=== PATIENT | male | born 1950 | race Caucasian/White ===

== ENCOUNTER 2021-05-07 12:27 | Inpatient (IN) | payer OTHER ==
[2021-05-07] MEDS ORDERED: NA CHLORIDE 0.9% 1,000 ML ONE (13:39)
[2021-05-07 13:44] LABS: Absolute Lymphocytes (CBC) 1.7 K/uL (0.7-4.9); Basophils % 0.4 % (0-1.3); Hematocrit 25.3 % (39.6-49.0); Lymphocytes % 32.9 % (15.3-44.8); MPV 8.4 fL (7.6-11.3); RBC Red Blood Cell Count 2.71 M/uL (4.33-5.43)
[2021-05-07 14:06] LABS: AST/SGOT 16 U/L (15-37); Albumin 3.6 g/dL (3.4-5.0); Alkaline Phosphatase 94 U/L (45-117); BUN Blood Urea Nitrogen 27 mg/dL (7-18); Bicarbonate 31 mmol/L (21-32); Bilirubin Direct < 0.1 mg/dL (0-0.2); Bilirubin Total 0.2 mg/dL (0.2-1.0); Glucose Level 330 mg/dL (74-106); Potassium 4.3 mmol/L (3.5-5.1); Protein, Total 6.9 g/dL (6.4-8.2); Sodium Level 146 mmol/L (136-145)
[2021-05-07 14:38] LABS: ALT/SGPT 24 U/L (12-78)
--- NOTE | 2021-05-07 15:04 | ER ---
Nurse's Notes [facility] Name: Leonides Bui Age: 71 yrs Sex: Male : 1950 Arrival Date: 05/07/2021 Time: 12:27 Bed 8 Private MD: Diagnosis: Diabetes mellitus due to underlying condition with hyperglycemia-with possible overdose of Medication Presentation: 05/07 12:56 Chief complaint: Parent and/or Guardian states: Patient's mother states, "He got ss confused and took this whole bottle of medication that he picked up yesterday thinking it was his daily medication. Dr. Chaves just prescribed it yesterday." Medication is Memantine 5 mg oral tablets # 30. Pt states he feels okay other than being a little groggy and off balance. Coronavirus screen: Client denies travel out of the [place] in the last 14 days. Ebola Screen: Patient denies exposure to infectious person. Patient denies travel to an Ebola-affected area in the 21 days before illness onset. Initial Sepsis Screen: Does the patient meet any 2 criteria? No. Patient's initial sepsis screen is negative. Does the patient have a suspected source of infection? No. Patient's initial sepsis screen is negative. Risk Assessment: Do you want to hurt yourself or someone else? Patient reports no desire to harm self or others. Onset of symptoms was May 07, 2021. 12:56 Method Of Arrival: Ambulatory ss 12:56 Acuity: ADRIANA 3 ss Historical: - Allergies: 12:54 No Known Allergies; ss - PMHx: 12:54 "Back problems"; Memory problems; Diabetes mellitus; ss - PSHx: 12:54 spinal fusion; ss - Immunization history:: Client reports having NOT received the Covid vaccine. - Social history:: Smoking status: Patient denies any tobacco usage or history of. Patient/guardian denies using alcohol, street drugs, The patient lives with family. - Family history:: not pertinent. Screenin:35 Abuse screen: No signs of abuse. Nutritional screening: No deficits noted. Tuberculosis aa5 screening: No symptoms or risk factors identified. Fall Risk Secondary diagnosis (15 points) dementia, IV access (20 points). Mental Status- Overestimates/Forgets Limitations (15 pts.). Total Delgado Fall Scale indicates High Risk Score (45 or more points). Fall prevention measures have been instituted. Side Rails Up X 2 Placed Close to Nursing Station. Assessment: 13:02 Reassessment: Poison control case # [id number] recommends to obtain basic lab work, EKG ss and to give supportive care. Monitor and observe patient until he is at baseline. Some drowsiness is to be expected. 13:10 General: Appears comfortable, Behavior is calm, cooperative. Pain: Denies pain. 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 Speech is normal, Facial symmetry appears normal, Reports feeling dizzy when getting up from sitting or lying position. . Cardiovascular: Heart tones S1 S2 present Rhythm is sinus rhythm. Respiratory: Airway is patent Respiratory effort is even, unlabored, Respiratory pattern is regular, symmetrical. GI: Abdomen is flat, non-distended, Bowel sounds present X 4 quads. Abd is soft and non tender X 4 quads. Patient currently denies nausea, vomiting. : No signs and/or symptoms were reported regarding the genitourinary system. EENT: No signs and/or symptoms were reported regarding the EENT system. Derm: Skin is pink, warm \\T\\ dry. Musculoskeletal: Range of motion: intact in all extremities. 13:40 Neuro: Level of Consciousness is awake, obeys commands, confused, Oriented to person, aa5 place. Respiratory: Airway is patent Respiratory effort is even, unlabored, Respiratory pattern is regular, symmetrical. Derm: Skin is pink, warm \\T\\ dry. 14:27 Reassessment: Pt resting in bed with eyes closed, respirations even and unlabored, skin aa5 is pink/warm/dry. pt easy to arouse to verbal stimuli. . 16:30 Neuro: Level of Consciousness is awake, obeys commands, confused, Oriented to person, aa5 place. Cardiovascular: Rhythm is sinus rhythm. Respiratory: Airway is patent Respiratory effort is even, unlabored, Respiratory pattern is regular, symmetrical. Derm: Skin is pink, warm \\T\\ dry. 16:30 Reassessment: Dr. Samaniego (hospitalist) at bedside. aa5 17:00 Reassessment: Pt's mother contact is [phone] (Cherry Pyeatt). aa5 17:30 Neuro: Level of Consciousness is awake, obeys commands, confused, Oriented to person, aa5 place. Respiratory: Airway is patent Respiratory effort is even, unlabored, Respiratory pattern is regular, symmetrical. Derm: Skin is pink, warm \\T\\ dry. 17:30 Reassessment: Pt sitting up in bed watching TV.. aa5 18:15 Reassessment: Pt given dinner tray. . aa5 18:50 Neuro: Level of Consciousness is awake, obeys commands, confused, Oriented to person, aa5 place. Respiratory: Airway is patent Respiratory effort is even, unlabored, Respiratory pattern is regular, symmetrical. Derm: Skin is pink, warm \\T\\ dry. Vital Signs: 12:54 BP 166 / 77; Pulse 63; Resp 16; Temp 97.8(TE); Pulse Ox 100% on R/A; Weight 68.04 kg; ss Pain 0/10; 13:35 BP 181 / 97; Pulse 62; Resp 16 S; Pulse Ox 98% on R/A; aa5 14:26 BP 172 / 82; Pulse 66; Resp 16 S; Pulse Ox 97% on R/A; aa5 15:55 BP 178 / 91; Pulse 73; Resp 16 S; Pulse Ox 97% on R/A; aa5 18:00 BP 158 / 64; Pulse 72; Resp 18 S; Temp 98.0(TE); Pulse Ox 99% on R/A; aa5 ED Course: 12:27 Patient arrived in ED. mr 12:54 Arm band placed on left wrist. ss 13:01 Triage completed. ss 13:07 Juliana Nugent MD is Attending Physician. ma2 13:10 Patient has correct armband on for positive identification. Placed in gown. Bed in low aa5 position. Call light in reach. Side rails up X2. 13:13 Naa Greene, ANGEL is Primary Nurse. aa5 13:30 Initial lab(s) drawn, by me, sent to lab. Inserted saline lock: 20 gauge in right upper aa5 arm, using aseptic technique. Blood collected. 15:03 Mike Samaniego MD is Hospitalizing Provider. ma2 15:05 UDS sent to lab. aa5 19:13 Primary Nurse role handed off by Naa Greene, RN aa5 19:14 No provider procedures requiring assistance completed. Patient admitted, IV remains in aa5 place. Administered Medications: 13:40 Drug: NS 0.9% 1000 ml Route: IV; Rate: 1 bolus; Site: right upper arm; aa5 15:00 Follow up: IV Status: Completed infusion; IV Intake: 1000ml aa5 Intake: 15:00 IV: 1000ml; Total: 1000ml. aa5 Output: 15:05 Urine: 400ml (Voided); Total: 400ml. aa5 18:15 Urine: 600ml (Voided); Total: 1000ml. aa5 18:50 Urine: 500ml (Voided); Total: 1500ml. aa5 Outcome: 15:03 Decision to Hospitalize by Provider. ma2 19:13 Admitted to Tele accompanied by tech, via wheelchair, with chart, Report called to dino Mahoney RN 19:13 Condition: stable 19:13 Instructed on the need for admit, Demonstrated understanding of instructions. 19:59 Patient left the ED. tt3 Signatures: Nahomy Llamas Audri RN ANGEL [place] [employer] [facility] Rosalind Hill RN RN ss Alzahri, Mohammad, MD MD ma2 Festus Montanez tt3 Corrections: (The following items were deleted from the chart) 17:02 16:30 Reassessment: Dr. Samaniego at bedside. [place] [employer] [facility] aa5 19:14 19:13 Patient left the ED. aa5 aa5
--- NOTE | 2021-05-07 15:04 | EDPHYS ---
Physician Documentation [facility] Name: Leonides Bui Age: 71 yrs Sex: Male : 1950 Arrival Date: 05/07/2021 Time: 12:27 Bed 8 Private MD: ED Physician Juliana Nugent HPI: 05/07 13:23 This 71 yrs old Male presents to ER via Ambulatory with complaints of ma2 Possible Overdose, Took 30 Memantine hcl 5mg. 13:23 Associated signs and symptoms: Pertinent negatives: apnea, burning of skin, ma2 diaphoresis, dizziness, incontinence, tearfulness, visual hallucinations. Severity of symptoms: At their worst the symptoms were moderate in the emergency department the symptoms are unchanged. The patient has not experienced similar symptoms in the past. Historical: - Allergies: 12:54 No Known Allergies; ss - PMHx: 12:54 "Back problems"; Memory problems; Diabetes mellitus; ss - PSHx: 12:54 spinal fusion; ss - Immunization history:: Client reports having NOT received the Covid vaccine. - Social history:: Smoking status: Patient denies any tobacco usage or history of. Patient/guardian denies using alcohol, street drugs, The patient lives with family. - Family history:: not pertinent. ROS: 13:23 Constitutional: Negative for fever, chills, and weight loss. ma2 13:23 All other systems are negative. Exam: 13:23 Constitutional: This is a well developed, well nourished patient who is awake, alert, ma2 and in no acute distress. Head/Face: Normocephalic, atraumatic. Eyes: Pupils equal round and reactive to light, extra-ocular motions intact. Lids and lashes normal. Conjunctiva and sclera are non-icteric and not injected. Cornea within normal limits. Periorbital areas with no swelling, redness, or edema. ENT: Nares patent. No nasal discharge, no septal abnormalities noted. Tympanic membranes are normal and external auditory canals are clear. Oropharynx with no redness, swelling, or masses, exudates, or evidence of obstruction, uvula midline. Mucous membranes moist. Neck: Trachea midline, no thyromegaly or masses palpated, and no cervical lymphadenopathy. Supple, full range of motion without nuchal rigidity, or vertebral point tenderness. No Meningismus. Chest/axilla: Normal chest wall appearance and motion. Nontender with no deformity. No lesions are appreciated. Cardiovascular: Regular rate and rhythm with a normal S1 and S2. No gallops, murmurs, or rubs. Normal PMI, no JVD. No pulse deficits. Respiratory: Lungs have equal breath sounds bilaterally, clear to auscultation and percussion. No rales, rhonchi or wheezes noted. No increased work of breathing, no retractions or nasal flaring. Abdomen/GI: Soft, non-tender, with normal bowel sounds. No distension or tympany. No guarding or rebound. No evidence of tenderness throughout. Back: No spinal tenderness. No costovertebral tenderness. Full range of motion. Skin: Warm, dry with normal turgor. Normal color with no rashes, no lesions, and no evidence of cellulitis. MS/ Extremity: Pulses equal, no cyanosis. Neurovascular intact. Full, normal range of motion. Neuro: Awake and alert, GCS 15, oriented to person, place, time, and situation. Cranial nerves II-XII grossly intact. Motor strength 5/5 in all extremities. Sensory grossly intact. Cerebellar exam normal. Normal gait. Vital Signs: 12:54 BP 166 / 77; Pulse 63; Resp 16; Temp 97.8(TE); Pulse Ox 100% on R/A; Weight 68.04 kg; ss Pain 0/10; 13:35 BP 181 / 97; Pulse 62; Resp 16 S; Pulse Ox 98% on R/A; aa5 14:26 BP 172 / 82; Pulse 66; Resp 16 S; Pulse Ox 97% on R/A; aa5 15:55 BP 178 / 91; Pulse 73; Resp 16 S; Pulse Ox 97% on R/A; aa5 18:00 BP 158 / 64; Pulse 72; Resp 18 S; Temp 98.0(TE); Pulse Ox 99% on R/A; aa5 MDM: 13:07 Patient medically screened. va2 13:23 Differential diagnosis: polypharmacy, over medication, hypoglycemia. va2 15:00 Data reviewed: vital signs, nurses notes. Counseling: I had a detailed discussion with ma2 the patient and/or guardian regarding: the historical points, exam findings, and any diagnostic results supporting the discharge/admit diagnosis, the presence of at least one elevated blood pressure reading (>120/80) during this emergency department visit, the need for outpatient follow up. Response to treatment: the patient's symptoms have markedly improved after treatment. 05/07 13:07 Order name: Acetaminophen [facility] 05/07 13:07 Order name: Basic Metabolic Panel [facility] 05/07 13:07 Order name: CBC with Diff; Complete Time: 13:49 [facility] 05/07 13:07 Order name: ETOH Level; Complete Time: 14:28 [facility] 05/07 13:07 Order name: Hepatic Function; Complete Time: 14:58 [facility] 05/07 13:07 Order name: PT-INR; Complete Time: 14:00 [facility] 05/07 13:07 Order name: Ptt, Activated; Complete Time: 14:00 [facility] 05/07 13:07 Order name: Salicylate; Complete Time: 14:58 [facility] 05/07 13:07 Order name: Urine Drug Screen; Complete Time: 18:30 [facility] 05/07 13:07 Order name: Acetaminophen Level; Complete Time: 14:58 [facility] 05/07 13:07 Order name: Basic Metabolic Panel; Complete Time: 14:58 [facility] 05/07 15:13 Order name: Urine Dipstick-Ancillary; Complete Time: 18:30 [facility] 05/07 16:40 Order name: Hemoglobin A1c [facility] 05/07 16:40 Order name: Hemoglobin A1c [facility] 05/07 13:07 Order name: EKG; Complete Time: 13:08 [facility] 05/07 13:07 Order name: EKG - Nurse/Tech; Complete Time: 13:31 [facility] 05/07 13:07 Order name: IV Saline Lock; Complete Time: 13:31 [facility] 05/07 13:07 Order name: Labs collected and sent; Complete Time: 13:31 [facility] 05/07 13:07 Order name: Urine Dipstick-Ancillary (obtain specimen); Complete Time: 15:15 [facility] 05/07 16:38 Order name: 60g Consistent Carbohydrate (ADA 1800/2000) [facility] 05/07 17:30 Order name: COVID-19 (Coronavirus) Document "Date of Onset" if Symptomatic ss 05/07 18:09 Order name: CORONAVIRUS [facility] 05/07 18:49 Order name: SARS-COV-2 RT PCR EDMS Administered Medications: 13:40 Drug: NS 0.9% 1000 ml Route: IV; Rate: 1 bolus; Site: right upper arm; aa5 15:00 Follow up: IV Status: Completed infusion; IV Intake: 1000ml aa Disposition Summary: 05/07/21 15:03 Hospitalization Ordered Hospitalization Status: Observation ma2 Provider: Mike Samaniego ma Location: Telemetry/MedSurg (observation) ma2 Condition: Stable ma2 Problem: new ma2 Symptoms: are unchanged ma2 Bed/Room Type: Standard [facility] Room Assignment: 211(05/07/21 18:21) bd Diagnosis - Diabetes mellitus due to underlying condition with hyperglycemia - with possible ma2 overdose of Medication Forms: - Medication Reconciliation Form ma2 - SBAR form va2 Signatures: Dispatcher [employer] EDMS Ellie Li Audri RN RN aa5 Rosalind Hill RN RN ss Wilfrido Haddad, NATANAEL PA cp Juliana Nugent MD MD va2 Corrections: (The following items were deleted from the chart) 13:13 13:07 Suicide Screening ([place]) ordered. [facility] aa5 18:21 15:03 ma2 bd
[2021-05-07 15:13] LABS: Urine Blood Negative (Negative); Urine Glucose 2+ (Negative); Urine Protein Negative (Negative); Urine pH 7.5 (5.0-7.0)
[2021-05-07 15:46] LABS: Barbiturates NEGATIVE (NEGATIVE); Benzodiazepines NEGATIVE (NEGATIVE); Cocaine NEGATIVE (NEGATIVE); METHAMPHETAM NEGATIVE (NEGATIVE); Methadone NEGATIVE (NEGATIVE); Opiates NEGATIVE (NEGATIVE); Phencyclidine NEGATIVE (NEGATIVE); THC Cannibis NEGATIVE (NEGATIVE)
--- NOTE | 2021-05-07 16:40 | P.HP ---
Certification for Inpatient Patient admitted to: Observation With expected LOS: <2 Midnights Practitioner: I am a practitioner with admitting privileges, knowledge of patient current condition, hospital course, and medical plan of care. Services: Services provided to patient in accordance with Admission requirements found in Title 42 Section 412.3 of the Code of Federal Regulations Patient History Date of Service: 05/07/21 Reason for admission: Overdose - memantine History of Present Illness: 71-year-old male, PMH: HTN, NIDDM 2, dementia/memory issues Was brought in to the ER due to concern for overdose. Patient allegedly took 30 pills of 5 mg of memantine at some point in the last 16 hours. Patient was just prescribed this medication yesterday. He lives next door, has parents. His mother states he has some memory issues and gets confused with his medications, so she helps him with this. She is unsure when he took the medication, fell once last night/overnight/early this morning. When she checked on the patient this morning, she noted he was having a very unsteady gait, was having to lean against the wall and almost falling over. In the ED, lab work seems to be in his baseline, EKG without any ischemic changes, no QT prolongation. He was noted to be hypertensive to 180/100 and hyperglycemic to 300s. Patient's mother states he did not take his antihyper tensives are diabetes medications this morning. ED physician would like to bring the patient in for observation overnight. Poison control was contacted, recommended observation until patient returns to his baseline. Home medications list reviewed: No - Past Medical/Surgical History -: Hypertension -: Diabetes mellitus type 2, [id number] -: Dementia/memory issues -: spine fusion - Family History Family History: Reviewed- Non-Contributory - Social History Smoking Status: Former smoker (quite few decades ago) Alcohol use: No CD- Drugs: No Place of Residence: Home Review of Systems 10-point ROS is otherwise unremarkable Physical Examination - Physical Exam General: Alert, In no apparent distress, Oriented x3 HEENT: Mucous membr. moist/pink, Sclerae nonicteric Respiratory: Clear to auscultation bilaterally Cardiovascular: No edema, Regular rate/rhythm Capillary refill: <2 Seconds Gastrointestinal: Soft and benign, Non-distended, No tenderness Musculoskeletal: No erythema, No tenderness Integumentary: No rashes, No significant lesion Neurological: Normal speech, Normal strength at 5/5 x4 extr, Cranial nerves 3-12 intact, Normal affect - Studies Laboratory Data (last 24 hrs) 05/07/21 13:30: PT 11.5, INR 1.00, APTT 32.1 05/07/21 13:30: WBC 5.10, Hgb 8.3 L, Hct 25.3 L, Plt Count 207 05/07/21 13:30: Sodium 146 H, Potassium 4.3, BUN 27 H, Creatinine 1.67 H, Glucose 330 H, Total Bilirubin 0.2, AST 16, ALT 24, Alkaline Phosphatase 94 Assessment and Plan - Advance Directives Does patient have a Living Will: No Does patient have a Durable POA for Healthcare: No Physician Review Additional Text: Problem List overdose - memantine Dementia / memory issues Hypertension DM2, non-insulin dependent -patient was confused, unclear when exactly he took the medication -mom states sometime between yesterday evening and this morning, patient thinks he took last night -noted to be hypertensive in ED, hyperglycemic as well -mom reports patient didn't take medications this morning -We will observe patient overnight on telemetry -Restart patient's antihypertensive medication, nifedipine 60 mg daily -Accu-Cheks, sliding scale insulin, need to confirm home dosing, will reports he takes Metformin and pioglitazone -very unsteady gait reported at home, patient has not gotten out of stretcher yet -consult PT VTE: lovenox Code: full Dispo: Anticipate DC home tomorrow Time Spent Managing Pts Care (In Minutes): 60
[2021-05-07] MEDS: NIFEDIPINE XL 60 MG TABLET PO SCH (17:00)
[2021-05-07] MEDS ORDERED: ONDANSETRON 4 MG/2 ML VIAL IV PRN (20:07)
[2021-05-07] MEDS: INSULIN -REGULAR HUMAN 50 UNIT/0.5 ML ML SQ SCH (21:19)
[2021-05-07] MEDS: NA CHLORIDE 0.9% 1,000 ML IV SCH (21:20)
[2021-05-07 23:33] VITALS: BMI 26.5
[2021-05-08 05:32] LABS: Absolute Lymphocytes (CBC) 1.7 K/uL (0.7-4.9); Basophils % 0.3 % (0-1.3); Hematocrit 25.6 % (39.6-49.0); Lymphocytes % 25.8 % (15.3-44.8); MPV 8.1 fL (7.6-11.3); RBC Red Blood Cell Count 2.76 M/uL (4.33-5.43)
[2021-05-08 05:48] LABS: Albumin 3.3 g/dL (3.4-5.0); Bilirubin Total 0.3 mg/dL (0.2-1.0); Magnesium 2.2 mg/dL (1.8-2.4); Potassium 3.8 mmol/L (3.5-5.1); Protein, Total 6.4 g/dL (6.4-8.2)
[2021-05-08] MEDS: INSULIN -REGULAR HUMAN 50 UNIT/0.5 ML ML SQ SCH ×4 (07:30→21:00)
[2021-05-08] MEDS ORDERED: PNEUMOCOCCAL VACCINE 0.5 ML IMVAC ONE (08:00)
[2021-05-08] MEDS: NIFEDIPINE XL 60 MG TABLET PO SCH (08:21)
[2021-05-08] MEDS: ENOXAPARIN 40 MG/0.4 ML SQ SCH (08:22)
[2021-05-08] MEDS: NA CHLORIDE 0.9% 1,000 ML IV SCH (08:22)
--- NOTE | 2021-05-08 12:13 | P.PN ---
Date of Service: 05/08/21 Subjective: No acute events overnight Patient reports feeling a little bit more dizzy this morning, unsteady on his feet still No new complaints Tolerating diet, no nausea/vomiting, no diarrhea, afebrile No events noted on telemetry ROS: 10 point ROS as noted above, otherwise negative Physical exam GEN: Alert, orientedx3, NAD HEENT: Normal conjunctiva, sclera anicteric CV: Regular rate and rhythm, no edema Pulm: Nonlabored respiration on room air ABD: Soft, nontender, nondistended MSK: No joint tenderness Integumentary: No rashes Neuro: Normal speech, normal affect, slight confusion/memory impairment, unsteady gait Problem List overdose - memantine Dementia / memory issues Hypertension DM2, non-insulin dependent -patient was confused, unclear when exactly he took the medication -noted to be hypertensive in ED, hyperglycemic as well, mom reports patient didn't take medications that morning morning -No acute events on telemetry overnight, continue to monitor -Evaluated by physical therapy, patient remains very unsteady, requiring supervision at this time and a walker at minimum -Discussed with patient and family, patient is too unsteady, high risk for fall at this time, did not have proper support for patient -Continue home nifedipine 60 mg daily -Accu-Cheks, sliding scale insulin, need to confirm home dosing, reports he takes Metformin and pioglitazone -continue PT VTE: lovenox Code: full Dispo: Anticipate DC home tomorrow after improvement of his gait Discussed with family, will have a walker, will look for somebody to help supervise patient tomorrow if he is discharged. Time Spent Managing Pts Care (In Minutes): 35
[2021-05-08 21:18] VITALS: O2SAT 98
[2021-05-08] MEDS ORDERED: HALOPERIDOL LACT 5 MG/ML INJ IV PRN (23:58)
[2021-05-09 05:43] LABS: Hematocrit 24.9 % (39.6-49.0); MPV 8.2 fL (7.6-11.3); RBC Red Blood Cell Count 2.68 M/uL (4.33-5.43)
[2021-05-09 05:54] LABS: Potassium 3.8 mmol/L (3.5-5.1)
[2021-05-09] MEDS: INSULIN -REGULAR HUMAN 50 UNIT/0.5 ML ML SQ SCH ×2 (08:27→11:30)
[2021-05-09] MEDS: NIFEDIPINE XL 60 MG TABLET PO SCH (08:28)
[2021-05-09] MEDS: ENOXAPARIN 40 MG/0.4 ML SQ SCH (08:28)
[2021-05-09 08:29] VITALS: BP 152/72
[2021-05-09 10:03] VITALS: TEMP 97.3
--- NOTE | 2021-05-09 16:12 | P.DS ---
Admission Date: 05/08/21 Discharge Date: 05/09/21 Disposition: ROUTINE DISCHARGE Discharge Condition: GOOD Reason for Admission: Overdose - memantine Procedures: Problem List overdose - memantine with unsteady gait Dementia / memory issues Hypertension DM2, non-insulin dependent Brief History of Present Illness: 71-year-old male, PMH: HTN, NIDDM 2, dementia/memory issues Was brought in to the ER due to concern for overdose. Patient allegedly took 30 pills of 5 mg of memantine at some point in the last 16 hours. Patient was just prescribed this medication yesterday. He lives next door, has parents. His mother states he has some memory issues and gets confused with his medications, so she helps him with this. She is unsure when he took the medication, fell once last night/overnight/early this morning. When she checked on the patient this morning, she noted he was having a very unsteady gait, was having to lean against the wall and almost falling over. In the ED, lab work seems to be in his baseline, EKG without any ischemic changes, no QT prolongation. He was noted to be hypertensive to 180/100 and hyperglycemic to 300s. Patient's mother states he did not take his antihypertensives are diabetes medications this morning. ED physician would like to bring the patient in for observation overnight. Poison control was contacted, recommended observation until patient returns to his baseline. Hospital Course: Patient was monitored on telemetry, he was restarted on his home dose of nifedipine. He had improvement of his hypertension, and his hyperglycemia. He was noted to have some unsteadiness of his gait. He was evaluated by physical therapy and determined to be too unsteady/unsafe to be discharged home. He was monitored an additional day, and had improvement of his gait as the medication wore off. He was deemed stable for discharge home. Discussed with his mother, who will keep a closer eye on patient's medications. They plan on having a family friend stay with the patient for the next 1-2 days. Discussed with his neurologist, patient can restart memantine 5 mg daily in 5 days. Follow-up with neurology as previously scheduled. Vital Signs/Physical Exam: Physical exam GEN: Alert, orientedx3, NAD HEENT: Normal conjunctiva, sclera anicteric CV: Regular rate and rhythm, no edema Pulm: Nonlabored respiration on room air ABD: Soft, nontender, nondistended MSK: No joint tenderness Integumentary: No rashes Neuro: Normal speech, normal affect, str 5/5 bilateral upper/lower extremities Temp Pulse Resp BP Pulse Ox 97.3 F 66 18 152/72 H 0 L 05/09/21 08:00 05/09/21 08:28 05/09/21 08:00 05/09/21 08:28 05/09/21 08:00 Laboratory Data at Discharge: WBC 6.50 K/uL (4.3-10.9) 05/09/21 05:05 Hgb 8.2 g/dL (13.6-17.9) L 05/09/21 05:05 Hct 24.9 % (39.6-49.0) L 05/09/21 05:05 Plt Count 197 K/uL (152-406) 05/09/21 05:05 PT 11.5 SECONDS (9.5-12.5) 05/07/21 13:30 INR 1.00 05/07/21 13:30 APTT 32.1 SECONDS (24.3-36.9) 05/07/21 13:30 Sodium 142 mmol/L (136-145) 05/09/21 05:05 Potassium 3.8 mmol/L (3.5-5.1) 05/09/21 05:05 BUN 29 mg/dL (7-18) H 05/09/21 05:05 Creatinine 1.66 mg/dL (0.55-1.3) H 05/09/21 05:05 Glucose 159 mg/dL (74-106) H 05/09/21 05:05 Magnesium 2.0 mg/dL (1.8-2.4) 05/09/21 05:05 Total Bilirubin 0.3 mg/dL (0.2-1.0) 05/08/21 05:02 AST 19 U/L (15-37) 05/08/21 05:02 ALT 23 U/L (12-78) 05/08/21 05:02 Alkaline Phosphatase 65 U/L (45-117) 05/08/21 05:02 Home Medications: Memantine HCl 5 mg PO DAILY 05/08/21 NIFEdipine [Nifedipine ER] 60 mg PO DAILY 05/08/21 Pioglitazone HCl 15 mg PO DAILY 05/08/21 Memantine HCl 5 mg PO DAILY 30 Days #30 05/09/21 New Medications: Memantine HCl 5 mg PO DAILY 30 Days #30 Physician Discharge Instructions: You were found to be unsteady on your feet and mild confusion due to the amount of medication you took (memantine). This improved with time. You were evaluated by physical therapy and were ambulating much better. You are deemed stable for discharge home. Recommend walking with supervision for the next 24-48hrs. Follow up with Neurology in 2-3 weeks Recommend restarting Memantine on Sunday 05/13, 5mg once a day. prescription has been sent. Diet: ADA Activity: Fall precautions Followup: NONE,NONE [Primary Care Provider] - Time spent managing pt's care (in minutes): 45
--- NOTE | 2021-05-09 20:43 | EKG ---
Test Date: 2021-05-07 Test Time: 13:28:02 Safety And Health Manager: JUAN DAVID MEASUREMENT RESULTS: Intervals: Rate: 63 [place]: 172 QRSD: 108 QT: 422 QTc: 431 [place]: P: 67 [place]: 172 QRS: 68 T: 49 INTERPRETIVE STATEMENTS: Normal sinus rhythm Normal ECG No previous ECG available for comparison Electronically Signed On 05-09-21 20:35:49 EDUCATION RESEARCH ANALYST by Benjie Barrett
--- OUTSIDE RECORDS SUMMARY | 2021-05-10 19:14 | XMS REPORT | Continuity of Care Document ---
:1950 Author Organization Formerly [facility] t Address [address] [place] [address] Care Team Providers Name Role Phone WARE Attending Clinician Unavailable Wayne ORTIZ, A Attending Clinician Unavailable Cynthia BOWERS Attending Clinician Case STOKES, Lacie Attending Clinician [phone] ITZEL Attending Clinician Unavailable Case STOKES, Lacie Admitting Clinician [phone] Payers Payer Name Policy Type Policy Number Effective Date Expiration Date S ource Problems Condition Condition Condition Status Onset Resolution Last Treating Co mments Source Name Details Category Date Date Treatment Clinician Date Hypertensi Hypertensi Disease Active 2020-0 U nivers on, on, 02-15 it[place] 00 [facility] Hyperkalem Hyperkalem Disease Active 2020-0 U nivers ia ia 02-15 ity of 00:00: [place] 00 [facility] Allergies, Adverse Reactions, Alerts Allergy Allergy Status Severity Reaction(s) Onset Inactive Treating Comm ents Source Name Type Date Date Clinician NO KNOWN Drug Active Univers ALLERGIE Class ity of S [facility] [place] [facility] Social History Social Habit Start Date Stop Date Quantity Comments Source Sex Assigned At [facility] Medical Branch Exposure to Not sure [facility] SARS-CoV-2 (event) Medica l Branch Tobacco use and 2020-02-16 2020-02-16 Never used [facility] exposure 00:00:00 00:00:00 Medical [place] Smoking Status Start Date Stop Date Source Former smoker 2020-02-16 00:00:00 2020-02-16 00:00:00 [facility] Medications Ordered Filled Start Stop Current Ordering Indication Dosage Frequency Signature Comments Components Source Medication Medication Date Date Medication? Clinician (SIG) Name Name amLODIPine 2020-0 Yes [id number] 10mg Take 1 U nivers 10 mg 8-23 tablet by ity of tablet 00:00: mouth [place] 00 daily. Medical Branch amLODIPine 2019-0 Yes [id number] 10mg Take 1 U nivers 10 mg 8-23 tablet by ity of tablet 00:00: mouth [place] 00 daily. Medical Branch glyBURIDE 2019- 2020- No 5mg Take 5 mg Un mo (DIABETA) 5 8-16 02-22 by mouth ity of mg tablet 16:25: 00:00 daily with [place] 17 :00 breakfast. Medical Branch multivitami 2019-0 2020- No 1{tbl} Take 1 U nivers n tablet -16 02- tablet by ity o f 16:25: 00:00 mouth [place] 16 :00 daily. Medical Branch glyBURIDE 5 2019-0 Yes [id number] 5mg Take 1 Univers mg tablet 8-22 tablet by ity o f 00:00: mouth 2 00 (two) Medical times Branch daily with meals. metFORMIN 2020-0 Yes [id number] 500mg Take 1 U nivers 500 mg 8-22 tablet by ity of tablet 00:00: mouth [place] 00 daily. Medical Branch glyBURIDE 5 2019-0 Yes [id number] 5mg Take 1 Univers mg tablet 8-22 tablet by ity o f 00:00: mouth 2 00 (two) Medical times Branch daily with meals. metFORMIN 2020-0 Yes [id number] 500mg Take 1 U nivers 500 mg 8-22 tablet by ity of tablet 00:00: mouth [place] 00 daily. Medical Branch heparin 2019-0 Yes 5000U 5,000 Univers (porcine) 8-21 Units, ity of injection 19:00: [place]cut[place]o [place] 5,000 Units 00 us, Q8H, Medi christina First dose Branch on Wed02/16/20 at 1400, Until Discontinu ed, Routine Sliding 2019-0 Yes Subcutaneo Univ ers Scale 8-21 us, AC+HS, ity of Insulin-Reg 16:30: First dose [place] ular + Fsbg 00 on Wed Medica l Testing 02/16/20 at Branch 1130, Until Discontinu ed, Routine NaCl 0.45% 2019-0 Yes 1000mL at 100 Uni vers (1/2NS) IV 8- mL/hr, ity of infusion 14:45: 1,000 mL, [place] 1,000 mL 00 IV Medical Infusion, Branch CONTINUOUS , Starting Wed02/16/20 at 0945, Until Discontinu ed, Routine amLODIPine 2020-0 Yes 10mg 10 mg, Unive rs (NORVASC) 02-15 Oral, ity of tablet 10 14:00: DAILY, [place] mg 00 First dose Medical on Wed Branch 02/16/20 at 0900, Until Discontinu ed, Routine insulin 2020-0 2020- No 10U 10 Units, Univ ers regular 02-15 IV Push, ity of human 14:00: 13:56 ONCE, 1 [place] (HUMULIN R) 00 :00 dose, Wed Med ical injection 02/16/20 at Bran ch 10 Units 0900, Routine dextrose 50 2020-0 2020- No 50mL 50 mL, Uni vers % in water 02-15 Slow IV ity o f (D50W) 14:00: 13:56 Push, [place] injection 00 :00 ONCE, 1 Medical 50 mL dose, Fri Branch 02/16/20 at 0900, Routine glyBURIDE 2020-0 Yes 5mg 5 mg, Univers (DIABETA) 02-15 Oral, QAM ity o f tablet 5 mg 13:00: WITH [place] 00 BREAKFAST, Medical First dose Branch on Wed02/16/20 at 0800, Until Discontinu ed, Routine hydralAZINE 2020-0 Yes 10mg 10 mg, [facility] ers (APRESOLINE 02-15 Intravenou it y of ) injection 12:48: s, Q6HPRN, [place] 10 mg 54 Starting Medical Fri Branch 02/16/20 at 0748, Until Discontinu ed, Routine, Hold for SBP < 110, DBP < 60 acetaminoph 2020-0 Yes 650mg 650 mg, Un mo en 02-15 Oral, ity of (TYLENOL) 12:32: Q6HPRN, [place] tablet 650 07 Starting Medic al mg Fri Branch 02/16/20 at 0732, Until Discontinu ed, Routine, Pain (scale 1-3) glucagon 2020-0 Yes 1mg 1 mg, Univers (GLUCAGEN 02-15 Intramuscu ity of DIAGNOSTIC 12:31: lar, PRN, [place] KIT) 22 Starting Medical injection 1 Fri Branch mg 02/16/20 at 0731, Until Discontinu ed, VALERIA, Blood Glucose < or = 70 mg/dL and patient is unable to swallow or has mental changes. dextrose 50 2020-0 Yes 25mL 25 mL, Univ ers % in water 02-15 Slow IV ity of (D50W) 12:31: Push, PRN, [place] injection 22 Starting Medica l 25 mL Fri Branch 02/16/20 at 0731, Until Discontinu ed, VALERIA, Blood Glucose < or = 70 mg/dL and patient is unable to swallow or has mental status changes. HYDROcodone 2019-0 Yes 1{tbl} 1 tablet, Univers -acetaminop 02-15 Oral, ity of hen (NORCO) 12:31: Q6HPRN, [place] 10-325 mg 11 Starting Medica l tablet 1 Wed Branch tablet 02/16/20 at 0731, Until Discontinu ed, Routine, Pain (scale 7-10) traMADoL 2019- 2020- No 50mg 50 mg, Univer s (ULTRAM) 02-15 Oral, ity of tablet 50 12:31: 12:30 Q8HPRN, [place] mg 09 :09 Starting Medical Fri Branch 02/16/20 at 0731, Until 02/18/20 at 0730, Routine, Pain (scale 4-6) furosemide 2019-0 2020- No 40mg 40 mg, IV U nivers (LASIX) 02-15 Push, ity of injection 10:30: 09:39 ONCE, 1 [place] 40 mg 00 :00 dose, [facility] Medical 02/16/20 at Branch 0530, VALERIA calcium 2019-0 2020- No 1g 1 g, IV Univer s gluconate 1 02-15 Infusion, it y of g in NaCl 10:30: 09:38 ONCE, 1 [place] 50 mL 00 :00 dose, Wed Medical (ISO-OSM) 02/16/20 at [facility] RTU IV 0530, infusion 1 Routine g ketorolac 2020- No 10mg Take 1 Unive rs 10 mg 07-28 tablet by ity of tablet 00:00: 00:00 mouth [place] 00 :00 every 6 Medical (six) Branch hours as needed for Pain (scale 4-6). traMADOL 2016-0 Yes 50mg Take 1 Univers (ULTRAM) 50 6-08 tablet by ity of mg tablet 00:00: mouth [place] 00 every 8 Medical (eight) Branch hours as needed for Pain (scale 4-6). traMADOL 2016-0 Yes 50mg Take 1 Univers (ULTRAM) 50 6-08 tablet by ity of mg tablet 00:00: mouth [place] 00 every 8 Medical (eight) Branch hours as needed for Pain (scale 4-6). Vital Signs Vital Name Observation Time Observation Value Comments Source Systolic blood 2020-02-17 16:40:00 125 mm[Hg[facility]astolic blood 2020-02-17 16:40:00 86 mm[Hg] [facility] Heart rate 2020-02-17 16:40:00 66 /min [facility] Body temperature 2020-02-17 16:40:00 36.44 Trudy [facility] Respiratory rate 2020-02-17 16:40:00 18 /min [facility] Oxygen saturation in 2020-02-17 16:40:00 99 /min [facility] Arterial blood by [facility] Pulse oximetry Branch Body weight 2020-02-17 08:11:00 57.199 kg [facility] BMI 2020-02-17 08:11:00 20.35 kg/m2 [facility] Body height 2020-02-16 11:08:00 167.6 cm [facility] Procedures Procedure Date / Time Performing Clinician Source Performed POCT [facility]AUTOMATED[facility] 16:43:00 [facility] POCT GLUCOSE (AUTOMATED) 2020-02-17 [facility] 12:44:00 [facility] IMMUNOGLOBULIN G A M 2020-02-17 Leland Ortega [facility] PANEL 08:35:00 [facility] BASIC METABOLIC PANEL 2020-02-17 [facility] (NA, K, CL, CO2, 08:35:00 [facility] GLUCOSE, BUN, CREATININE, CA) CBC WITH DIFF 2020-02-17 [facility] [place] 08:35:00 Medical Branch POCT GLUCOSE (AUTOMATED) 2020-02-17 [facility] 00:42:00 [facility] POCT GLUCOSE (AUTOMATED) 2020-02-16 [facility] 21:33:00 [facility] CREATININE, URINE RANDOM 2020-02-16 [facility] 19:32:00 [facility] UREA NITROGEN, URINE 2020-02-16 [facility] RANDOM 19:32:00 [facility] POTASSIUM, URINE RANDOM 2020-02-16 [facility] 19:32:00 [facility] Branch SODIUM, URINE RANDOM 2020-02-16 [facility] 19:32:00 [facility] US RENAL WITH DOPPLER 2020-02-16 [facility] 18:20:37 [facility] Branch POCT GLUCOSE (AUTOMATED) 2020-02-16 [facility] 16:06:00 [facility] BASIC METABOLIC PANEL 2020-02-16 [facility] (NA, K, CL, CO2, 15:25:00 Medical Branch GLUCOSE, BUN, CREATININE, CA) POCT GLUCOSE (AUTOMATED) 2020-02-16 [facility] 13:07:00 [facility] URINALYSIS 2020-02-16 [facility] 09:50:00 Medical Branch ADC / LCC - DRUG SCREEN 2020-02-16 [facility] TRIAGE 09:50:00 [facility] Branch COVID-19 (ID NOW RAPID 2020-02-16 [facility] 09:50:00 Medical Branch POTASSIUM SERUM 2020-02-16 [facility] 08:45:00 Medical Branch BASIC METABOLIC PANEL 2020-02-16 [facility] (NA, K, CL, CO2, 08:45:00 Medical Branch GLUCOSE, BUN, CREATININE, CA) XR CHEST 1 [facility]W [facility]02[facility] 08:[facility] Branch TROPONIN I 2020-02-16 [facility] 08:13:00 Medical Branch COMP. METABOLIC PANEL 2020-02-[id number] 08:13:00 Medical Branch CBC WITH DIFF 2020-02-16 [facility] 08:13:00 Medical Branch GLYCOSYLATED HEMOGLOBIN 2020-02-16 Juan Montes [facility] (A1C) 08:13:00 Medical Branch PROTHROMBIN TIME / INR 2020-02-16 [facility] 08[facility]13:00 [facility] Branch EKG-12 LEAD 2020-02-16 [facility] 08:12:15 [facility] EKG-12 LEAD 2020-02-16 [facility] 08:10:35 [facility] [place] Encounters Start End Encounter Admission Attending Care Care Encounter Source Date/Time Date/Time Type Type Clinicians Facility Department ID 2021-03-20 2021-03-20 Outpatient WARE, [facility] [id number] [place] 00:00:00 00:00:[address] [place] [address] 2020-03-07 2020-03-08 Outpatient [facility] [id number] [address] [place] 00:00:00 00:00:[address] 2020-02-19 2020-02-19 Transition Mike Black [id number] Univers 00:00:00 00:00:00 of Care Brian Mahmood [id number] ity of [place] [id number] [facility] [id number] [facility] 403 Branch 2020-02-16 2020-02-17 [facility] [id number] Univers 03:21:00 13:35:00 Encounter Darling Willoughby on [id number] ity of [place] [id number] [facility] [place] [id number] [facility] 081 Branch 2020-02-16 2020-02-16 Emergency X [facility] ERT [id number] Univers 03:21:00 03:21:00 [facility] 2020-02-08 2020-02-08 Outpatient [facility] [id number] [address] [place] 00:00:00 00:00:[address] 2020-02-02 2020-02-02 Emergency DEMETRIUS ROBBINS [facility] [id number] [place] 00:00:00 00:00:[address] Results Test Description Test Time Test Comments Results Result Comments Source IMMUNOGLOBULIN G A M PANEL 2020-02-17 18:39:00 Test Item Value Reference Range Interpretation Comme nts IgA (test code = 8771450252) 207 mg/dL 70-312 IgG (test code = 5690363458) 758 mg/dL 636-1600 IgM (test code = 1248684375) 22 mg/dL 56-352 L Lab Interpretation (test code = 09641-6) Abnormal [facility] GLUCOSE (AUTOMATED)2020-02-17 17:42:00 Test Item Value Reference Range Interpretation Comments POCT GLU (test code = 7182808397) 89 mg/dL 70-110 Lab Interpretation (test code = Normal 18660-4) [facility] GLUCOSE (AUTOMATED)2020-02-17 13:10:00 Test Item Value Reference Range Interpretation Comments POCT GLU (test code = 7835401981) 202 mg/dL 70-110 H Lab Interpretation (test code = Abnormal 25803-0) [facility] Metabolic Panel (NA, K, CL, CO2, GLUCOSE, BUN, CREATININE, CA)2020-02-17 09:43:00 Test Item Value Reference Range Interpretation Comments NA (test code = 134 mmol/L 135-145 L 8412980210) K (test code = 5.2 mmol/L 3.5-5 H 6753517445) CL (test code = 105 mmol/L 98-108 6497365686) CO2 TOTAL (test code = 25 mmol/L 23-31 1213979176) AGAP (test code = 2-16 7584795428) BUN (test code = 35 mg/dL 7-23 H 7118218240) GLUCOSE (test code = 174 mg/dL 70-110 H 2065737001) CREATININE (test code = 1.10 mg/dL 0.6-1.25 8820921560) CALCIUM (test code = 10.0 mg/dL 8.6-10.6 3771574325) eGFR Calculation mL/min/1.73m2 (Non-) (test code = 5067320529) eGFR Calculation mL/min/1.73m2 () (test code = 1130623978) MATTEO (test code = MATTEO) Association of Glomerular Filtration Rate (GFR) and Staging of Kidney Disease* + --+ --+ ------+| GFR (mL/min/1.73 m2) ?| With Kidney Damage ?| ?Without Kidney Damage+ --------+ --------+ +| ?>90 ?| ?Stage one ?| ? Normal ?+ ---+ ---+ -------+| ?60-89 ?| ?Stage two ?| ? Decreased GFR ? + --+ --+ ------+| ?30-59 ?| ?Stage three ?| ? Stage three ? + --+ --+ ------+| ?15-29 ?| ?Stage four ? | ? Stage four ?+ ---+ ---+ -------+| ?<15 (or dialysis) ? ?| ?Stage five ? | ? Stage five ?+ ---+ ---+ -------+ *Each stage assumes the associated GFR level has been in effect for at least three months. ?Stages 1 to 5, with or without kidney disease, indicate chronic kidney disease. Notes: Determination of stages one and two (with eGFR >59mL/min/1.73 m2) requires estimation of kidney damage for at least three months as defined by structural or functional abnormalities of the kidney, manifested by either:Pathological abnormalities or Markers of kidney damage (including abnormalities in the composition of the blood or urine or abnormalities in imaging tests). Lab Interpretation Abnormal (test code = 73920-3) [facility] with [id number] 09:39:00 Test Item Value Reference Range Interpretation Comments WBC (test code = See_Comment [Automated 5731-2) message] The sy stem which generated this result transmitted reference range : 4.20 - 10.70 10*3/?L. The reference range was not used to interpret this result as normal/abnormal . RBC (test code = See_Comment L [Automated 172-8) message] The sy stem which generated this result transmitted reference range : 4.26 - 5.52 10*6/?L. The reference range was not used to interpret this result as normal/abnormal . HGB (test code = 8.7 g/dL 12.2-16.4 L 718-7) HCT (test code = 26.9 % 38.4-49.3 L 4544-3) MCV (test code = 92.8 fL 81.7-95.6 787-2) MCH (test code = 30.0 pg 26.1-32.7 785-6) MCHC (test code = 32.3 g/dL 31.2-35 786-4) RDW-SD (test code = 45.0 fL 38.5-51.6 72871-9) RDW-CV (test code = 13.2 % 12.1-15.4 788-0) PLT (test code = See_Comment [Automated 777-3) message] The sy stem which generated this result transmitted reference range : 150 - 328 10*3/ ?L. The reference r yoselyn was not used to interpret this result as normal/abnormal . MPV (test code = 11.2 fL 9.8-13 91606-6) NRBC/100 WBC (test See_Comment [Automat ed code = 3387239464) message] The system which generated this result transmitted reference range : 0.0 - 10.0 /100 WBCs. The refer ence range was not u sed to interpret th is result as normal/abnormal . NRBC x10^3 (test code <0.01 See_Comment [Auto mated = 2768519700) message] The s ystem which generated this result transmitted reference range : 10*3/?L. The reference range was not used to interpret this result as normal/abnormal . GRAN MAT (NEUT) % 64.3 % (test code = 770-8) IMM GRAN % (test code 0.40 % = 7059950170) LYMPH % (test code = 29.0 % 736-9) MONO % (test code = 4.7 % 5905-5) EOS % (test code = 1.4 % 713-8) BASO % (test code = 0.2 % 706-2) GRAN MAT x10^3(ANC) 3.29 10*3/uL 1.99-6.95 (test code = 1796720876) IMM GRAN x10^3 (test <0.03 0-0.06 code = 6178879341) LYMPH x10^3 (test code 1.48 10*3/uL 1.09-3.23 = 731-0) MONO x10^3 (test code 0.24 10*3/uL 0.36-1.02 L = 742-7) EOS x10^3 (test code = 0.07 10*3/uL 0.06-0.53 711-2) BASO x10^3 (test code <0.03 0.01-0.09 = 704-7) Lab Interpretation Abnormal (test code = 99824-9) [facility]2020-[facility]17 01:00:00 Test Item Value Reference Range Interpretation Comments POCT GLU (test code = 5256416395) 112 mg/dL 70-110 H Lab Interpretation (test code = Abnormal 56529-3) [facility] RENAL WITH [id number] 22:57:36 Impression: Normal size bilateral kidneys with normal echogenicities. Doppler findings are suggestive of B/L renal artery stenosis ( left moresignificant then right ) An MRI angiogram is recommended. . HISTORY: acute renal failure . RENAL ULTRASOUND TECHNIQUE: Limited abdominal ultrasound examination performed evaluatingthe kidneys using ivan scale and color doppler imaging. COMPARISON: None.FINDINGS: Left Kidney: Normal size, contour, and echotexture. ?The left kidneymeasures 10 cm No hydronephrosis The PSV and RI of abdominal aorta at the level of renal arteries is 68.7cm/s and 0.771 respectively. There is aliasing at the origin of left renal artery with PSV within theproximal part 372cm/s and RI of 0.90 (image 88/7) RAR ratio on left is 5.4 on the left side at the ostium of left renalartery. 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 RIGHT KIDNEY: Normal size, contour, and echotexture. The right kidney measures 10 cm (Nohydronephrosis. The proximal right renal artery could not be seen. The PSV in proximal ,mid , distal right ?renal arteries is 48.3, 47.9, and 50.8 cm/srespectively. There is blunted and delayed systolic peak in all these arteries.Acceleration time and index not available. [facility], Radiant Results Inft User - 02/16/2020 5:58 PM CDTHISTORY: acute renal failure . RENAL ULTRASOUNDTECHNIQUE: Limited abdominal ultrasound examination performed evaluatingthe kidneys using ivan scale and color doppler imaging.COMPARISON: None.FINDINGS: Left Kidney: Normal size, contour, and echotexture. 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 The right kidney measures 10 cm (Nohydronephrosis.The proximal right renal artery could not be seen. The PSV in proximal ,mid , distal right renal arteries is 48.3, 47.9, and 50.8 cm/srespectively. There is blunted and delayed systolic peak in all these arteries.Acceleration time and index not available.IMPRESSIONImpression: Normal size bilateral kidneys with normal echogenicities. Doppler findings are suggestive of B/L renal artery stenosis ( left moresignificant then right ) An MRIangiogram is recommended. .[facility], URINE [id number] 22:25:00 Test Item Value Reference Range Interpretation Comments UREA N UR (test code = 7094133007) 187 mg/dL [facility]2020-02-16 21:42:00 Test Item Value Reference Range Interpretation Comments POCT GLU (test code = 1953025326) 84 mg/dL 70-110 Lab Interpretation (test code = Normal 11883-1) [facility], URINE [id number] 19:57:00 Test Item Value Reference Range Interpretation Comments CREAT U (test code = 0992738703) 23.0 mg/dL [facility], URINE [id number] 19:55:00 Test Item Value Reference Range Interpretation Comments NA URINE (test code = 4286668172) 136 mmol/L [facility] CenterPOT[facility]SIUM, URINE [id number] 19:54:00 Test Item Value Reference Range Interpretation Comments K URINE (test code = 2600363050) 23.2 mmol/L [facility] [place] [facility] METABOLIC PANEL (NA, K, CL, CO2, GLUCOSE, BUN, CREATININE, CA)2020-02-16 17:50:00 Test Item Value Reference Range Interpretation Comments NA (test code = 140 mmol/L 135-145 0536698252) K (test code = 5.3 mmol/L 3.5-5 H 9640882516) CL (test code = 108 mmol/L 98-108 9320110148) CO2 TOTAL (test code = 24 mmol/L 23-31 5581813460) AGAP (test code = 2-16 3094427328) BUN (test code = 40 mg/dL 7-23 H 2734764525) GLUCOSE (test code = 125 mg/dL 70-110 H 4261136714) CREATININE (test code = 1.45 mg/dL 0.6-1.25 H 6236921389) CALCIUM (test code = 10.9 mg/dL 8.6-10.6 H 9700963959) eGFR Calculation mL/min/1.73m2 (Non-) (test code = 0474944740) eGFR Calculation mL/min/1.73m2 () (test code = 2902779329) MATTEO (test code = MATTEO) Association of Glomerular Filtration Rate (GFR) and Staging of Kidney Disease* + --+ --+ ------+| GFR (mL/min/1.73 m2) ?| With Kidney Damage ?| ?Without Kidney Damage+ --------+ --------+ +| ?>90 ?| ?Stage one ?| ? Normal ?+ ---+ ---+ -------+| ?60-89 ?| ?Stage two ?| ? Decreased GFR ? + --+ --+ ------+| ?30-59 ?| ?Stage three ?| ? Stage three ? + --+ --+ ------+| ?15-29 ?| ?Stage four ? | ? Stage four ?+ ---+ ---+ -------+| ?<15 (or dialysis) ? ?| ?Stage five ? | ? Stage five ?+ ---+ ---+ -------+ *Each stage assumes the associated GFR level has been in effect for at least three months. ?Stages 1 to 5, with or without kidney disease, indicate chronic kidney disease. Notes: Determination of stages one and two (with eGFR >59mL/min/1.73 m2) requires estimation of kidney damage for at least three months as defined by structural or functional abnormalities of the kidney, manifested by either:Pathological abnormalities or Markers of kidney damage (including abnormalities in the composition of the blood or urine or abnormalities in imaging tests). Lab Interpretation Abnormal (test code = 12490-7) [facility]2020-02-16 16:21:00 Test Item Value Reference Range Interpretation Comments POCT GLU (test code = 1184024169) 120 mg/dL 70-110 H Lab Interpretation (test code = Abnormal 00099-6) [facility] CenterGLYCOSYLATED HEMOGLOBIN (A1C)2020-02-16 14:34:00 Test Item Value Reference Range Interpretation Comments HGB A1C (test code = 9.3 % 4-6 H 4548-4) MATTEO (test code = MATTEO) %A1C (NGSP) Interpretation (ADA)4.8-5.6 ? ? Normal or (Non-Diabetic Range)5.7-6.4 ? ? Increased Risk (Pre-Diabetic)>6.5 ?Diabetes Indicated Lab Interpretation Abnormal (test code = 79520-2) [facility] Center[facility]OLIC PANEL (NA, K, CL, CO2, GLUCOSE, BUN, CREATININE, CA)2020-02-16 13:35:00 Test Item Value Reference Range Interpretation Comments NA (test code = 140 mmol/L 135-145 5564593135) K (test code = 6.1 mmol/L 3.5-5 HH 0675436413) CL (test code = 111 mmol/L 98-108 H 5913753809) CO2 TOTAL (test code = 22 mmol/L 23-31 L 9658932722) AGAP (test code = 2-16 2805023925) BUN (test code = 42 mg/dL 7-23 H 4391427964) GLUCOSE (test code = 116 mg/dL 70-110 H 2217014445) CREATININE (test code = 1.49 mg/dL 0.6-1.25 H 5529539691) CALCIUM (test code = 10.8 mg/dL 8.6-10.6 H 5379899338) eGFR Calculation mL/min/1.73m2 (Non-) (test code = 0689970318) eGFR Calculation mL/min/1.73m2 () (test code = 7478881657) MATTEO (test code = MATTEO) Association of Glomerular Filtration Rate (GFR) and Staging of Kidney Disease* + --+ --+ ------+| GFR (mL/min/1.73 m2) ?| With Kidney Damage ?| ?Without Kidney Damage+ --------+ --------+ +| ?>90 ?| ?Stage one ?| ? Normal ?+ ---+ ---+ -------+| ?60-89 ?| ?Stage two ?| ? Decreased GFR ? + --+ --+ ------+| ?30-59 ?| ?Stage three ?| ? Stage three ? + --+ --+ ------+| ?15-29 ?| ?Stage four ? | ? Stage four ?+ ---+ ---+ -------+| ?<15 (or dialysis) ? ?| ?Stage five ? | ? Stage five ?+ ---+ ---+ -------+ *Each stage assumes the associated GFR level has been in effect for at least three months. ?Stages 1 to 5, with or without kidney disease, indicate chronic kidney disease. Notes: Determination of stages one and two (with eGFR >59mL/min/1.73 m2) requires estimation of kidney damage for at least three months as defined by structural or functional abnormalities of the kidney, manifested by either:Pathological abnormalities or Markers of kidney damage (including abnormalities in the composition of the blood or urine or abnormalities in imaging tests). Lab Interpretation Abnormal (test code = 75612-3) [facility] GLUCOSE (AUTOMATED)2020-02-16 13:09:00 Test Item Value Reference Range Interpretation Comments POCT GLU (test code = 2035982676) 117 mg/dL 70-110 H Lab Interpretation (test code = Abnormal 43274-9) [facility] [id number] 10:52:00 Test Item Value Reference Range Interpretation Comments BENZO U (test code = Negative Negative 9280855508) SCOT U (test code = Negative Negative 9349481936) AMPHET (test code = Negative Negative 9087224818) THC (test code = Negative Negative 1171581419) METHADONE (test code = Negative Negative 8594068505) Meth U (test code = Negative Negative 2843720763) OPIATES (test code = Negative Negative 8556669153) Cocaine Metabolite (test Negative Negative code = 6656649092) PROPOXY (test code = Negative Negative 6120894086) Tric U (test code = Negative Negative 6724345325) PCP (test code = Negative Negative 7262573315) OXYCOD (test code = Negative Negative 9643085478) MATTEO (test code = MATTEO) Urine Drug Cutoff Ranges Benzodiazepines: ? ? 150 ng/mLBarbiturates: ?200 ng/mLAmphetamine: ? 500 ng/mLCannabinoids: ?50 ?ng/mLMethadone: ? 200 ng/mLMethamphetamine: ? ? 500 ng/mL Opiates: ? 100 ng/mL or 2000 ng/mLCocaine: ? 150 ng/mLPropoxyphene: ?300 ng/mLTricyclics: ?300 ng/mLOxycodone: ? 100 ng/mLPCP: ? 25 ?ng/mL The results are to be used only for medical (i.e., treatment) purposes. Unconfirmed screening results must not be used for non-medical purposes (e.g., employment testing, legal testing). Lab Interpretation (test Normal code = 53137-2) [facility]2020-[facility] 10:50:00 Test Item Value Reference Range Interpretation Comments APPEARANCE (test code = Clear Clear 6857809691) COLOR (test code = Yellow Yellow 2547122590) PH (test code = 4.8-8.0 6433451249) SP GRAVITY (test code = 1.003-1.030 9817608357) GLU U QUAL (test code = Normal Normal 9821579643) BLOOD (test code = Negative Negative 7819510022) KETONES (test code = 5 mg/dL Negative A 2356010843) PROTEIN (test code = Negative Negative 2887-8) UROBILIN (test code = Normal Normal 8630521855) BILIRUBIN (test code = Negative Negative 7367017649) NITRITE (test code = Negative Negative 4886356437) LEUK LUISITO (test code = Negative Negative 0966797816) RBC/HPF (test code = See_Comment [Autom ated message] 7073471593) The system [employer] generated this result transmitted ref erence range: 0 - 3 HP F. The reference range was not used to int erpret this result as normal/abnormal . WBC/HPF (test code = <1 See_Comment [Autom ated message] 5235915311) The system [employer] generated this result transmitted ref erence range: 0 - 5 HP F. The reference range was not used to int erpret this result as normal/abnormal . BACTERIA (test code = Few Negative A 1161882939) HYAL CAST (test code = See_Comment [Aut omated message] 9351105379) The system [employer] generated this result transmitted ref erence range: <=2 LPF. The reference range was not used to int erpret this result as normal/abnormal . Lab Interpretation (test Abnormal code = 34751-5) [facility] CenterCOVID[facility] (ID NOW RAPID TESTING)2020-02-16 10:50:00 Test Item Value Reference Range Interpretation Comments SARS-CoV-2 Rapid ID NOW Not Detected Not Detected (test code = 10055-8) MATTEO (test code = MATTEO) ID NOW COVID-19 Assay is an isothermal nucleic acid amplification test intended for the qualitative detection of nucleic acid from SARS-CoV-2 viral RNA in nasopharyngeal (WOOD TURNER) specimens. It is used under Emergency Use Authorization (EUA) by FDA. The limit of detection (LOD) of the assay is 125 Genome Equivalents/mL. A positive result is indicative of the presence of SARS-CoV-2 RNA. ?Clinical correlation with patient history and other diagnostic information is necessary to determine patient infection status. A negative (Not Detected) result does not preclude SARS-CoV-2 infection. In patients with clinical symptoms and other tests that are consistent with SARS-CoV-2 infection, negative results should be treated as presumptive negative and a new specimen should be tested with alternative PCR molecular test. Invalid: Please collect a new specimen for repeat patient testing if clinically indicated. Lab Interpretation Normal (test code = 86367-9) [facility] CenterXR CHEST 1 [id number] 10:39:25 FINDINGS/IMPRESSION: No focal consolidation, pleural effusion, or pneumothorax. Probablecalcified granuloma in the right lower lung is unchanged. The cardiac silhouette is normal in size. Remote left posterior rib fractures Preliminary Report Dictated by Resident: Cory Berumen MD., have reviewed this study and agree with theabove report.EXAM: XR CHEST 1 VW CLINICAL INDICATION: hypertension COMPARISON: 616 TECHNIQUE: A frontal view of the chest was obtained [facility], Radiant Results Inft User - 02/16/2020 5:40 AM CDTEXAM: XR CHEST 1 VWCLINICAL INDICATION: hypertension COMPARISON: 616TECHNIQUE: A frontal view of the chest was obtainedIMPRESSIONFINDINGS/IMPRESSION:No focal cons olidation, pleural effusion, or pneumothorax. Probablecalcified granuloma in the right lower lung isunchanged.The cardiac silhouette is normal in size. Remote left posterior rib fracturesPreliminary Report Dictated by Resident: Cory Wiseman MD., have reviewed this study and agree with theabove report.[facility] CenterPOTASSIUM [id number] 09:00:00 Test Item Value Reference Range Interpretation Comments K (test code = 2995758429) 6.0 mmol/L 3.5-5 H Lab Interpretation (test code = Abnormal 79371-7) [facility] CenterTROPONIN [id number] 08:47:00 Test Item Value Reference Range Interpretation Comments TROPONIN I (test <0.012 See_Comment [Automated code = 4242124053) message] The system which generated this result transmitted reference range : <=0.034 ng/mL. The reference range was not used to interpr et this result as normal/abnormal . MATTEO (test code = Equal or Less than MATTEO) 0.034 ng/ml---Normal ?Note: Cardiac troponin begins to rise 3-4 hours after the onset of ischemia. Repeat in 4-6 hours if the sample was drawn within 3-4 hours of the onset of the symptom and found normal. Between 0.035 and 0.120 ng/mL--- Borderline. Questionable myocardial injury or necrosis ? ?Note: Serial measurement may be necessary to confirm or exclude the diagnosis of myocardial injury or necrosis; Clinical correlation (symptoms, EKGs, imaging studies, and others) required; Repeat in 4-6 hours if clinically indicated. ? Equal or Higher than 0.121 ng/mL---Abnormal. Myocardial Injury or Necrosis Likely ? Biotin has been reported to cause a negative bias, interpret results relative to patient's use of biotin. ? Lab Interpretation Normal (test code = 12437-6) [facility]. METABOLIC PANEL (32711)2020-02-16 08:42:00 Test Item Value Reference Range Interpretation Comments NA (test code = 140 mmol/L 135-145 0266572128) K (test code = 6.2 mmol/L 3.5-5 HH 4340274714) CL (test code = 110 mmol/L 98-108 H 9138377203) CO2 TOTAL (test code = 24 mmol/L 23-31 5654554543) AGAP (test code = 2-16 7991550268) BUN (test code = 40 mg/dL 7-23 H 6200339975) GLUCOSE (test code = 124 mg/dL 70-110 H 8273664083) CREATININE (test code = 1.60 mg/dL 0.6-1.25 H 7247223759) TOTAL BILI (test code = 0.4 mg/dL 0.1-1.2 8150472135) CALCIUM (test code = 11.0 mg/dL 8.6-10.6 H 7376579872) T PROTEIN (test code = 6.9 g/dL 6.3-8.2 4239603977) ALBUMIN (test code = 4.4 g/dL 3.5-5 1092549489) ALK PHOS (test code = 65 U/L 34-122 8706726798) ALTv (test code = 12 U/L 5-50 1742-6) AST(SGOT) (test code = 23 U/L 13-40 3568132900) eGFR Calculation mL/min/1.73m2 (Non-) (test code = 6126070610) eGFR Calculation mL/min/1.73m2 () (test code = 6386678010) MATTEO (test code = MATTEO) Association of Glomerular Filtration Rate (GFR) and Staging of Kidney Disease* + --+ --+ ------+| GFR (mL/min/1.73 m2) ?| With Kidney Damage ?| ?Without Kidney Damage+ --------+ --------+ +| ?>90 ?| ?Stage one ?| ? Normal ?+ ---+ ---+ -------+| ?60-89 ?| ?Stage two ?| ? Decreased GFR ? + --+ --+ ------+| ?30-59 ?| ?Stage three ?| ? Stage three ? + --+ --+ ------+| ?15-29 ?| ?Stage four ? | ? Stage four ?+ ---+ ---+ -------+| ?<15 (or dialysis) ? ?| ?Stage five ? | ? Stage five ?+ ---+ ---+ -------+ *Each stage assumes the associated GFR level has been in effect for at least three months. ?Stages 1 to 5, with or without kidney disease, indicate chronic kidney disease. Notes: Determination of stages one and two (with eGFR >59mL/min/1.73 m2) requires estimation of kidney damage for at least three months as defined by structural or functional abnormalities of the kidney, manifested by either:Pathological abnormalities or Markers of kidney damage (including abnormalities in the composition of the blood or urine or abnormalities in imaging tests). Lab Interpretation Abnormal (test code = 01418-9) [facility] CenterPROTHROMBIN TIME / [id number] 08:34:00 Test Item Value Reference Range Interpretation Comments PROTIME PATIENT (test See_Comment [Auto mated message] code = 5964-2) The system [employer] generated this result transmitted ref erence range: 12.0 - 1 4.7 Seconds. The re ference range was not u sed to interpret this result as normal/abnor mal. INR (test code = 6301-6) Nor mal INR <1.1; Warfarin Therap eutic range 2.0 to 3. 0 or 2.5 to 3.5, dep ending upon the indica tions. Lab Interpretation (test Normal code = 30180-6) [facility] WITH [id number] 08:23:00 Test Item Value Reference Range Interpretation Comments WBC (test code = See_Comment [Automated 1090-2) message] The sy stem which generated this result transmitted reference range : 4.20 - 10.70 10*3/?L. The reference range was not used to interpret this result as normal/abnormal . RBC (test code = See_Comment L [Automated 789-8) message] The sy stem which generated this result transmitted reference range : 4.26 - 5.52 10*6/?L. The reference range was not used to interpret this result as normal/abnormal . HGB (test code = 9.2 g/dL 12.2-16.4 L 718-7) HCT (test code = 29.3 % 38.4-49.3 L 4544-3) MCV (test code = 95.1 fL 81.7-95.6 787-2) MCH (test code = 29.9 pg 26.1-32.7 785-6) MCHC (test code = 31.4 g/dL 31.2-35 786-4) RDW-SD (test code = 46.5 fL 38.5-51.6 75627-7) RDW-CV (test code = 13.4 % 12.1-15.4 788-0) PLT (test code = See_Comment [Automated 777-3) message] The sy stem which generated this result transmitted reference range : 150 - 328 10*3/ ?L. The reference r yoselyn was not used to interpret this result as normal/abnormal . MPV (test code = 10.6 fL 9.8-13 05103-3) NRBC/100 WBC (test See_Comment [Automat ed code = 2462988527) message] The system which generated this result transmitted reference range : 0.0 - 10.0 /100 WBCs. The refer ence range was not u sed to interpret th is result as normal/abnormal . NRBC x10^3 (test code <0.01 See_Comment [Auto mated = 5001374704) message] The s ystem which generated this result transmitted reference range : 10*3/?L. The reference range was not used to interpret this result as normal/abnormal . GRAN MAT (NEUT) % 52.4 % (test code = 770-8) IMM GRAN % (test code 0.30 % = 5477135068) LYMPH % (test code = 38.4 % 736-9) MONO % (test code = 6.6 % 5905-5) EOS % (test code = 1.8 % 713-8) BASO % (test code = 0.5 % 706-2) GRAN MAT x10^3(ANC) 3.16 10*3/uL 1.99-6.95 (test code = 4765099753) IMM GRAN x10^3 (test <0.03 0-0.06 code = 9254222201) LYMPH x10^3 (test code 2.32 10*3/uL 1.09-3.23 = 731-0) MONO x10^3 (test code 0.40 10*3/uL 0.36-1.02 = 742-7) EOS x10^3 (test code = 0.11 10*3/uL 0.06-0.53 711-2) BASO x10^3 (test code 0.03 10*3/uL 0.01-0.09 = 704-7) Lab Interpretation Abnormal (test code = 38752-8) [facility]"
== END 2021-05-09 12:10 | disposition home or self-care (01) | DRG 918 ==
LOC: ER 12:27 → ERHOLD 17:08 → 2ND 19:19 → OBSVTOIN 05-08 13:07
PROVIDERS: ADMIT Hospitalist; ATTEND Hospitalist
DX: T43.8X1A Poisoning by other psychotropic drugs, accidental (unintentional), initial encounter (principal); E11.65 Type 2 diabetes mellitus with hyperglycemia; I10 Essential (primary) hypertension; F03.90 Unspecified dementia, unspecified severity, without behavioral disturbance, psychotic disturbance, mood disturbance, and anxiety; R26.81 Unsteadiness on feet; Z87.891 Personal history of nicotine dependence; Z79.899 Other long term (current) drug therapy; Z20.822 Contact with and (suspected) exposure to COVID-19
CPT/HCPCS: 36415; 80048; 80053; 80076; 80307; 80320; 80329; 81003; 82947; 83036; 83735; 85025; 85027; 85610; 85730; 93005; 94760; 96360; 97116; 97161; 97530; 99285; G0378; J1630; J1650; J7030; U0003

== ENCOUNTER 2022-12-19 08:39 | Emergency (ER) | payer OTHER ==
--- OUTSIDE RECORDS SUMMARY | 2022-12-19 08:47 | XMS REPORT | Continuity of Care Document ---
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 [facility] Arterial blood by [facility] Pulse oximetry [place] Body temperature 2022-07-20 17:47:00 36.39 Trudy [facility] Body height 2022-07-20 17:47:00 160 cm [facility] Body weight 2022-07-20 17:47:00 49.442 kg [facility] BMI 2022-07-20 17:47:00 19.31 kg/m2 [facility] Systolic blood 2022-03-19 19:00:00 117 mm[Hg] [facility] Diastolic blood 2022-03-19 19:00:00 94 mm[facility]Hg] [facility] 2022-03-19 19:00:00 67 /min [facility] Respiratory rate 2022-03-19 19:00:00 17 /min [facility] Oxygen saturation in 2022-03-19 19:00:00 98 /min [facility] of Arterial blood by [facility] Pulse oximetry Branch Body temperature 2022-03-19 17:36:00 36.89 Trudy [facility] [place] Body height 2022-03-19 17:36:00 160 cm [facility] Body weight 2022-03-19 17:36:00 49.76 kg [facility] BMI 2022-03-19 17:36:00 19.43 kg/m2 [facility] Weight 2022-01-05 09:00:00 54.9 KG Height 2021-12-16 00:10:00 160.02 CM Weight 2021-12-16 00:10:00 54.43 KG Weight 2021-12-15 12:00:00 56.69 KG Height 2021-12-13 22:49:00 160.02 CM Weight 2021-12-13 22:49:00 54.43 KG Systolic blood 2020-02-17 16:40:00 125 mm[Hg] Univer sity of pressure [facility] Diastolic blood 2020-02-17 16:40:00 86 mm[Hg] Unive rsity of pressure [facility] Heart rate 2020-02-17 16:40:00 66 /min [facility] [place] Body temperature 2020-02-17 16:40:00 36.44 Trudy [facility] [place] Respiratory rate 2020-02-17 16:40:00 18 /min [facility] [place] Oxygen saturation in 2020-02-17 16:40:00 99 /min [facility] of Arterial blood by [facility] Pulse oximetry Branch Body weight 2020-02-17 08:11:00 57.199 kg [facility] BMI 2020-02-17 08:11:00 20.35 kg/m2 [facility] Body height 2020-02-16 11:08:00 167.6 cm [facility] Procedures Procedure Date / Time Performing Clinician Source Performed CT HEAD WO CONTRAST 2022-07-20 [facility] [place] 23:41:[address] CERVICAL SPINE WO 2022-07-20 [facility] CONTRAST 19:01:[address] HEAD WO CONTRAST 2022-07-20 [facility] [place] 19:01:47 Medical Branch CONSENT/REFUSAL FOR 2022-07-20 Doctor Unassigned, No [facility] DIAGNOSIS AND TREATMENT 17:40:54 Name Medical Branch POCT GLUCOSE (AUTOMATED) 2022-03-19 [facility] 19:20:00 Medical Branch PHOSPHORUS [facility]03-[facility] MAGNESIUM 2022-03-19 [facility] 18:07:00 [facility] COMP. METABOLIC PANEL 2022-03-19 [facility] [place] [facility] ([id number]) 18:07:00 [facility] LIPID PANEL 2022-03-19 [facility] ([id number])(TOTAL 18:07:00 Medical Branch CHOLESTEROL, TRIGLYCERIDES, HDL) CBC WITH DIFF 2022-03-19 [facility] 18:07:00 Medical Branch GLYCOSYLATED HEMOGLOBIN 2022-03-19 [facility] 18:07:00 [facility] POCT GLUCOSE (AUTOMATED) [facility] 17:[facility] CONSENT/REFUSAL FOR 2022-03-19 Doctor Unassigned, No [facility] DIAGNOSIS AND TREATMENT 17:09:04 Name [facility] ASSIGNMENT OF BENEFITS 2021-12-03 Doctor Unassigned, No [facility] 16:00:04 [facility] POCT GLUCOSE (AUTOMATED) 2020-02-17 [facility] 16:43:00 [facility] POCT GLUCOSE (AUTOMATED) 2020-02-17 [facility] 12:44:00 [facility] IMMUNOGLOBULIN G A M 2020-02-17 Leland Ortega [facility] PANEL 08:35:00 Medical Branch BASIC METABOLIC PANEL 2020-02-17 [facility] (NA, K, CL, CO2, 08:35:00 Medical Branch GLUCOSE, BUN, CREATININE, CA) CBC WITH DIFF 2020-02-17 [facility] 08:35:00 Medical Branch POCT GLUCOSE (AUTOMATED) 2020-02-17 [facility] 00:42:00 [facility] POCT GLUCOSE (AUTOMATED) 2020-02-16 [facility] 21:33:00 [facility] CREATININE, URINE RANDOM 2020-02-16 [facility] 19:32:00 [facility] UREA NITROGEN, URINE 2020-02-16 [facility] RANDOM 19:32:00 [facility] POTASSIUM, URINE RANDOM 2020-02-16 [facility] 19:32:00 Medical Branch SODIUM, URINE RANDOM 2020-02-16 [facility] 19:32:00 Medical Branch US RENAL WITH DOPPLER 2020-02-16 [facility] 18:20:37 [facility] POCT GLUCOSE (AUTOMATED) 2020-02-16 [facility] 16:06:00 [facility] BASIC METABOLIC PANEL 2020-02-16 [facility] (NA, K, CL, CO2, 15:25:00 Medical Branch GLUCOSE, BUN, CREATININE, CA) POCT GLUCOSE (AUTOMATED) 2020-02-16 [facility] 13:07:00 [facility] URINALYSIS 2020-02-16 Cynthia [facility] 09:50:00 [facility] ADC / LCC - DRUG SCREEN 2020-02-16 [facility] TRIAGE 09:50:00 [facility] COVID-19 (ID NOW RAPID 2020-02-16 Cynthia [facility] TESTING) 09:50:00 [facility] POTASSIUM SERUM 2020-02-16 Cynthia [facility] 08:45:00 Medical Branch BASIC METABOLIC PANEL 2020-02-16 [facility] ([facility], K, CL, CO2, 08:45:00 Medical Branch GLUCOSE, BUN, CREATININE, CA) XR CHEST 1 VW 2020[facility]02-[facility] 08:26[facility]08 Medical Branch TROPONIN I 2020-02-16 [facility] 08:13:00 [facility] COMP. METABOLIC PANEL 2020-02-16 [facility] ([id number]) 08:13:00 [facility] CBC WITH DIFF 2020-02-16 [facility] 08:13:00 [facility] GLYCOSYLATED HEMOGLOBIN 2020-02-16 Juan Montes [facility] (A1C) 08:13:00 [facility] PROTHROMBIN TIME / INR 2020-02-16 [facility] 08:13:00 [facility] EKG-12 LEAD 2020-02-16 [facility] 08:12:15 [facility] EKG-12 LEAD 2020-02-16 [facility] 08:10:35 [facility] Plan of Care Planned Activity Planned Date Details Comments Source Future Scheduled 2022-12-10 [facility] Test 19:43:10 malignant neoplasm of colon (procedure) [code = 076425626] Future Scheduled 2022-12-10 [facility] 19:43:10 malignant neoplasm of colon (procedure) [code = 852341272] Future Scheduled 2022-12-10 [facility] Test 19:43:10 malignant neoplasm of colon (procedure) [code = 152365436] Future Scheduled 2022-12-10 COVID-19 VACCINE (#1) [facility] Test 19:43:10 [code = COVID-19 VACCINE (#1)] Future Scheduled 2022-12-10 65+ [facility]CCAL [facility] 19:43:10 VACCINE (1 - PCV) [code = 65+ PNEUMOCOCCAL VACCINE (1 - PCV)] Future Scheduled 2022-12-10 [facility] 19:43:10 (procedure) [code = 341505826] Future Scheduled 2022-12-10 [facility] Test 19:43:10 malignant neoplasm of colon (procedure) [code = 353716285] Future Scheduled 2022-12-10 [facility] Test 19:43:10 malignant neoplasm of colon (procedure) [code = 935745158] Future Scheduled 2022-12-10 SHINGLES VACCINES (1 [facility] 19:43:10 of 2) [code = SHINGLES VACCINES (1 of 2)] Future Scheduled 2022-12-10 DIABETIC FOOT [facility]AM [facility] Test 19:43:10 [code = DIABETIC FOOT EXAM] Future Scheduled 2022-12-10 DIABETES: RETINAL EYE [facility] 19:43:10 EXAM [code = DIABETES: RETINAL EYE EXAM] Future Scheduled 2022-12-10 INFLUENZA VACCINE [facility] Test 19:43:10 [code = INFLUENZA VACCINE] Encounters Start End Encounter Admission Attending Care Care Encounter Source Date/Time Date/Time Type Type Clinicians Facility Department ID 2022-07-20 2022-07-20 Emergency [facility] [id number] Univers 11:53:00 18:46:00 LESLIEVERN andres [facility] 2022-07-20 2022-07-20 Emergency [facility] [id number] Univers 11:53:00 18:46:00 Valdez ALEXIS [id number] i ty of [place] 4.2.7.2.686 [facility] [id number] [address] 2022-03-19 2022-03-19 Emergency X [facility] ERT [id number] Univers 12:38:00 15:44:00 BABAR andres [facility] 2022-03-19 2022-03-19 Emergency [facility] [id number] Univers 12:38:00 15:44:00 Babar ALEXIS 350.1.13.10 i ty [facility] 4.2.7.[address] [place] [id number] 2021-12-15 2022-01-20 Inpatient C JAGDISH [facility] [id number] [facility] 19:08:00 19:38:00 AMITA [facility] 2021-12-13 2021-12-15 Outpatient E MARGE, [facility] [id number] 22:16:00 19:00:00 MOTAZ [facility] 2021-12-03 2021-12-03 Outpatient R JOELLE, [facility] [id number] Univers 11:00:00 11:00:00 DIONY campos of [facility] 2021-12-03 2021-12-03 Orders Doctor ELVIN [id number] Univers 00:00:00 00:00:00 Only Unassigned, TIMBO 350.1.13.10 [facility] 4.2.7.2.686 Jose as [id number] [facility] 009 Branch 2021-04-11 2021-04-11 Outpatient R GAL, [facility] [id number] Univers 13:30:00 13:30:00 LUAN itren [facility] 2021-03-20 2021-03-20 Outpatient WARE, [facility] [id number] [place] 00:00:00 00:00:00 DICKSON 908 [place] [facility] 2020-03-07 2020-03-08 Outpatient [facility] [id number] [place] 00:00:00 00:00:[address] 2020-02-19 2020-02-19 Transition Mike Black [id number] Univers 00:00:00 00:00:00 of Care Brian Elizaldey 350.1.13.10 ity of [place] 4[place]7.2.686 [place] [id number] [facility] 403 Branch 2020-02-16 2020-02-17 [facility] Trinidad Marie [facility] 1.2.84 [id number] [id number] Univers 03:21:00 13:35:00 Encounter Darling Willoughby on 350.1.13.10 ity [place] [id number] [facility] 081 Branch 2020-02-16 2020-02-16 Emergency X [facility] ERT [id number] Univers 03:21:00 03:21:00 ity of [facility] 2020-02-08 2020-02-08 Outpatient [facility] [id number] [place] 00:00:00 00:00:[address] 2020-02-02 2020-02-02 Emergency DEMETRIUS ROBBINS [facility] Chauncey [id number] [place] 00:00:00 00:00:[address] Results Test Description Test Time Test Comments Results Result Comments Source GLYCOSYLATED HEMOGLOBIN (A1C) 2022-03-19 19:27:39 Test Item Value Reference Range Interpretation Comme nts HGB A1C (test code = 4548-4) 11.6 % 4-5.7 H MATTEO (test code = MATTEO) Reference RangesNormal: <5.7%Prediabetes: 5.7 - 6.4%Diabetes: > 6.5% Lab Interpretation (test code = 46052-4) [facility] 19:21:42 Test Item Value Reference Range Interpretation Comments POCT GLU (test code = 1018696774) 325 mg/dL 70-110 H Lab Interpretation (test code = Abnormal 48933-4) [facility] (57284)(TOTAL CHOLESTEROL, TRIGLYCERIDES, HDL)2022-03-19 18:40:28 Test Item Value Reference Range Interpretation Comments CHOL (test code = 147 mg/dL 120-200 1090024053) HDL (test code = 55 mg/dL See_Comment [Automated message] 2605042181) The system [employer] generated this result transmit georges reference range : >=40. The refer ence range was not u sed to interpret th is result as normal/abnormal . HDLC RATIO (test code = See_Comment [Au tomated message] 7765983815) The system [employer] generated this result transmit [place] reference range : <=5.0. The refe rence range was not u sed to interpret th is result as normal/abnormal . TRIG (test code = 222 mg/dL 30-170 H 1732003173) LDL CHOL (test code = 48 mg/dL See_Comment [Auto mated message] 66183-7) The system [employer] generated this result transmit [place] reference range : <=160. The refe rence range was not u sed to interpret th is result as normal/abnormal . VLDL (test code = 44 mg/dL 5-60 1613472274) Lab Interpretation (test Abnormal code = 76166-6) [facility] (87998)2022-03-19 18:40:08 Test Item Value Reference Range Interpretation Comments NA (test code = 139 mmol/L 135-145 1259364040) K (test code = 5.0 mmol/L 3.5-5 5659496778) CL (test code = 101 mmol/L 98-108 9954889111) CO2 TOTAL (test code = 29 mmol/L 23-31 5897465391) AGAP (test code = 2-16 5622255229) BUN (test code = 47 mg/dL 7-23 H 7187947412) GLUCOSE (test code = 324 mg/dL 70-110 H 2722470203) CREATININE (test code = 1.47 mg/dL 0.6-1.25 H 1837372669) TOTAL BILI (test code = 0.5 mg/dL 0.1-1.9 0332229516) CALCIUM (test code = 11.0 mg/dL 8.6-10.6 H 9955061402) T PROTEIN (test code = 6.7 g/dL 6.3-8.2 7236206574) ALBUMIN (test code = 4.2 g/dL 3.5-5 4494340067) ALK PHOS (test code = 144 U/L 34-122 H 8225150474) ALTv (test code = 48 U/L 5-50 1742-6) AST(SGOT) (test code = 31 U/L 13-40 7474824342) eGFR (test code = mL/min/1.73m2 0650239567) MATTEO (test code = MATTEO) Association of [...] tests). Lab Interpretation Abnormal (test code = 99062-6) [facility] 18:40:08 Test Item Value Reference Range Interpretation Comments MAGNESIUM (test code = 4450299738) 2.4 mg/dL 1.7-2.4 Lab Interpretation (test code = Normal 37799-3) [facility]2022-[facility] 18:39:47 Test Item Value Reference Range Interpretation Comments PHOSPHORUS (test code = 7943466526) 3.3 mg/dL 2.5-5 Lab Interpretation (test code = Normal 69446-3) [facility] WITH [id number] 18:24:01 Test Item Value Reference Range Interpretation Comments WBC (test code = See_Comment [Automated 0090-2) message] The sy stem which generated this result transmitted reference range : 4.20 - 10.70 10*3/?L. The reference range was not used to interpret this result as normal/abnormal . RBC (test code = See_Comment L [Automated 269-8) message] The sy stem which generated this result transmitted reference range : 4.26 - 5.52 10*6/?L. The reference range was not used to interpret this result as normal/abnormal . HGB (test code = 9.2 g/dL 12.2-16.4 L 718-7) HCT (test code = 28.1 % 38.4-49.3 L 4544-3) MCV (test code = 90.9 fL 81.7-95.6 787-2) MCH (test code = 29.8 pg 26.1-32.7 785-6) MCHC (test code = 32.7 g/dL 31.2-35 786-4) RDW-SD (test code = 48.3 fL 38.5-51.6 48408-7) RDW-CV (test code = 14.6 % 12.1-15.4 788-0) PLT (test code = See_Comment [Automated 777-3) message] The sy stem which generated this result transmitted reference range : 150 - 328 10*3/ ?L. The reference r yoselyn was not used to interpret this result as normal/abnormal . MPV (test code = 11.8 fL 9.8-13 64477-2) NRBC/100 WBC (test See_Comment [Automat ed code = 0103628149) message] The system which generated this result transmitted reference range : 0.0 - 10.0 /100 WBCs. The refer ence range was not u sed to interpret th is result as normal/abnormal . NRBC x10^3 (test code See_Comment [Auto mated = 6493197196) message] The s ystem which generated this result transmitted reference range : 10*3/?L. The reference range was not used to interpret this result as normal/abnormal . GRAN MAT (NEUT) % 71.7 % (test code = 770-8) IMM GRAN % (test code 0.50 % = 6336851791) LYMPH % (test code = 18.7 % 736-9) MONO % (test code = 8.1 % 5905-5) EOS % (test code = 0.8 % 713-8) BASO % (test code = 0.2 % 706-2) GRAN MAT x10^3(ANC) 6.18 10*3/uL 1.99-6.95 (test code = 3348744362) IMM GRAN x10^3 (test 0.04 10*3/uL 0-0.06 code = 7188749343) LYMPH x10^3 (test code 1.61 10*3/uL 1.09-3.23 = 731-0) MONO x10^3 (test code 0.70 10*3/uL 0.36-1.02 = 742-7) EOS x10^3 (test code = 0.07 10*3/uL 0.06-0.53 711-2) BASO x10^3 (test code 0.01-0.09 = 704-7) Lab Interpretation Abnormal (test code = 22746-6) [facility]2022-03-19 17:44:08 Test Item Value Reference Range Interpretation Comments POCT GLU (test code = 2502999260) 318 mg/dL 70-110 H Lab Interpretation (test code = Abnormal 81548-8) [facility] LAB USE [id number] 16:47:00 Test Item Value Reference Range Interpretation Comments GLUCOMETER (test code 108 mg/dL 70-100 H CLEANE D METERMeter ID: = GMG) [id number] tor: 6193 REFUGIO [employer] ARDSON GLUCOMETER GLUCOSE- LAB USE [id number] 11:40:00 Test Item Value Reference Range Interpretation Comments GLUCOMETER (test code 160 mg/dL 70-100 H Meter ID: = GMG) [id number] tor: 6193 REFUGIO [employer] AR[place]ON GLUCOMETER GLUCOSE- LAB USE [id number] 07:31:00 Test Item Value Reference Range Interpretation Comments GLUCOMETER (test code = 81 mg/dL 70-100 Mete r ID: GMG) [id number] tor: 6193 REFUGIO [employer] AR[place]ON GLUCOMETER GLUCOSE- LAB USE [id number] 21:59:00 Test Item Value Reference Range Interpretation Comments GLUCOMETER (test code 205 mg/dL 70-100 H CLEANE D METERMeter ID: = GMG) [id number] tor: 8249 OLABODE OS UMOSU SARS-CoV (RAPID ANTIGEN)2022-01-19 17:13:00 Test Item Value Reference Range Interpretation Comments SARS-CoV (ANTIGEN) NEGATIVE NEGATIVE (test code = COVAG) COVID AG (test This test has been code = COVAGC) marketed under the FDA Emergency Use Authorization (EUA) to meet challenges of the COVID-19 pandemic. The validation standards normally enforced by the FDA and the [employer] of the [employer] (CAP) are more stringent than those required for this test. Therefore, the result should be interpreted with caution and close attention to other clinical and epidemiological data GLUCOMETER GLUCOSE- LAB USE [id number] 16:13:00 Test Item Value Reference Range Interpretation Comments GLUCOMETER (test code 125 mg/dL 70-100 H CLEANE D METERMeter ID: = GMG) [id number] tor: 9867 WILLIAM G ENTILE GLUCOMETER GLUCOSE- LAB USE [id number] 11:17:00 Test Item Value Reference Range Interpretation Comments GLUCOMETER (test code 231 mg/dL 70-100 H CLEANE D METERMeter ID: = GMG) [id number] tor: 9867 WILLIAM G ENTILE GLUCOMETER GLUCOSE- LAB USE [id number] 06:51:00 Test Item Value Reference Range Interpretation Comments GLUCOMETER (test code 129 mg/dL 70-100 H CLEANE D METERMeter ID: = GMG) [id number] tor: 5538 TARECIA EARL RGROVE GLUCOMETER GLUCOSE- LAB USE [id number] 19:38:00 Test Item Value Reference Range Interpretation Comments GLUCOMETER (test code 204 mg/dL 70-100 H CLEANE D METERMeter ID: = GMG) [id number] tor: 5538 TARECIA EARL RGROVE GLUCOMETER GLUCOSE- LAB USE [id number] 17:25:00 Test Item Value Reference Range Interpretation Comments GLUCOMETER (test code 242 mg/dL 70-100 H CLEANE D METERMeter ID: = GMG) [id number] tor: 5066 KENITA COL PAWAN GLUCOMETER GLUCOSE- LAB USE [id number] 12:24:00 Test Item Value Reference Range Interpretation Comments GLUCOMETER (test code 197 mg/dL 70-100 H CLEANE D METERMeter ID: = GMG) [id number] tor: 5066 KENITA COL PAWAN GLUCOMETER GLUCOSE- LAB USE [id number] 09:51:00 Test Item Value Reference Range Interpretation Comments GLUCOMETER (test code 168 mg/dL 70-100 H CLEANE D METERMeter ID: = GMG) [id number] tor: 5066 KENITA COL PAWAN GLUCOMETER GLUCOSE- LAB USE [id number] 19:26:00 Test Item Value Reference Range Interpretation Comments GLUCOMETER (test code 142 mg/dL 70-100 H CLEANE D METERMeter ID: = GMG) [id number] tor: 3549 VANESSA VALDES GLUCOMETER GLUCOSE- LAB USE [id number] 16:26:00 Test Item Value Reference Range Interpretation Comments GLUCOMETER (test code = 214 mg/dL 70-100 H Mete r ID: GMG) [id number] tor: 6771 EMA CHANTALE H GLUCOMETER GLUCOSE- LAB USE [id number] 11:20:00 Test Item Value Reference Range Interpretation Comments GLUCOMETER (test code = 117 mg/dL 70-100 H Mete r ID: GMG) [id number] tor: 6771 EMA CHANTALE H GLUCOMETER GLUCOSE- LAB USE [id number] 07:15:00 Test Item Value Reference Range Interpretation Comments GLUCOMETER (test code = 90 mg/dL 70-100 Mete r ID: GMG) [id number] tor: 6771 EMA CHANTALE H GLUCOMETER GLUCOSE- LAB USE [id number] 20:18:00 Test Item Value Reference Range Interpretation Comments GLUCOMETER (test code 141 mg/dL 70-100 H CLEANE D METERMeter ID: = GMG) [id number] tor: 3549 VANESSA VALDES SARS-CoV (RAPID ANTIGEN)2022-01-16 16:12:00 Test Item Value Reference Range Interpretation Comments SARS-CoV (ANTIGEN) POSITIVE NEGATIVE AA (test code = COVAG) COVID AG (test This test has been code = COVAGC) marketed under the FDA Emergency Use Authorization (EUA) to meet challenges of the COVID-19 pandemic. The validation standards normally enforced by the FDA and the [employer] the [employer] (CAP) are more stringent than those required for this test. Therefore, the result should be interpreted with caution and close attention to other clinical and epidemiological data GLUCOMETER GLUCOSE- LAB USE [id number] 16:09:00 Test Item Value Reference Range Interpretation Comments GLUCOMETER (test code = 213 mg/dL 70-100 H Mete r ID: GMG) [id number] tor: 6680 [facility] GLUCOMETER GLUCOSE- LAB USE [id number] 11:22:00 Test Item Value Reference Range Interpretation Comments GLUCOMETER (test code = 232 mg/dL 70-100 H Mete r ID: GMG) [id number] tor: 6680 [facility] GLUCOMETER GLUCOSE- LAB USE [id number] 07:42:00 Test Item Value Reference Range Interpretation Comments GLUCOMETER (test code = 95 mg/dL 70-100 Mete r ID: GMG) [id number] tor: 6680 [facility] GLUCOMETER GLUCOSE- LAB USE [id number] 18:54:00 Test Item Value Reference Range Interpretation Comments GLUCOMETER (test code 202 mg/dL 70-100 H CLEANE D METERMeter ID: = GMG) [id number] tor: 3549 VANESSA HOBBS OYO GLUCOMETER GLUCOSE- LAB USE [id number] 16:21:00 Test Item Value Reference Range Interpretation Comments GLUCOMETER (test code 109 mg/dL 70-100 H CLEANE D METERMeter ID: = GMG) [id number] tor: 9867 WILLIAM Veronica ENTILE GLUCOMETER GLUCOSE- LAB USE [id number] 11:14:00 Test Item Value Reference Range Interpretation Comments GLUCOMETER (test code = 211 mg/dL 70-100 H Mete r ID: GMG) [id number] tor: 4461 TOI G IBSON GLUCOMETER GLUCOSE- LAB USE [id number] 07:07:00 Test Item Value Reference Range Interpretation Comments GLUCOMETER (test code = 91 mg/dL 70-100 Mete r ID: GMG) [id number] tor: [address] TO[address] G IBSON GLUCOMETER GLUCOSE- LAB USE [id number] 20:09:00 Test Item Value Reference Range Interpretation Comments GLUCOMETER (test code 184 mg/dL 70-100 H CLEANE D METERMeter ID: = GMG) [id number] tor: 3883 LOIS NORMA GLUCOMETER GLUCOSE- LAB USE [id number] 16:04:00 Test Item Value Reference Range Interpretation Comments GLUCOMETER (test code = 71 mg/dL 70-100 PETTY ROBERT METERMeter ID: GMG) [id number] tor: 1328 REFUGIO BESS HY GLUCOMETER GLUCOSE- LAB USE [id number] 11:06:00 Test Item Value Reference Range Interpretation Comments GLUCOMETER (test code 179 mg/dL 70-100 H CLEANE D METERMeter ID: = GMG) [id number] tor: 9867 WILLIAM Anderson ENTILE GLUCOMETER GLUCOSE- LAB USE [id number] 08:08:00 Test Item Value Reference Range Interpretation Comments GLUCOMETER (test code 144 mg/dL 70-100 H Meter ID: = GMG) [id number] tor: 1232 ANGELITO MA SARS-CoV (RAPID ANTIGEN)2022-01-14 07:07:00 Test Item Value Reference Range Interpretation Comments SARS-CoV (ANTIGEN) POSITIVE NEGATIVE AA (test code = COVAG) COVID AG (test This test has been code = COVAGC) marketed under the FDA Emergency Use Authorization (EUA) to meet challenges of the COVID-19 pandemic. The validation standards normally enforced by the FDA and the [employer] (CAP) are more stringent than those required for this test. Therefore, the result should be interpreted with caution and close attention to other clinical and epidemiological data GLUCOMETER GLUCOSE- LAB USE [id number] 20:57:00 Test Item Value Reference Range Interpretation Comments GLUCOMETER (test code 125 mg/dL 70-100 H Meter ID: = GMG) [id number] tor: 1232 ANGELITO MA GLUCOMETER GLUCOSE- LAB USE [id number] 16:35:00 Test Item Value Reference Range Interpretation Comments GLUCOMETER (test code = 158 mg/dL 70-100 H Mete r ID: GMG) [id number] tor: [address] HEAD W/O [id number] 12:28:32 [facility] : 1950 Sex: MCT HEAD WITHOUT CONTRAST.HISTORY: Unspecified fallCOMPARISON: CT head 12/27/2021TECHNIQUE: Axial CT images of thehead were obtained with coronal and/or sagittal reformatted views. Automated exposure control, iterative reconstruction technique, and/or adjustment of mA and/or kV according to patient's size was utilized for radiation dose reduction. IV CONTRAST: None.FINDINGS:Mild amount of periventricular and deepwhite matter hypodensities are seen, these are most commonly associated with chronic, microvascular ischemic changes. Mild atrophy is noted. Atherosclerotic calcification seen along the carotid siphonsand anterior cerebral arteries.No other intracranial abnormalities such as hemorrhage, mass, mass effect, hydrocephalus, midline shift, extra-axial fluid collection or secondary signs of an acute infarct are noted.The calvarium and skull base are intact. Mild thickening of the bilateral maxillary ethmoid sinuses. The mastoid air cells are clear.IMPRESSION:No evidence of acute intracranial abnormality.Chronic microvascular ischemic changes and atrophy.Electronically signed by: Jackie Guardado MD 01/13/2022 12:28 PM CDT [id number] GLUCOSE- LAB USE [id number] 12:23:00 Test Item Value Reference Range Interpretation Comments GLUCOMETER (test code = 72 mg/dL 70-100 PETTY ROBERT METERMeter ID: GMG) [id number] tor: 8605 OLIVIA BATTLES GLUCOMETER GLUCOSE- LAB USE [id number] 07:37:00 Test Item Value Reference Range Interpretation Comments GLUCOMETER (test code = 164 mg/dL 70-100 H Mete r ID: GMG) [id number] tor: 4461 TOI SHIELDSON GLUCOMETER GLUCOSE- LAB USE [id number] 20:55:00 Test Item Value Reference Range Interpretation Comments GLUCOMETER (test code 147 mg/dL 70-100 H CLEANE D METERMeter ID: = GMG) [id number] tor: 7339 BRAD PAN SARS-CoV (RAPID ANTIGEN)2022-01-12 17:53:00 Test Item Value Reference Range Interpretation Comments SARS-CoV (ANTIGEN) POSITIVE NEGATIVE AA (test code = COVAG) COVID AG (test This test has been code = COVAGC) marketed under the FDA Emergency Use Authorization (EUA) to meet challenges of the COVID-19 pandemic. The validation standards normally enforced by the FDA and the [employer] (CAP) are more stringent than those required for this test. Therefore, the result should be interpreted with caution and close attention to other clinical and epidemiological data GLUCOMETER GLUCOSE- LAB USE [id number] 16:36:00 Test Item Value Reference Range Interpretation Comments GLUCOMETER (test code = 82 mg/dL 70-100 PETTY ROBERT METERMeter ID: GMG) [id number] tor: 3912 [facility] MARTINEZ GLUCOMETER GLUCOSE- LAB USE [id number] 07:27:00 Test Item Value Reference Range Interpretation Comments GLUCOMETER (test code 123 mg/dL 70-100 H CLEANE D METERMeter ID: = GMG) [id number] tor: 3912 [facility] MARTINEZ GLUCOMETER GLUCOSE- LAB USE [id number] 19:37:00 Test Item Value Reference Range Interpretation Comments GLUCOMETER (test code 205 mg/dL 70-100 H CLEANE D METERMeter ID: = GMG) [id number] tor: 8913 EVERETT CHENGZ GLUCOMETER GLUCOSE- LAB USE [id number] 17:07:00 Test Item Value Reference Range Interpretation Comments GLUCOMETER (test code 151 mg/dL 70-100 H CLEANE D METERMeter ID: = GMG) [id number] tor: 3912 [facility] MARTINEZ GLUCOMETER GLUCOSE- LAB USE [id number] 11:43:00 Test Item Value Reference Range Interpretation Comments GLUCOMETER (test code 161 mg/dL 70-100 H CLEANE D METERMeter ID: = GMG) [id number] tor: 8605 SnowshoefoodS GLUCOMETER GLUCOSE- LAB USE [id number] 07:40:00 Test Item Value Reference Range Interpretation Comments GLUCOMETER (test code 120 mg/dL 70-100 H CLEANE D METERMeter ID: = GMG) [id number] tor: 8605 OLIVIA BATTLES GLUCOMETER GLUCOSE- LAB USE [id number] 19:59:00 Test Item Value Reference Range Interpretation Comments GLUCOMETER (test code 163 mg/dL 70-100 H CLEANE D METERMeter ID: = GMG) [id number] tor: 8913 [facility] [employer] GLUCOMETER GLUCOSE- LAB USE [id number] 16:31:00 Test Item Value Reference Range Interpretation Comments GLUCOMETER (test code 123 mg/dL 70-100 H CLEANE D METERMeter ID: = GMG) [id number] tor: 8913 [facility] ARTINEZ GLUCOMETER GLUCOSE- LAB USE [id number] 12:28:00 Test Item Value Reference Range Interpretation Comments GLUCOMETER (test code 173 mg/dL 70-100 H CLEANE D METERMeter ID: = GMG) [id number] tor: 8605 OLIVIA BATTLES GLUCOMETER GLUCOSE- LAB USE [id number] 08:21:00 Test Item Value Reference Range Interpretation Comments GLUCOMETER (test code = 136 mg/dL 70-100 H Mete r ID: GMG) [id number] tor: 9867 WILLIAM G ENTILE GLUCOMETER GLUCOSE- LAB USE [id number] 20:14:00 Test Item Value Reference Range Interpretation Comments GLUCOMETER (test code 133 mg/dL 70-100 H CLEANE D METERMeter ID: = GMG) [id number] tor: 5538 TARECIA EARL RGROVE BASIC METABOLIC [id number] 17:51:00 Test Item Value Reference Range Interpretation Comments GLUCOSE (test code 79 mg/dL 75-100 = 06D) SODIUM (test code 137 mmol/L 136-145 = 01A) POTASSIUM (test 4.7 mmol/L 3.6-5.1 code = 01B) CHLORIDE (test 104 mmol/L 98-107 code = 04A) CO2 (test code = 29 mmol/L 20-31 02A) ANION GAP (test 8.7 mmol/L code = ANG) BUN (test code = 30 mg/dL 9-23 H 05D) CREATININE (test 1.6 mg/dL 0.7-1.3 H code = 03E) GFR (test code = 43 See_Comment L [Automated GFR) mL/min/1.73m\\S\\2 message] Th e system which generated this result transmit georg[place] reference range : >=90. The reference range was not used to interpret this result as normal/abnormal . GFR 50 See_Comment L [Automated SWAZI (test mL/min/1.73m\\S\\2 message] The code = GFRAA) system which generated this result transmit georges reference range : >=90. The reference range was not used to interpret this result as normal/abnormal . EGFR (test code = eGFR BY EGFR) CKD-EPI CALCULATION IS NOT RECOMMENDED FOR PATIENTS UNDER 18 YEARS OF AGE. BUN/CREA (test 06-16 code = BCR) CALCIUM (test code 9.4 mg/dL 8.3-10.6 = 09D) GLUCOMETER GLUCOSE- LAB USE [id number] 16:44:00 Test Item Value Reference Range Interpretation Comments GLUCOMETER (test code = 65 mg/dL 70-100 L Mete r ID: GMG) [id number] tor: 9867 WILLIAM LYNNELE GLUCOMETER GLUCOSE- LAB USE [id number] 12:09:00 Test Item Value Reference Range Interpretation Comments GLUCOMETER (test code 235 mg/dL 70-100 H CLEANE D METERMeter ID: = GMG) [id number] tor: [address] [facility] SARS-CoV (RAPID ANTIGEN)2022-01-09 09:19:00 Test Item Value Reference Range Interpretation Comments SARS-CoV (ANTIGEN) POSITIVE NEGATIVE AA (test code = COVAG) COVID AG (test This test has been code = COVAGC) marketed under the FDA Emergency Use Authorization (EUA) to meet challenges of the COVID-19 pandemic. The validation standards normally enforced by the FDA and the [employer] the [employer] (CAP) are more stringent than those required for this test. Therefore, the result should be interpreted with caution and close attention to other clinical and epidemiological data GLUCOMETER GLUCOSE- LAB USE [id number] 08:22:00 Test Item Value Reference Range Interpretation Comments GLUCOMETER (test code 140 mg/dL 70-100 H CLEANE D METERMeter ID: = GMG) [id number] tor: 4622 MALLORY AZEVEDOON GLUCOMETER GLUCOSE- LAB USE [id number] 20:07:00 Test Item Value Reference Range Interpretation Comments GLUCOMETER (test code 148 mg/dL 70-100 H Meter ID: = GMG) [id number] tor: 1232 ANGELITO MA GLUCOMETER GLUCOSE- LAB USE [id number] 19:41:00 Test Item Value Reference Range Interpretation Comments GLUCOMETER (test code 203 mg/dL 70-100 H CLEANE D METERMeter ID: = GMG) [id number] tor: 7339 BRAD ELBERT SON GLUCOMETER GLUCOSE- LAB USE [id number] 16:59:00 Test Item Value Reference Range Interpretation Comments GLUCOMETER (test code = 97 mg/dL 70-100 Mete r ID: GMG) [id number] tor: 6680 FREDDIE JOSE RAMON GLUCOMETER GLUCOSE- LAB USE [id number] 12:14:00 Test Item Value Reference Range Interpretation Comments GLUCOMETER (test code = 213 mg/dL 70-100 H Mete r ID: GMG) [id number] tor: 6680 GALLO JOSE RAMON GLUCOMETER GLUCOSE- LAB USE [id number] 07:59:00 Test Item Value Reference Range Interpretation Comments GLUCOMETER (test code 124 mg/dL 70-100 H CLEANE D METERMeter ID: = GMG) [id number] tor: 9379 WILBERTO TONY IEWHITE GLUCOMETER GLUCOSE- LAB USE [id number] 19:11:00 Test Item Value Reference Range Interpretation Comments GLUCOMETER (test code 190 mg/dL 70-100 H CLEANE D METERMeter ID: = GMG) [id number] tor: 3831 VAL SINGH SARS-CoV (RAPID ANTIGEN)2022-01-07 18:41:00 Test Item Value Reference Range Interpretation Comments SARS-CoV (ANTIGEN) POSITIVE NEGATIVE AA (test code = COVAG) COVID AG (test This test has been code = COVAGC) marketed under the FDA Emergency Use Authorization (EUA) to meet challenges of the COVID-19 pandemic. The validation standards normally enforced by the FDA and the [employer] (CAP) are more stringent than those required for this test. Therefore, the result should be interpreted with caution and close attention to other clinical and epidemiological data GLUCOMETER GLUCOSE- LAB USE [id number] 17:20:00 Test Item Value Reference Range Interpretation Comments GLUCOMETER (test code 107 mg/dL 70-100 H CLEANE D METERMeter ID: = GMG) [id number] tor: 5066 KENAARON WOODRUFF PAWAN GLUCOMETER GLUCOSE- LAB USE [id number] 16:08:00 Test Item Value Reference Range Interpretation Comments GLUCOMETER (test code = 55 mg/dL 70-100 LL Mete r ID: GMG) [id number] tor: 8413 KIT GONZALEZ LL GLUCOMETER GLUCOSE- LAB USE [id number] 11:25:00 Test Item Value Reference Range Interpretation Comments GLUCOMETER (test code = 205 mg/dL 70-100 H Mete r ID: GMG) [id number] tor: 8413 KIT GONZALEZ LL GLUCOMETER GLUCOSE- LAB USE [id number] 06:59:00 Test Item Value Reference Range Interpretation Comments GLUCOMETER (test code 105 mg/dL 70-100 H CLEANE D METERMeter ID: = GMG) [id number] tor: 8605 OLIVIA CORONADOS GLUCOMETER GLUCOSE- LAB USE [id number] 05:47:00 Test Item Value Reference Range Interpretation Comments GLUCOMETER (test code = 94 mg/dL 70-100 Mete r ID: GMG) [id number] tor: [address] NS GLUCOMETER GLUCOSE- LAB USE [id number] 19:10:00 Test Item Value Reference Range Interpretation Comments GLUCOMETER (test code = 183 mg/dL 70-100 H Mete r ID: GMG) [id number] tor: 3831 VAL SINGH GLUCOMETER GLUCOSE- LAB USE [id number] 16:19:00 Test Item Value Reference Range Interpretation Comments GLUCOMETER (test code = 91 mg/dL 70-100 Mete r ID: GMG) [id number] tor: 6771 EMA KENYON H GLUCOMETER GLUCOSE- LAB USE [id number] 11:12:00 Test Item Value Reference Range Interpretation Comments GLUCOMETER (test code 194 mg/dL 70-100 H CLEANE D METERMeter ID: = GMG) [id number] tor: 6771 EMA KENYON H GLUCOMETER GLUCOSE- LAB USE [id number] 07:21:00 Test Item Value Reference Range Interpretation Comments GLUCOMETER (test code 181 mg/dL 70-100 H Meter ID: = GMG) [id number] tor: 9379 WILBERTO CARRERATory IEWHITE GLUCOMETER GLUCOSE- LAB USE [id number] 19:17:00 Test Item Value Reference Range Interpretation Comments GLUCOMETER (test code 156 mg/dL 70-100 H CLEANE D METERMeter ID: = GMG) [id number] tor: 1235 FREDDY MENDY ES GLUCOMETER GLUCOSE- LAB USE [id number] 16:20:00 Test Item Value Reference Range Interpretation Comments GLUCOMETER (test code 119 mg/dL 70-100 H CLEANE D METERMeter ID: = GMG) [id number] tor: 8413 KIT GONZALEZ BASIC METABOLIC [id number] 13:17:00 Test Item Value Reference Range Interpretation Comments GLUCOSE (test code 282 mg/dL 75-100 H = 06D) SODIUM (test code 139 mmol/L 136-145 = 01A) POTASSIUM (test 4.8 mmol/L 3.6-5.1 code = 01B) CHLORIDE (test 101 mmol/L 98-107 code = 04A) CO2 (test code = 33 mmol/L 20-31 H 02A) ANION GAP (test 9.8 mmol/L code = ANG) BUN (test code = 38 mg/dL 9-23 H 05D) CREATININE (test 1.8 mg/dL 0.7-1.3 H code = 03E) GFR (test code = 37 See_Comment L [Automated GFR) mL/min/1.73m\\S\\2 message] Th e system which generated this result transmit georges reference range : >=90. The reference range was not used to interpret this result as normal/abnormal . GFR 43 See_Comment L [Automated SWAZI (test mL/min/1.73m\\S\\2 message] The code = GFRAA) system which generated this result transmit georges reference range : >=90. The reference range was not used to interpret this result as normal/abnormal . EGFR (test code = eGFR BY EGFR) CKD-EPI CALCULATION IS NOT RECOMMENDED FOR PATIENTS UNDER 18 YEARS OF AGE. BUN/CREA (test 21 12-20 H code = BCR) CALCIUM (test code 10.9 mg/dL 8.3-10.6 H = 09D) CBC (INCLUDES AUTOMATED DIFFERENTIAL)2022-01-05 12:55:00 Test Item Value Reference Range Interpretation Comments WBC (test code = WBC) 7.0 10\\S\\3/uL 4.5-11.0 RBC (test code = RBC) 2.94 10\\S\\6/uL 3.80-5.80 L HGB (test code = HBG) 8.6 g/dL 14.0-18.0 L HCT (test code = HCT) 28.2 % 35.0-46.0 L MCV (test code = MCV) 95.9 fL 80.0-94.0 H MCH (test code = MCH) 29.3 pg 27.0-31.0 MCHC (test code = MCHC) 30.5 g/dL 32.0-36.0 L RDW (test code = RDW) 13.8 % 11.5-14.5 PLT (test code = PLT) 281 10\\S\\3/uL 130-400 MPV (test code = MPV) 10.3 fL 9.4-12.4 NEUTROP # (test code = NE#) 4.8 10\\S\\3/uL 2.0-8.0 LYMPH # (test code = LY#) 1.6 10\\S\\3/uL 1.2-4.0 MONOCYTE # (test code = MO#) 0.4 10\\S\\3/uL 0.0-1.1 EOSINOPH # (test code = EO#) 0.1 10\\S\\3/uL 0.0-0.7 BASOPHIL # (test code = BA#) 0.0 10\\S\\3/uL 0.0-0.3 IG # (test code = IG#) 0.02 10\\S\\3/uL 0.00-0.06 NRBC # (test code = NRBC#) 0.00 10\\S\\3/uL 0.00-0.01 NEUTROPH % (test code = NE%) 68.8 % 35.0-73.0 LYMPH % (test code = LY%) 23.3 % 20.0-55.0 MONO % (test code = MO%) 5.9 % 2.5-10.0 EOSINOPH % (test code = EO%) 1.3 % 0.0-5.0 BASOPHIL % (test code = BA%) 0.4 % 0.0-2.0 IG % (test code = IG%) 0.3 % 0.0-0.8 NRBC% (test code = NRBC%) 0.0 % 0.0-0.2 MANDIFF (test code = MDIFF) NO NO RBC MORPH (test code = RBCMOR) NORMAL GLUCOMETER GLUCOSE- LAB USE [id number] 11:19:00 Test Item Value Reference Range Interpretation Comments GLUCOMETER (test code = 291 mg/dL 70-100 H Mete r ID: GMG) [id number] tor: 8959 JUAN WHITE GLUCOMETER GLUCOSE- LAB USE [id number] 07:37:00 Test Item Value Reference Range Interpretation Comments GLUCOMETER (test code 118 mg/dL 70-100 H CLEANE D METERMeter ID: = GMG) [id number] tor: 8413 KITBullionVaultE LL GLUCOMETER GLUCOSE- LAB USE [id number] 19:00:00 Test Item Value Reference Range Interpretation Comments GLUCOMETER (test code 268 mg/dL 70-100 H CLEANE D METERMeter ID: = GMG) [id number] tor: 5538 TARECIA EARL RGROVE GLUCOMETER GLUCOSE- LAB USE [id number] 18:57:00 Test Item Value Reference Range Interpretation Comments GLUCOMETER (test code 141 mg/dL 70-100 H CLEANE D METERMeter ID: = GMG) [id number] tor: 5538 TARECIA EARL RGROVE GLUCOMETER GLUCOSE- LAB USE [id number] 16:51:00 Test Item Value Reference Range Interpretation Comments GLUCOMETER (test code 190 mg/dL 70-100 H CLEANE D METERMeter ID: = GMG) [id number] tor: 8413 KIT GONZALEZ LL GLUCOMETER GLUCOSE- LAB USE [id number] 11:26:00 Test Item Value Reference Range Interpretation Comments GLUCOMETER (test code 191 mg/dL 70-100 H CLEANE D METERMeter ID: = GMG) [id number] tor: 8605 OLIVIA DUARTE GLUCOMETER GLUCOSE- LAB USE [id number] 07:22:00 Test Item Value Reference Range Interpretation Comments GLUCOMETER (test code = 97 mg/dL 70-100 PETTY ROBERT METERMeter ID: GMG) [id number] tor: 8413 KIT GONZALEZ LL GLUCOMETER GLUCOSE- LAB USE [id number] 19:50:00 Test Item Value Reference Range Interpretation Comments GLUCOMETER (test code 297 mg/dL 70-100 H CLEANE D METERMeter ID: = GMG) [id number] tor: 3549 VANESSA GreenYO GLUCOMETER GLUCOSE- LAB USE [id number] 16:12:00 Test Item Value Reference Range Interpretation Comments GLUCOMETER (test code 141 mg/dL 70-100 H CLEANE D METERMeter ID: = GMG) [id number] tor: 5538 TARECIA EARL RGROVE GLUCOMETER GLUCOSE- LAB USE [id number] 16:08:00 Test Item Value Reference Range Interpretation Comments GLUCOMETER (test code 106 mg/dL 70-100 H CLEANE D METERMeter ID: = GMG) [id number] tor: 5538 TARECIA EARL RGROVE GLUCOMETER GLUCOSE- LAB USE [id number] 11:47:00 Test Item Value Reference Range Interpretation Comments GLUCOMETER (test code 154 mg/dL 70-100 H CLEANE D METERMeter ID: = GMG) [id number] tor: 9397 GENTRY Conklin GLUCOMETER GLUCOSE- LAB USE [id number] 07:20:00 Test Item Value Reference Range Interpretation Comments GLUCOMETER (test code 173 mg/dL 70-100 H CLEANE D METERMeter ID: = GMG) [id number] tor: 3912 [facility] MART[facility] GLUCOMETER GLUCOSE- LAB USE [id number] 19:29:00 Test Item Value Reference Range Interpretation Comments GLUCOMETER (test code 268 mg/dL 70-100 H CLEANE D METERMeter ID: = GMG) [id number] tor: 3549 VANESSA VALDES GLUCOMETER GLUCOSE- LAB USE [id number] 16:38:00 Test Item Value Reference Range Interpretation Comments GLUCOMETER (test code 118 mg/dL 70-100 H CLEANE D METERMeter ID: = GMG) [id number] tor: 9397 GENTRY CISNEROSE Ren GLUCOMETER GLUCOSE- LAB USE [id number] 11:23:00 Test Item Value Reference Range Interpretation Comments GLUCOMETER (test code 164 mg/dL 70-100 H CLEANE D METERMeter ID: = GMG) [id number] tor: 8605 OLIVIA DUARTE GLUCOMETER GLUCOSE- LAB USE [id number] 07:23:00 Test Item Value Reference Range Interpretation Comments GLUCOMETER (test code 123 mg/dL 70-100 H CLEANE D METERMeter ID: = GMG) [id number] tor: 9397 GENTRY BASSChaz Y GLUCOMETER GLUCOSE- LAB USE [id number] 19:10:00 Test Item Value Reference Range Interpretation Comments GLUCOMETER (test code 186 mg/dL 70-100 H CLEANE D METERMeter ID: = GMG) [id number] tor: 8913 EVERETT Juanito IESHA GLUCOMETER GLUCOSE- LAB USE [id number] 16:37:00 Test Item Value Reference Range Interpretation Comments GLUCOMETER (test code 168 mg/dL 70-100 H CLEANE D METERMeter ID: = GMG) [id number] tor: 8413 KIT GONZALEZ LL GLUCOMETER GLUCOSE- LAB USE [id number] 11:41:00 Test Item Value Reference Range Interpretation Comments GLUCOMETER (test code 195 mg/dL 70-100 H CLEANE D METERMeter ID: = GMG) [id number] tor: 8413 KIT GONZALEZ LL GLUCOMETER GLUCOSE- LAB USE [id number] 07:38:00 Test Item Value Reference Range Interpretation Comments GLUCOMETER (test code 135 mg/dL 70-100 H CLEANE D METERMeter ID: = GMG) [id number] tor: 8413 KIT GONZALEZ LL GLUCOMETER GLUCOSE- LAB USE [id number] 19:46:00 Test Item Value Reference Range Interpretation Comments GLUCOMETER (test code 227 mg/dL 70-100 H CLEANE D METERMeter ID: = GMG) [id number] tor: 8913 EVERETT JULIAN GLUCOMETER GLUCOSE- LAB USE [id number] 16:52:00 Test Item Value Reference Range Interpretation Comments GLUCOMETER (test code 109 mg/dL 70-100 H CLEANE D METERMeter ID: = GMG) [id number] tor: 9867 WILLIAM LUCAS GLUCOMETER GLUCOSE- LAB USE [id number] 11:57:00 Test Item Value Reference Range Interpretation Comments GLUCOMETER (test code 152 mg/dL 70-100 H CLEANE D METERMeter ID: = GMG) [id number] tor: 8413 KIT GONZALEZ LL GLUCOMETER GLUCOSE- LAB USE [id number] 07:48:00 Test Item Value Reference Range Interpretation Comments GLUCOMETER (test code 164 mg/dL 70-100 H CLEANE D METERMeter ID: = GMG) [id number] tor: 8413 KIT GONZALEZ LL SARS-CoV (RAPID ANTIGEN)2021-12-31 07:05:00 Test Item Value Reference Range Interpretation Comments SARS-CoV (ANTIGEN) NEGATIVE NEGATIVE (test code = COVAG) COVID AG (test This test has been code = COVAGC) marketed under the FDA Emergency Use Authorization (EUA) to meet challenges of the COVID-19 pandemic. The validation standards normally enforced by the FDA and the [employer] the [employer] [employer] (CAP) are more stringent than those required for this test. Therefore, the result should be interpreted with caution and close attention to other clinical and epidemiological data GLUCOMETER GLUCOSE- LAB USE [id number] 19:41:00 Test Item Value Reference Range Interpretation Comments GLUCOMETER (test code 180 mg/dL 70-100 H CLEANE D METERMeter ID: = GMG) [id number] tor: 8249 OLABODE OS UMOSU GLUCOMETER GLUCOSE- LAB USE [id number] 19:23:00 Test Item Value Reference Range Interpretation Comments GLUCOMETER (test code 179 mg/dL 70-100 H CLEANE D METERMeter ID: = GMG) [id number] tor: 7339 BRAD BOSWELL SON GLUCOMETER GLUCOSE- LAB USE [id number] 16:06:00 Test Item Value Reference Range Interpretation Comments GLUCOMETER (test code = 92 mg/dL 70-100 PETTY ROBERT METERMeter ID: GMG) [id number] tor: 8413 KIT GONZALEZ LL GLUCOMETER GLUCOSE- LAB USE [id number] 11:19:00 Test Item Value Reference Range Interpretation Comments GLUCOMETER (test code 297 mg/dL 70-100 H CLEANE D METERMeter ID: = GMG) [id number] tor: 6771 EMA CHANTALE H GLUCOMETER GLUCOSE- LAB USE [id number] 07:30:00 Test Item Value Reference Range Interpretation Comments GLUCOMETER (test code 189 mg/dL 70-100 H CLEANE D METERMeter ID: = GMG) [id number] tor: 6771 EMA CHANTALE H GLUCOMETER GLUCOSE- LAB USE [id number] 18:54:00 Test Item Value Reference Range Interpretation Comments GLUCOMETER (test code 158 mg/dL 70-100 H Meter ID: = GMG) [id number] tor: 1232 ANGELITO ANIL GLUCOMETER GLUCOSE- LAB USE [id number] 16:03:00 Test Item Value Reference Range Interpretation Comments GLUCOMETER (test code 106 mg/dL 70-100 H CLEANE D METERMeter ID: = GMG) [id number] tor: 6771 EMA [place] H GLUCOMETER GLUCOSE- LAB USE [id number] 11:13:00 Test Item Value Reference Range Interpretation Comments GLUCOMETER (test code 264 mg/dL 70-100 H CLEANE D METERMeter ID: = GMG) [id number] tor: 6771 EMA [place] H GLUCOMETER GLUCOSE- LAB USE [id number] 07:25:00 Test Item Value Reference Range Interpretation Comments GLUCOMETER (test code = 98 mg/dL 70-100 PETTY ROBERT METERMeter ID: GMG) [id number] tor: 6[address] H GLUCOMETER GLUCOSE- LAB USE [id number] 07:25:00 Test Item Value Reference Range Interpretation Comments GLUCOMETER (test code 122 mg/dL 70-100 H CLEANE D METERMeter ID: = GMG) [id number] tor: 6771 EMA KENYON H GLUCOMETER GLUCOSE- LAB USE [id number] 19:26:00 Test Item Value Reference Range Interpretation Comments GLUCOMETER (test code 102 mg/dL 70-100 H CLEANE D METERMeter ID: = GMG) [id number] tor: 8913 EVERETT JULIAN GLUCOMETER GLUCOSE- LAB USE [id number] 16:35:00 Test Item Value Reference Range Interpretation Comments GLUCOMETER (test code 214 mg/dL 70-100 H CLEANE D METERMeter ID: = GMG) [id number] tor: 4622 MALLORY CHARBEL ROSEMARIE GLUCOMETER GLUCOSE- LAB USE [id number] 11:26:00 Test Item Value Reference Range Interpretation Comments GLUCOMETER (test code 247 mg/dL 70-100 H CLEANE D METERMeter ID: = GMG) [id number] tor: 4622 MALLORY BARGER ROSEMARIE GLUCOMETER GLUCOSE- LAB USE [id number] 07:24:00 Test Item Value Reference Range Interpretation Comments GLUCOMETER (test code = 131 mg/dL 70-100 H Mete r ID: GMG) [id number] tor: 4622 MALLORY CHARBEL ROSEMARIE GLUCOMETER GLUCOSE- LAB USE [id number] 18:42:00 Test Item Value Reference Range Interpretation Comments GLUCOMETER (test code 229 mg/dL 70-100 H CLEANE D METERMeter ID: = GMG) [id number] tor: 5538 TARECIA EARL RGROVE GLUCOMETER GLUCOSE- LAB USE [id number] 16:55:00 Test Item Value Reference Range Interpretation Comments GLUCOMETER (test code 194 mg/dL 70-100 H CLEANE D METERMeter ID: = GMG) [id number] tor: [address] HEAD W/O [id number] 12:41:35 [facility] : 1950 Sex: MEXAM: CT BRAIN WITHOUT CONTRASTINDICATION: FallsCOMPARISON: December 13, 2021TECHNIQUE: Routine axial noncontrast CTimages of the brain were obtained.IV contrast: None.DLP: 778 mGy-cmFINDINGS: No intra-axial or extra-axial fluid collections are identified. No acute hemorrhage.There are areas of low attenuation within the supratentorial white matter consistent with chronic microvascular ischemic changes. There is mild prominence of the ventricles and sulci consistent with diffuse cerebral volume loss. No midline shift or mass effect. The basal cisterns are patent. The posterior fossa and fourth ventricle are normal.The paranasal sinuses and mastoid air cells are clear. No calvarial lesions. Skull base is intact. Orbits and globes are unremarkable.IMPRESSION:1. No acute intracranial abnormality. No intracranial hemorrhage.2. Chronic microvascular ischemic changes and diffuse cerebral volume loss.LOCATION: [id number] CT exam was performed according to our departmental dose optimization program, which includes automated exposure control, adjustment of the mA and/or kV according to the patient size and/or use of iterative reconstructive technique.Electronically signed by: Melissa Benton MD 12/27/2021 12:41 PM CDT [id number] GLUCOSE- LAB USE ONLY 2021-12-27 11:30:00 Test Item Value Reference Range Interpretation Comments GLUCOMETER (test code 140 mg/dL 70-100 H CLEANE D METERMeter ID: = GMG) [id number] tor: 9379 WILBERTO TONY IEWHITE GLUCOMETER GLUCOSE- LAB USE [id number] 08:03:00 Test Item Value Reference Range Interpretation Comments GLUCOMETER (test code 173 mg/dL 70-100 H CLEANE D METERMeter ID: = GMG) [id number] tor: 9379 WILBERTO TONY IEWHITE SARS-CoV (RAPID ANTIGEN)2021-12-27 07:05:00 Test Item Value Reference Range Interpretation Comments SARS-CoV (ANTIGEN) NEGATIVE NEGATIVE (test code = COVAG) COVID AG (test This test has been code = COVAGC) marketed under the FDA Emergency Use Authorization (EUA) to meet challenges of the COVID-19 pandemic. The validation standards normally enforced by the FDA and the [employer] of the [employer] (CAP) are more stringent than those required for this test. Therefore, the result should be interpreted with caution and close attention to other clinical and epidemiological data GLUCOMETER GLUCOSE- LAB USE [id number] 18:57:00 Test Item Value Reference Range Interpretation Comments GLUCOMETER (test code = 259 mg/dL 70-100 H Mete r ID: GMG) [id number] tor: 3883 LOIS NORMA GLUCOMETER GLUCOSE- LAB USE [id number] 17:52:00 Test Item Value Reference Range Interpretation Comments GLUCOMETER (test code 250 mg/dL 70-100 H CLEANE D METERMeter ID: = GMG) [id number] tor: 9867 WILLIAM G ENTILE GLUCOMETER GLUCOSE- LAB USE [id number] 16:31:00 Test Item Value Reference Range Interpretation Comments GLUCOMETER (test code 181 mg/dL 70-100 H CLEANE D METERMeter ID: = GMG) [id number] tor: 4622 MALLORY CHARBEL ROSEMARIE GLUCOMETER GLUCOSE- LAB USE [id number] 11:41:00 Test Item Value Reference Range Interpretation Comments GLUCOMETER (test code = 192 mg/dL 70-100 H Mete r ID: GMG) [id number] tor: 4461 TOI G IBSON GLUCOMETER GLUCOSE- LAB USE [id number] 07:26:00 Test Item Value Reference Range Interpretation Comments GLUCOMETER (test code = 200 mg/dL 70-100 H Mete r ID: GMG) [id number] tor: 4461 TOI G IBSON GLUCOMETER GLUCOSE- LAB USE [id number] 19:28:00 Test Item Value Reference Range Interpretation Comments GLUCOMETER (test code 103 mg/dL 70-100 H CLEANE D METERMeter ID: = GMG) [id number] tor: 3831 VAL SINGH GLUCOMETER GLUCOSE- LAB USE [id number] 16:02:00 Test Item Value Reference Range Interpretation Comments GLUCOMETER (test code 219 mg/dL 70-100 H CLEANE D METERMeter ID: = GMG) [id number] tor: 3883 KADIEMICHELINEBLANCA GREEN GLUCOMETER GLUCOSE- LAB USE [id number] 11:16:00 Test Item Value Reference Range Interpretation Comments GLUCOMETER (test code 206 mg/dL 70-100 H CLEANE D METERMeter ID: = GMG) [id number] tor: 8605 OLIVIA CORONADOS GLUCOMETER GLUCOSE- LAB USE [id number] 07:52:00 Test Item Value Reference Range Interpretation Comments GLUCOMETER (test code = 75 mg/dL 70-100 PETTY ROBERT METERMeter ID: GMG) [id number] tor: 9397 GENTRY Conklin GLUCOMETER GLUCOSE- LAB USE [id number] 19:45:00 Test Item Value Reference Range Interpretation Comments GLUCOMETER (test code 284 mg/dL 70-100 H Meter ID: = GMG) [id number] tor: 1232 ANGELITO ANIL GLUCOMETER GLUCOSE- LAB USE [id number] 11:23:00 Test Item Value Reference Range Interpretation Comments GLUCOMETER (test code = 78 mg/dL 70-100 Mete r ID: GMG) [id number] tor: 4461 TOI MARTÍNEZ GLUCOMETER GLUCOSE- LAB USE [id number] 07:32:00 Test Item Value Reference Range Interpretation Comments GLUCOMETER (test code = 69 mg/dL 70-100 L PETTY ROBERT METERMeter ID: GMG) [id number] tor: 3912 RANDY GONZALES GLUCOMETER GLUCOSE- LAB USE [id number] 19:06:00 Test Item Value Reference Range Interpretation Comments GLUCOMETER (test code 220 mg/dL 70-100 H CLEANE D METERMeter ID: = GMG) [id number] tor: 3549 VANESSA VALDES GLUCOMETER GLUCOSE- LAB USE [id number] 16:17:00 Test Item Value Reference Range Interpretation Comments GLUCOMETER (test code = 231 mg/dL 70-100 H Mete r ID: GMG) [id number] tor: 6680 GALLO DUNHAMFIELD GLUCOMETER GLUCOSE- LAB USE [id number] 11:18:00 Test Item Value Reference Range Interpretation Comments GLUCOMETER (test code 171 mg/dL 70-100 H CLEANE D METERMeter ID: = GMG) [id number] tor: 6771 [facility] H GLUCOMETER GLUCOSE- LAB USE [id number] 07:15:00 Test Item Value Reference Range Interpretation Comments GLUCOMETER (test code = 182 mg/dL 70-100 H Mete r ID: GMG) [id number] tor: 6771 [facility] SARS-CoV (RAPID ANTIGEN)2021-12-22 20:12:00 Test Item Value Reference Range Interpretation Comments SARS-CoV (ANTIGEN) NEGATIVE NEGATIVE (test code = COVAG) COVID AG (test This test has been code = COVAGC) marketed under the FDA Emergency Use Authorization (EUA) to meet challenges of the COVID-19 pandemic. The validation standards normally enforced by the FDA and the [employer] the [employer] (CAP) are more stringent than those required for this test. Therefore, the result should be interpreted with caution and close attention to other clinical and epidemiological data GLUCOMETER GLUCOSE- LAB USE [id number] 19:18:00 Test Item Value Reference Range Interpretation Comments GLUCOMETER (test code 249 mg/dL 70-100 H CLEANE D METERMeter ID: = GMG) [id number] tor: 5538 TARECIA EARL RGROVE GLUCOMETER GLUCOSE- LAB USE [id number] 16:50:00 Test Item Value Reference Range Interpretation Comments GLUCOMETER (test code = 237 mg/dL 70-100 H Mete r ID: GMG) [id number] tor: 8413 KIT HINOJOSA GLUCOMETER GLUCOSE- LAB USE [id number] 16:49:00 Test Item Value Reference Range Interpretation Comments GLUCOMETER (test code = 211 mg/dL 70-100 H Mete r ID: GMG) [id number] tor: 8413 KIT GONZALEZ COMPREHENSIVE METABOLIC [id number] 16:04:00 Test Item Value Reference Range Interpretation Comments GLUCOSE (test code 185 mg/dL 75-100 H = 06D) SODIUM (test code 140 mmol/L 136-145 = 01A) POTASSIUM (test 3.7 mmol/L 3.6-5.1 code = 01B) CHLORIDE (test 107 mmol/L 98-107 code = 04A) CO2 (test code = 30 mmol/L 20-31 02A) ANION GAP (test 6.7 mmol/L code = ANG) BUN (test code = 26 mg/dL 9-23 H 05D) CREATININE (test 1.1 mg/dL 0.7-1.3 code = 03E) GFR (test code = 68 See_Comment L [Automated GFR) mL/min/1.73m\\S\\2 message] Th e system which generated this result transmit georges reference range : >=90. The reference range was not used to interpret this result as normal/abnormal . GFR 79 See_Comment L [Automated SWAZI (test mL/min/1.73m\\S\\2 message] The code = GFRAA) system which generated this result transmit georges reference range : >=90. The reference range was not used to interpret this result as normal/abnormal . EGFR (test code = eGFR BY EGFR) CKD-EPI CALCULATION IS NOT RECOMMENDED FOR PATIENTS UNDER 18 YEARS OF AGE. BUN/CREA (test 24 12-20 H code = BCR) CALCIUM (test code 9.8 mg/dL 8.3-10.6 = 09D) BILI TOTAL (test 0.5 mg/dL 0.2-1.0 code = 11A) PROTEIN (test code 5.4 g/dL 5.7-8.2 L = 07D) ALBUMIN (test code 3.7 g/dL 3.2-4.8 = 08D) GLOBULIN (test 1.7 g/dL 1.5-3.8 code = GLB) ALB/GLOB (test 2.2 1.0-2.6 code = AGRR) ALK PHOS (test 60 IU/L 46-116 code = 35A) AST (test code = 30 IU/L See_Comment [Automated 30A) message] The system which generated this result transmit georges reference range : <=33. The reference range was not used to interpret this result as normal/abnormal . ALT (test code = 18 IU/L 10-49 31A) CBC (INCLUDES AUTOMATED DIFFERENTIAL)2021-12-22 14:49:00 Test Item Value Reference Range Interpretation Comments WBC (test code = WBC) 8.3 10\\S\\3/uL 4.5-11.0 RBC (test code = RBC) 2.73 10\\S\\6/uL 3.80-5.80 L HGB (test code = HBG) 8.4 g/dL 14.0-18.0 L HCT (test code = HCT) 25.7 % 35.0-46.0 L MCV (test code = MCV) 94.1 fL 80.0-94.0 H MCH (test code = MCH) 30.8 pg 27.0-31.0 MCHC (test code = MCHC) 32.7 g/dL 32.0-36.0 RDW (test code = RDW) 14.1 % 11.5-14.5 PLT (test code = PLT) 203 10\\S\\3/uL 130-400 MPV (test code = MPV) 10.7 fL 9.4-12.4 NEUTROP # (test code = NE#) 5.9 10\\S\\3/uL 2.0-8.0 LYMPH # (test code = LY#) 1.6 10\\S\\3/uL 1.2-4.0 MONOCYTE # (test code = MO#) 0.6 10\\S\\3/uL 0.0-1.1 EOSINOPH # (test code = EO#) 0.1 10\\S\\3/uL 0.0-0.7 BASOPHIL # (test code = BA#) 0.0 10\\S\\3/uL 0.0-0.3 IG # (test code = IG#) 0.02 10\\S\\3/uL 0.00-0.06 NRBC # (test code = NRBC#) 0.00 10\\S\\3/uL 0.00-0.01 NEUTROPH % (test code = NE%) 71.8 % 35.0-73.0 LYMPH % (test code = LY%) 19.6 % 20.0-55.0 L MONO % (test code = MO%) 7.4 % 2.5-10.0 EOSINOPH % (test code = EO%) 0.8 % 0.0-5.0 BASOPHIL % (test code = BA%) 0.2 % 0.0-2.0 IG % (test code = IG%) 0.2 % 0.0-0.8 NRBC% (test code = NRBC%) 0.0 % 0.0-0.2 MANDIFF (test code = MDIFF) NO NO RBC MORPH (test code = RBCMOR) NORMAL GLUCOMETER GLUCOSE- LAB USE [id number] 11:47:00 Test Item Value Reference Range Interpretation Comments GLUCOMETER (test code = 155 mg/dL 70-100 H Mete r ID: GMG) [id number] tor: 4461 TOI G IBSON GLUCOMETER GLUCOSE- LAB USE [id number] 07:25:00 Test Item Value Reference Range Interpretation Comments GLUCOMETER (test code = 89 mg/dL 70-100 Mete r ID: GMG) [id number] tor: 6771 EMA CHANTALE H GLUCOMETER GLUCOSE- LAB USE [id number] 20:21:00 Test Item Value Reference Range Interpretation Comments GLUCOMETER (test code 280 mg/dL 70-100 H CLEANE D METERMeter ID: = GMG) [id number] tor: 0646 SANJEEV Espino ORD GLUCOMETER GLUCOSE- LAB USE [id number] 16:05:00 Test Item Value Reference Range Interpretation Comments GLUCOMETER (test code = 265 mg/dL 70-100 H Mete r ID: GMG) [id number] tor: 4461 TOI G IBSON GLUCOMETER GLUCOSE- LAB USE [id number] 11:27:00 Test Item Value Reference Range Interpretation Comments GLUCOMETER (test code = 171 mg/dL 70-100 H Mete r ID: GMG) [id number] tor: 4461 TOI G IBSON GLUCOMETER GLUCOSE- LAB USE [id number] 08:09:00 Test Item Value Reference Range Interpretation Comments GLUCOMETER (test code = 95 mg/dL 70-100 PETTY ROBERT METERMeter ID: GMG) [id number] tor: 8413 KIT GONZALEZ LL GLUCOMETER GLUCOSE- LAB USE [id number] 19:29:00 Test Item Value Reference Range Interpretation Comments GLUCOMETER (test code 341 mg/dL 70-100 H CLEANE D METERMeter ID: = GMG) [id number] tor: 3549 VANESSA HOBBS OYO GLUCOMETER GLUCOSE- LAB USE [id number] 19:25:00 Test Item Value Reference Range Interpretation Comments GLUCOMETER (test code 374 mg/dL 70-100 H CLEANE D METERMeter ID: = GMG) [id number] tor: 3549 VANESSA HOBBS OYO GLUCOMETER GLUCOSE- LAB USE [id number] 18:43:00 Test Item Value Reference Range Interpretation Comments GLUCOMETER (test code = 266 mg/dL 70-100 H Mete r ID: GMG) [id number] tor: 8913 EVERETT BARNEY GLUCOMETER GLUCOSE- LAB USE [id number] 11:49:00 Test Item Value Reference Range Interpretation Comments GLUCOMETER (test code 196 mg/dL 70-100 H CLEANE D METERMeter ID: = GMG) [id number] tor: 9379 WILBERTO FLORESWHITE GLUCOMETER GLUCOSE- LAB USE [id number] 07:15:00 Test Item Value Reference Range Interpretation Comments GLUCOMETER (test code 187 mg/dL 70-100 H CLEANE D METERMeter ID: = GMG) [id number] tor: 4622 MALLORY HOUSTON GLUCOMETER GLUCOSE- LAB USE [id number] 19:31:00 Test Item Value Reference Range Interpretation Comments GLUCOMETER (test code 124 mg/dL 70-100 H CLEANE D METERMeter ID: = GMG) [id number] tor: 7339 BRAD BOSWELL SON GLUCOMETER GLUCOSE- LAB USE [id number] 15:56:00 Test Item Value Reference Range Interpretation Comments GLUCOMETER (test code = 187 mg/dL 70-100 H Mete r ID: GMG) [id number] tor: 6680 GALLO ALBRIGHT GLUCOMETER GLUCOSE- LAB USE [id number] 11:55:00 Test Item Value Reference Range Interpretation Comments GLUCOMETER (test code 224 mg/dL 70-100 H CLEANE D METERMeter ID: = GMG) [id number] tor: 9379 WILBERTO SATT IEWHITE GLUCOMETER GLUCOSE- LAB USE [id number] 07:35:00 Test Item Value Reference Range Interpretation Comments GLUCOMETER (test code 185 mg/dL 70-100 H CLEANE D METERMeter ID: = GMG) [id number] tor: 9379 WILBERTO SATT IEWHITE GLUCOMETER GLUCOSE- LAB USE [id number] 19:01:00 Test Item Value Reference Range Interpretation Comments GLUCOMETER (test code = 121 mg/dL 70-100 H Mete r ID: GMG) [id number] tor: 3883 CURTMCKENZIE NORMA GLUCOMETER GLUCOSE- LAB USE [id number] 16:28:00 Test Item Value Reference Range Interpretation Comments GLUCOMETER (test code 186 mg/dL 70-100 H CLEANE D METERMeter ID: = GMG) [id number] tor: 3912 [facility] MARTINEZ GLUCOMETER GLUCOSE- LAB USE [id number] 12:27:00 Test Item Value Reference Range Interpretation Comments GLUCOMETER (test code 278 mg/dL 70-100 H CLEANE D METERMeter ID: = GMG) [id number] tor: 3912 [facility] MARTINEZ SARS-CoV (RAPID ANTIGEN)2021-12-18 11:46:00 Test Item Value Reference Range Interpretation Comments SARS-CoV (ANTIGEN) NEGATIVE NEGATIVE (test code = COVAG) COVID AG (test This test has been code = COVAGC) marketed under the FDA Emergency Use Authorization (EUA) to meet challenges of the COVID-19 pandemic. The validation standards normally enforced by the FDA and the [employer] the [place] [employer] (CAP) are more stringent than those required for this test. Therefore, the result should be interpreted with caution and close attention to other clinical and epidemiological data GLUCOMETER GLUCOSE- LAB USE [id number] 08:01:00 Test Item Value Reference Range Interpretation Comments GLUCOMETER (test code = 224 mg/dL 70-100 H Mete r ID: GMG) [id number] tor: 8413 KIT GONZALEZ LL GLUCOMETER GLUCOSE- LAB USE [id number] 01:31:00 Test Item Value Reference Range Interpretation Comments GLUCOMETER (test code = 346 mg/dL 70-100 H Mete r ID: GMG) [id number] tor: 1235 FREDDY HUANG GLUCOMETER GLUCOSE- LAB USE [id number] 01:26:00 Test Item Value Reference Range Interpretation Comments GLUCOMETER (test code 246 mg/dL 70-100 H CLEANE D METERMeter ID: = GMG) [id number] tor: 4622 MALLORY BR ROSEMARIE OSMOLARITY, [id number] 13:40:00 Test Item Value Reference Range Interpretation Comments OSMOLALITY (U) (test 524 mOsm/kg 50-1200 TEST PE RFORMED code = [id number]) AT:[facility] Shu-RUFINA ING47 70 JOES MOIZ NGUYEN [id number] GALLARDO MD GLUCOMETER GLUCOSE- LAB USE [id number] 12:08:00 Test Item Value Reference Range Interpretation Comments GLUCOMETER (test code 239 mg/dL 70-100 H CLEANE D METERMeter ID: = GMG) [id number] tor: 3912 [facility] MARTINEZ GLUCOMETER GLUCOSE- LAB USE [id number] 07:38:00 Test Item Value Reference Range Interpretation Comments GLUCOMETER (test code 251 mg/dL 70-100 H CLEANE D METERMeter ID: = GMG) [id number] tor: 3912 [facility] METABOLIC [id number] 06:18:00 Test Item Value Reference Range Interpretation Comments GLUCOSE (test code 237 mg/dL 75-100 H = 06D) SODIUM (test code 142 mmol/L 136-145 = 01A) POTASSIUM (test 4.5 mmol/L 3.6-5.1 code = 01B) CHLORIDE (test 110 mmol/L 98-107 H code = 04A) CO2 (test code = 27 mmol/L 20-31 02A) ANION GAP (test 9.5 mmol/L code = ANG) BUN (test code = 41 mg/dL 9-23 H 05D) CREATININE (test 1.4 mg/dL 0.7-1.3 H code = 03E) GFR (test code = 51 See_Comment L [Automated GFR) mL/min/1.73m\\S\\2 message] Th e system which generated this result transmit georges reference range : >=90. The reference range was not used to interpret this result as normal/abnormal . GFR 59 See_Comment L [Automated SWAZI (test mL/min/1.73m\\S\\2 message] The code = GFRAA) system which generated this result transmit georges reference range : >=90. The reference range was not used to interpret this result as normal/abnormal . EGFR (test code = eGFR BY EGFR) CKD-EPI CALCULATION IS NOT RECOMMENDED FOR PATIENTS UNDER 18 YEARS OF AGE. BUN/CREA (test 29 12-20 H code = BCR) CALCIUM (test code 10.2 mg/dL 8.3-10.6 = 09D) GLUCOMETER GLUCOSE- LAB USE [id number] 18:47:00 Test Item Value Reference Range Interpretation Comments GLUCOMETER (test code 216 mg/dL 70-100 H CLEANE D METERMeter ID: = GMG) [id number] tor: 5538 TARECIA EARL RGROVE GLUCOMETER GLUCOSE- LAB USE [id number] 16:40:00 Test Item Value Reference Range Interpretation Comments GLUCOMETER (test code = 378 mg/dL 70-100 H Mete r ID: GMG) [id number] tor: 6680 GALL[place] OSWEGO GLUCOMETER GLUCOSE- LAB USE [id number] 15:22:00 Test Item Value Reference Range Interpretation Comments GLUCOMETER (test code = 420 mg/dL 70-100 H Mete r ID: GMG) [id number] tor: 5635 JAVIER ZANDRA GLUCOMETER GLUCOSE- LAB USE [id number] 11:24:00 Test Item Value Reference Range Interpretation Comments GLUCOMETER (test code = 335 mg/dL 70-100 H Mete r ID: GMG) [id number] tor: 4461 TOI G IBSON URINE [id number] 08:52:00 Test Item Value Reference Range Interpretation Comments Culture Observations THREE OR MORE SPECIES (test code = COB1) OF BACTERIA ISOLATED. PROBABLE CONTAMINATION. Culture Observations IDENTIFICATION AND (test code = COB17) SUSCEPTIBILITY NOT INDICATED. RECOLLECTION RECOMMENDED [id number] 07:14:00 Test Item Value Reference Range Interpretation Comments Hb A1C % (test code 3.8 % 3.8-6.4 = HBA) A1C % (test code = HbA1c (% ) A1C) Reference Range Normal <5.7 Prediabetes 5.7-6.4 Diabetic >=6.5 GLUCOMETER GLUCOSE- LAB USE [id number] 07:01:00 Test Item Value Reference Range Interpretation Comments GLUCOMETER (test code 134 mg/dL 70-100 H CLEANE D METERMeter ID: = [facility]) [id number] tor: 5538 TARECIA EARL RGROVE B12 [id number] 06:38:00 Test Item Value Reference Range Interpretation Comments VIT B12 (test code = A60) 1933.0 pg/mL 211.0-911.0 H LIPID [id number] 06:37:00 Test Item Value Reference Range Interpretation Comments CHOLESTROL (test code 233 mg/dL 140-200 H = 44A) TRIGLYCERI (test code 97 mg/dL See_Comment [Auto mated message] = 42B) The system [employer] generated this result transmitted ref erence range: <=149. T he reference range was not used to int erpret this result as normal/abnormal . HDL (test code = 83D) 65.9 mg/dL 40.0-60.0 H LDL (test code = 34B) 158 mg/dL See_Comment H [Auto mated message] The system [employer] generated this result transmitted ref erence range: <=99. Th e reference range was not used to int erpret this result as normal/abnormal . CHL/HDL (test code = 3.5 0.0-3.4 H CHR) [id number] 06:37:00 Test Item Value Reference Range Interpretation Comments MAGNESIUM (test code = 48A) 1.9 mg/dL 1.6-2.6 [id number] 06:24:00 Test Item Value Reference Range Interpretation Comments FOLATE (test code = 19.2 ng/mL See_Comment [Automa georges message] The A75) system which ge nerated this result tra nsmitted reference range : >=5.5. The reference r yoselyn was not used to int erpret this result as normal/abnormal . [id number] 06:20:00 Test Item Value Reference Range Interpretation Comments PREALBUMIN (test code = 08E) 27 mg/dL 10-40 THYROID PANEL/SCREEN (TSH)2021-12-16 06:11:00 Test Item Value Reference Range Interpretation Comments TSH (test code = A57) 1.787 uIU/mL 0.550-4.780 BASIC METABOLIC [id number] 06:03:00 Test Item Value Reference Range Interpretation Comments GLUCOSE (test code 133 mg/dL 75-100 H = 06D) SODIUM (test code 144 mmol/L 136-145 = 01A) POTASSIUM (test 4.0 mmol/L 3.6-5.1 code = 01B) CHLORIDE (test 109 mmol/L 98-107 H code = 04A) CO2 (test code = 27 mmol/L 20-31 02A) ANION GAP (test 11.8 mmol/L code = ANG) BUN (test code = 45 mg/dL 9-23 H 05D) CREATININE (test 1.6 mg/dL 0.7-1.3 H code = 03E) GFR (test code = 44 See_Comment L [Automated GFR) mL/min/1.73m\\S\\2 message] Th e system which generated this result transmit georges reference range : >=90. The reference range was not used to interpret this result as normal/abnormal . GFR 51 See_Comment L [Automated SWAZI (test mL/min/1.73m\\S\\2 message] The code = GFRAA) system which generated this result transmit georges reference range : >=90. The reference range was not used to interpret this result as normal/abnormal . EGFR (test code = eGFR BY EGFR) CKD-EPI CALCULATION IS NOT RECOMMENDED FOR PATIENTS UNDER 18 YEARS OF AGE. BUN/CREA (test 28 12-20 H code = BCR) CALCIUM (test code 10.1 mg/dL 8.3-10.6 = 09D) CBC (INCLUDES AUTOMATED DIFFERENTIAL)2021-12-16 05:52:00 Test Item Value Reference Range Interpretation Comments WBC (test code = WBC) 7.1 10\\S\\3/uL 4.5-11.0 RBC (test code = RBC) 3.06 10\\S\\6/uL 3.80-5.80 L HGB (test code = HBG) 9.1 g/dL 14.0-18.0 L HCT (test code = HCT) 28.7 % 35.0-46.0 L MCV (test code = MCV) 93.8 fL 80.0-94.0 MCH (test code = MCH) 29.7 pg 27.0-31.0 MCHC (test code = MCHC) 31.7 g/dL 32.0-36.0 L RDW (test code = RDW) 13.7 % 11.5-14.5 PLT (test code = PLT) 206 10\\S\\3/uL 130-400 MPV (test code = MPV) 10.5 fL 9.4-12.4 NEUTROP # (test code = NE#) 3.9 10\\S\\3/uL 2.0-8.0 LYMPH # (test code = LY#) 2.4 10\\S\\3/uL 1.2-4.0 MONOCYTE # (test code = MO#) 0.6 10\\S\\3/uL 0.0-1.1 EOSINOPH # (test code = EO#) 0.2 10\\S\\3/uL 0.0-0.7 BASOPHIL # (test code = BA#) 0.0 10\\S\\3/uL 0.0-0.3 IG # (test code = IG#) 0.03 10\\S\\3/uL 0.00-0.06 NRBC # (test code = NRBC#) 0.00 10\\S\\3/uL 0.00-0.01 NEUTROPH % (test code = NE%) 54.6 % 35.0-73.0 LYMPH % (test code = LY%) 34.2 % 20.0-55.0 MONO % (test code = MO%) 7.8 % 2.5-10.0 EOSINOPH % (test code = EO%) 2.4 % 0.0-5.0 BASOPHIL % (test code = BA%) 0.6 % 0.0-2.0 IG % (test code = IG%) 0.4 % 0.0-0.8 NRBC% (test code = NRBC%) 0.0 % 0.0-0.2 MANDIFF (test code = MDIFF) NO NO GLUCOMETER GLUCOSE- LAB USE [id number] 21:28:00 Test Item Value Reference Range Interpretation Comments GLUCOMETER (test code = 241 mg/dL 70-100 H Mete r ID: GMG) [id number] tor: [id number] [place] GLUCOMETER GLUCOSE- LAB USE [id number] 15:53:00 Test Item Value Reference Range Interpretation Comments GLUCOMETER (test code = 100 mg/dL 70-100 Mete r ID: GMG) [id number] tor: [id number] ZUBAIDAH FAIZ GLUCOMETER GLUCOSE- LAB USE [id number] 11:15:00 Test Item Value Reference Range Interpretation Comments GLUCOMETER (test code = 334 mg/dL 70-100 H Mete r ID: GMG) [id number] tor: [id number] ZUBAIDAH FAIZ U/S KIDNEY (RENAL)2021-12-15 07:28:08 [facility] : 1950 Sex: MRENAL SONOGRAM COMPLETELOCATION CODE: H 31HISTORY: Acute nontraumatic kidney injuryTECHNIQUE: Static sonographicimages are provided for interpretation. Grayscale color Doppler images of the kidneys and bladder.COMPARISON: None availableFINDINGS:The right kidney measures 10.9 x 6.1 x 5.5 cm and the left kidney measures 9 x 6.5 x 5.5 cm. Right renal cortex measures 1.3 cm, left renal cortex measures 1.4 cm. The left kidney is smaller compared to the right. Both kidneys demonstrate slightly increased cortical echogenicity.No hydronephrosis/obstruction bilaterally.Urinary bladder is notably distended with bladdervolume at time of exam 1690ml. Bilateral vesicoureteral jets are seen.IMPRESSION:1. Noticeably distended urinary bladder however no gross hydronephrosis/obstruction.2. Mildly increased renal cortical echogenicity suggest some chronic component to renal disease.Electronically signed by: Lizzy Carrasco MD 12/15/2021 7:28 AM CDT [id number] METABOLIC [id number] 04:28:00 Test Item Value Reference Range Interpretation Comments GLUCOSE (test code 280 mg/dL 75-100 H = 06D) SODIUM (test code 140 mmol/L 136-145 = 01A) POTASSIUM (test 4.3 mmol/L 3.6-5.1 code = 01B) CHLORIDE (test 106 mmol/L 98-107 code = 04A) CO2 (test code = 29 mmol/L 20-31 02A) ANION GAP (test 9.3 mmol/L code = ANG) BUN (test code = 35 mg/dL 9-23 H 05D) CREATININE (test 1.6 mg/dL 0.7-1.3 H code = 03E) GFR (test code = 43 See_Comment L [Automated GFR) mL/min/1.73m\\S\\2 message] Th e system which generated this result transmit georges reference range : >=90. The reference range was not used to interpret this result as normal/abnormal . GFR 50 See_Comment L [Automated SWAZI (test mL/min/1.73m\\S\\2 message] The code = GFRAA) system which generated this result transmit georges reference range : >=90. The reference range was not used to interpret this result as normal/abnormal . EGFR (test code = eGFR BY EGFR) CKD-EPI CALCULATION IS NOT RECOMMENDED FOR PATIENTS UNDER 18 YEARS OF AGE. BUN/CREA (test 22 12-20 H code = BCR) CALCIUM (test code 10.1 mg/dL 8.3-10.6 = 09D) CBC (INCLUDES AUTOMATED DIFFERENTIAL)2021-12-15 04:18:00 Test Item Value Reference Range Interpretation Comments WBC (test code = WBC) 9.4 10\\S\\3/uL 4.5-11.0 RBC (test code = RBC) 3.32 10\\S\\6/uL 3.80-5.80 L HGB (test code = HBG) 9.9 g/dL 14.0-18.0 L HCT (test code = HCT) 31.2 % 35.0-46.0 L MCV (test code = MCV) 94.0 fL 80.0-94.0 MCH (test code = MCH) 29.8 pg 27.0-31.0 MCHC (test code = MCHC) 31.7 g/dL 32.0-36.0 L RDW (test code = RDW) 13.4 % 11.5-14.5 PLT (test code = PLT) 215 10\\S\\3/uL 130-400 MPV (test code = MPV) 10.7 fL 9.4-12.4 NEUTROP # (test code = NE#) 5.9 10\\S\\3/uL 2.0-8.0 LYMPH # (test code = LY#) 2.7 10\\S\\3/uL 1.2-4.0 MONOCYTE # (test code = MO#) 0.6 10\\S\\3/uL 0.0-1.1 EOSINOPH # (test code = EO#) 0.2 10\\S\\3/uL 0.0-0.7 BASOPHIL # (test code = BA#) 0.1 10\\S\\3/uL 0.0-0.3 IG # (test code = IG#) 0.03 10\\S\\3/uL 0.00-0.06 NRBC # (test code = NRBC#) 0.00 10\\S\\3/uL 0.00-0.01 NEUTROPH % (test code = NE%) 62.5 % 35.0-73.0 LYMPH % (test code = LY%) 29.0 % 20.0-55.0 MONO % (test code = MO%) 5.9 % 2.5-10.0 EOSINOPH % (test code = EO%) 1.7 % 0.0-5.0 BASOPHIL % (test code = BA%) 0.6 % 0.0-2.0 IG % (test code = IG%) 0.3 % 0.0-0.8 NRBC% (test code = NRBC%) 0.0 % 0.0-0.2 MANDIFF (test code = MDIFF) NO NO RBC MORPH (test code = RBCMOR) NORMAL GLUCOMETER GLUCOSE- LAB USE [id number] 16:57:00 Test Item Value Reference Range Interpretation Comments GLUCOMETER (test code = 213 mg/dL 70-100 H Mete r ID: GMG) [id number] tor: [id number] ABDIEL LYNN GLUCOMETER GLUCOSE- LAB USE [id number] 11:09:00 Test Item Value Reference Range Interpretation Comments GLUCOMETER (test code = 198 mg/dL 70-100 H Mete r ID: GMG) [id number] tor: [id number] ABDIEL LYNN CREATININE RANDOM [id number] 10:14:00 Test Item Value Reference Range Interpretation Comments CREA RAND (test code 64.7 mg/dL = CREAR) NRR (test code = * NO REFRENCE RANGE NRR) AVAILABLE FOR RANDOM SPECIMEN* POTASSIUM RANDOM [id number] 10:14:00 Test Item Value Reference Range Interpretation Comments K+ UR RAN (test code 32 mmol/L = KUR) NRR (test code = * NO REFRENCE RANGE NRR) AVAILABLE FOR RANDOM SPECIMEN* PROTEIN URINE [id number] 10:09:00 Test Item Value Reference Range Interpretation Comments PROT RAND (test code 22 mg/dL = RI) NRR (test code = * NO REFRENCE RANGE NRR) AVAILABLE FOR RANDOM SPECIMEN* [id number] 09:46:00 Test Item Value Reference Range Interpretation Comments Hb A1C % (test code 3.8 % 3.8-6.4 = HBA) A1C % (test code = HbA1c (% ) A1C) Reference Range Normal <5.7 Prediabetes 5.7-6.4 Diabetic >=6.5 COMPREHENSIVE METABOLIC [id number] 09:45:00 Test Item Value Reference Range Interpretation Comments GLUCOSE (test code 176 mg/dL 75-100 H = 06D) SODIUM (test code 138 mmol/L 136-145 = 01A) POTASSIUM (test 4.4 mmol/L 3.6-5.1 code = 01B) CHLORIDE (test 104 mmol/L 98-107 code = 04A) CO2 (test code = 28 mmol/L 20-31 02A) ANION GAP (test 10.4 mmol/L code = ANG) BUN (test code = 45 mg/dL 9-23 H 05D) CREATININE (test 1.7 mg/dL 0.7-1.3 H code = 03E) GFR (test code = 40 See_Comment L [Automated GFR) mL/min/1.73m\\S\\2 message] Th e system which generated this result transmit georges reference range : >=90. The reference range was not used to interpret this result as normal/abnormal . GFR 46 See_Comment L [Automated SWAZI (test mL/min/1.73m\\S\\2 message] The code = GFRAA) system which generated this result transmit georges reference range : >=90. The reference range was not used to interpret this result as normal/abnormal . EGFR (test code = eGFR BY EGFR) CKD-EPI CALCULATION IS NOT RECOMMENDED FOR PATIENTS UNDER 18 YEARS OF AGE. BUN/CREA (test 26 12-20 H code = BCR) CALCIUM (test code 10.1 mg/dL 8.3-10.6 = 09D) BILI TOTAL (test 0.4 mg/dL 0.2-1.0 code = 11A) PROTEIN (test code 6.3 g/dL 5.7-8.2 = 07D) ALBUMIN (test code 4.1 g/dL 3.2-4.8 = 08D) GLOBULIN (test 2.2 g/dL 1.5-3.8 code = GLB) ALB/GLOB (test 1.9 1.0-2.6 code = AGRR) ALK PHOS (test 77 IU/L 46-116 code = 35A) AST (test code = 28 IU/L See_Comment [Automated 30A) message] The system which generated this result transmit georges reference range : <=33. The reference range was not used to interpret this result as normal/abnormal . ALT (test code = 16 IU/L 10-49 31A) CBC (INCLUDES AUTOMATED DIFFERENTIAL)2021-12-14 08:56:00 Test Item Value Reference Range Interpretation Comments WBC (test code = WBC) 7.1 10\\S\\3/uL 4.5-11.0 RBC (test code = RBC) 3.07 10\\S\\6/uL 3.80-5.80 L HGB (test code = HBG) 9.2 g/dL 14.0-18.0 L HCT (test code = HCT) 29.0 % 35.0-46.0 L MCV (test code = MCV) 94.5 fL 80.0-94.0 H MCH (test code = MCH) 30.0 pg 27.0-31.0 MCHC (test code = MCHC) 31.7 g/dL 32.0-36.0 L RDW (test code = RDW) 13.5 % 11.5-14.5 PLT (test code = PLT) 199 10\\S\\3/uL 130-400 MPV (test code = MPV) 10.4 fL 9.4-12.4 NEUTROP # (test code = NE#) 4.5 10\\S\\3/uL 2.0-8.0 LYMPH # (test code = LY#) 1.9 10\\S\\3/uL 1.2-4.0 MONOCYTE # (test code = MO#) 0.4 10\\S\\3/uL 0.0-1.1 EOSINOPH # (test code = EO#) 0.2 10\\S\\3/uL 0.0-0.7 BASOPHIL # (test code = BA#) 0.0 10\\S\\3/uL 0.0-0.3 IG # (test code = IG#) 0.04 10\\S\\3/uL 0.00-0.06 NRBC # (test code = NRBC#) 0.00 10\\S\\3/uL 0.00-0.01 NEUTROPH % (test code = NE%) 63.3 % 35.0-73.0 LYMPH % (test code = LY%) 26.2 % 20.0-55.0 MONO % (test code = MO%) 6.2 % 2.5-10.0 EOSINOPH % (test code = EO%) 3.1 % 0.0-5.0 BASOPHIL % (test code = BA%) 0.6 % 0.0-2.0 IG % (test code = IG%) 0.6 % 0.0-0.8 NRBC% (test code = NRBC%) 0.0 % 0.0-0.2 MANDIFF (test code = MDIFF) NO NO RBC MORPH (test code = RBCMOR) NORMAL GLUCOMETER GLUCOSE- LAB USE [id number] 08:27:00 Test Item Value Reference Range Interpretation Comments GLUCOMETER (test code = 175 mg/dL 70-100 H Mete r ID: GMG) [id number] tor: 13715 ANA LAURA EASTMAN NG [id number] 07:05:00 Test Item Value Reference Range Interpretation Comments CPK (test code = 32A) 330 IU/L 46-171 H GLUCOMETER GLUCOSE- LAB USE [id number] 06:17:00 Test Item Value Reference Range Interpretation Comments GLUCOMETER (test code 118 mg/dL 70-100 H Meter ID: = GMG) [id number] tor: [id number] GRAHAMBER T BAILEY GLUCOMETER GLUCOSE- LAB USE [id number] 00:03:00 Test Item Value Reference Range Interpretation Comments GLUCOMETER (test code 381 mg/dL 70-100 H Meter ID: = GMG) [id number] tor: [id number] HEAD W/O [id number] 23:49:21 [facility] : 1950 Sex: MEXAMINATION:CT HEAD W/O CONTRASTCLINICAL INDICATION:Male, 71 years old with Psychotic disorderTECHNIQUE: Axial CT images from the skull base to the vertex without intravenous contrast. Coronal and sagittal reformatted images were created from the data set.One or more of the following dose reduction techniques were used: Automated exposure control, adjustment of the mA and/or kV according to patient size, and/or iterative reconstruction. COMPARISON: NoneFINDINGS:Intracranial: No abnormal brain parenchymal density. No evidence of acute infarction, intracranial hemorrhage, mass or mass effect, or abnormal extra-axial fluid collection. The ventricles are normal in size, shape and position. Mild periventricular small vessel ischemic changes are identified.Vascular: The larger dural venous sinuses are grossly normal. No significant atherosclerotic plaque.Sinuses: The visualized paranasal sinuses and mastoid air cells are predominantly clear. Bones: The osseous structures and orbits have no significant abnormalities. Soft tissue: No significant soft tissue abnormalities. IMPRESSION:No acute intracranial abnormality.Electronically signed by: Carlos De La Rosa MD 12/13/2021 11:49 PM CDT -RbG (RAPID ANTIGEN)2021-12-13 23:44:00 Test Item Value Reference Range Interpretation Comments SARS-CoV (ANTIGEN) NEGATIVE NEGATIVE (test code = COVAG) COVID AG (test This test has been code = COVAGC) marketed under the FDA Emergency Use Authorization (EUA) to meet challenges of the COVID-19 pandemic. The validation standards normally enforced by the FDA and the [employer] (CAP) are more stringent than those required for this test. Therefore, the result should be interpreted with caution and close attention to other clinical and epidemiological data [id number] 23:42:00 Test Item Value Reference Range Interpretation Comments SALICYLATE (test code = 94B) <3.0 mg/dL 15.0-30.0 L COMPREHENSIVE METABOLIC [id number] 23:34:00 Test Item Value Reference Range Interpretation Comments GLUCOSE (test code 371 mg/dL 75-100 H = 06D) SODIUM (test code 137 mmol/L 136-145 = 01A) POTASSIUM (test 4.4 mmol/L 3.6-5.1 code = 01B) CHLORIDE (test 100 mmol/L 98-107 code = 04A) CO2 (test code = 31 mmol/L 20-31 02A) ANION GAP (test 10.4 mmol/L code = ANG) BUN (test code = 52 mg/dL 9-23 H 05D) CREATININE (test 2.3 mg/dL 0.7-1.3 H code = 03E) GFR (test code = 28 See_Comment L [Automated GFR) mL/min/1.73m\\S\\2 message] Th e system which generated this result transmit georges reference range : >=90. The reference range was not used to interpret this result as normal/abnormal . GFR 32 See_Comment L [Automated SWAZI (test mL/min/1.73m\\S\\2 message] The code = GFRAA) system which generated this result transmit georges reference range : >=90. The reference range was not used to interpret this result as normal/abnormal . EGFR (test code = eGFR BY EGFR) CKD-EPI CALCULATION IS NOT RECOMMENDED FOR PATIENTS UNDER 18 YEARS OF AGE. BUN/CREA (test 23 12-20 H code = BCR) CALCIUM (test code 10.7 mg/dL 8.3-10.6 H = 09D) BILI TOTAL (test 0.5 mg/dL 0.2-1.0 code = 11A) PROTEIN (test code 6.7 g/dL 5.7-8.2 = 07D) ALBUMIN (test code 4.4 g/dL 3.2-4.8 = 08D) GLOBULIN (test 2.3 g/dL 1.5-3.8 code = GLB) ALB/GLOB (test 1.9 1.0-2.6 code = AGRR) ALK PHOS (test 83 IU/L 46-116 code = 35A) AST (test code = 25 IU/L See_Comment [Automated 30A) message] The system which generated this result transmit georges reference range : <=33. The reference range was not used to interpret this result as normal/abnormal . ALT (test code = 18 IU/L 10-49 31A) [id number] 23:34:00 Test Item Value Reference Range Interpretation Comments ACETAMINPH (test code = 94M) <0.2 mg/dL 1.2-2.5 L ALCOHOL BLOOD (ETOH)2021-12-13 23:34:00 Test Item Value Reference Range Interpretation Comments ETOH (test code = ETHANOL HALC) The result is to be used only for medical purposes ALCOHOL (test <10 mg/dL See_Comment [Automated me ssage] code = 56A) The system whic h generated this result transmit georges reference range : <=10. The refer ence range was not u sed to interpret th is result as normal/abnormal . CARDIAC [id number] 23:33:00 Test Item Value Reference Range Interpretation Comments TROPONIN I (test code = A84) 28.86 pg/mL 0.00-45.20 AMMONIA [id number] 23:33:00 Test Item Value Reference Range Interpretation Comments AMMONIA (test code = 54A) <10 umol/L 11-32 L URINALYSIS WITH [id number] 23:32:00 Test Item Value Reference Range Interpretation Comments COLOR (test code = COLU) DK YELLOW YELLOW A CLARITY (test code = CLA) CLOUDY CLEAR A GLUCOSE UR (test code = UA 2+ NEGATIVE A GLUCOSE) BILI UR (test code = BILE) NEGATIVE NEGATIVE KETONES UR (test code = MATTHEW) TRACE NEGATIVE A SP GRAVITY (test code = SPGR) 1.022 1.005-1.030 PH UR (test code = PH) 6.0 4.5-8.0 PROTEIN UR (test code = PU) TRACE NEGATIVE A UROBIL UR (test code = UROQ) 0.2 EU/dL 0.2-1.0 NITRITE UR (test code = NEGATIVE NEGATIVE NITRITE) BLOOD UR (test code = UA BLOOD) NEGATIVE NEGATIVE LEUK ES UR (test code = LEUK) NEGATIVE NEGATIVE WBC UR (test code = UWBC) 6 /HPF 0-3 H RBC UR (test code = URBC) 2 /HPF 0-2 EPITH UR (test code = UEPC) FEW /LPF NONE A BACTERIA UR (test code = UBACT) MODERATE /HPF NONE A CAST UR (test code = CAST) /LPF NONE CRYSTAL UR (test code = CRYU) / LPF NONE MUCUS UR (test code = MUC) FEW / HPF NONE A AMORPH UR (test code = SUN) / HPF NONE TRICH UR (test code = UTRICH) /HPF NONE YEAST UR (test code = UY) /HPF NONE SPERM UR (test code = USPERM) MODERATE /HPF NONE A PRO TIME AND [id number] 23:29:00 Test Item Value Reference Range Interpretation Comments PT (test code = 11.1 s 9.8-13.6 TT) INR (test code = 1.0 INR) INRH (test code = SUGGESTED THERAPEUTIC INRH) RANGE FOR INR: 2.5 - 3.5 For Patients with Prosthetic Valves or Patients with recurrent Thromboembolic Events 2.0 - 3.0 For Most Other Applications PTT (test code = 34.0 s 20.2-38.0 PTT) PTTH (test code = To monitor the PTTH) effectiveness of heparin, we offer the Anti-Xa (Heparin Assay). It can be used for either unfractionated or LMW Heparin. Order Code is ANTI-XA DRUGS OF [id number] 23:27:00 Test Item Value Reference Range Interpretation Comments DRUG SCRN (test code = URINE DRUG HDOA) SCREEN This is an unconfirmed screening result and should not be used for non-medical purposes CANNABINOD (test code NEGATIVE NEGATIVE = 88C) AMPHETAMINE (test code NEGATIVE NEGATIVE = 84A) BENZODIAZP (test code NEGATIVE NEGATIVE = 86A) BARBITURAT (test code NEGATIVE NEGATIVE = 85A) OPIATES (test code = NEGATIVE NEGATIVE 92B) COCAINE (test code = NEGATIVE NEGATIVE 87A) PHENCYCLID (test code NEGATIVE NEGATIVE = 66A) METHADONE (test code = NEGATIVE NEGATIVE 64A) DOAH (test code = DOAH.) URINE DRUGSCREEN Cut-off values are as follows: Cannabinoids 50 ng/mL Cocaine 300 ng/mL Amphetamines 1000 ng/mL Phencyclidine 25 ng/mL Benzodiazepines 200 ng.mL Methadone 300 ng/mL Barbiturates 200 ng/mL Opiates 300 ng/mL CBC (INCLUDES AUTOMATED DIFFERENTIAL)2021-12-13 23:22:00 Test Item Value Reference Range Interpretation Comments WBC (test code = WBC) 7.2 10\\S\\3/uL 4.5-11.0 RBC (test code = RBC) 3.08 10\\S\\6/uL 3.80-5.80 L HGB (test code = HBG) 9.1 g/dL 14.0-18.0 L HCT (test code = HCT) 29.0 % 35.0-46.0 L MCV (test code = MCV) 94.2 fL 80.0-94.0 H MCH (test code = MCH) 29.5 pg 27.0-31.0 MCHC (test code = MCHC) 31.4 g/dL 32.0-36.0 L RDW (test code = RDW) 13.5 % 11.5-14.5 PLT (test code = PLT) 194 10\\S\\3/uL 130-400 MPV (test code = MPV) 10.6 fL 9.4-12.4 NEUTROP # (test code = NE#) 4.2 10\\S\\3/uL 2.0-8.0 LYMPH # (test code = LY#) 2.2 10\\S\\3/uL 1.2-4.0 MONOCYTE # (test code = MO#) 0.6 10\\S\\3/uL 0.0-1.1 EOSINOPH # (test code = EO#) 0.1 10\\S\\3/uL 0.0-0.7 BASOPHIL # (test code = BA#) 0.0 10\\S\\3/uL 0.0-0.3 IG # (test code = IG#) 0.04 10\\S\\3/uL 0.00-0.06 NRBC # (test code = NRBC#) 0.00 10\\S\\3/uL 0.00-0.01 NEUTROPH % (test code = NE%) 58.0 % 35.0-73.0 LYMPH % (test code = LY%) 31.2 % 20.0-55.0 MONO % (test code = MO%) 7.8 % 2.5-10.0 EOSINOPH % (test code = EO%) 2.0 % 0.0-5.0 BASOPHIL % (test code = BA%) 0.4 % 0.0-2.0 IG % (test code = IG%) 0.6 % 0.0-0.8 NRBC% (test code = NRBC%) 0.0 % 0.0-0.2 MANDIFF (test code = MDIFF) NO NO RBC MORPH (test code = RBCMOR) NORMAL XR CHEST 1 VIEW [id number] 23:18:20 [facility] : 1950 Sex: MEXAM: XR CHEST 1 VIEWCOMPARISON: None available time of interpretation.LOCATION: [id number]: 71 years-year old Male with Psychotic disorderTECHNIQUE: Single AP view of the chest.FINDINGS:The cardiomediastinal silhouette is within normal limits. The lungs are clear. No appreciable pneumothorax or pleural effusion.Osseous structures and soft tissues demonstrate no acute findings. The visualized upper abdomen is unremarkable.IMPRESSION:No acute cardiopulmonary abnormality.Electronically signed by: Sean Gutierrez MD12/13/2021 11:18 PM CDT [id number] G Dusty M [id number] 18:39:00 Test Item Value Reference Range Interpretation Comments IgA (test code = 4461153198) 207 mg/dL 70-312 IgG (test code = 3596765788) 758 mg/dL 636-1600 IgM (test code = 5990607753) 22 mg/dL 56-352 L Lab Interpretation (test code = Abnormal 22628-0) [facility] GLUCOSE (AUTOMATED)2020-02-17 17:42:00 Test Item Value Reference Range Interpretation Comments POCT GLU (test code = 3137260419) 89 mg/dL 70-110 Lab Interpretation (test code = Normal 31384-9) [facility] GLUCOSE (AUTOMATED)2020-02-17 13:10:00 Test Item Value Reference Range Interpretation Comments POCT GLU (test code = 3085156305) 202 mg/dL 70-110 H Lab Interpretation (test code = Abnormal 54820-9) [facility] (NA, K, CL, CO2, GLUCOSE, BUN, CREATININE, CA)2020-02-17 09:43:00 Test Item Value Reference Range Interpretation Comments NA (test code = 134 mmol/L 135-145 L 8215697346) K (test code = 5.2 mmol/L 3.5-5 H 3156553994) CL (test code = 105 mmol/L 98-108 3421389965) CO2 TOTAL (test code = 25 mmol/L 23-31 4306611926) AGAP (test code = 2-16 2725517090) BUN (test code = 35 mg/dL 7-23 H 6352829173) GLUCOSE (test code = 174 mg/dL 70-110 H 3852417163) CREATININE (test code = 1.10 mg/dL 0.6-1.25 3221963891) CALCIUM (test code = 10.0 mg/dL 8.6-10.6 2954124881) eGFR Calculation mL/min/1.73m2 (Non-) (test code = 2753333766) eGFR Calculation mL/min/1.73m2 () (test code = 0555523521) MATTEO (test code = MATTEO) Association of [...] tests). Lab Interpretation Abnormal (test code = 77163-9) [facility] with [id number] 09:39:00 Test Item Value Reference Range Interpretation Comments WBC (test code = See_Comment [Automated 6690-2) message] The sy stem which generated this [...] RDW-SD (test code = 45.0 fL 38.5-51.6 81458-8) RDW-CV (test code = 13.2 % 12.1-15.4 788-0) PLT (test code = See_Comment [Automated 777-3) message] The sy stem which generated this result transmitted reference range : 150 - 328 10*3/ ?L. The reference r yoselyn was not used to interpret this result as normal/abnormal . MPV (test code = 11.2 fL 9.8-13 21080-1) NRBC/100 WBC (test See_Comment [Automat ed code = 2436009350) message] The system which generated this result transmitted reference range : 0.0 - 10.0 /100 WBCs. The refer ence range was not u sed to interpret th is result as normal/abnormal . NRBC x10^3 (test code <0.01 See_Comment [Auto mated = 7229761347) message] The s ystem which generated this result transmitted reference range : 10*3/?L. The reference range was not used to interpret this result as normal/abnormal . GRAN MAT (NEUT) % 64.3 % (test code = 770-8) IMM GRAN % (test code 0.40 % = 1428403031) LYMPH % (test code = 29.0 % 736-9) MONO % (test code = 4.7 % 5905-5) EOS % (test code = 1.4 % 713-8) BASO % (test code = 0.2 % 706-2) GRAN MAT x10^3(ANC) 3.29 10*3/uL 1.99-6.95 (test code = 0549894372) IMM GRAN x10^3 (test <0.03 0-0.06 code = 4069295147) LYMPH x10^3 (test code 1.48 10*3/uL 1.09-3.23 = 731-0) MONO x10^3 (test code 0.24 10*3/uL 0.36-1.02 L = 742-7) EOS x10^3 (test code = 0.07 10*3/uL 0.06-0.53 711-2) BASO x10^3 (test code <0.03 0.01-0.09 = 704-7) Lab Interpretation Abnormal (test code = 88647-5) [facility]-02[facility]17 01:00:00 Test Item Value Reference Range Interpretation Comments POCT GLU (test code = 9537089618) 112 mg/dL 70-110 H Lab Interpretation (test code = Abnormal 22178-1) [facility] [id number] 22:57:36 Impression: Normal size bilateral kidneys with normal echogenicities. Doppler findings are suggestive of B/L renal artery stenosis ( left moresignificant then right ) An MRI angiogram is recommended. .HISTORY: acute renal failure . RENAL ULTRASOUND TECHNIQUE: Limited abdominal ultrasound examination performed evaluatingthe kidneys using ivan scale and color doppler imaging. COMPARISON: None. FINDINGS: Left Kidney: Normal size, contour, and echotexture. ?The left kidneymeasures 10 cm No hydronephrosis The PSV and RI of abdominal aorta at the level of renal arteries is 68.7cm/s and 0.771 respectively. There is aliasing at the origin of left renal artery with PSV within theproximal part 372 cm/s Hawk of 0.90 (image 88/7) RAR ratio on [...] these arteries.Acceleration time and index not available. [facility], Radiant Results Inft User - 02/16/2020 5:58 PM CDTHISTORY: acute renal failure . RENAL ULTRASOUNDTECHNIQUE: Limited abdominal ultrasound examination performed evaluati ngthe kidneys using ivan scale and color doppler imaging.COMPARISON: None.FINDINGS: Left Kidney: Normal size, contour, and echotexture. The left kidneymeasures 10 cm No hydronephrosisThe PSV and RI of abdominal aorta at [...] arcuate arteries.RIGHT KIDNEY: Normal size, contour, and echotexture.The right kidney measures 10 cm (Nohydronephrosis.The proximal right renal artery could not be seen.The PSV in proximal ,mid , distal right renal arteries is 48.3, 47.9, and 50.8 cm/srespectively. There is blunted and delayed systolic peak in all these arteries.Acceleration time and index not available.IMPRESSIONImpression: Normal size bilateral kidneys with normal echogenicities. Doppler findings are suggestive of B/L renal artery stenosis ( left moresignificant then right ) An MRI angiogram is recommended. .[facility] [id number] 22:25:00 Test Item Value Reference Range Interpretation Comments UREA N UR (test code = 9745104782) 187 mg/dL [facility]2020-02-16 21:42:00 Test Item Value Reference Range Interpretation Comments POCT GLU (test code = 9439240595) 84 mg/dL 70-110 Lab Interpretation (test code = Normal 62127-0) [facility]INE [id number] 19:57:00 Test Item Value Reference Range Interpretation Comments CREAT U (test code = [id number]) 23.0 mg/dL [facility] URINE [id number] 19:55:00 Test Item Value Reference Range Interpretation Comments NA URINE (test code = 9760578851) 136 mmol/L [facility] [id number] 19:54:00 Test Item Value Reference Range Interpretation Comments K URINE (test code = 2681109689) 23.2 mmol/L [facility] (NA, K, CL, CO2, GLUCOSE, BUN, CREATININE, CA)2020-02-16 17:50:00 Test Item Value Reference Range Interpretation Comments NA (test code = 140 mmol/L 135-145 3359475944) K (test code = 5.3 mmol/L 3.5-5 H 3880513258) CL (test code = 108 mmol/L 98-108 8779383265) CO2 TOTAL (test code = 24 mmol/L 23-31 7789859139) AGAP (test code = 2-16 6682022901) BUN (test code = 40 mg/dL 7-23 H 3671077121) GLUCOSE (test code = 125 mg/dL 70-110 H 0791904751) CREATININE (test code = 1.45 mg/dL 0.6-1.25 H 5309431598) CALCIUM (test code = 10.9 mg/dL 8.6-10.6 H 9819082406) eGFR Calculation mL/min/1.73m2 (Non-) (test code = 0934403632) eGFR Calculation mL/min/1.73m2 () (test code = 6348260719) MATTEO (test code = MATTEO) Association of [...] tests). Lab Interpretation Abnormal (test code = 45665-5) [facility]2020-02-16 16:21:00 Test Item Value Reference Range Interpretation Comments POCT GLU (test code = 1375558013) 120 mg/dL 70-110 H Lab Interpretation (test code = Abnormal 65001-9) [facility]EMOGLOBIN (A1C)2020-02-16 14:34:00 Test Item Value Reference Range Interpretation Comments HGB A1C (test code = 9.3 % 4-6 H 4548-4) MATTEO (test code = MATTEO) %A1C (NGSP) Interpretation (ADA)4.8-5.6 ? ? Normal or (Non-Diabetic Range)5.7-6.4 ? ? Increased Risk (Pre-Diabetic)>6.5 ?Diabetes Indicated Lab Interpretation Abnormal (test code = 99808-6) [facility] METABOLIC PANEL (NA, K, CL, CO2, GLUCOSE, BUN, CREATININE, CA)2020-02-16 13:35:00 Test Item Value Reference Range Interpretation Comments NA (test code = 140 mmol/L 135-145 8245064765) K (test code = 6.1 mmol/L 3.5-5 HH 2736901450) CL (test code = 111 mmol/L 98-108 H 7174371754) CO2 TOTAL (test code = 22 mmol/L 23-31 L 2553300726) AGAP (test code = 2-16 0815857812) BUN (test code = 42 mg/dL 7-23 H 2262017240) GLUCOSE (test code = 116 mg/dL 70-110 H 3477617991) CREATININE (test code = 1.49 mg/dL 0.6-1.25 H 4743982539) CALCIUM (test code = 10.8 mg/dL 8.6-10.6 H 1811994214) eGFR Calculation mL/min/1.73m2 (Non-) (test code = 6537080097) eGFR Calculation mL/min/1.73m2 () (test code = 8441411205) MATTEO (test code = MATTEO) Association of [...] tests). Lab Interpretation Abnormal (test code = 58308-4) [facility]2020-02-16 13:09:00 Test Item Value Reference Range Interpretation Comments POCT GLU (test code = 5958855230) 117 mg/dL 70-110 H Lab Interpretation (test code = Abnormal 48745-5) [facility] - DRUG SCREEN [id number] 10:52:00 Test Item Value Reference Range Interpretation Comments BENZO U (test code = Negative Negative 8615736453) SCOT U (test code = Negative Negative 6822215975) AMPHET (test code = Negative Negative 1757453923) THC (test code = Negative Negative 4137033074) METHADONE (test code = Negative Negative 6001845340) Meth U (test code = Negative Negative 6165416399) OPIATES (test code = Negative Negative 3524829694) Cocaine Metabolite (test Negative Negative code = 5208469928) PROPOXY (test code = Negative Negative 6695009310) Tric U (test code = Negative Negative 4214236481) PCP (test code = Negative Negative 1562631835) OXYCOD (test code = Negative Negative 0564294747) MATTEO (test code = MATTEO) Urine Drug [...] testing). Lab Interpretation (test Normal code = 99565-7) [facility]2020-08-21 10:50:00 Test Item Value Reference Range Interpretation Comments APPEARANCE (test code = Clear Clear 4552434439) COLOR (test code = Yellow Yellow 7981609972) PH (test code = 4.8-8.0 2633779781) SP GRAVITY (test code = 1.003-1.030 1844162443) GLU U QUAL (test code = Normal Normal 2870273833) BLOOD (test code = Negative Negative 3120364286) KETONES (test code = 5 mg/dL Negative A 4053655438) PROTEIN (test code = Negative Negative 2887-8) UROBILIN (test code = Normal Normal 7842675536) BILIRUBIN (test code = Negative Negative 5822226378) NITRITE (test code = Negative Negative 7094517390) LEUK LUISITO (test code = Negative Negative 3138224971) RBC/HPF (test code = See_Comment [Autom ated message] 8099369603) The system [employer] generated this result transmitted ref erence range: 0 - 3 HP F. The reference range was not used to int erpret this result as normal/abnormal . WBC/HPF (test code = <1 See_Comment [Autom ated message] 0796997180) The system [employer] generated this result transmitted ref erence range: 0 - 5 HP F. The reference range was not used to int erpret this result as normal/abnormal . BACTERIA (test code = Few Negative A 9938902890) HYAL CAST (test code = See_Comment [Aut omated message] 1881156206) The system [employer] generated this result transmitted ref erence range: <=2 LPF. The reference range was not used to int erpret this result as normal/abnormal . Lab Interpretation (test Abnormal code = 81977-6) [facility]COVID[facility] (ID NOW RAPID TESTING)2020-02-16 10:50:00 Test Item Value Reference Range Interpretation Comments SARS-CoV-2 Rapid ID NOW Not Detected Not Detected (test code = 91179-1) MATTEO (test code = MATTEO) ID NOW COVID-19 Assay is an isothermal nucleic acid amplification test intended for the qualitative detection of nucleic acid from SARS-CoV-2 viral RNA in nasopharyngeal (GARMENT SUPERVISOR) specimens. It is used under Emergency Use [...] indicated. Lab Interpretation Normal (test code = 78687-0) [facility] 1 [id number] 10:39:25 FINDINGS/IMPRESSION: No focal consolidation, pleural effusion, [...] frontal view of the chest was obtained [facility], Radiant Results Inft User - 02/16/2020 5:40 AM CDTEXAM: XR CHEST 1 VWCLINICAL INDICATION: hypertension COMPARISON: 616TECHNIQUE: A frontal view of the chest was obtainedIMPRESSIONFINDINGS/IMPRESSION:No focal consoli dation, pleural effusion, or pneumothorax. Probablecalcified granuloma in the right lower lung is unchanged.The cardiac silhouette is normal in size. Remote left posterior rib fracturesPreliminary Report Dictated by Resident: Cory Wiseman MD., have reviewed this study and agreewith theabove report.[facility] [id number] 09:00:00 Test Item Value Reference Range Interpretation Comments K (test code = 9566233629) 6.0 mmol/L 3.5-5 H Lab Interpretation (test code = Abnormal 38696-1) [facility]TROPONIN [id number] 08:47:00 Test Item Value Reference Range Interpretation Comments TROPONIN I (test <0.012 See_Comment [Automated code = 8729118356) message] The system which generated this result [...] ? Lab Interpretation Normal (test code = 55779-2) [facility]COMP. METABOLIC PANEL (68317)2020-02-16 08:42:00 Test Item Value Reference Range Interpretation Comments NA (test code = 140 mmol/L 135-145 1197659030) K (test code = 6.2 mmol/L 3.5-5 HH 1819090196) CL (test code = 110 mmol/L 98-108 H 6316792319) CO2 TOTAL (test code = 24 mmol/L 23-31 1293147672) AGAP (test code = 2-16 4639566025) BUN (test code = 40 mg/dL 7-23 H 9552275876) GLUCOSE (test code = 124 mg/dL 70-110 H 4662945555) CREATININE (test code = 1.60 mg/dL 0.6-1.25 H 6451419630) TOTAL BILI (test code = 0.4 mg/dL 0.1-1.8 8928095173) CALCIUM (test code = 11.0 mg/dL 8.6-10.6 H 3770282505) T PROTEIN (test code = 6.9 g/dL 6.3-8.2 9515192885) ALBUMIN (test code = 4.4 g/dL 3.5-5 6316406761) ALK PHOS (test code = 65 U/L 34-122 5243773087) ALTv (test code = 12 U/L 5-50 1742-6) AST(SGOT) (test code = 23 U/L 13-40 7202504354) eGFR Calculation mL/min/1.73m2 (Non-) (test code = 9059156580) eGFR Calculation mL/min/1.73m2 () (test code = 2412947835) MATTEO (test code = MATTEO) Association of [...] tests). Lab Interpretation Abnormal (test code = 39054-9) [facility] HospitalPROTHROMBIN TIME / [id number] 08:34:00 Test Item Value Reference Range Interpretation Comments PROTIME PATIENT (test See_Comment [Auto mated message] code = 5964-2) The system [employer] generated this result transmitted ref erence range: 12.0 - 1 4.7 Seconds. The re ference range was not u sed to interpret this result as normal/abnor mal. INR (test code = 6301-6) Nor mal INR <1.1; Warfarin Therap eutic range 2.0 to 3. 0 or 2.5 to 3.5, dep ending upon the indica tions. Lab Interpretation (test Normal code = 51252-1) [facility] HospitalCB WITH [id number] 08:23:00 Test Item Value Reference Range Interpretation Comments WBC (test code = See_Comment [Automated 6690-2) message] The sy stem which generated this result transmitted reference range : 4.20 - 10.70 10*3/?L. The reference range was not used to interpret this result as normal/abnormal . RBC (test code = See_Comment L [Automated 119-8) message] The sy stem which generated this [...] RDW-SD (test code = 46.5 fL 38.5-51.6 91768-9) RDW-CV (test code = 13.4 % 12.1-15.4 788-0) PLT (test code = See_Comment [Automated 777-3) message] The sy stem which generated this result transmitted reference range : 150 - 328 10*3/ ?L. The reference r yoselyn was not used to interpret this result as normal/abnormal . MPV (test code = 10.6 fL 9.8-13 19426-3) NRBC/100 WBC (test See_Comment [Automat ed code = 3523787456) message] The system which generated this result transmitted reference range : 0.0 - 10.0 /100 WBCs. The refer ence range was not u sed to interpret th is result as normal/abnormal . NRBC x10^3 (test code <0.01 See_Comment [Auto mated = 8024864819) message] The s ystem which generated this result transmitted reference range : 10*3/?L. The reference range was not used to interpret this result as normal/abnormal . GRAN MAT (NEUT) % 52.4 % (test code = 770-8) IMM GRAN % (test code 0.30 % = 6077271807) LYMPH % (test code = 38.4 % 736-9) MONO % (test code = 6.6 % 5905-5) EOS % (test code = 1.8 % 713-8) BASO % (test code = 0.5 % 706-2) GRAN MAT x10^3(ANC) 3.16 10*3/uL 1.99-6.95 (test code = 1045824698) IMM GRAN x10^3 (test <0.03 0-0.06 code = 1232715656) LYMPH x10^3 (test code 2.32 10*3/uL 1.09-3.23 = 731-0) MONO x10^3 (test code 0.40 10*3/uL 0.36-1.02 = 742-7) EOS x10^3 (test code = 0.11 10*3/uL 0.06-0.53 711-2) BASO x10^3 (test code 0.03 10*3/uL 0.01-0.09 = 704-7) Lab Interpretation Abnormal (test code = 78490-1) [facility]
[2022-12-19] MEDS ORDERED: ALBUTEROL 2.5 MG/3 ML NEB SOL ONE (09:41)
[2022-12-19 10:11] LABS: SARS-CoV-2 Antigen Rapid Res Negative (Negative)
[2022-12-19 10:16] LABS: Absolute Lymphocytes (CBC) 1.8 K/uL (0.7-4.9); Hematocrit 30.6 % (39.6-49.0); Lymphocytes % 29.8 % (15.3-44.8); MCV 91.9 fL (80-100); MPV 9.2 fL (7.6-11.3); RBC Red Blood Cell Count 3.33 M/uL (4.33-5.43)
[2022-12-19 10:22] LABS: Protime INR 1.05
--- NOTE | 2022-12-19 10:33 | RAD REPORT ---
EXAM DESCRIPTION: Anitha Single View12/19/2022 9:53 am CLINICAL HISTORY: Shortness of breath COMPARISON: none FINDINGS: The lungs appear clear of acute infiltrate. The heart is probably borderline enlarged IMPRESSION: No acute abnormalities displayed
[2022-12-19 10:34] LABS: Albumin 3.8 g/dL (3.4-5.0); Bilirubin Total 0.3 mg/dL (0.2-1.0); Potassium 4.7 mEq/L (3.5-5.1); Protein, Total 7.3 g/dL (6.4-8.2)
[2022-12-19] MEDS ORDERED: INSULIN -REGULAR HUMAN 50 UNIT/0.5 ML ML ONE (11:20)
[2022-12-19] MEDS ORDERED: NA CHLORIDE 0.9% 500 ML ONE (12:36)
[2022-12-19 14:57] LABS: Specific Gravity 1.021 (1.005-1.030); Urine Bacteria None Seen /HPF (<20); Urine Bilirubin NEGATIVE (Negative); Urine Blood Negative (Negative); Urine Clarity Clear (Clear); Urine Color Light-Yellow (Yellow); Urine Glucose 4+ (Over) (Negative); Urine Protein TRACE (Negative); Urine RBC <5 /HPF (None Seen); Urine Urobilinogen Normal (Normal)
--- NOTE | 2022-12-19 15:25 | EDPHYS ---
Physician Documentation [facility] Name: Leonides Bui Age: 72 yrs Sex: Male : 1950 Arrival Date: 12/19/2022 Time: 08:39 Bed 13 Private MD: ED Physician Wilfrido Gee HPI: 12/19 08:59 This 72 yrs old Male presents to ER via Unassigned with complaints of hyperglycemia. snw 08:59 Pt noted to have increased blood sugar, states generalized malaise. It is unknown snw whether or not the patient has recently seen a physician. Resident of [facility]. Historical: - PMHx: 14:13 "Back problems"; diabetes mellitus; Memory problems; db - PSHx: 14:13 Spinal Fusion; db - Immunization history:: Adult Immunizations unknown. - Social history:: Smoking status: Patient denies any tobacco usage or history of. ROS: 08:58 Constitutional: Negative for fever, chills, and weight loss, hyperglycemia and general snw malaise Eyes: Negative for injury, pain, redness, and discharge, ENT: Negative for injury, pain, and discharge, Neck: Negative for injury, pain, and swelling, Cardiovascular: Negative for chest pain, palpitations, and edema, Respiratory: Negative for shortness of breath, cough, wheezing, and pleuritic chest pain, Abdomen/GI: Negative for abdominal pain, nausea, vomiting, diarrhea, and constipation, Back: Negative for injury and pain, : Negative for injury, bleeding, discharge, and swelling, MS/Extremity: Negative for injury and deformity, Skin: Negative for injury, rash, and discoloration, Psych: Negative for depression, anxiety, suicide ideation, homicidal ideation, and hallucinations. 08:58 Neuro: Positive for tremor. Exam: 08:57 Head/Face: Normocephalic, atraumatic. Eyes: Pupils equal round and reactive to light, snw extra-ocular motions intact. Lids and lashes normal. Conjunctiva and sclera are non-icteric and not injected. Cornea within normal limits. Periorbital areas with no swelling, redness, or edema. ENT: Nares patent. No nasal discharge, no septal abnormalities noted. Tympanic membranes are normal and external auditory canals are clear. Oropharynx with no redness, swelling, or masses, exudates, or evidence of obstruction, uvula midline. Mucous membranes moist. Neck: Trachea midline, no thyromegaly or masses palpated, and no cervical lymphadenopathy. Supple, full range of motion without nuchal rigidity, or vertebral point tenderness. No Meningismus. Chest/axilla: Normal chest wall appearance and motion. Nontender with no deformity. No lesions are appreciated. Cardiovascular: Regular rate and rhythm with a normal S1 and S2. No gallops, murmurs, or rubs. Normal PMI, no JVD. No pulse deficits. Respiratory: Lungs have equal breath sounds bilaterally, occ wheezes to auscultation. No rales, rhonchi noted. No increased work of breathing, no retractions or nasal flaring. Abdomen/GI: Soft, non-tender, with normal bowel sounds. No distension or tympany. No guarding or rebound. No evidence of tenderness throughout. Back: No spinal tenderness. No costovertebral tenderness. Full range of motion. 08:57 MS/ Extremity: Pulses equal, no cyanosis. Neurovascular intact. Full, normal range of motion. Psych: Awake, alert, with orientation to person, place and time. Behavior, mood, and affect are within normal limits. 08:57 Constitutional: The patient appears awake, frail, listless. 08:57 Skin: Appearance: Color: pale. 08:57 Neuro: Orientation: is normal, Motor: tremulous, Gait: not tested. Vital Signs: 09:15 BP 109 / 79; Pulse 59; Resp 18; Pulse Ox 96% on R/A; db 09:36 BP 160 / 89; Pulse 57; Resp 16; Pulse Ox 98% on R/A; db 10:30 BP 126 / 60; Pulse 67; Resp 16; Pulse Ox 94% on R/A; db 11:00 BP 125 / 61; Pulse 64; Resp 16; Pulse Ox 96% on R/A; db 12:10 BP 93 / 68; Pulse 64; Resp 18; Temp 97.8(O); Pulse Ox 97% ; db 13:00 BP 148 / 88; Pulse 63; Resp 16; Pulse Ox 99% on R/A; db 14:00 BP 130 / 88; Pulse 75; Resp 18; Pulse Ox 96% on R/A; db Prerna Coma Score: 08:57 Eye Response: spontaneous(4). Motor Response: obeys commands(6). Verbal Response: snw oriented(5). Total: 15. MDM: 08:56 Patient medically screened. snw 09:02 Differential Diagnosis sepsis, dehydration. Data reviewed: vital signs, nurses notes. snw Historians other than the Patient: EMS: [employer]. Care significantly affected by the following chronic conditions: Diabetes. Counseling: I had a detailed discussion with the patient and/or guardian regarding: the historical points, exam findings, and any diagnostic results supporting the discharge/admit diagnosis, the need for outpatient follow up, for definitive care, to return to the emergency department if symptoms worsen or persist or if there are any questions or concerns that arise at home. 12/19 08:55 Order name: Blood Culture Adult (2) snw 12/19 08:55 Order name: CBC with Diff; Complete Time: 10:19 snw 12/19 08:55 Order name: CMP; Complete Time: 10:36 snw 12/19 08:55 Order name: Lactate w/ 2H reflex if indic.; Complete Time: 10:35 snw 12/19 08:55 Order name: Protime (+inr); Complete Time: 10:35 snw 12/19 08:55 Order name: Ptt, Activated; Complete Time: 10:35 snw 12/19 08:55 Order name: Urinalysis w/ reflexes; Complete Time: 15:23 snw 12/19 08:56 Order name: SARS RAPID; Complete Time: 10:13 snw 12/19 09:59 Order name: Glucose, Ancillary Testing; Complete Time: 10:00 EDMS 12/19 11:19 Order name: Glucose, Ancillary Testing; Complete Time: 11:26 EDMS 12/19 12:36 Order name: Glucose, Ancillary Testing; Complete Time: 12:36 EDMS 12/19 13:53 Order name: Glucose, Ancillary Testing; Complete Time: 13:53 EDMS 12/19 08:55 Order name: Chest Single View XRAY; Complete Time: 10:35 snw 12/19 08:55 Order name: EKG; Complete Time: 08:56 snw 12/19 13:49 Order name: Diet Soft; Complete Time: 13:49 db 12/19 13:49 Order name: Diet Soft; Complete Time: 13:49 kj1 12/19 08:56 Order name: Accucheck; Complete Time: 10:08 12/19 08:56 Order name: Cardiac monitoring; Complete Time: 10:08 12/19 08:56 Order name: EKG - Nurse/Tech; Complete Time: 10:08 12/19 08:56 Order name: IV Saline Lock - Large Bore; Complete Time: 10:08 12/19 08:56 Order name: Labs collected and sent; Complete Time: 10:08 12/19 08:56 Order name: O2 Per Protocol; Complete Time: 10:12/19 08:56 Order name: O2 Sat Monitoring; Complete Time: 10:12/19 08:56 Order name: Vital Signs; Complete Time: 10:12/19 12:02 Order name: FSBS; Complete Time: 14:12 snw EC:45 Rate is 63 beats/min. Rhythm is irregular. Right axis deviation noted. AK interval is snw normal. QRS interval is normal. Clinical impression: NSR w/ Non-specific ST/T Changes. Administered Medications: 09:55 Drug: Albuterol Inhalation 2.5 mg Route: Inhalation; db 14:12 Follow up: Response: No adverse reaction db 11:14 Drug: Insulin Regular Human IVP 5 units {Co-Signature: Kylah Barrera RN).} {Note: db glucose 356.} Route: IVP; Site: right antecubital; 14:12 Follow up: Response: No adverse reaction db 11:14 Drug: Insulin Regular Human Sub-Q 5 units {Co-Signature: Kylah Barrera RN).} db {Note: glucose 356.} Route: Sub-Q; Site: right upper arm; 14:12 Follow up: Response: No adverse reaction db 12:35 Drug: NS 0.9% IV 500 ml Route: IV; Rate: bolus; Site: right antecubital; db 13:20 Follow up: Response: No adverse reaction; IV Status: Completed infusion; IV Intake: db 500ml 14:05 Drug: NS 0.9% IV 250 ml Route: IV; Rate: bolus; Site: right antecubital; db 15:00 Follow up: Response: No adverse reaction; IV Status: Completed infusion; IV Intake: db 250ml Disposition Summary: 06/24/23 15:24 Discharge Ordered Location: Home snw Condition: Stable snw Diagnosis - Dehydration snw - Diabetes mellitus due to underlying condition with hyperglycemia snw - Anemia, unspecified snw Followup: snw - With: Emergency Department - When: As needed - Reason: Worsening of condition Followup: snw - With: Private Physician - When: 2 - 3 days - Reason: Recheck today's complaints, Continuance of care, Re-evaluation by your physician Discharge Instructions: - Discharge Summary Sheet snw - Anemia snw - Dehydration, Elderly snw - Hyperglycemia snw - Rehydration, Elderly snw Forms: - Medication Reconciliation Form snw - Thank You Letter snw - Antibiotic Education snw - Prescription Opioid Use snw - SBAR form iw Signatures: Dispatcher [employer] Elsie Tobar FNP-C GIS DATABASE ADMINISTRATOR-Csnw Jaclyn Mckee, RN RN Kylah Gruber RN iw
--- NOTE | 2022-12-19 15:25 | ER ---
Nurse's Notes [facility] Name: Leonides Bui Age: 72 yrs Sex: Male : 1950 Arrival Date: 12/19/2022 Time: 08:39 Bed 13 Private MD: Diagnosis: Dehydration;Diabetes mellitus due to underlying condition with hyperglycemia;Anemia, unspecified Presentation: 12/19 09:15 Chief complaint: EMS states: patient from [place] . nursing staff states thought saw db patient have a focal seizure. upon arrival glucose 443. no seizure activity for EMS. EMS gave IV fluid bolus 300 ml LR. Coronavirus screen: Vaccine status: Client denies travel out of the [place] in the last 14 days. At this time, the client does not indicate any symptoms associated with coronavirus-19. Ebola Screen: Patient negative for fever greater than or equal to 101.5 degrees Fahrenheit, and additional compatible Ebola Virus Disease symptoms Patient denies exposure to infectious person. Patient denies travel to an Ebola-affected area in the 21 days before illness onset. No symptoms or risks identified at this time. Initial Sepsis Screen: Does the patient meet any 2 criteria? No. Patient's initial sepsis screen is negative. Does the patient have a suspected source of infection? No. Patient's initial sepsis screen is negative. Risk Assessment: Do you want to hurt yourself or someone else? Patient reports no desire to harm self or others. Onset of symptoms was December 19, 2022. 09:15 Method Of Arrival: EMS: [facility] db 09:15 Acuity: ADRIANA 2 db Triage Assessment: 09:26 General: Appears in no apparent distress. comfortable, Behavior is calm, cooperative. db Pain: Denies pain. Neuro: Level of Consciousness is awake, alert, obeys commands, Oriented to person. Historical: - PMHx: 14:13 "Back problems"; diabetes mellitus; Memory problems; db - PSHx: 14:13 Spinal Fusion; db - Immunization history:: Adult Immunizations unknown. - Social history:: Smoking status: Patient denies any tobacco usage or history of. Screenin:09 [facility] ED Fall Risk Assessment (Adult) History of falling in the last 3 months, db including since admission No falls in past 3 months (0 pts) Confusion or Disorientation Yes (5 pts) Intoxicated or Sedated No (0 pts) Impaired Gait Yes (1 pt) Mobility Assist Device Used Yes (1 pt) Altered Elimination Yes (1 pt) Score/Fall Risk Level 3 or more points = High Risk Oriented to surroundings, Maintained a safe environment. Abuse screen: Denies threats or abuse. Denies injuries from another. Nutritional screening: No deficits noted. Tuberculosis screening: No symptoms or risk factors identified. Assessment: 09:26 Reassessment: Patient appears in no apparent distress at this time. Patient and/or db family updated on plan of care and expected duration. Pain level reassessed. pt has a history of dementia. AOx1 is normal for patient. 10:17 Reassessment: family is at bedside. db 10:18 Reassessment: Glucose 363. db 10:40 Reassessment: lab at bedside for 2nd blood culture. db 11:04 Reassessment: Glucose 356. db 12:14 Reassessment: Patient appears in no apparent distress at this time. Patient and/or db family updated on plan of care and expected duration. Pain level reassessed. glucose 320. 13:49 Reassessment: notified Kitchen of request for late food tray. db 14:13 Reassessment: Patient appears in no apparent distress at this time. Patient and/or db family updated on plan of care and expected duration. Pain level reassessed. 15:05 Reassessment: PATIENT CLEANED OF STOOL. db 15:30 Reassessment: CALLED [facility] TO COME SUBSTATION OPERATOR TRANSFORMING PATIENT. AND REPORT GIVEN. db PATIENT DISCHARGED. 15:32 Reassessment: PATIENT PROVIDED FOOD. db 16:13 Reassessment: CONTACTED [facility] FOR ETA. STATES THEY ARE TRYING TO GET A db HOLD OF [facility]. NO ETA AT THIS TIME. 17:00 Reassessment: Patient appears in no apparent distress at this time. patient eating snacks. sitting in chair. 17:31 Reassessment: Called [facility] for ETA for EMS milk pickup driver. States will call db back. 17:34 Reassessment: EMS ETA less than 30 min. db 17:48 Reassessment: patient provided dinner tray. db 18:28 Reassessment: PATIENT ASSISTED INTO [facility]. IN NAD. db Vital Signs: 09:15 BP 109 / 79; Pulse 59; Resp 18; Pulse Ox 96% on R/A; db 09:36 BP 160 / 89; Pulse 57; Resp 16; Pulse Ox 98% on R/A; db 10:30 BP 126 / 60; Pulse 67; Resp 16; Pulse Ox 94% on R/A; db 11:00 BP 125 / 61; Pulse 64; Resp 16; Pulse Ox 96% on R/A; db 12:10 BP 93 / 68; Pulse 64; Resp 18; Temp 97.8(O); Pulse Ox 97% ; db 13:00 BP 148 / 88; Pulse 63; Resp 16; Pulse Ox 99% on R/A; db 14:00 BP 130 / 88; Pulse 75; Resp 18; Pulse Ox 96% on R/A; db Prerna Coma Score: 08:57 Eye Response: spontaneous(4). Motor Response: obeys commands(6). Verbal Response: snw oriented(5). Total: 15. ED Course: 08:43 Patient arrived in ED. iw 08:56 [facility]sie Stein [facility]C [facility] snw 08:56 Wilfrido Gee MD is Attending Physician. snw 09:15 Jaclyn Mckee, ANGEL is Primary Nurse. db 09:18 Triage completed. db 09:26 Arm band placed on Patient placed in an exam room. db 09:55 Chest Single View XRAY In Process Unspecified. EDMS 09:55 Maintain EMS IV. Dressing intact. Good blood return noted. Site clean \\T\\ dry. Gauge \\T\\ db site: 20G Left AC. 10:00 Inserted saline lock: 20 gauge in right antecubital area, using aseptic technique. db Blood collected. 10:00 First set of blood cultures drawn by me. db 10:09 Patient has correct armband on for positive identification. Call light in reach. Side db rails up X 1. 11:00 Client placed on continuous cardiac and pulse oximetry monitoring. NIBP monitoring db applied. 18:00 No provider procedures requiring assistance completed. IV discontinued, intact, db bleeding controlled, No redness/swelling at site. Administered Medications: 09:55 Drug: Albuterol Inhalation 2.5 mg Route: Inhalation; db 14:12 Follow up: Response: No adverse reaction db 11:14 Drug: Insulin Regular Human IVP 5 units {Co-Signature: iw (Kylah Cameron RN).} {Note: db glucose 356.} Route: IVP; Site: right antecubital; 14:12 Follow up: Response: No adverse reaction db 11:14 Drug: Insulin Regular Human Sub-Q 5 units {Co-Signature: hunter (Kylah Cameron RN).} db {Note: glucose 356.} Route: Sub-Q; Site: right upper arm; 14:12 Follow up: Response: No adverse reaction db 12:35 Drug: NS 0.9% IV 500 ml Route: IV; Rate: bolus; Site: right antecubital; db 13:20 Follow up: Response: No adverse reaction; IV Status: Completed infusion; IV Intake: db 500ml 14:05 Drug: NS 0.9% IV 250 ml Route: IV; Rate: bolus; Site: right antecubital; db 15:00 Follow up: Response: No adverse reaction; IV Status: Completed infusion; IV Intake: db 250ml Medication: 10:17 VIS not applicable for this client. db Intake: 13:20 IV: 500ml; Total: 500ml. db 15:00 IV: 250ml; Total: 750ml. db Outcome: 15:24 Discharge ordered by . tomas 18:00 Discharged to long-term. Report called to long term. see assessment note db 18:00 Condition: improved 18:00 Discharge instructions given to long-term, Instructed on discharge instructions. 18:28 Patient left the ED. db Signatures: Dispatcher [employer] EDMS Elsie Stein, WIRELESS TECHNICIAN-C WIRELESS TECHNICIAN-Csnw Kylah Cameron, Jaclyn Hubbard RN, RN RN db Williams, Irene RN iw Corrections: (The following items were deleted from the chart) 14:14 14:13 Reassessment: Patient appears in no apparent distress at this time. Patient db and/or family updated on plan of care and expected duration. Pain level reassessed. Patient is alert, oriented x 3, equal unlabored respirations, skin warm/dry/pink. db 17:49 15:30 Reassessment: CALLED [facility] TO COME SUBSTATION OPERATOR TRANSFORMING PATIENT. db db 18:01 15:30 Reassessment: CALLED [facility] TO COME SUBSTATION OPERATOR TRANSFORMING PATIENT. AND REPORT db GIVEN db 18:01 10:09 [facility] ED Fall Risk Assessment (Adult) History of falling in the last 3 months, db including since admission No falls in past 3 months (0 pts) Confusion or Disorientation Yes (5 pts) Intoxicated or Sedated No (0 pts) Impaired Gait Yes (1 pt) Mobility Assist Device Used Yes (1 pt) Altered Elimination Yes (1 pt) Score/Fall Risk Level 3 or more points = High Risk Oriented to surroundings, Maintained a safe environment, db
[2022-12-19 18:50] VITALS: TEMP 97.8
[2022-12-19 18:53] VITALS: BP 130/88; O2SAT 96
--- NOTE | 2022-12-20 14:23 | EKG ---
Test Date: 2022-12-19 Test Time: 09:42:51 [place] Presser: NAVID MEASUREMENT RESULTS: Intervals: Rate: 62 NC: 148 QRSD: 102 QT: 434 QTc: 440 [place]: P: 71 NC: 148 QRS: 102 T: 53 INTERPRETIVE STATEMENTS: Sinus rhythm with premature atrial complexes Rightward axis Septal infarct, age undetermined Abnormal ECG Compared to ECG 05/07/2021 13:28:02 Atrial premature complex(es) now present Right-axis deviation now present Myocardial infarct finding now present Electronically Signed On 12-20-22 14:21:29 CDT by Brandyn Blank
== END 2022-12-19 18:28 | disposition home or self-care (01) ==
LOC: ER 08:39
DX: E86.0 Dehydration (principal); E11.65 Type 2 diabetes mellitus with hyperglycemia; D64.9 Anemia, unspecified; Z20.822 Contact with and (suspected) exposure to COVID-19
CPT/HCPCS: 96361; 93005; 87040 ×2; 85025; 81001; 36415; 85610; 82947 ×4; 83605; 85730; 80053; 71045; 96372; 96374; 99285; 87811; J1815; J7613; J7040

== ENCOUNTER 2022-12-21 10:07 | Emergency (ER) | payer OTHER ==
--- OUTSIDE RECORDS SUMMARY | 2022-12-21 10:30 | XMS REPORT | Continuity of Care Document ---
:1950 Author Organization [facility] t Address [address] [place] [address] [address] [place] [address] Care Team Providers Name Role Phone Ernestine STOKES, Shruthi Ireland Primary Care Physician [phone] VALDEZ BENJAMIN Attending Clinician Unavailable Valdez Pineda Attending Clinician BABAR LYMAN Attending Clinician Unavailable Babar Lyman MD Attending Clinician DR AMITA DUBON Attending Clinician Unavailable DR CHRISTIE BIRD Attending Clinician DIONY Bush Attending Clinician Unavailable Doctor Unassigned, [place] Attending Clinician Unavailable LUAN SANTO Attending Clinician Unavailable DICKSON WARE Attending Clinician Unavailable Brian Black RN Attending Clinician Unavailable Trinidad Marie DO Attending Clinician Darling Willoughby MD Attending Clinician [phone] DEMETRIUS ROBBINS Attending Clinician Unavailable VALDEZ BENJAMIN Admitting Clinician Unavailable DR AMITA DUBON Admitting Clinician Unavailable DR CHRISTIE BIRD Admitting Clinician Megan Willoughby MD, Darling Medellin Admitting Clinician Payers Payer Name Policy Type Policy Number Effective Date Expiration Date Azael VIERA PLS [id number] 2020 HMO 00:00:00 0545 [id number] 1957 00:00:00 0543 [id number] 1957 00:00:00 MEDICARE PART A [id number] 2021 \\T\\ B 00:00:00 Problems Condition Condition [...] Patient recently saw Neurology Dr. Kaylie Chaves ([place]), who wants to do an EEG. Last Assessmen t & Plan: Formattin g of this note might be different from the original. DDX: Mild cognitive impairmen t, hypertens damian encephalo mick, chronic stroke, seizure-w ould benefit from cognitive impairmen t screening next visit -Neurolog y referral placed for Dr. Chaves, whom patient has previousl y establish ed with in [place], [place]. Appears patient has been told he needs EEG. -Discusse d home safety, mother also agrees to assist patient with taking medicatio ns and keeping blood pressure and blood sugar logs Paranoid Paranoid Disease Active Overview: Me thodi delusion delusion 9-[address] 00:00: g of this Hospita [...] Ambulator y referral to Psychiatr y; Future [facility] Disease Active Overview: Tx thodi discharge discharge - Deisy s liset follow-up follow-up 00:00: g of this H [...] worsening Saw nephrolog y, Dr. Leland Ortega, in July 2020.---- --------- --------- --------- --------- [...] diabetes mellitus mellitus Hypertensi Hypertensi Disease Active U nivers on, on, 02-15 ity of [...] Future Type 2 Type 2 Disease Active 2020-0 Overview: Method i diabetes diabetes 02-07 Formattin [...] and to facilitat e patient complianc e-Pioglit temi, started by nephrolog y-Reasses s A1c and [...] is supposed to see Ophthalmo logist in [place] soon, but appointme nt not scheduled yet. Left No chest pain, SOB, headaches , numbness/ tingling, weakness. No blood tinge urine, no decreased urine output. States he is rarely adding salt. still eating eggs, staton, BBQ. States he "[place] [facility] Has been eating green beans Walking [...] adds salt. Mixed vegetable cans. Sometimes eats [employer] dinner. Hamburger , steak. No headache, [...] Active Univers ALLERGIE Class ity of [facility] No Known DA Active [facility] s Family History Family Member Diagnosis Comments Start Date Stop Date Source Natural father CABG/Stent [facility] Natural father Hypertension [facility] [place] Natural father Stroke [facility] Natural mother Hypertension [facility] [place] Natural mother Stroke [facility] Paternal uncle Stroke [facility] Social History Social Habit Start Date Stop Date Quantity Comments Source History of tobacco Current smoker Un iversity of use [facility] Gender identity [facility] Exposure to 2022-07-10 2022-07-20 Not sure University of SARS-CoV-2 (event) 00:00:00 11:50:00 [facility] Alcohol intake 2021-03-20 2021-03-20 Current drinker [facility] dist 00:00:00 00:00:00 of alcohol Hospital (finding) History of Social 2021-03-20 2021-03-[address] function 00:00:00 00:00:00 Hospital Tobacco use and 2020-02-16 2020-02-16 Smokeless Universit y of exposure 00:00:00 00:00:00 tobacco non-user [facility] Cigarettes smoked 2020-02-08 2020-02-[address] current (pack per 00:00:00 00:00:00 Hospita l day) - Reported Cigarette 2020-02-08 2020-02-08 [facility] 00:00:00 00:00:00 Hospital Tobacco Comment 2016-07-31 2016-07-31 quit over [address] 00:00:00 00:00:00 years ago Hospital Sex Assigned At [birth year] [facility] 00:00:00 00:[facility]:00 Hospital Smoking Status Start Date Stop Date Source Ex-smoker 2020-02-16 00:00:00 2020-02-16 00:00:00 [facility] Branch Medications Ordered Filled Start Stop Current Ordering Indication Dosage Frequency Signature Comments Components Source Medication Medication Date Date Medication? Clinician (SIG) Name Name insulin 2021- No 4U 4 [facility] Slow IV ity of human 19:15: 19:21 Push, [place] (HUMULIN R) 00 :00 ONCE, 1 Medic [...] Autumn 03/19/22 at 1245, STAT glyBURIDE-m Yes [id number] 1{tbl} Take 1 Univers etformin - tablet by ity of 2.5-500 mg 00:00: mouth in [place] as tablet 00 the Medical morning Branch and 1 tablet in the evening. Take with meals. glyBURIDE-m Yes [id number] 1{tbl} Take 1 Univers etformin - tablet by ity of 2.5-500 mg 00:00: mouth in [place] tablet 00 the Medical morning Branch and 1 tablet in the evening. Take with meals. glyBURIDE-m 2021- No [id number] 1{tbl} Take 1 Univers etformin 03-19 tablet by ity o f 5-500 mg 00:00: 00:00 [place] :00 the Medical morning Branch and 1 tablet in the evening. Take with meals. omega-3/dha Yes Take by Met hodi /epa/fish - mouth. st oil 15:06: Hospita (OMEGA-3 49 l FISH OIL ORAL) coenzyme Yes 200mg QD Take 200 Meth stacey Q10 (Co 9-[address] Q-10) 100 15:06: mouth Hospita mg capsule 49 daily. l melatonin 3 2020-0 Yes Take by Met hodi mg tablet -[address] 15:06: Hospita 49 l omega-3/dha 2020-0 Yes Take by Met hodi /epa/fish 9-[address] oil 15:06: Hospita (OMEGA-3 49 l FISH OIL ORAL) coenzyme 202-0 Yes 200mg QD Take 200 Meth stacey Q10 (Co 9-[address] Q-10) 100 15:06: mouth Hospita mg capsule 49 daily. l melatonin 3 2020-0 Yes Take by Met hodi mg tablet 9-[address] 15:06: Hospita 49 l vitamin B 2020-0 Yes Take by Metho di complex vit 9-[address] C no.4 15:06: Hospita (SUPER B 07 l COMPLEX + C ORAL) thiamine 202-0 Yes 100mg QD Take 100 Meth stacey mononitrate 9-23 mg by , vit B1, 15:06: mouth Hospita (B-1) 100 07 daily. l mg tablet cyanocobala 2020-0 Yes 2500ug Take 2,500 Methodi min, 9-23 mcg by vitamin 15:06: mouth. Hospita B-12, 07 l (VITAMIN B-12 ORAL) ascorbic 2020-0 Yes 1000mg QD Take 1,000 M ethodi acid 9-23 mg by (VITAMIN C 15:06: mouth Hospit a ORAL) 07 daily. l cholecalcif 2020-0 Yes 5000U Q.5D Take 5,000 Methodi ana, 9-23 Units by vitamin D3, 15:06: mouth 2 Hos jorge (VITAMIN D3 07 (two) l ORAL) times a day. vitamin E 2020-0 Yes 400U QD Take 400 Meth stacey 400 UNIT 9-23 Units by capsule 15:06: mouth Hospita 07 daily. l vitamin B 202-0 Yes Take by Metho di complex vit 9-[address] C no.4 15:06: Hospita (SUPER B 07 l COMPLEX + C ORAL) thiamine 202-0 Yes 100mg QD Take 100 Meth stacey mononitrate 9-23 mg by , vit B1, 15:06: mouth Hospita (B-1) [...] Take 5,000 Methodi ana, 9-[address] vitamin D3, 15:06: mouth 2 Hos jorge (VITAMIN D3 07 (two) l ORAL) times a day. vitamin E Yes 400U QD Take 400 Meth stacey 400 UNIT 9-[address] capsule 15:06: mouth Hospita 07 daily. l NIFEdipine 2021- No [id number] 60mg QD Take 1 Methodi ER 03-20-24 tablet (60 st (PROCARDIA- 00:00: 04:59 mg total) Hospita XL) 60 MG 00 :00 by mouth l 24 hr daily. tablet NIFEdipine 2021- No [id number] 60mg QD Take 1 Methodi ER 03-20-24 tablet (60 st (PROCARDIA- 00:00: 04:59 mg total) Hospita XL) 60 MG 00 :00 by mouth l 24 hr daily. tablet metFORMIN 2021- No 500mg QD Take 500 Me thodi XR 8-10 08-[address] (GLUCOPHAGE 00:00: 04:59 mouth Hosp aaron -XR) 500 mg 00 :00 daily. l 24 hr tablet metFORMIN 2021- No 500mg QD Take 500 Me thodi XR 8-10 08-[address] (GLUCOPHAGE 00:00: 04:59 mouth Hosp aaron -XR) 500 mg 00 :00 daily. l 24 hr tablet lancets Yes [id number] Check Meth stacey (Accu-Chek 9-[address] Fastclix 00:00: glucose Hospit a Lancet 00 three l Drum) misc times a day prior to meals lancets Yes [id number] Check Meth stacey (Accu-Chek 9-[address] Fastclix 00:00: glucose Hospit a Lancet 00 three l Drum) misc times a day prior to meals amLODIPine 2020-0 Yes [id number] 10mg Take 1 U nivers 10 mg 8-23 tablet by ity of tablet 00:00: mouth [place] 00 daily. Medical Branch amLODIPine 2020-0 Yes [id number] 10mg Take 1 U nivers 10 mg 8-23 tablet by ity of tablet 00:00: mouth [place] 00 daily. Medical Branch amLODIPine 2020-0 Yes [id number] 10mg Take 1 U nivers 10 mg 8-23 tablet by ity of tablet 00:00: mouth [place] 00 daily. Medical Branch amLODIPine 2020-0 Yes [id number] 10mg Take 1 U nivers 10 mg 8-23 tablet by ity of tablet 00:00: mouth [place] 00 daily. Medical Branch amLODIPine 2020-0 Yes [id number] 10mg Take 1 U nivers 10 mg 8-23 tablet by ity of tablet 00:00: mouth [place] 00 daily. Medical Branch glyBURIDE 2020-0 2020- No 5mg Take 5 mg Un mo (DIABETA) 5 8-22 -22 by mouth ity of mg tablet 16:25: 00:00 daily with [place] 17 :00 breakfast. Medical Branch multivitami 2020-0 2020- No 1{tbl} Take 1 U nivers n tablet 8-22 -22 tablet by ity o f 16:25: 00:00 mouth [place] 16 :00 daily. Medical Branch glyBURIDE 5 2020-0 Yes [id number] 5mg Take 1 Univers mg tablet 8-22 tablet by ity o f 00:00: mouth 2 (two) Medical times Branch daily with meals. metFORMIN 2020-0 Yes [id number] 500mg Take 1 U nivers 500 mg 8-22 tablet by ity of tablet 00:00: mouth [place] 00 daily. Medical Branch glyBURIDE 5 2020-0 Yes [id number] 5mg Take 1 Univers mg tablet 8-22 tablet by ity o f 00:00: mouth 2 [place] 00 (two) Medical times Branch daily with meals. metFORMIN 2020-0 Yes [id number] 500mg Take 1 U nivers 500 mg 8-22 tablet by ity of tablet 00:00: mouth [place] 00 daily. Medical Branch glyBURIDE 5 2020-0 Yes [id number] 5mg Take 1 Univers mg tablet 8-22 tablet by ity o f 00:00: mouth 2 [place] 00 (two) Medical times Branch daily with meals. metFORMIN 2020-0 Yes [id number] 500mg Take 1 U nivers 500 mg 02-16 tablet by ity of tablet 00:00: mouth [place] 00 daily. Medical Branch glyBURIDE 5 2019-2021- No [id number] 5mg Take 1 Univers mg tablet 02-16 tablet by ity of 00:00: 00:00 mouth 2 [place] 00 :00 (two) Medical times [place] daily with meals. metFORMIN 2019-0 2021- No [id number] 500mg Take 1 Univers 500 mg 02-16 tablet by ity of tablet 00:00: 00:00 mouth [place] 00 :00 daily. Medical Branch heparin 2020-0 Yes 5000U 5,000 Univers (porcine) 02-15 Units, ity of injection 19:00: Subcutaneo [place] 5,000 Units 00 us, Q8H, Medi christina First dose Branch on Wed02/16/20 at 1400, Until Discontinu ed, Routine Sliding 2020-0 Yes Subcutaneo Univ ers Scale 02-15 us, AC+HS, ity of Insulin-Reg 16:30: First dose [place] ular + Fsbg 00 on Wed Medica l Testing 02/16/20 at Branch 1130, Until Discontinu ed, Routine NaCl 0.45% 2020-0 Yes 1000mL at 100 Uni vers (1/2NS) IV 8-21 mL/hr, ity of infusion 14:45: 1,000 mL, [...] 10U 10 Units, Univ ers regular 02-15 08- IV [place], ity of human 14:00: 13:56 ONCE, 1 [place] (HUMULIN R) 00 :00 dose, Fri Med ical injection 02/16/20 at Bran ch [...] 02-15 Oral, ity of (TYLENOL) 12:32: Q6HPRN, [place] tablet 650 07 Starting Medic al mg [...] Medical 02/16/20 at Branch 0530, [place] calcium 2020-0 2020- No 1g 1 g, IV Univer s gluconate 1 02-15 Infusion, it y of g in NaCl 10:30: 09:38 ONCE, 1 [place] 50 mL 00 :00 dose, [facility] (ISO-OSM) 02/16/20 at [facility] RTU IV 0530, infusion 1 Routine g blood sugar 2020-0 Yes [id number] Please Methodi diagnostic 8-[address] strips 00:00: blood Hospita (Accu-Chek 00 glucose l Guide test levels strips) three strip test times a strips day prior to meals blood sugar 2020-0 Yes [id number] Please Methodi diagnostic 8-[address] strips 00:00: blood Hospita (Accu-Chek 00 glucose l Guide test levels strips) three strip test times a strips day prior to meals blood-gluco 2020-0 Yes [id number] Please Methodi se meter 8-[address] (Accu-Chek 00:00: blood Hospit a Guide 00 glucose l Glucose levels Meter) misc three times a day prior to meals blood-gluco 2020-0 Yes [id number] Please Methodi se meter 8-[address] (Accu-Chek 00:00: blood Hospit a Guide 00 glucose l Glucose levels Meter) misc three times a day prior to meals blood-gluc, 2020-0 Yes [id number] Please Methodi BP 8-[address] meter,adult 00:00: blood Hospi ta cuff device 00 pressure l once a day and record values in a blood pressure diary. Please also check your blood sugar once a day (before eating meals) and record in a blood sugar diary. blood-gluc, 2019-0 Yes [id number] Please Methodi BP 8-[address] meter,adult 00:00: blood Hospi ta cuff device 00 pressure l once a day and record values in a blood pressure diary. Please also check your blood sugar once a day (before eating meals) and record in a blood sugar diary. ketorolac 2020- No 10mg Take 1 Unive rs 10 mg 07-28 08-22 tablet by ity of tablet 00:00: 00:00 mouth [place] 00 :00 every 6 Medical (six) Branch hours as needed for Pain (scale 4-6). traMADOL Yes 50mg Take 1 Univers (ULTRAM) 50 6-08 tablet by ity of mg tablet 00:00: mouth [place] 00 every 8 Medical (eight) Branch hours as needed for Pain (scale 4-6). traMADOL 0 Yes 50mg Take 1 Univers (ULTRAM) 50 6-08 tablet by ity of mg tablet 00:00: mouth [place] 00 every 8 Medical (eight) Branch hours as needed for Pain (scale 4-6). traMADOL 2015-0 Yes 50mg Take 1 Univers (ULTRAM) 50 6-08 tablet by ity of mg tablet 00:00: mouth [place] 00 every 8 Medical (eight) Branch hours as needed for Pain (scale 4-6). traMADOL 2015-0 Yes 50mg Take 1 Univers (ULTRAM) 50 6-08 tablet by ity of mg tablet 00:00: mouth [place] 00 every 8 Medical (eight) Branch hours as needed for Pain (scale 4-6). traMADOL 2015-0 Yes 50mg Take 1 Univers (ULTRAM) 50 6-08 tablet by ity of mg tablet 00:00: mouth [place] 00 every 8 Medical (eight) Branch hours as needed for Pain (scale 4-6). Vital Signs Vital Name Observation Time Observation Value Comments Source Systolic blood 2022-07-21 00:00:00 177 mm[Hg] [facility] Diastolic blood 2022-07-21 00:00:00 79 mm[Hg] Unive [facility] Heart rate 2022-07-21 00:00:00 61 /min [facility] [place] [facility] Respiratory rate 2022-07-21 00:00:00 18 /min [facility] [place] [facility] Oxygen saturation in 2022-07-21 00:00:00 95 /min University of Arterial blood by [facility] Pulse oximetry Branch Body temperature 2022-07-20 17:47:00 36.39 Trudy Univ [facility] [place] [facility] Body height 2022-07-20 17:47:00 160 cm [facility] [place] [facility] Body weight 2022-07-20 17:47:00 49.442 kg [facility] [place] [facility] BMI 2022-07-20 17:47:00 19.31 kg/m2 [facility] [place] [facility] Systolic blood 2022-03-19 19:00:00 117 mm[Hg] Univer [facility]ity of [facility] [place] Diastolic blood 2022-03-19 19:00:00 94 mm[Hg] Unive [facility] Heart rate 2022-03-19 19:00:00 67 /min [facility] [place] [facility] Respiratory rate 2022-03-19 19:00:00 17 /min Univ [facility] [place] [facility] Oxygen saturation in 2022-03-19 19:00:00 98 /min University of Arterial blood by [facility] Pulse oximetry Branch Body temperature 2022-03-19 17:36:00 36.89 Trudy Univ [facility] [place] [facility] Body height 2022-03-19 17:36:00 160 cm [facility] [place] [facility] Body weight 2022-03-19 17:36:00 49.76 kg [facility] [place] [facility] BMI 2022-03-19 17:36:00 19.43 kg/m2 [facility] [place] [facility] Weight 2022-01-05 09:00:00 54.9 KG Height 2021-12-16 00:10:00 160.02 CM Weight 2021-12-16 00:10:00 54.43 KG Weight 2021-12-15 12:00:00 56.69 KG Height 2021-12-13 22:49:00 160.02 CM Weight 2021-12-13 22:49:00 54.43 KG Systolic blood 2020-02-17 16:40:00 125 mm[Hg] Univer [facility] Diastolic blood 2020-02-17 16:40:00 86 mm[Hg] Unive rsity of pressure [facility] Heart rate 2020-02-17 16:40:00 66 /min [facility] Body temperature 2020-02-17 16:40:00 36.44 Trudy [facility] Res[facility] rate 2020-02-17 16:40:00 18 /min [facility] Oxygen saturation in 2020-02-17 16:40:00 99 /min [facility] Arterial blood by [facility] Pulse oximetry [place] Body weight 2020-02-17 08:11:00 57.199 kg [facility] BMI 2020-02-17 08:11:00 20.35 kg/m2 [facility] Body height 2020-02-16 11:08:00 167.6 cm [facility] Procedures Procedure Date / Time Performing Clinician Source Performed CT HEAD WO CONTRAST 2022-07-20 [facility] o f [place] 23:41:07 [facility] CT CERVICAL SPINE WO 2022-07-20 [facility] CONTRAST 19:01:47 [facility] CT HEAD WO CONTRAST 2022-07-20 [facility] o [place] 19:01:47 [facility] CONSENT/REFUSAL FOR 2022-07-20 Doctor Unassigned, No [facility] DIAGNOSIS AND TREATMENT 17:40:54 Name [facility] POCT GLUCOSE (AUTOMATED) 2022-03-19 Umer Babar [facility] 19:20:00 [facility] MAGNESIUM [facility]22[facility]03-[facility] 18:07[facility]00 [facility] COMP. METABOLIC PANEL 2022-03-19 Umer [facility] ([id number]) 18:07:00 [facility] LIPID PANEL 2022-03-[facility] ([id number]TOTAL 18:07:00 [facility] CHOLESTEROL, TRIGLYCERIDES, HDL) CBC WITH DIFF [facility]03[facility] 18:07[facility] Medical Branch GLYCOSYLATED HEMOGLOBIN 2022-03-19 Babar Lyman [facility] (A1C) 18:07:00 Medical Branch POCT GLUCOSE (AUTOMATED) 2022-03-19 Babar Lyman [facility] 17:33:00 Medical Branch CONSENT/REFUSAL FOR 2022-03-19 Doctor Unassigned, No [facility] DIAGNOSIS AND TREATMENT 17:09:04 Name Medical Branch ASSIGNMENT OF BENEFITS 2021-12-03 Doctor Unassigned, No [facility] 16:00:04 Name [facility] POCT GLUCOSE (AUTOMATED) [facility]02[facility] 16:43:00 [facility] POCT GLUCOSE (AUTOMATED) 2020-02-17 [facility] 12:44:00 [facility] IMMUNOGLOBULIN G A M 2020-02-17 L[facility] Ortega [facility] PANEL 08:35:00 [facility] BASIC METABOLIC PANEL 2020-02-17 [facility] (NA, K, CL, CO2, 08:35:00 [facility] GLUCOSE, BUN, CREATININE, CA) CBC WITH DIFF 2020-02-17 [facility] [place] 08:35:00 [facility] POCT GLUCOSE (AUTOMATED) 2020-02-17 [facility] 00:42:00 [facility] POCT GLUCOSE (AUTOMATED) 2020-02-16 [facility] 21:33:00 [facility] CREATININE, URINE RANDOM 2020-02-16 [facility] 19:32:00 [facility] UREA NITROGEN, URINE 2020-02-16 [facility] RANDOM 19:32:00 [facility] POTASSIUM, URINE RANDOM 2020-02-16 [facility] 19:32:00 Medical Branch SODIUM, URINE RANDOM 2020-02-16 [facility] 19:32:00 Medical Branch US RENAL WITH DOPPLER 2020-02-16 [facility] 18:20:37 Medical Branch POCT GLUCOSE (AUTOMATED) 2020-02-16 [facility] 16:06:00 [facility] BASIC METABOLIC PANEL 2020-02-16 [facility] (NA, K, CL, CO2, 15:25:00 [facility] GLUCOSE, BUN, CREATININE, CA) POCT GLUCOSE (AUTOMATED) 2020-02-16 [facility] 13:07:00 [facility]YSIS 2020[facility]02[facility] 09:50:00 [facility] ADC / LCC - DRUG SCREEN 2020-02-16 [facility] TRIAGE 09:50:00 [facility] COVID-19 (ID NOW RAPID [facility] 09:50:00 [facility] POTASSIUM SERUM 2020-02-16 [facility] 08:45:00 [facility] BASIC METABOLIC PANEL 2020-02-16 [facility] (NA, K, CL, CO2, 08:45:00 Medical Branch GLUCOSE, BUN, CREATININE, CA) XR CHEST 1 VW 2020-02-16 [facility] 08:26:08 [facility] TROPONIN I 2020-02-16 [facility] 08:13:00 [facility] COMP. METABOLIC PANEL 2020[id number] 08:13:00 [facility] CBC WITH DIFF 2020-02-16 [facility] 08:13:00 [facility] GLYCOSYLATED HEMOGLOBIN 2020-02-16 [facility] (A1C) 08:13:00 [facility] PROTHROMBIN TIME / INR 2020-02-16 [facility] 08:13:00 [facility] EKG-12 LEAD 2020-02-16 [facility] 08:12:15 [facility] Branch EKG-12 LEAD 2020-02-16 [facility] 08:10:35 [facility] Plan of Care Planned Activity Planned Date Details Comments Source Future Scheduled 2022-12-21 Screening for [facility] Test 10:24:42 malignant neoplasm of colon (procedure) [code = 540913060] Future Scheduled 2022-12-21 [facility] Test 10:24:42 malignant neoplasm of colon (procedure) [code = 786067651] Future Scheduled 2022-12-21 [facility] for [facility] Test 10:24:42 malignant neoplasm of colon (procedure) [code = 684014586] Future Scheduled 2022-12-21 COVID-19 VACCINE (#1) [facility] Test 10:24:42 [code = COVID-19 VACCINE (#1)] Future Scheduled 2022-12-21 65+ PNEUMOCOCCAL [facility] Test 10:24:42 VACCINE (1 - PCV) [code = 65+ PNEUMOCOCCAL VACCINE (1 - PCV)] Future Scheduled 2022-12-21 Hepatitis C screening [facility] Test 10:24:42 (procedure) [code = 355018542] Future Scheduled 2022-12-21 Screening for [facility] Test 10:24:42 malignant neoplasm of colon (procedure) [code = 808103693] Future Scheduled 2022-12-21 Screening for [facility] Test 10:24:42 malignant neoplasm of colon (procedure) [code = 109540127] Future Scheduled 2022-12-21 SHINGLES VACCINES (1 [facility] Test 10:24:42 of 2) [code = SHINGLES VACCINES (1 of 2)] Future Scheduled 2022-12-21 DIABETIC FOOT EXAM [facility] Test 10:24:42 [code = DIABETIC FOOT EXAM] Future Scheduled 2022-12-21 DIABETES: RETINAL EYE [facility] Test 10:24:42 EXAM [code = DIABETES: RETINAL EYE EXAM] Future Scheduled 2022-12-21 INFLUENZA VACCINE [facility] Test 10:24:42 [code = INFLUENZA VACCINE] Future Scheduled 2022-12-10 [facility] Test 19:43:10 malignant neoplasm of colon (procedure) [code = 613366633] Future Scheduled 2022-12-10 SHINGLES VACCINES (1 [facility] Test 19:43:10 of 2) [code = SHINGLES VACCINES (1 of 2)] Future Scheduled 2022-12-10 DIABETIC FOOT EXAM [facility] Test 19:43:10 [code = DIABETIC FOOT EXAM] Future Scheduled 2022-12-10 DIABETES: RETINAL EYE [facility] Test 19:43:10 EXAM [code = DIABETES: RETINAL EYE EXAM] Future Scheduled 2022-12-10 [facility]UENZA VACCINE [facility] 19:43:10 [code = INFLUENZA VACCINE] Future Scheduled 2022-12-10 [facility] Test 19:43:10 malignant neoplasm of colon (procedure) [code = 497432784] Future Scheduled 2022-12-10 [facility] for [facility] Test 19:43:10 malignant neoplasm of colon (procedure) [code = 131552737] Future Scheduled 2022-12-10 [facility] Test 19:43:10 malignant neoplasm of colon (procedure) [code = 071851320] Future Scheduled 2022-12-10 COVID[facility]19 [facility] 19:43:10 [code = COVID-19 VACCINE (#1)] Future Scheduled 2022-12-10 65+ P[facility]UMOCOCCAL [facility] Test 19:43:10 VACCINE (1 - PCV) [code = 65+ PNEUMOCOCCAL VACCINE (1 - PCV)] Future Scheduled 2022-12-10 Hepatitis C screening [facility] Test 19:43:10 (procedure) [code = 396727398] Future Scheduled 2022-12-10 [facility] for [facility] Test 19:43:10 malignant neoplasm of colon (procedure) [code = 586465259] Encounters Start End Encounter Admission Attending Care Care Encounter Source Date/Time Date/Time Type Type Clinicians Facility Department ID 2022-07-20 2022-07-20 [facility] [id number] [facility] 11:53:00 18:46:[address] [facility] 2022-07-20 2022-07-20 Emergency Cassidy, [facility] [id number] Univers 11:53:00 18:46:00 Valdez ALEXIS 350.1.13.10 [facility] 4.2.7.2.686 [place] [id number] [place] [address] [address] 2022-03-19 2022-03-19 Emergency X UMER, [facility] ERT [id number] Univers 12:38:00 15:44:[address] [facility] 2022-03-19 2022-03-19 [facility] [id number] Univers 12:38:00 15:44:00 Babar ALEXIS 350.1.13.10 i [place] [id number] [facility] [address] 2021-12-15 2022-01-20 Inpatient C JAGDISH, [facility] [id number] [place] 19:08:00 19:38:00 AMITA [facility] 2021-12-13 2021-12-15 Outpatient E MARGE, [facility] [id number] [place] 22:16:00 19:00:00 CHRISTIE [facility] 2021-12-03 2021-12-03 Outpatient R JOELLE, [facility] [id number] [facility] 11:00:00 11:00:[address] [facility] 2021-12-03 2021-12-03 Orders Doctor OCONNOR [id number] [place] [address] 00:00:00 00:00:00 Only Unassigned, TIMBO 350.1.13.10 ity of [place] [facility] 4.2.7.2.686 Jose as [id number] [facility] [address] 2021-04-11 2021-04-11 Outpatient Belkys SANTO, [facility] [id number] [facility] 13:30:00 13:30:[address] [facility] 2021-03-20 2021-03-20 Outpatient WARE, [facility] [id number] [address] [place] 00:00:00 00:00:00 DICKSON 90Franchesca Metho di 2020-03-07 2020-03-08 Outpatient [facility] [id number] [address] [place] 00:00:00 00:00:[address] 2020-02-19 2020-02-19 Transition Mike Black [id number] [facility] 00:00:00 00:00:00 of Care Brian Mahmood 350.1.13.10 ity [place] [id number] [facility] [address] 2020-02-16 2020-02-17 Hospital Trinidad Marie [facility] 1.2.84 0.114 [id number] [facility] 03:21:00 13:35:00 Encounter Darling Willoughby on 350.1.13.10 [facility]banner [place] 4.2.7.2.686 [facility] [id number] [place] [address] [address] 2020-02-16 2020-02-16 Emergency X [facility] ERT [id number] Univers 03:21:00 03:21:00 ity of [facility] 2020-02-08 2020-02-08 Outpatient [facility] [id number] [address] [place] 00:00:00 00:00:[address] 2020-02-02 2020-02-02 Emergency DEMETRIUS ROBBINS [facility] [id number] [place] 00:00:00 00:00:[address] Results Test Description Test Time Test Comments Results Result Comments Source GLYCOSYLATED HEMOGLOBIN (A1C) 2022-03-19 19:27:39 Test Item Value Reference Range Interpretation Comme nts HGB A1C (test code = 4548-4) 11.6 % 4-5.7 H MATTEO (test code = MATTEO) Reference RangesNormal: <5.7%Prediabetes: 5.7 - 6.4%Diabetes: > 6.5% Lab Interpretation (test code = 26381-6) [facility]19 19:21:42 Test Item Value Reference Range Interpretation Comments POCT GLU (test code = 1006041640) 325 mg/dL 70-110 H Lab Interpretation (test code = Abnormal 61108-4) [facility] (78832)(TOTAL CHOLESTEROL, TRIGLYCERIDES, HDL)2022-03-19 18:40:28 Test Item Value Reference Range Interpretation Comments CHOL (test code = 147 mg/dL 120-200 1969078147) HDL (test code = 55 mg/dL See_Comment [Automated message] 5236127167) The system Rolith generated this result transmit georges reference range : >=40. The refer ence range was not u sed to interpret th is result as normal/abnormal . HDLC RATIO (test code = See_Comment [Au tomated message] 0050617698) The system Rolith generated this result transmit georges reference range : <=5.0. The refe rence range was not u sed to interpret th is result as normal/abnormal . TRIG (test code = 222 mg/dL 30-170 H 3269852627) LDL CHOL (test code = 48 mg/dL See_Comment [Auto mated message] 28629-9) The system Rolith generated this result transmit georges reference range : <=160. The refe rence range was not u sed to interpret th is result as normal/abnormal . VLDL (test code = 44 mg/dL 5-60 8782661256) Lab Interpretation (test Abnormal code = 27867-1) [facility]. METABOLIC PANEL (39102)2022-03-19 18:40:08 Test Item Value Reference Range Interpretation Comments NA (test code = 139 mmol/L 135-145 0973810852) K (test code = 5.0 mmol/L 3.5-5 2935030628) CL (test code = 101 mmol/L 98-108 0120993463) CO2 TOTAL (test code = 29 mmol/L 23-31 6788022605) AGAP (test code = 2-16 7533216976) BUN (test code = 47 mg/dL 7-23 H 7585125885) GLUCOSE (test code = 324 mg/dL 70-110 H 2082188370) CREATININE (test code = 1.47 mg/dL 0.6-1.25 H 8691301142) TOTAL BILI (test code = 0.5 mg/dL 0.1-1.6 1695321841) CALCIUM (test code = 11.0 mg/dL 8.6-10.6 H 2482487743) T PROTEIN (test code = 6.7 g/dL 6.3-8.2 7247507230) ALBUMIN (test code = 4.2 g/dL 3.5-5 1435776038) ALK PHOS (test code = 144 U/L 34-122 H 1572309359) ALTv (test code = 48 U/L 5-50 1742-6) AST(SGOT) (test code = 31 U/L 13-40 8385399933) eGFR (test code = mL/min/1.73m2 1503320889) MATTEO (test code = MATTEO) Association of [...] tests). Lab Interpretation Abnormal (test code = 15403-1) [facility] 18:40:08 Test Item Value Reference Range Interpretation Comments MAGNESIUM (test code = 8857914567) 2.4 mg/dL 1.7-2.4 Lab Interpretation (test code = Normal 92494-4) [facility] 18:39:47 Test Item Value Reference Range Interpretation Comments PHOSPHORUS (test code = 5498170187) 3.3 mg/dL 2.5-5 Lab Interpretation (test code = Normal 46114-0) [facility] [id number] 18:24:01 Test Item Value Reference Range Interpretation Comments WBC (test code = See_Comment [Automated 0990-2) message] The sy stem which generated this [...] RDW-SD (test code = 48.3 fL 38.5-51.6 24298-5) RDW-CV (test code = 14.6 % 12.1-15.4 788-0) PLT (test code = See_Comment [Automated 777-3) message] The sy stem which generated this result transmitted reference range : 150 - 328 10*3/ ?L. The reference r yoselyn was not used to interpret this result as normal/abnormal . MPV (test code = 11.8 fL 9.8-13 14235-0) NRBC/100 WBC (test See_Comment [Automat ed code = 5249892370) message] The system which generated this result transmitted reference range : 0.0 - 10.0 /100 WBCs. The refer ence range was not u sed to interpret th is result as normal/abnormal . NRBC x10^3 (test code See_Comment [Auto mated = 3935857082) message] The s ystem which generated this result transmitted reference range : 10*3/?L. The reference range was not used to interpret this result as normal/abnormal . GRAN MAT (NEUT) % 71.7 % (test code = 770-8) IMM GRAN % (test code 0.50 % = 4361982941) LYMPH % (test code = 18.7 % 736-9) MONO % (test code = 8.1 % 5905-5) EOS % (test code = 0.8 % 713-8) BASO % (test code = 0.2 % 706-2) GRAN MAT x10^3(ANC) 6.18 10*3/uL 1.99-6.95 (test code = 8714817384) IMM GRAN x10^3 (test 0.04 10*3/uL 0-0.06 code = 9574446789) LYMPH x10^3 (test code 1.61 10*3/uL 1.09-3.23 = 731-0) MONO x10^3 (test code 0.70 10*3/uL 0.36-1.02 = 742-7) EOS x10^3 (test code = 0.07 10*3/uL 0.06-0.53 711-2) BASO x10^3 (test code 0.01-0.09 = 704-7) Lab Interpretation Abnormal (test code = 35527-8) [facility]-19 17:44:08 Test Item Value Reference Range Interpretation Comments POCT GLU (test code = 3598866071) 318 mg/dL 70-110 H Lab Interpretation (test code = Abnormal 86798-7) [facility] [id number] 16:47:00 Test Item Value Reference Range Interpretation Comments GLUCOMETER (test code 108 mg/dL 70-100 H CLEANE D METERMeter ID: = GMG) [id number] tor: 6193 REFUGIO [employer] ARDSON GLUCOMETER GLUCOSE- LAB USE [id number] 11:40:00 Test Item Value Reference Range Interpretation Comments GLUCOMETER (test code 160 mg/dL 70-100 H Meter ID: = GMG) [id number] tor: 6193 REFUGIO [employer] ARDSON GLUCOMETER GLUCOSE- LAB USE [id number] 07:31:00 Test Item Value Reference Range Interpretation Comments GLUCOMETER (test code = 81 mg/dL 70-100 Mete r ID: GMG) [id number] tor: 6193 REFUGIO RICH ARDSON GLUCOMETER GLUCOSE- LAB USE [id number] 21:59:00 Test Item Value Reference Range Interpretation Comments GLUCOMETER (test code 205 mg/dL 70-100 H CLEANE D METERMeter ID: = GMG) [id number] tor: 8249 OLABODE OS UMOSU SARS-CoV (RAPID ANTIGEN)2022-01-19 17:13:00 Test Item Value Reference Range Interpretation Comments SARS-CoV (ANTIGEN) NEGATIVE NEGATIVE (test code = COVAG) COVID AG (test This test has been code = COVAGC) marketed under the FDA Emergency Use Authorization (EUA) to meet challenges of the COVID-19 pandemic. The validation standards normally enforced by the FDA and the College of the [employer] (CAP) are more stringent than those required for this test. Therefore, the result should be interpreted with caution and close attention to other clinical and epidemiological data GLUCOMETER GLUCOSE- LAB USE [id number] 16:13:00 Test Item Value Reference Range Interpretation Comments GLUCOMETER (test code 125 mg/dL 70-100 H CLEANE D METERMeter ID: = GMG) [id number] tor: 9867 WILLIAM G ENTILE GLUCOMETER GLUCOSE- LAB USE [id number] 11:17:00 Test Item Value Reference Range Interpretation Comments GLUCOMETER (test code 231 mg/dL 70-100 H CLEANE D METERMeter ID: = GMG) [id number] tor: 9867 WILLIAM G ENTILE GLUCOMETER GLUCOSE- LAB USE [id number] 06:51:00 Test Item Value Reference Range Interpretation Comments GLUCOMETER (test code 129 mg/dL 70-100 H CLEANE D METERMeter ID: = GMG) [id number] tor: 5538 TARECIA EARL RGROVE GLUCOMETER GLUCOSE- LAB USE [id number] 19:38:00 Test Item Value Reference Range Interpretation Comments GLUCOMETER (test code 204 mg/dL 70-100 H CLEANE D METERMeter ID: = GMG) [id number] tor: 5538 TARECIA EARL RGROVE GLUCOMETER GLUCOSE- LAB USE [id number] 17:25:00 Test Item Value Reference Range Interpretation Comments GLUCOMETER (test code 242 mg/dL 70-100 H CLEANE D METERMeter ID: = GMG) [id number] tor: 5066 KENITA COL PAWAN GLUCOMETER GLUCOSE- LAB USE [id number] 12:24:00 Test Item Value Reference Range Interpretation Comments GLUCOMETER (test code 197 mg/dL 70-100 H CLEANE D METERMeter ID: = GMG) [id number] tor: 5066 KENITA COL PAWAN GLUCOMETER GLUCOSE- LAB USE [id number] 09:51:00 Test Item Value Reference Range Interpretation Comments GLUCOMETER (test code 168 mg/dL 70-100 H CLEANE D METERMeter ID: = GMG) [id number] tor: 5066 KENITA COL PAWAN GLUCOMETER GLUCOSE- LAB USE [id number] 19:26:00 Test Item Value Reference Range Interpretation Comments GLUCOMETER (test code 142 mg/dL 70-100 H CLEANE D METERMeter ID: = GMG) [id number] tor: 3549 VANESSA HOBBS OYO GLUCOMETER GLUCOSE- LAB USE [id number] 16:26:00 Test Item Value Reference Range Interpretation Comments GLUCOMETER (test code = 214 mg/dL 70-100 H Mete r ID: GMG) [id number] tor: 6771 EMA CHANTALE H GLUCOMETER GLUCOSE- LAB USE [id number] 11:20:00 Test Item Value Reference Range Interpretation Comments GLUCOMETER (test code = 117 mg/dL 70-100 H Mete r ID: GMG) [id number] tor: 6771 EMA CHANTALE H GLUCOMETER GLUCOSE- LAB USE [id number] 07:15:00 Test Item Value Reference Range Interpretation Comments GLUCOMETER (test code = 90 mg/dL 70-100 Mete r ID: GMG) [id number] tor: 6771 EMA CHANTALE H GLUCOMETER GLUCOSE- LAB USE [id number] 20:18:00 Test Item Value Reference Range Interpretation Comments GLUCOMETER (test code 141 mg/dL 70-100 H CLEANE D METERMeter ID: = GMG) [id number] tor: 3549 VANESSA GreenYO SARS-CoV (RAPID ANTIGEN)2022-01-16 16:12:00 Test Item Value Reference Range Interpretation Comments SARS-CoV (ANTIGEN) POSITIVE NEGATIVE AA (test code = COVAG) COVID AG (test This test has been code = COVAGC) marketed under the FDA Emergency Use Authorization (EUA) to meet challenges of the COVID-19 pandemic. The validation standards normally enforced by the FDA and the College of the [employer] (CAP) are more stringent than those required for this test. Therefore, the result should be interpreted with caution and close attention to other clinical and epidemiological data GLUCOMETER GLUCOSE- LAB USE [id number] 16:09:00 Test Item Value Reference Range Interpretation Comments GLUCOMETER (test code = 213 mg/dL 70-100 H Mete r ID: GMG) [id number] tor: 6680 [facility] USE [id number] 11:22:00 Test Item Value Reference Range Interpretation Comments GLUCOMETER (test code = 232 mg/dL 70-100 H Mete r ID: GMG) [id number] tor: 6680 [facility]- LAB USE [id number] 07:42:00 Test Item Value Reference Range Interpretation Comments GLUCOMETER (test code = 95 mg/dL 70-100 Mete r ID: GMG) [id number] tor: 6680 [facility]- LAB USE [id number] 18:54:00 Test Item Value Reference Range Interpretation Comments GLUCOMETER (test code 202 mg/dL 70-100 H CLEANE D METERMeter ID: = GMG) [id number] tor: 3549 VANESSA GreenYO GLUCOMETER GLUCOSE- LAB USE [id number] 16:21:00 Test Item Value Reference Range Interpretation Comments GLUCOMETER (test code 109 mg/dL 70-100 H CLEANE D METERMeter ID: = GMG) [id number] tor: 9867 WILLIAM G ENTILE GLUCOMETER GLUCOSE- LAB USE [id number] 11:14:00 Test Item Value Reference Range Interpretation Comments GLUCOMETER (test code = 211 mg/dL 70-100 H Mete r ID: GMG) [id number] tor: 4461 TOI G IBSON GLUCOMETER GLUCOSE- LAB USE [id number] 07:07:00 Test Item Value Reference Range Interpretation Comments GLUCOMETER (test code = 91 mg/dL 70-100 Mete r ID: GMG) [id number] tor: 4461 TOI Anderson IBSON GLUCOMETER GLUCOSE- LAB USE [id number] 20:09:00 Test Item Value Reference Range Interpretation Comments GLUCOMETER (test code 184 mg/dL 70-100 H CLEANE D METERMeter ID: = GMG) [id number] tor: 3883 LOIS NORMA GLUCOMETER GLUCOSE- LAB USE [id number] 16:04:00 Test Item Value Reference Range Interpretation Comments GLUCOMETER (test code = 71 mg/dL 70-100 PETTY ROBERT METERMeter ID: GMG) [id number] tor: 1328 REFUGIO MURP HY GLUCOMETER GLUCOSE- LAB USE [id number] 11:06:00 Test Item Value Reference Range Interpretation Comments GLUCOMETER (test code 179 mg/dL 70-100 H CLEANE D METERMeter ID: = GMG) [id number] tor: 9867 WILLIAM Veronica ENTILE GLUCOMETER GLUCOSE- LAB USE [id number] 08:08:00 Test Item Value Reference Range Interpretation Comments GLUCOMETER (test code 144 mg/dL 70-100 H Meter ID: = GMG) [id number] tor: 1232 ANGELITO PALACIOSEN SARS-CoV (RAPID ANTIGEN)2022-01-14 07:07:00 Test Item Value Reference Range Interpretation Comments SARS-CoV (ANTIGEN) POSITIVE NEGATIVE AA (test code = COVAG) COVID AG (test This test has been code = COVAGC) marketed under the FDA Emergency Use Authorization (EUA) to meet challenges of the COVID-19 pandemic. The validation standards normally enforced by the FDA and the College of the [employer] (CAP) are more stringent than those required for this test. Therefore, the result should be interpreted with caution and close attention to other clinical and epidemiological data GLUCOMETER GLUCOSE- LAB USE [id number] 20:57:00 Test Item Value Reference Range Interpretation Comments GLUCOMETER (test code 125 mg/dL 70-100 H Meter ID: = GMG) [id number] tor: 1232 KALANDRIAN ANIL GLUCOMETER GLUCOSE- LAB USE [id number] 16:35:00 Test Item Value Reference Range Interpretation Comments GLUCOMETER (test code = 158 mg/dL 70-100 H Mete r ID: GMG) [id number] tor: [address] HEAD W/O [id number] 12:28:32 [facility] REGINA BUI : 1950 Sex: MCT HEAD WITHOUT CONTRAST.HISTORY: Unspecified fallCOMPARISON: CT head 12/27/2021TECHNIQUE: Axial CT images of the head were obtained with coronal and/or sagittal reformatted views. Automated exposure control, iterative reconstruction technique, and/or adjustment of mA and/or kV according to patient's size was utilized for radiation dose reduction. IV CONTRAST: None.FINDINGS:Mild amount of periventricular and deep white matter hypodensities are seen, these are most commonly associated with chronic, microvascular ischemic changes. Mild atrophy is noted. Atherosclerotic calcification seen along the carotid siphons and anterior cerebral arteries.No other intracranial abnormalities such [...] Jackie Guardado MD 01/13/2022 12:28 PM CDT [id number] GLUCOSE- LAB USE [id number] 12:23:00 Test Item Value Reference Range Interpretation Comments GLUCOMETER (test code = 72 mg/dL 70-100 PETTY JONES METERMeter ID: GMG) [id number] tor: 8605 OLIVIA DUARTE GLUCOMETER GLUCOSE- LAB USE [id number] 07:37:00 Test Item Value Reference Range Interpretation Comments GLUCOMETER (test code = 164 mg/dL 70-100 H Mete r ID: GMG) [id number] tor: 4461 TOI MARTÍNEZ GLUCOMETER GLUCOSE- LAB USE [id number] 20:55:00 Test Item Value Reference Range Interpretation Comments GLUCOMETER (test code 147 mg/dL 70-100 H CLEANE D METERMeter ID: = GMG) [id number] tor: 7339 BRAD PAN SARS-CoV (RAPID ANTIGEN)2022-01-12 17:53:00 Test Item Value Reference Range Interpretation Comments SARS-CoV (ANTIGEN) POSITIVE NEGATIVE AA (test code = COVAG) COVID AG (test This test has been code = COVAGC) marketed under the FDA Emergency Use Authorization (EUA) to meet challenges of the COVID-19 pandemic. The validation standards normally enforced by the FDA and the College of the [employer] (CAP) are more stringent than those required for this test. Therefore, the result should be interpreted with caution and close attention to other clinical and epidemiological data GLUCOMETER GLUCOSE- LAB USE [id number] 16:36:00 Test Item Value Reference Range Interpretation Comments GLUCOMETER (test code = 82 mg/dL 70-100 PETTY ROBERT METERMeter ID: GMG) [id number] tor: 3912 [facility] MARTINEZ GLUCOMETER GLUCOSE- LAB USE [id number] 07:27:00 Test Item Value Reference Range Interpretation Comments GLUCOMETER (test code 123 mg/dL 70-100 H CLEANE D METERMeter ID: = GMG) [id number] tor: 3912 [facility] MARTINEZ GLUCOMETER GLUCOSE- LAB USE [id number] 19:37:00 Test Item Value Reference Range Interpretation Comments GLUCOMETER (test code 205 mg/dL 70-100 H CLEANE D METERMeter ID: = GMG) [id number] tor: 8913 EVERETT CHENGZ GLUCOMETER GLUCOSE- LAB USE [id number] 17:07:00 Test Item Value Reference Range Interpretation Comments GLUCOMETER (test code 151 mg/dL 70-100 H CLEANE D METERMeter ID: = GMG) [id number] tor: 3912 [facility] MARTINEZ GLUCOMETER GLUCOSE- LAB USE [id number] 11:43:00 Test Item Value Reference Range Interpretation Comments GLUCOMETER (test code 161 mg/dL 70-100 H CLEANE D METERMeter ID: = GMG) [id number] tor: 8605 OLIVIA BATTLES GLUCOMETER GLUCOSE- LAB USE [id number] 07:40:00 Test Item Value Reference Range Interpretation Comments GLUCOMETER (test code 120 mg/dL 70-100 H CLEANE D METERMeter ID: = GMG) [id number] tor: 8605 OLIVIA BATTLES GLUCOMETER GLUCOSE- LAB USE [id number] 19:59:00 Test Item Value Reference Range Interpretation Comments GLUCOMETER (test code 163 mg/dL 70-100 H CLEANE D METERMeter ID: = GMG) [id number] tor: 8913 [place]T [employer] International[employer] GLUCOMETER GLUCOSE- LAB USE [id number] 16:31:00 Test Item Value Reference Range Interpretation Comments GLUCOMETER (test code 123 mg/dL 70-100 H CLEANE D METERMeter ID: = GMG) [id number] tor: 8913 Mytonomy ARTINEZ GLUCOMETER GLUCOSE- LAB USE [id number] 12:28:00 Test Item Value Reference Range Interpretation Comments GLUCOMETER (test code 173 mg/dL 70-100 H CLEANE D METERMeter ID: = GMG) [id number] tor: 8605 OLIVIA BATTLES GLUCOMETER GLUCOSE- LAB USE [id number] 08:21:00 Test Item Value Reference Range Interpretation Comments GLUCOMETER (test code = 136 mg/dL 70-100 H Mete r ID: GMG) [id number] tor: 9867 WILLIAM G ENTILE GLUCOMETER GLUCOSE- LAB USE [id number] 20:14:00 Test Item Value Reference Range Interpretation Comments GLUCOMETER (test code 133 mg/dL 70-100 H CLEANE D METERMeter ID: = GMG) [id number] tor: 5538 TARECIA EARL RGROVE BASIC METABOLIC [id number] 17:51:00 Test Item Value Reference Range Interpretation [...] normal/abnormal . GFR 50 See_Comment L [Automated CHILEAN (test mL/min/1.73m\\S\\2 message] The code = GFRAA) [...] 8.3-10.6 = 09D) GLUCOMETER GLUCOSE- LAB USE [id number] 16:44:00 Test Item Value Reference Range Interpretation Comments GLUCOMETER (test code = 65 mg/dL 70-100 L Mete r ID: GMG) [id number] tor: 9867 WILLIAM LUCAS GLUCOMETER GLUCOSE- LAB USE [id number] 12:09:00 Test Item Value Reference Range Interpretation Comments GLUCOMETER (test code 235 mg/dL 70-100 H CLEANE D METERMeter ID: = GMG) [id number] tor: 6680 GALLO Mcintyre [facility] SARS-CoV (RAPID ANTIGEN)2022-01-09 09:19:00 Test Item Value Reference Range Interpretation Comments SARS-CoV (ANTIGEN) POSITIVE NEGATIVE AA (test code = COVAG) COVID AG (test This test has been code = COVAGC) marketed under the FDA Emergency Use Authorization (EUA) to meet challenges of the COVID-19 pandemic. The validation standards normally enforced by the FDA and the [employer] of the [employer] (CAP) are more stringent than those required for this test. Therefore, the result should be interpreted with caution and close attention to other clinical and epidemiological data GLUCOMETER GLUCOSE- LAB USE [id number] 08:22:00 Test Item Value Reference Range Interpretation Comments GLUCOMETER (test code 140 mg/dL 70-100 H CLEANE D METERMeter ID: = GMG) [id number] tor: 4622 MALLROYANA AZEVEDOON GLUCOMETER GLUCOSE- LAB USE [id number] 20:07:00 Test Item Value Reference Range Interpretation Comments GLUCOMETER (test code 148 mg/dL 70-100 H Meter ID: = GMG) [id number] tor: 1232 ANGELITO ANIL GLUCOMETER GLUCOSE- LAB USE [id number] 19:41:00 Test Item Value Reference Range Interpretation Comments GLUCOMETER (test code 203 mg/dL 70-100 H CLEANE D METERMeter ID: = GMG) [id number] tor: 7339 BRAD KAISERI SON GLUCOMETER GLUCOSE- LAB USE [id number] 16:59:00 Test Item Value Reference Range Interpretation Comments GLUCOMETER (test code = 97 mg/dL 70-100 Mete r ID: GMG) [id number] tor: 6680 [facility] JOSE RAMON GLUCOMETER GLUCOSE- LAB USE [id number] 12:14:00 Test Item Value Reference Range Interpretation Comments GLUCOMETER (test code = 213 mg/dL 70-100 H Mete r ID: GMG) [id number] tor: 6680 [facility] JOSE RAMON GLUCOMETER GLUCOSE- LAB USE [id number] 07:59:00 Test Item Value Reference Range Interpretation Comments GLUCOMETER (test code 124 mg/dL 70-100 H CLEANE D METERMeter ID: = GMG) [id number] tor: 9379 WILBERTO TONY IEWHITE GLUCOMETER GLUCOSE- LAB USE [id number] 19:11:00 Test Item Value Reference Range Interpretation Comments GLUCOMETER (test code 190 mg/dL 70-100 H CLEANE D METERMeter ID: = GMG) [id number] tor: 3831 VAL SINGH SARS-CoV (RAPID ANTIGEN)2022-01-07 18:41:00 Test Item Value Reference Range Interpretation Comments SARS-CoV (ANTIGEN) POSITIVE NEGATIVE AA (test code = COVAG) COVID AG (test This test has been code = COVAGC) marketed under the FDA Emergency Use Authorization (EUA) to meet challenges of the COVID-19 pandemic. The validation standards normally enforced by the FDA and the [employer] the [employer] (CAP) are more stringent than those required for this test. Therefore, the result should be interpreted with caution and close attention to other clinical and epidemiological data GLUCOMETER GLUCOSE- LAB USE [id number] 17:20:00 Test Item Value Reference Range Interpretation Comments GLUCOMETER (test code 107 mg/dL 70-100 H CLEANE D METERMeter ID: = GMG) [id number] tor: 5066 KENITA COL PAWAN GLUCOMETER GLUCOSE- LAB USE [id number] 16:08:00 Test Item Value Reference Range Interpretation Comments GLUCOMETER (test code = 55 mg/dL 70-100 LL Mete r ID: GMG) [id number] tor: 8413 KIT GONZALEZ LL GLUCOMETER GLUCOSE- LAB USE [id number] 11:25:00 Test Item Value Reference Range Interpretation Comments GLUCOMETER (test code = 205 mg/dL 70-100 H Mete r ID: GMG) [id number] tor: 8413 KIT GONZALEZ LL GLUCOMETER GLUCOSE- LAB USE [id number] 06:59:00 Test Item Value Reference Range Interpretation Comments GLUCOMETER (test code 105 mg/dL 70-100 H CLEANE D METERMeter ID: = GMG) [id number] tor: 8605 OLIVIA BATTLES GLUCOMETER GLUCOSE- LAB USE [id number] 05:47:00 Test Item Value Reference Range Interpretation Comments GLUCOMETER (test code = 94 mg/dL 70-100 Mete r ID: GMG) [id number] tor: 1222 GENTRY AVILA NS GLUCOMETER GLUCOSE- LAB USE [id number] 19:10:00 Test Item Value Reference Range Interpretation Comments GLUCOMETER (test code = 183 mg/dL 70-100 H Mete r ID: GMG) [id number] tor: 3831 VAL SINGH GLUCOMETER GLUCOSE- LAB USE [id number] 16:19:00 Test Item Value Reference Range Interpretation Comments GLUCOMETER (test code = 91 mg/dL 70-100 Mete r ID: GMG) [id number] tor: 6771 EMA CHANTALE H GLUCOMETER GLUCOSE- LAB USE [id number] 11:12:00 Test Item Value Reference Range Interpretation Comments GLUCOMETER (test code 194 mg/dL 70-100 H CLEANE D METERMeter ID: = GMG) [id number] tor: 6771 EMA CHANTALE H GLUCOMETER GLUCOSE- LAB USE [id number] 07:21:00 Test Item Value Reference Range Interpretation Comments GLUCOMETER (test code 181 mg/dL 70-100 H Meter ID: = GMG) [id number] tor: 9379 WILBERTO TONY IEWHITE GLUCOMETER GLUCOSE- LAB USE [id number] 19:17:00 Test Item Value Reference Range Interpretation Comments GLUCOMETER (test code 156 mg/dL 70-100 H CLEANE D METERMeter ID: = GMG) [id number] tor: 1235 FREDDY BROOKE ES GLUCOMETER GLUCOSE- LAB USE [id number] 16:20:00 Test Item Value Reference Range Interpretation Comments GLUCOMETER (test code 119 mg/dL 70-100 H CLEANE D METERMeter ID: = GMG) [id number] tor: 8413 KIT GONZALEZ BASIC METABOLIC [id number] 13:17:00 Test Item Value Reference Range Interpretation [...] normal/abnormal . GFR 43 See_Comment L [Automated CHILEAN (test mL/min/1.73m\\S\\2 message] The code = GFRAA) [...] = RBCMOR) NORMAL GLUCOMETER GLUCOSE- LAB USE [id number] 11:19:00 Test Item Value Reference Range Interpretation Comments GLUCOMETER (test code = 291 mg/dL 70-100 H Mete r ID: GMG) [id number] tor: 8959 JUAN WHITE GLUCOMETER GLUCOSE- LAB USE [id number] 07:37:00 Test Item Value Reference Range Interpretation Comments GLUCOMETER (test code 118 mg/dL 70-100 H CLEANE D METERMeter ID: = GMG) [id number] tor: 8413 KIT GONZALEZ LL GLUCOMETER GLUCOSE- LAB USE [id number] 19:00:00 Test Item Value Reference Range Interpretation Comments GLUCOMETER (test code 268 mg/dL 70-100 H CLEANE D METERMeter ID: = GMG) [id number] tor: 5538 TARECIA EARL RGROVE GLUCOMETER GLUCOSE- LAB USE [id number] 18:57:00 Test Item Value Reference Range Interpretation Comments GLUCOMETER (test code 141 mg/dL 70-100 H CLEANE D METERMeter ID: = GMG) [id number] tor: 5538 TARECIA EARL RGROVE GLUCOMETER GLUCOSE- LAB USE [id number] 16:51:00 Test Item Value Reference Range Interpretation Comments GLUCOMETER (test code 190 mg/dL 70-100 H CLEANE D METERMeter ID: = GMG) [id number] tor: 8413 KIT GONZALEZ LL GLUCOMETER GLUCOSE- LAB USE [id number] 11:26:00 Test Item Value Reference Range Interpretation Comments GLUCOMETER (test code 191 mg/dL 70-100 H CLEANE D METERMeter ID: = GMG) [id number] tor: 8605 OLIVIA BATTLES GLUCOMETER GLUCOSE- LAB USE [id number] 07:22:00 Test Item Value Reference Range Interpretation Comments GLUCOMETER (test code = 97 mg/dL 70-100 PETTY ROBERT METERMeter ID: GMG) [id number] tor: 8413 KIT GONZALEZ LL GLUCOMETER GLUCOSE- LAB USE [id number] 19:50:00 Test Item Value Reference Range Interpretation Comments GLUCOMETER (test code 297 mg/dL 70-100 H CLEANE D METERMeter ID: = GMG) [id number] tor: 3549 VANESSA HOBBS OYO GLUCOMETER GLUCOSE- LAB USE [id number] 16:12:00 Test Item Value Reference Range Interpretation Comments GLUCOMETER (test code 141 mg/dL 70-100 H CLEANE D METERMeter ID: = GMG) [id number] tor: 5538 TARECIA EARL RGROVE GLUCOMETER GLUCOSE- LAB USE [id number] 16:08:00 Test Item Value Reference Range Interpretation Comments GLUCOMETER (test code 106 mg/dL 70-100 H CLEANE D METERMeter ID: = GMG) [id number] tor: 5538 TARECIA EARL RGROVE GLUCOMETER GLUCOSE- LAB USE [id number] 11:47:00 Test Item Value Reference Range Interpretation Comments GLUCOMETER (test code 154 mg/dL 70-100 H CLEANE D METERMeter ID: = GMG) [id number] tor: 9397 GENTRY Conklin GLUCOMETER GLUCOSE- LAB USE [id number] 07:20:00 Test Item Value Reference Range Interpretation Comments GLUCOMETER (test code 173 mg/dL 70-100 H CLEANE D METERMeter ID: = GMG) [id number] tor: 3912 [facility] MARTINEZ GLUCOMETER GLUCOSE- LAB USE [id number] 19:29:00 Test Item Value Reference Range Interpretation Comments GLUCOMETER (test code 268 mg/dL 70-100 H CLEANE D METERMeter ID: = GMG) [id number] tor: 3549 VANESSA VALDES GLUCOMETER GLUCOSE- LAB USE [id number] 16:38:00 Test Item Value Reference Range Interpretation Comments GLUCOMETER (test code 118 mg/dL 70-100 H CLEANE D METERMeter ID: = GMG) [id number] tor: 9397 GENTRY Conklin GLUCOMETER GLUCOSE- LAB USE [id number] 11:23:00 Test Item Value Reference Range Interpretation Comments GLUCOMETER (test code 164 mg/dL 70-100 H CLEANE D METERMeter ID: = GMG) [id number] tor: 8605 OLIVIA DUARTE GLUCOMETER GLUCOSE- LAB USE [id number] 07:23:00 Test Item Value Reference Range Interpretation Comments GLUCOMETER (test code 123 mg/dL 70-100 H CLEANE D METERMeter ID: = GMG) [id number] tor: 9397 GENTRY Conklin GLUCOMETER GLUCOSE- LAB USE [id number] 19:10:00 Test Item Value Reference Range Interpretation Comments GLUCOMETER (test code 186 mg/dL 70-100 H CLEANE D METERMeter ID: = GMG) [id number] tor: 8913 EVERETT JULIAN GLUCOMETER GLUCOSE- LAB USE [id number] 16:37:00 Test Item Value Reference Range Interpretation Comments GLUCOMETER (test code 168 mg/dL 70-100 H CLEANE D METERMeter ID: = GMG) [id number] tor: 8413 KIT HINOJOSA GLUCOMETER GLUCOSE- LAB USE [id number] 11:41:00 Test Item Value Reference Range Interpretation Comments GLUCOMETER (test code 195 mg/dL 70-100 H CLEANE D METERMeter ID: = GMG) [id number] tor: 8413 KIT GONZALEZ LL GLUCOMETER GLUCOSE- LAB USE [id number] 07:38:00 Test Item Value Reference Range Interpretation Comments GLUCOMETER (test code 135 mg/dL 70-100 H CLEANE D METERMeter ID: = GMG) [id number] tor: 8413 KIT GONZALEZ LL GLUCOMETER GLUCOSE- LAB USE [id number] 19:46:00 Test Item Value Reference Range Interpretation Comments GLUCOMETER (test code 227 mg/dL 70-100 H CLEANE D METERMeter ID: = GMG) [id number] tor: 8913 EVERETT CHENGZ GLUCOMETER GLUCOSE- LAB USE [id number] 16:52:00 Test Item Value Reference Range Interpretation Comments GLUCOMETER (test code 109 mg/dL 70-100 H CLEANE D METERMeter ID: = GMG) [id number] tor: 9867 WILLIAM Anderson ENTILE GLUCOMETER GLUCOSE- LAB USE [id number] 11:57:00 Test Item Value Reference Range Interpretation Comments GLUCOMETER (test code 152 mg/dL 70-100 H CLEANE D METERMeter ID: = GMG) [id number] tor: 8413 KIT GONZALEZ LL GLUCOMETER GLUCOSE- LAB USE [id number] 07:48:00 Test Item Value Reference Range Interpretation Comments GLUCOMETER (test code 164 mg/dL 70-100 H CLEANE D METERMeter ID: = GMG) [id number] tor: 8413 KIT GONZALEZ LL SARS-CoV (RAPID ANTIGEN)2021-12-31 07:05:00 Test Item Value Reference Range Interpretation Comments SARS-CoV (ANTIGEN) NEGATIVE NEGATIVE (test code = COVAG) COVID AG (test This test has been code = COVAGC) marketed under the FDA Emergency Use Authorization (EUA) to meet challenges of the COVID-19 pandemic. The validation standards normally enforced by the FDA and the [employer] (CAP) are more stringent than those required for this test. Therefore, the result should be interpreted with caution and close attention to other clinical and epidemiological data GLUCOMETER GLUCOSE- LAB USE [id number] 19:41:00 Test Item Value Reference Range Interpretation Comments GLUCOMETER (test code 180 mg/dL 70-100 H CLEANE D METERMeter ID: = GMG) [id number] tor: 8249 OLABODE OS UMOSU GLUCOMETER GLUCOSE- LAB USE [id number] 19:23:00 Test Item Value Reference Range Interpretation Comments GLUCOMETER (test code 179 mg/dL 70-100 H CLEANE D METERMeter ID: = GMG) [id number] tor: 7339 BRAD KAISERI SON GLUCOMETER GLUCOSE- LAB USE [id number] 16:06:00 Test Item Value Reference Range Interpretation Comments GLUCOMETER (test code = 92 mg/dL 70-100 PETTY ROBERT METERMeter ID: GMG) [id number] tor: 8413 KIT GONZALEZ LL GLUCOMETER GLUCOSE- LAB USE [id number] 11:19:00 Test Item Value Reference Range Interpretation Comments GLUCOMETER (test code 297 mg/dL 70-100 H CLEANE D METERMeter ID: = GMG) [id number] tor: 6771 EMA CHANTALE H GLUCOMETER GLUCOSE- LAB USE [id number] 07:30:00 Test Item Value Reference Range Interpretation Comments GLUCOMETER (test code 189 mg/dL 70-100 H CLEANE D METERMeter ID: = GMG) [id number] tor: 6771 EMA CHANTALE H GLUCOMETER GLUCOSE- LAB USE [id number] 18:54:00 Test Item Value Reference Range Interpretation Comments GLUCOMETER (test code 158 mg/dL 70-100 H Meter ID: = GMG) [id number] tor: 1232 ANGELITO ANIL GLUCOMETER GLUCOSE- LAB USE [id number] 16:03:00 Test Item Value Reference Range Interpretation Comments GLUCOMETER (test code 106 mg/dL 70-100 H CLEANE D METERMeter ID: = GMG) [id number] tor: 6771 EMA CHANTALE H GLUCOMETER GLUCOSE- LAB USE [id number] 11:13:00 Test Item Value Reference Range Interpretation Comments GLUCOMETER (test code 264 mg/dL 70-100 H CLEANE D METERMeter ID: = GMG) [id number] tor: 6771 [facility] USE [id number] 07:25:00 Test Item Value Reference Range Interpretation Comments GLUCOMETER (test code = 98 mg/dL 70-100 PETTY ROBERT METERMeter ID: GMG) [id number] tor: 6771 [facility] GLUCOSE- LAB USE [id number] 07:25:00 Test Item Value Reference Range Interpretation Comments GLUCOMETER (test code 122 mg/dL 70-100 H CLEANE D METERMeter ID: = GMG) [id number] tor: 6771 [facility] GL[facility] GLUCOSE- LAB USE [id number] 19:26:00 Test Item Value Reference Range Interpretation Comments GLUCOMETER (test code 102 mg/dL 70-100 H CLEANE D METERMeter ID: = GMG) [id number] tor: 8913 EVERETT CHENGZ GLUCOMETER GLUCOSE- LAB USE [id number] 16:35:00 Test Item Value Reference Range Interpretation Comments GLUCOMETER (test code 214 mg/dL 70-100 H CLEANE D METERMeter ID: = GMG) [id number] tor: 4622 MALLORY BR ROSEMARIE GLUCOMETER GLUCOSE- LAB USE [id number] 11:26:00 Test Item Value Reference Range Interpretation Comments GLUCOMETER (test code 247 mg/dL 70-100 H CLEANE D METERMeter ID: = GMG) [id number] tor: 4622 MALLORY BR ROSEMARIE GLUCOMETER GLUCOSE- LAB USE [id number] 07:24:00 Test Item Value Reference Range Interpretation Comments GLUCOMETER (test code = 131 mg/dL 70-100 H Mete r ID: GMG) [id number] tor: 4622 MALLORY BR ROSEMARIE GLUCOMETER GLUCOSE- LAB USE [id number] 18:42:00 Test Item Value Reference Range Interpretation Comments GLUCOMETER (test code 229 mg/dL 70-100 H CLEANE D METERMeter ID: = GMG) [id number] tor: 55Tom TARECIA EARL RGROVE GLUCOMETER GLUCOSE- LAB USE [id number] 16:55:00 Test Item Value Reference Range Interpretation Comments GLUCOMETER (test code 194 mg/dL 70-100 H CLEANE D METERMeter ID: = GMG) [id number] tor: [address] HEAD W/O [id number] 12:41:35 [facility] REGINA BUI : 1950 Sex: MEXAM: CT BRAIN WITHOUT [...] ischemic changes and diffuse cerebral volume loss.LOCATION: [id number] CT exam was performed according to our departmental dose optimization program, which includes automated exposure control, adjustment of the mA and/or kV according to the patient size and/or use of iterative reconstructive technique.Electronically signed by: Melissa Benton MD 12/27/2021 12:41 PM CDT [id number] GLUCOSE- LAB USE ONLY 2021-12-27 11:30:00 Test Item Value Reference Range Interpretation Comments GLUCOMETER (test code 140 mg/dL 70-100 H CLEANE D METERMeter ID: = GMG) [id number] tor: 9379 WILBERTO SATT IEWHITE GLUCOMETER GLUCOSE- LAB USE [id number] 08:03:00 Test Item Value Reference Range Interpretation Comments GLUCOMETER (test code 173 mg/dL 70-100 H CLEANE D METERMeter ID: = GMG) [id number] tor: 9379 WILBERTO SATT IEWHITE SARS-CoV (RAPID ANTIGEN)2021-12-27 07:05:00 Test Item Value Reference Range Interpretation Comments SARS-CoV (ANTIGEN) NEGATIVE NEGATIVE (test code = COVAG) COVID AG (test This test has been code = COVAGC) marketed under the FDA Emergency Use Authorization (EUA) to meet challenges of the COVID-19 pandemic. The validation standards normally enforced by the FDA and the [employer] (CAP) are more stringent than those required for this test. Therefore, the result should be interpreted with caution and close attention to other clinical and epidemiological data GLUCOMETER GLUCOSE- LAB USE [id number] 18:57:00 Test Item Value Reference Range Interpretation Comments GLUCOMETER (test code = 259 mg/dL 70-100 H Mete r ID: GMG) [id number] tor: 3883 LOIS NORMA GLUCOMETER GLUCOSE- LAB USE [id number] 17:52:00 Test Item Value Reference Range Interpretation Comments GLUCOMETER (test code 250 mg/dL 70-100 H CLEANE D METERMeter ID: = GMG) [id number] tor: 9867 WILLIAM LUCAS GLUCOMETER GLUCOSE- LAB USE [id number] 16:31:00 Test Item Value Reference Range Interpretation Comments GLUCOMETER (test code 181 mg/dL 70-100 H CLEANE D METERMeter ID: = GMG) [id number] tor: 4622 MALLORY BARGER ROSEMARIE GLUCOMETER GLUCOSE- LAB USE [id number] 11:41:00 Test Item Value Reference Range Interpretation Comments GLUCOMETER (test code = 192 mg/dL 70-100 H Mete r ID: GMG) [id number] tor: 4461 TOI G IBSON GLUCOMETER GLUCOSE- LAB USE [id number] 07:26:00 Test Item Value Reference Range Interpretation Comments GLUCOMETER (test code = 200 mg/dL 70-100 H Mete r ID: GMG) [id number] tor: 4461 TOI G IBSON GLUCOMETER GLUCOSE- LAB USE [id number] 19:28:00 Test Item Value Reference Range Interpretation Comments GLUCOMETER (test code 103 mg/dL 70-100 H CLEANE D METERMeter ID: = GMG) [id number] tor: 3831 VAL TAYLOR SINGH GLUCOMETER GLUCOSE- LAB USE [id number] 16:02:00 Test Item Value Reference Range Interpretation Comments GLUCOMETER (test code 219 mg/dL 70-100 H CLEANE D METERMeter ID: = GMG) [id number] tor: 3883 LOIS GREEN GLUCOMETER GLUCOSE- LAB USE [id number] 11:16:00 Test Item Value Reference Range Interpretation Comments GLUCOMETER (test code 206 mg/dL 70-100 H CLEANE D METERMeter ID: = GMG) [id number] tor: 8605 OLIVIA CORONADOS GLUCOMETER GLUCOSE- LAB USE [id number] 07:52:00 Test Item Value Reference Range Interpretation Comments GLUCOMETER (test code = 75 mg/dL 70-100 PETTY ROBERT METERMeter ID: GMG) [id number] tor: 9397 GENTRY Conklin GLUCOMETER GLUCOSE- LAB USE [id number] 19:45:00 Test Item Value Reference Range Interpretation Comments GLUCOMETER (test code 284 mg/dL 70-100 H Meter ID: = GMG) [id number] tor: 1232 ANGELITO PALACIOSEN GLUCOMETER GLUCOSE- LAB USE [id number] 11:23:00 Test Item Value Reference Range Interpretation Comments GLUCOMETER (test code = 78 mg/dL 70-100 Mete r ID: GMG) [id number] tor: 4461 TOI G IBSON GLUCOMETER GLUCOSE- LAB USE [id number] 07:32:00 Test Item Value Reference Range Interpretation Comments GLUCOMETER (test code = 69 mg/dL 70-100 L PETTY ROBERT METERMeter ID: GMG) [id number] tor: 3912 [facility] MARTINEZ GLUCOMETER GLUCOSE- LAB USE [id number] 19:06:00 Test Item Value Reference Range Interpretation Comments GLUCOMETER (test code 220 mg/dL 70-100 H CLEANE D METERMeter ID: = GMG) [id number] tor: 3549 VANESSA VALDES GLUCOMETER GLUCOSE- LAB USE [id number] 16:17:00 Test Item Value Reference Range Interpretation Comments GLUCOMETER (test code = 231 mg/dL 70-100 H Mete r ID: GMG) [id number] tor: 6680 GALLO [place] GLUCOMETER GLUCOSE- LAB USE [id number] 11:18:00 Test Item Value Reference Range Interpretation Comments GLUCOMETER (test code 171 mg/dL 70-100 H CLEANE D METERMeter ID: = GMG) [id number] tor: 6771 EMA CHANTALE H GLUCOMETER GLUCOSE- LAB USE [id number] 07:15:00 Test Item Value Reference Range Interpretation Comments GLUCOMETER (test code = 182 mg/dL 70-100 H Mete r ID: GMG) [id number] tor: 6771 EMA CHANTALE H SARS-CoV (RAPID ANTIGEN)2021-12-22 20:12:00 Test Item Value Reference Range Interpretation Comments SARS-CoV (ANTIGEN) NEGATIVE NEGATIVE (test code = COVAG) COVID AG (test This test has been code = COVAGC) marketed under the FDA Emergency Use Authorization (EUA) to meet challenges of the COVID-19 pandemic. The validation standards normally enforced by the FDA and the [employer] (CAP) are more stringent than those required for this test. Therefore, the result should be interpreted with caution and close attention to other clinical and epidemiological data GLUCOMETER GLUCOSE- LAB USE [id number] 19:18:00 Test Item Value Reference Range Interpretation Comments GLUCOMETER (test code 249 mg/dL 70-100 H CLEANE D METERMeter ID: = GMG) [id number] tor: 5538 TARECIA EARL RGROVE GLUCOMETER GLUCOSE- LAB USE [id number] 16:50:00 Test Item Value Reference Range Interpretation Comments GLUCOMETER (test code = 237 mg/dL 70-100 H Mete r ID: GMG) [id number] tor: 8413 KIT HINOJOSA GLUCOMETER GLUCOSE- LAB USE [id number] 16:49:00 Test Item Value Reference Range Interpretation Comments GLUCOMETER (test code = 211 mg/dL 70-100 H Mete r ID: GMG) [id number] tor: 8413 KIT GONZALEZ COMPREHENSIVE METABOLIC [id number] 16:04:00 Test Item Value Reference Range Interpretation [...] normal/abnormal . GFR 79 See_Comment L [Automated CHILEAN (test mL/min/1.73m\\S\\2 message] The code = GFRAA) [...] = RBCMOR) NORMAL GLUCOMETER GLUCOSE- LAB USE [id number] 11:47:00 Test Item Value Reference Range Interpretation Comments GLUCOMETER (test code = 155 mg/dL 70-100 H Mete r ID: GMG) [id number] tor: 4461 TOI G IBSON GLUCOMETER GLUCOSE- LAB USE [id number] 07:25:00 Test Item Value Reference Range Interpretation Comments GLUCOMETER (test code = 89 mg/dL 70-100 Mete r ID: GMG) [id number] tor: 6771 EMA CHANTALE H GLUCOMETER GLUCOSE- LAB USE [id number] 20:21:00 Test Item Value Reference Range Interpretation Comments GLUCOMETER (test code 280 mg/dL 70-100 H CLEANE D METERMeter ID: = GMG) [id number] tor: 0646 SANJEEV L ORD GLUCOMETER GLUCOSE- LAB USE [id number] 16:05:00 Test Item Value Reference Range Interpretation Comments GLUCOMETER (test code = 265 mg/dL 70-100 H Mete r ID: GMG) [id number] tor: 4461 TOI G IBSON GLUCOMETER GLUCOSE- LAB USE [id number] 11:27:00 Test Item Value Reference Range Interpretation Comments GLUCOMETER (test code = 171 mg/dL 70-100 H Mete r ID: GMG) [id number] tor: 4461 TOI SHIELDSON GLUCOMETER GLUCOSE- LAB USE [id number] 08:09:00 Test Item Value Reference Range Interpretation Comments GLUCOMETER (test code = 95 mg/dL 70-100 PETTY ROBERT METERMeter ID: GMG) [id number] tor: 8413 KIT GONZALEZ LL GLUCOMETER GLUCOSE- LAB USE [id number] 19:29:00 Test Item Value Reference Range Interpretation Comments GLUCOMETER (test code 341 mg/dL 70-100 H CLEANE D METERMeter ID: = GMG) [id number] tor: 3549 VANESSA HOBBS OYO GLUCOMETER GLUCOSE- LAB USE [id number] 19:25:00 Test Item Value Reference Range Interpretation Comments GLUCOMETER (test code 374 mg/dL 70-100 H CLEANE D METERMeter ID: = GMG) [id number] tor: 3549 VANESSA HOBBS OYO GLUCOMETER GLUCOSE- LAB USE [id number] 18:43:00 Test Item Value Reference Range Interpretation Comments GLUCOMETER (test code = 266 mg/dL 70-100 H Mete r ID: GMG) [id number] tor: 8913 EVERETT BARNEY GLUCOMETER GLUCOSE- LAB USE [id number] 11:49:00 Test Item Value Reference Range Interpretation Comments GLUCOMETER (test code 196 mg/dL 70-100 H CLEANE D METERMeter ID: = GMG) [id number] tor: 9379 WILBERTO TONY IEWHITE GLUCOMETER GLUCOSE- LAB USE [id number] 07:15:00 Test Item Value Reference Range Interpretation Comments GLUCOMETER (test code 187 mg/dL 70-100 H CLEANE D METERMeter ID: = GMG) [id number] tor: 4622 MALLORY BARGER ROSEMARIE GLUCOMETER GLUCOSE- LAB USE [id number] 19:31:00 Test Item Value Reference Range Interpretation Comments GLUCOMETER (test code 124 mg/dL 70-100 H CLEANE D METERMeter ID: = GMG) [id number] tor: [address] BR[address] KAISERI SON GLUCOMETER GLUCOSE- LAB USE [id number] 15:56:00 Test Item Value Reference Range Interpretation Comments GLUCOMETER (test code = 187 mg/dL 70-100 H Mete r ID: GMG) [id number] tor: [address] [place] GLUCOMETER GLUCOSE- LAB USE [id number] 11:55:00 Test Item Value Reference Range Interpretation Comments GLUCOMETER (test code 224 mg/dL 70-100 H CLEANE D METERMeter ID: = GMG) [id number] tor: [address]ILB[address] SATT IE[place] GLUCOMETER GLUCOSE- LAB USE [id number] 07:35:00 Test Item Value Reference Range Interpretation Comments GLUCOMETER (test code 185 mg/dL 70-100 H CLEANE D METERMeter ID: = GMG) [id number] tor: [address]ILB[address] SATT [place] GLUCOMETER GLUCOSE- LAB USE [id number] 19:01:00 Test Item Value Reference Range Interpretation Comments GLUCOMETER (test code = 121 mg/dL 70-100 H Mete r ID: GMG) [id number] tor: [address] CURTMCK[address]IE NORMA GLUCOMETER GLUCOSE- LAB USE [id number] 16:28:00 Test Item Value Reference Range Interpretation Comments GLUCOMETER (test code 186 mg/dL 70-100 H CLEANE D METERMeter ID: = GMG) [id number] tor: 3912 [facility] GLUCOMETER GLUCOSE- LAB USE [id number] 12:27:00 Test Item Value Reference Range Interpretation Comments GLUCOMETER (test code 278 mg/dL 70-100 H CLEANE D METERMeter ID: = GMG) [id number] tor: 3912 [facility] SARS-CoV (RAPID ANTIGEN)2021-12-18 11:46:00 Test Item Value Reference Range Interpretation Comments SARS-CoV (ANTIGEN) NEGATIVE NEGATIVE (test code = COVAG) COVID AG (test This test has been code = COVAGC) marketed under the FDA Emergency Use Authorization (EUA) to meet challenges of the COVID-19 pandemic. The validation standards normally enforced by the FDA and the [employer] of the [employer] (CAP) are more stringent than those required for this test. Therefore, the result should be interpreted with caution and close attention to other clinical and epidemiological data GLUCOMETER GLUCOSE- LAB USE [id number] 08:01:00 Test Item Value Reference Range Interpretation Comments GLUCOMETER (test code = 224 mg/dL 70-100 H Mete r ID: GMG) [id number] tor: 8413 KIT GONZALEZ LL GLUCOMETER GLUCOSE- LAB USE [id number] 01:31:00 Test Item Value Reference Range Interpretation Comments GLUCOMETER (test code = 346 mg/dL 70-100 H Mete r ID: GMG) [id number] tor: 1235 FREDDY MENDY ES GLUCOMETER GLUCOSE- LAB USE [id number] 01:26:00 Test Item Value Reference Range Interpretation Comments GLUCOMETER (test code 246 mg/dL 70-100 H CLEANE D METERMeter ID: = GMG) [id number] tor: 4622 MALLORY BARGER ROSEMARIE OSMOLARITY, [id number] 13:40:00 Test Item Value Reference Range Interpretation Comments OSMOLALITY (U) (test 524 mOsm/kg 50-1200 TEST PE RFORMED code = 60709580) AT:[facility] [address] [place] [address]WEGSWPAM GALLARDO MD GLUCOMETER GLUCOSE- LAB USE [id number] 12:08:00 Test Item Value Reference Range Interpretation Comments GLUCOMETER (test code 239 mg/dL 70-100 H CLEANE D METERMeter ID: = GMG) [id number] tor: 3912 [facility] GLUCOMETER GLUCOSE- LAB USE [id number] 07:38:00 Test Item Value Reference Range Interpretation Comments GLUCOMETER (test code 251 mg/dL 70-100 H CLEANE D METERMeter ID: = GMG) [id number] tor: 3912 [facility] BASIC METABOLIC [id number] 06:18:00 Test Item Value Reference Range Interpretation [...] normal/abnormal . GFR 59 See_Comment L [Automated CHILEAN (test mL/min/1.73m\\S\\2 message] The code = GFRAA) [...] 8.3-10.6 = 09D) GLUCOMETER GLUCOSE- LAB USE [id number] 18:47:00 Test Item Value Reference Range Interpretation Comments GLUCOMETER (test code 216 mg/dL 70-100 H CLEANE D METERMeter ID: = GMG) [id number] tor: 5538 CORDELLRISHABH EARL RGROVE GLUCOMETER GLUCOSE- LAB USE [id number] 16:40:00 Test Item Value Reference Range Interpretation Comments GLUCOMETER (test code = 378 mg/dL 70-100 H Mete r ID: GMG) [id number] tor: 6680 [place] GLUCOMETER GLUCOSE- LAB USE [id number] 15:22:00 Test Item Value Reference Range Interpretation Comments GLUCOMETER (test code = 420 mg/dL 70-100 H Mete r ID: GMG) [id number] tor: 5635 JAVIER ZANDRA GLUCOMETER GLUCOSE- LAB USE [id number] 11:24:00 Test Item Value Reference Range Interpretation Comments GLUCOMETER (test code = 335 mg/dL 70-100 H Mete r ID: GMG) [id number] tor: 4461 TOI MARTÍNEZ URINE [id number] 08:52:00 Test Item Value Reference Range Interpretation Comments Culture Observations THREE OR MORE SPECIES (test code = COB1) OF BACTERIA ISOLATED. PROBABLE CONTAMINATION. Culture Observations IDENTIFICATION AND (test code = COB17) SUSCEPTIBILITY NOT INDICATED. RECOLLECTION RECOMMENDED [id number] 07:14:00 Test Item Value Reference Range Interpretation Comments Hb A1C % (test code 3.8 % 3.8-6.4 = HBA) A1C % (test code = HbA1c (% ) A1C) Reference Range Normal <5.7 Prediabetes 5.7-6.4 Diabetic >=6.5 GLUCOMETER GLUCOSE- LAB USE [id number] 07:01:00 Test Item Value Reference Range Interpretation Comments GLUCOMETER (test code 134 mg/dL 70-100 H CLEANE D METERMeter ID: = GMG) [id number] tor: 5538 TARECIA EARL RGROVE B12 [id number] 06:38:00 Test Item Value Reference Range Interpretation Comments VIT B12 (test code = A60) 1933.0 pg/mL 211.0-911.0 H LIPID [id number] 06:37:00 Test Item Value Reference Range Interpretation Comments CHOLESTROL (test code 233 mg/dL 140-200 H = 44A) TRIGLYCERI (test code 97 mg/dL See_Comment [Auto mated message] = 42B) The system Rolith generated this result transmitted ref erence range: <=149. T he reference range was not used to int erpret this result as normal/abnormal . HDL (test code = 83D) 65.9 mg/dL 40.0-60.0 H LDL (test code = 34B) 158 mg/dL See_Comment H [Auto mated message] The system Rolith generated this result transmitted ref erence range: <=99. Th e reference range was not used to int erpret this result as normal/abnormal . CHL/HDL (test code = 3.5 0.0-3.4 H CHR) [id number] 06:37:00 Test Item Value Reference Range Interpretation Comments MAGNESIUM (test code = 48A) 1.9 mg/dL 1.6-2.6 [id number] 06:24:00 Test Item Value Reference Range Interpretation Comments FOLATE (test code = 19.2 ng/mL See_Comment [Automa georges message] The A75) system which ge nerated this result tra nsmitted reference range : >=5.5. The reference r yoselyn was not used to int erpret this result as normal/abnormal . [id number] 06:20:00 Test Item Value Reference Range Interpretation Comments PREALBUMIN (test code = 08E) 27 mg/dL 10-40 THYROID PANEL/SCREEN (TSH)2021-12-16 06:11:00 Test Item Value Reference Range Interpretation Comments TSH (test code = A57) 1.787 uIU/mL 0.550-4.780 BASIC METABOLIC [id number] 06:03:00 Test Item Value Reference Range Interpretation [...] normal/abnormal . GFR 51 See_Comment L [Automated CHILEAN (test mL/min/1.73m\\S\\2 message] The code = GFRAA) [...] MDIFF) NO NO GLUCOMETER GLUCOSE- LAB USE [id number] 21:28:00 Test Item Value Reference Range Interpretation Comments GLUCOMETER (test code = 241 mg/dL 70-100 H Mete r ID: GMG) [id number] tor: 0220 ANNETTE CARSONGONZALEZ GLUCOMETER GLUCOSE- LAB USE [id number] 15:53:00 Test Item Value Reference Range Interpretation Comments GLUCOMETER (test code = 100 mg/dL 70-100 Mete r ID: GMG) [id number] tor: 38249 RESHMA ESPARZA GLUCOMETER GLUCOSE- LAB USE [id number] 11:15:00 Test Item Value Reference Range Interpretation Comments GLUCOMETER (test code = 334 mg/dL 70-100 H Mete r ID: GMG) [id number] tor: 37055 ZGENEVIEVEIDAH VILMA U/S KIDNEY (RENAL)2021-12-15 07:28:08 [facility] : 1950 Sex: MRENAL SONOGRAM COMPLETELOCATION CODE: [...] Lizzy Carrasco MD 12/15/2021 7:28 AM CDT [id number] METABOLIC [id number] 04:28:00 Test Item Value Reference Range Interpretation [...] normal/abnormal . GFR 50 See_Comment L [Automated CHILEAN (test mL/min/1.73m\\S\\2 message] The code = GFRAA) [...] = RBCMOR) NORMAL GLUCOMETER GLUCOSE- LAB USE [id number] 16:57:00 Test Item Value Reference Range Interpretation Comments GLUCOMETER (test code = 213 mg/dL 70-100 H Mete r ID: GMG) [id number] tor: 54326 ABDIEL ES PINOSA GLUCOMETER GLUCOSE- LAB USE [id number] 11:09:00 Test Item Value Reference Range Interpretation Comments GLUCOMETER (test code = 198 mg/dL 70-100 H Mete r ID: GMG) [id number] tor: 38216 [facility] R[facility]OM [id number] 10:14:00 Test Item Value Reference Range Interpretation Comments CREA RAND (test code 64.7 mg/dL = CREAR) NRR (test code = * NO REFRENCE RANGE NRR) AVAILABLE FOR RANDOM SPECIMEN* POTASSIUM RANDOM [id number] 10:14:00 Test Item Value Reference Range Interpretation Comments K+ UR RAN (test code 32 mmol/L = KUR) NRR (test code = * NO REFRENCE RANGE NRR) AVAILABLE FOR RANDOM SPECIMEN* PROTEIN URINE [id number] 10:09:00 Test Item Value Reference Range Interpretation Comments PROT RAND (test code 22 mg/dL = IN) NRR (test code = * NO REFRENCE RANGE NRR) AVAILABLE FOR RANDOM SPECIMEN* [id number] 09:46:00 Test Item Value Reference Range Interpretation Comments Hb A1C % (test code 3.8 % 3.8-6.4 = HBA) A1C % (test code = HbA1c (% ) A1C) Reference Range Normal <5.7 Prediabetes 5.7-6.4 Diabetic >=6.5 COMPREHENSIVE METABOLIC [id number] 09:45:00 Test Item Value Reference Range Interpretation [...] normal/abnormal . GFR 46 See_Comment L [Automated CHILEAN (test mL/min/1.73m\\S\\2 message] The code = GFRAA) [...] = RBCMOR) NORMAL GLUCOMETER GLUCOSE- LAB USE [id number] 08:27:00 Test Item Value Reference Range Interpretation Comments GLUCOMETER (test code = 175 mg/dL 70-100 H Mete r ID: GMG) [id number] tor: 75892 ANA LAURA YOU NG [id number] 07:05:00 Test Item Value Reference Range Interpretation Comments CPK (test code = 32A) 330 IU/L 46-171 H GLUCOMETER GLUCOSE- LAB USE [id number] 06:17:00 Test Item Value Reference Range Interpretation Comments GLUCOMETER (test code 118 mg/dL 70-100 H Meter ID: = GMG) [id number] tor: [address]112[address] GRAHAMBER T BAILEY GLUCOMETER GLUCOSE- LAB USE [id number] 00:03:00 Test Item Value Reference Range Interpretation Comments GLUCOMETER (test code 381 mg/dL 70-100 H Meter ID: = GMG) [id number] tor: [address] HEAD W/O [id number] 23:49:21 [facility] DAYDAYREGINA HOUSER SERA : 1950 Sex: MEXAMINATION:CT HEAD W/O CONTRASTCLINICAL [...] La Rosa MD 12/13/2021 11:49 PM CDT -XzB (RAPID ANTIGEN)2021-12-13 23:44:00 Test Item Value Reference Range Interpretation Comments SARS-CoV (ANTIGEN) NEGATIVE NEGATIVE (test code = COVAG) COVID AG (test This test has been code = COVAGC) marketed under the FDA Emergency Use Authorization (EUA) to meet challenges of the COVID-19 pandemic. The validation standards normally enforced by the FDA and the [employer] of the [employer] (CAP) are more stringent than those required for this test. Therefore, the result should be interpreted with caution and close attention to other clinical and epidemiological data [id number] 23:42:00 Test Item Value Reference Range Interpretation Comments SALICYLATE (test code = 94B) <3.0 mg/dL 15.0-30.0 L COMPREHENSIVE METABOLIC [id number] 23:34:00 Test Item Value Reference Range Interpretation [...] normal/abnormal . GFR 32 See_Comment L [Automated CHILEAN (test mL/min/1.73m\\S\\2 message] The code = GFRAA) [...] (test code = 18 IU/L 10-49 31A) [id number] 23:34:00 Test Item Value Reference Range Interpretation Comments ACETAMINPH (test code = 94M) <0.2 mg/dL 1.2-2.5 L ALCOHOL BLOOD (ETOH)2021-12-13 23:34:00 Test Item Value Reference Range Interpretation Comments ETOH (test code = ETHANOL HALC) The result is to be used only for medical purposes ALCOHOL (test <10 mg/dL See_Comment [Automated me ssage] code = 56A) The system Rolith generated this result transmit georges reference range : <=10. The refer ence range was not u sed to interpret th is result as normal/abnormal . CARDIAC [id number] 23:33:00 Test Item Value Reference Range Interpretation Comments TROPONIN I (test code = A84) 28.86 pg/mL 0.00-45.20 AMMONIA [id number] 23:33:00 Test Item Value Reference Range Interpretation Comments AMMONIA (test code = 54A) <10 umol/L 11-32 L URINALYSIS WITH [id number] 23:32:00 Test Item Value Reference Range Interpretation [...] MODERATE /HPF NONE A PRO TIME AND [id number] 23:29:00 Test Item Value Reference Range Interpretation [...] Heparin. Order Code is ANTI-XA DRUGS OF [id number] 23:27:00 Test Item Value Reference Range Interpretation [...] = RBCMOR) NORMAL XR CHEST 1 VIEW [id number] 23:18:20 [facility] : 1950 Sex: MEXAM: XR CHEST 1 VIEWCOMPARISON: None available time of interpretation.LOCATION: [id number]: 71 years-year old Male with Psychotic disorderTECHNIQUE: Single AP view of the chest.FINDINGS:The cardiomediastinal silhouette is within normal limits. The lungs are clear. No appreciable pneumothorax or pleural effusion.Osseous structures and soft tissues demonstrate no acute findings. The visualized upper abdomen is unremarkable.IMPRESSION:No acute cardiopulmonary abnormality.Electronically signed by: Sean Gutierrez MD12/13/2021 11:18 PM CDT [id number] Veronica Solomon [id number] 18:39:00 Test Item Value Reference Range Interpretation Comments IgA (test code = 7003827748) 207 mg/dL 70-312 IgG (test code = 6186506448) 758 mg/dL 636-1600 IgM (test code = 1350598557) 22 mg/dL 56-352 L Lab Interpretation (test code = Abnormal 84698-2) [facility] GLUCOSE (AUTOMATED)2020-02-17 17:42:00 Test Item Value Reference Range Interpretation Comments POCT GLU (test code = 8186856001) 89 mg/dL 70-110 Lab Interpretation (test code = Normal 66844-5) [facility] GLUCOSE (AUTOMATED)2020-02-17 13:10:00 Test Item Value Reference Range Interpretation Comments POCT GLU (test code = 5194311707) 202 mg/dL 70-110 H Lab Interpretation (test code = Abnormal 38410-1) [facility] Metabolic Panel (NA, K, CL, CO2, GLUCOSE, BUN, CREATININE, CA)2020-02-17 09:43:00 Test Item Value Reference Range Interpretation Comments NA (test code = 134 mmol/L 135-145 L 8555769406) K (test code = 5.2 mmol/L 3.5-5 H 9276297768) CL (test code = 105 mmol/L 98-108 1483296785) CO2 TOTAL (test code = 25 mmol/L 23-31 5002437386) AGAP (test code = 2-16 9378063533) BUN (test code = 35 mg/dL 7-23 H 0672767589) GLUCOSE (test code = 174 mg/dL 70-110 H 3219267587) CREATININE (test code = 1.10 mg/dL 0.6-1.25 7945034553) CALCIUM (test code = 10.0 mg/dL 8.6-10.6 3174960923) eGFR Calculation mL/min/1.73m2 (Non-) (test code = 2653287425) eGFR Calculation mL/min/1.73m2 () (test code = 6567050125) MATTEO (test code = MATTEO) Association of [...] tests). Lab Interpretation Abnormal (test code = 04007-1) [facility] with [id number] 09:39:00 Test Item Value Reference Range Interpretation Comments WBC (test code = See_Comment [Automated 0490-2) message] The sy stem which generated this result transmitted reference range : 4.20 - 10.70 10*3/?L. The reference range was not used to interpret this result as normal/abnormal . RBC (test code = See_Comment L [Automated 259-8) message] The sy stem which generated this [...] RDW-SD (test code = 45.0 fL 38.5-51.6 44808-3) RDW-CV (test code = 13.2 % 12.1-15.4 788-0) PLT (test code = See_Comment [Automated 777-3) message] The sy stem which generated this result transmitted reference range : 150 - 328 10*3/ ?L. The reference r yoselyn was not used to interpret this result as normal/abnormal . MPV (test code = 11.2 fL 9.8-13 16687-3) NRBC/100 WBC (test See_Comment [Automat ed code = 2495418339) message] The system which generated this result transmitted reference range : 0.0 - 10.0 /100 WBCs. The refer ence range was not u sed to interpret th is result as normal/abnormal . NRBC x10^3 (test code <0.01 See_Comment [Auto mated = 6851417622) message] The s ystem which generated this result transmitted reference range : 10*3/?L. The reference range was not used to interpret this result as normal/abnormal . GRAN MAT (NEUT) % 64.3 % (test code = 770-8) IMM GRAN % (test code 0.40 % = 7113383250) LYMPH % (test code = 29.0 % 736-9) MONO % (test code = 4.7 % 5905-5) EOS % (test code = 1.4 % 713-8) BASO % (test code = 0.2 % 706-2) GRAN MAT x10^3(ANC) 3.29 10*3/uL 1.99-6.95 (test code = 5926341100) IMM GRAN x10^3 (test <0.03 0-0.06 code = 4323946722) LYMPH x10^3 (test code 1.48 10*3/uL 1.09-3.23 = 731-0) MONO x10^3 (test code 0.24 10*3/uL 0.36-1.02 L = 742-7) EOS x10^3 (test code = 0.07 10*3/uL 0.06-0.53 711-2) BASO x10^3 (test code <0.03 0.01-0.09 = 704-7) Lab Interpretation Abnormal (test code = 61588-5) [facility] GLUCOSE (AUTOMATED)2020-02-17 01:00:00 Test Item Value Reference Range Interpretation Comments POCT GLU (test code = 1087128860) 112 mg/dL 70-110 H Lab Interpretation (test code = Abnormal 26046-4) [facility] [id number] 22:57:36 Impression: Normal size bilateral kidneys with [...] right ) An MRI angiogram is recommended. .[facility] URINE [id number] 22:25:00 Test Item Value Reference Range Interpretation Comments UREA N UR (test code = 7580178853) 187 mg/dL [facility]2020-02-16 21:42:00 Test Item Value Reference Range Interpretation Comments POCT GLU (test code = 9481392169) 84 mg/dL 70-110 Lab Interpretation (test code = Normal 11605-7) [facility] URINE [id number] 19:57:00 Test Item Value Reference Range Interpretation Comments CREAT U (test code = 4718243979) 23.0 mg/dL [facility]SOD[facility], URINE [id number] 19:55:00 Test Item Value Reference Range Interpretation Comments NA URINE (test code = 7709571856) 136 mmol/L [facility]OT[facility]UM, URINE [id number] 19:54:00 Test Item Value Reference Range Interpretation Comments K URINE (test code = 5276052002) 23.2 mmol/L [facility]OLIC PANEL (NA, K, CL, CO2, GLUCOSE, BUN, CREATININE, CA)2020-02-16 17:50:00 Test Item Value Reference Range Interpretation Comments NA (test code = 140 mmol/L 135-145 0824671034) K (test code = 5.3 mmol/L 3.5-5 H 9882224586) CL (test code = 108 mmol/L 98-108 1784632731) CO2 TOTAL (test code = 24 mmol/L 23-31 1527053666) AGAP (test code = 2-16 2935851970) BUN (test code = 40 mg/dL 7-23 H 1822789350) GLUCOSE (test code = 125 mg/dL 70-110 H 7427328713) CREATININE (test code = 1.45 mg/dL 0.6-1.25 H 1989969039) CALCIUM (test code = 10.9 mg/dL 8.6-10.6 H 0576376051) eGFR Calculation mL/min/1.73m2 (Non-) (test code = 2692095339) eGFR Calculation mL/min/1.73m2 () (test code = 9699125347) MATTEO (test code = MATTEO) Association of [...] tests). Lab Interpretation Abnormal (test code = 90277-4) [facility]2020-02-16 16:21:00 Test Item Value Reference Range Interpretation Comments POCT GLU (test code = 2040333280) 120 mg/dL 70-110 H Lab Interpretation (test code = Abnormal 71016-0) [facility] HospitalGLYCOSYLATED HEMOGLOBIN (A1C)2020-02-16 14:34:00 Test Item Value Reference Range Interpretation Comments HGB A1C (test code = 9.3 % 4-6 H 4548-4) MATTEO (test code = MATTEO) %A1C (NGSP) Interpretation (ADA)4.8-5.6 ? ? Normal or (Non-Diabetic Range)5.7-6.4 ? ? Increased Risk (Pre-Diabetic)>6.5 ?Diabetes Indicated Lab Interpretation Abnormal (test code = 85226-5) [facility] (NA, K, CL, CO2, GLUCOSE, BUN, CREATININE, CA)2020-02-16 13:35:00 Test Item Value Reference Range Interpretation Comments NA (test code = 140 mmol/L 135-145 0010892980) K (test code = 6.1 mmol/L 3.5-5 HH 5710251284) CL (test code = 111 mmol/L 98-108 H 1553978748) CO2 TOTAL (test code = 22 mmol/L 23-31 L 9934668460) AGAP (test code = 2-16 2582647987) BUN (test code = 42 mg/dL 7-23 H 8672946867) GLUCOSE (test code = 116 mg/dL 70-110 H 1062634235) CREATININE (test code = 1.49 mg/dL 0.6-1.25 H 7724451842) CALCIUM (test code = 10.8 mg/dL 8.6-10.6 H 9359652713) eGFR Calculation mL/min/1.73m2 (Non-) (test code = 5148550530) eGFR Calculation mL/min/1.73m2 () (test code = 9863845891) MATTEO (test code = MATTEO) Association of [...] tests). Lab Interpretation Abnormal (test code = 36622-1) [facility]2020-02-16 13:09:00 Test Item Value Reference Range Interpretation Comments POCT GLU (test code = 7757969718) 117 mg/dL 70-110 H Lab Interpretation (test code = Abnormal 43488-8) [facility] - DRUG SCREEN [id number] 10:52:00 Test Item Value Reference Range Interpretation Comments BENZO U (test code = Negative Negative 0478706404) SCOT U (test code = Negative Negative 0001697760) AMPHET (test code = Negative Negative 3042122562) THC (test code = Negative Negative 5235649012) METHADONE (test code = Negative Negative 9885728365) Meth U (test code = Negative Negative 2120838401) OPIATES (test code = Negative Negative 4631552541) Cocaine Metabolite (test Negative Negative code = 6126149641) PROPOXY (test code = Negative Negative 7596533368) Tric U (test code = Negative Negative 4743137090) PCP (test code = Negative Negative 6801375442) OXYCOD (test code = Negative Negative 4538941967) MATTEO (test code = MATTEO) Urine Drug [...] testing). Lab Interpretation (test Normal code = 26110-4) [facility]2020-[facility]-21 10:50:00 Test Item Value Reference Range Interpretation Comments APPEARANCE (test code = Clear Clear 5249159194) COLOR (test code = Yellow Yellow 2157565524) PH (test code = 4.8-8.0 1531162072) SP GRAVITY (test code = 1.003-1.030 4595250244) GLU U QUAL (test code = Normal Normal 4751821518) BLOOD (test code = Negative Negative 1443769780) KETONES (test code = 5 mg/dL Negative A 2286470145) PROTEIN (test code = Negative Negative 2887-8) UROBILIN (test code = Normal Normal 2179640724) BILIRUBIN (test code = Negative Negative 4075116167) NITRITE (test code = Negative Negative 7933799033) LEUK LUISITO (test code = Negative Negative 5542970658) RBC/HPF (test code = See_Comment [Autom ated message] 5714166663) The system Rolith generated this result transmitted ref erence range: 0 - 3 HP F. The reference range was not used to int erpret this result as normal/abnormal . WBC/HPF (test code = <1 See_Comment [Autom ated message] 3277104676) The system Rolith generated this result transmitted ref erence range: 0 - 5 HP F. The reference range was not used to int erpret this result as normal/abnormal . BACTERIA (test code = Few Negative A 4966247369) HYAL CAST (test code = See_Comment [Aut omated message] 8890218687) The system Rolith generated this result transmitted ref erence range: <=2 LPF. The reference range was not used to int erpret this result as normal/abnormal . Lab Interpretation (test Abnormal code = 87763-0) [facility] HospitalCOVID[facility] (ID NOW RAPID TESTING)2020-02-16 10:50:00 Test Item Value Reference Range Interpretation Comments SARS-CoV-2 Rapid ID NOW Not Detected Not Detected (test code = 21782-8) MATTEO (test code = MATTEO) ID NOW COVID-19 Assay is an isothermal nucleic acid amplification test intended for the qualitative detection of nucleic acid from SARS-CoV-2 viral RNA in nasopharyngeal (SENIOR [employer] TECHNICIAN) specimens. It is used under Emergency Use [...] indicated. Lab Interpretation Normal (test code = 54755-3) [facility] HospitalXR CHEST 1 [id number] 10:39:25 FINDINGS/IMPRESSION: No focal consolidation, pleural effusion, [...] frontal view of the chest was obtained [facility], Radiant Results Inft User - 02/16/2020 [...] have reviewed this study and agreewith theabove report.[facility] HospitalPOTASSIUM [id number] 09:00:00 Test Item Value Reference Range Interpretation Comments K (test code = 0751569839) 6.0 mmol/L 3.5-5 H Lab Interpretation (test code = Abnormal 53047-1) [facility] HospitalTROPONIN [id number] 08:47:00 Test Item Value Reference Range Interpretation Comments TROPONIN I (test <0.012 See_Comment [Automated code = 2714472836) message] The system which generated this result [...] ? Lab Interpretation Normal (test code = 48881-5) [facility] HospitalCOMP. METABOLIC PANEL (74777)2020-02-16 08:42:00 Test Item Value Reference Range Interpretation Comments NA (test code = 140 mmol/L 135-145 6300745733) K (test code = 6.2 mmol/L 3.5-5 HH 4200355519) CL (test code = 110 mmol/L 98-108 H 9356939740) CO2 TOTAL (test code = 24 mmol/L 23-31 5051575066) AGAP (test code = 2-16 6505515520) BUN (test code = 40 mg/dL 7-23 H 4701025943) GLUCOSE (test code = 124 mg/dL 70-110 H 4991161746) CREATININE (test code = 1.60 mg/dL 0.6-1.25 H 4117357318) TOTAL BILI (test code = 0.4 mg/dL 0.1-1.7 3909914332) CALCIUM (test code = 11.0 mg/dL 8.6-10.6 H 7886445031) T PROTEIN (test code = 6.9 g/dL 6.3-8.2 5224264195) ALBUMIN (test code = 4.4 g/dL 3.5-5 4113669941) ALK PHOS (test code = 65 U/L 34-122 6012626224) ALTv (test code = 12 U/L 5-50 1742-6) AST(SGOT) (test code = 23 U/L 13-40 8033238070) eGFR Calculation mL/min/1.73m2 (Non-) (test code = 0378064018) eGFR Calculation mL/min/1.73m2 () (test code = 2617071772) MATTEO (test code = MATTEO) Association of [...] tests). Lab Interpretation Abnormal (test code = 69377-2) [facility] [id number] 08:34:00 Test Item Value Reference Range Interpretation Comments PROTIME PATIENT (test See_Comment [Auto mated message] code = 5964-2) The system [employer] ich generated this result transmitted ref erence range: 12.0 - 1 4.7 Seconds. The re ference range was not u sed to interpret this result as normal/abnor mal. INR (test code = 6301-6) Nor mal INR <1.1; Warfarin Therap eutic range 2.0 to 3. 0 or 2.5 to 3.5, dep ending upon the indica tions. Lab Interpretation (test Normal code = 98078-0) [facility] [id number] 08:23:00 Test Item Value Reference Range Interpretation Comments WBC (test code = See_Comment [Automated 2490-2) message] The sy stem which generated this result transmitted reference range : 4.20 - 10.70 10*3/?L. The reference range was not used to interpret this result as normal/abnormal . RBC (test code = See_Comment L [Automated 739-8) message] The sy stem which generated this [...] RDW-SD (test code = 46.5 fL 38.5-51.6 83663-2) RDW-CV (test code = 13.4 % 12.1-15.4 788-0) PLT (test code = See_Comment [Automated 777-3) message] The sy stem which generated this result transmitted reference range : 150 - 328 10*3/ ?L. The reference r yoselyn was not used to interpret this result as normal/abnormal . MPV (test code = 10.6 fL 9.8-13 07229-4) NRBC/100 WBC (test See_Comment [Automat ed code = 3112689606) message] The system which generated this result transmitted reference range : 0.0 - 10.0 /100 WBCs. The refer ence range was not u sed to interpret th is result as normal/abnormal . NRBC x10^3 (test code <0.01 See_Comment [Auto mated = 1816475256) message] The s ystem which generated this result transmitted reference range : 10*3/?L. The reference range was not used to interpret this result as normal/abnormal . GRAN MAT (NEUT) % 52.4 % (test code = 770-8) IMM GRAN % (test code 0.30 % = 3519202225) LYMPH % (test code = 38.4 % 736-9) MONO % (test code = 6.6 % 5905-5) EOS % (test code = 1.8 % 713-8) BASO % (test code = 0.5 % 706-2) GRAN MAT x10^3(ANC) 3.16 10*3/uL 1.99-6.95 (test code = 2255867571) IMM GRAN x10^3 (test <0.03 0-0.06 code = 9515457692) LYMPH x10^3 (test code 2.32 10*3/uL 1.09-3.23 = 731-0) MONO x10^3 (test code 0.40 10*3/uL 0.36-1.02 = 742-7) EOS x10^3 (test code = 0.11 10*3/uL 0.06-0.53 711-2) BASO x10^3 (test code 0.03 10*3/uL 0.01-0.09 = 704-7) Lab Interpretation Abnormal (test code = 23234-6) [facility]
[2022-12-21 10:47] LABS: Absolute Lymphocytes (CBC) 2.4 K/uL (0.7-4.9); Hematocrit 27.8 % (39.6-49.0); Lymphocytes % 36.4 % (15.3-44.8); MCV 90.9 fL (80-100); MPV 9.3 fL (7.6-11.3); RBC Red Blood Cell Count 3.06 M/uL (4.33-5.43)
[2022-12-21 11:04] LABS: Albumin 3.6 g/dL (3.4-5.0); Bilirubin Direct 0.1 mg/dL (0-0.2); Bilirubin Indirect, Calculated 0.2 mg/dL (0.2-0.8); Bilirubin Total 0.3 mg/dL (0.2-1.0); Protein, Total 6.8 g/dL (6.4-8.2); Troponin High Sensitivity 16.5 pg/mL (<58.9)
--- NOTE | 2022-12-21 11:17 | RAD REPORT ---
EXAM DESCRIPTION: CT - Head Brain Wo Cont - 12/21/2022 10:44 am CLINICAL HISTORY: CONFUSED COMPARISON: No comparisons TECHNIQUE: Noncontrast head CT images were obtained without IV contrast. Multiplanar reformats were generated and reviewed. All CT scans are performed using dose optimization technique as appropriate and may include automated exposure control or mA/KV adjustment according to patient size. FINDINGS: No intracranial hemorrhage, mass, or edema. Midline structures are unremarkable. Regional subcortical and deep white matter volume loss with corresponding ex vacuo dilation of the ri ght lateral ventricle body and trigone involving the right frontal more than right parietal lobes. Ov erall mild diffuse parenchymal volume loss. Lisa-white matter differentiation is preserved, without evidence of acute infarct. No abnormal extra- axial fluid collections. Mastoid air cells and visualized portions of the paranasal sinuses are clear. No acute bony findings. IMPRESSION: Regional subcortical and deep white matter volume loss with corresponding ex vacuo dilat ion of the right lateral ventricle body and trigone involving the right frontal more than right parie christiano lobes. The findings are nonspecific and could relate to regional leukoencephalopathy, either rela georges to chronic ischemic changes, or demyelination, among other considerations. Please correlate clini aleksandr, and consider additional evaluation by MRI. No other evidence of an acute intracranial process.
--- NOTE | 2022-12-21 12:01 | RAD REPORT ---
EXAM DESCRIPTION: RADChest Single View12/21/2022 11:08 am CLINICAL HISTORY: ams, eval pna COMPARISON: Chest Single View dated 12/19/2022 TECHNIQUE: Portable AP view of the chest. FINDINGS: The lungs are clear. No pneumothorax or effusion. The cardiomediastinal contours are unre markable. IMPRESSION: No acute cardiopulmonary process.
[2022-12-21 13:43] LABS: Specific Gravity 1.015 (1.005-1.030); Urine Bacteria None Seen /HPF (<20); Urine Bilirubin NEGATIVE (Negative); Urine Blood Negative (Negative); Urine Clarity Clear (Clear); Urine Color Colorless (Yellow); Urine Glucose NEGATIVE (Negative); Urine Protein NEGATIVE (Negative); Urine RBC <5 /HPF (None Seen); Urine Urobilinogen Normal (Normal)
[2022-12-21] MEDS ORDERED: CEFTRIAXONE 1000 MG/VIAL ONE (14:12)
--- NOTE | 2022-12-21 14:29 | ER ---
Nurse's Notes [facility] Name: Leonides Bui Age: 72 yrs Sex: Male : 1950 Arrival Date: 12/21/2022 Time: 10:07 Bed 14 Private MD: Diagnosis: UTI/ Urinary tract infection, site not specified Presentation: 12/21 10:09 Chief complaint: [facility] staff member states that patient had a witnessed seizure ss this morning. No HX of seizures. HX of dementia. Baseline A\\T\\O to self only per [facility]. Coronavirus screen: Client denies travel out of the [place] in the last 14 days. Ebola Screen: Patient denies exposure to infectious person. Patient denies travel to an Ebola-affected area in the 21 days before illness onset. Initial Sepsis Screen: Does the patient meet any 2 criteria? No. Patient's initial sepsis screen is negative. Does the patient have a suspected source of infection? No. Patient's initial sepsis screen is negative. Risk Assessment: Do you want to hurt yourself or someone else? Patient reports no desire to harm self or others. Onset of symptoms was December 21, 2022. 10:09 Method Of Arrival: EMS: [facility] ss 10:09 Acuity: ADRIANA 3 ss 10:09 Care prior to arrival: Glucose check: 142. ss 10:53 Transition of care: [facility]. ss Historical: - PMHx: 10:53 "Back problems"; diabetes mellitus; Memory problems; ss - PSHx: 10:53 Spinal Fusion; ss - Immunization history:: Adult Immunizations unknown, . - Social history:: Smoking status: Patient denies any tobacco usage or history of. Screenin:15 [facility] ED Fall Risk Assessment (Adult) History of falling in the last 3 months, ko1 including since admission No falls in past 3 months (0 pts) Confusion or Disorientation Yes (5 pts) Intoxicated or Sedated No (0 pts) Impaired Gait No (0 pts) Mobility Assist Device Used No (0 pt) Altered Elimination Yes (1 pt) Score/Fall Risk Level 3 or more points = High Risk Oriented to surroundings, Maintained a safe environment, Educated pt \\T\\ family on fall prevention, incl call for assistance when getting out of bed, Assessed \\T\\ reinforced patient's understanding of fall precautions, Provided non-skid footwear, Hourly rounding (assess needs \\T\\ fall precautionary measures) done, Used ambulatory aids as needed (educated on \\T\\ assisted with), Used gait belt as appropriate Implemented a Fall Risk Plan of Care, Apply high fall risk patient identification: yellow non skid footwear/ fall signage, Remained w/in arm's length of patient and in sight while toileting, Offered frequent toileting (1:1 observation), Remained with patient while ambulating, Utilized family, sitter, or virtual senior environmental technician as indicated. Abuse screen: Denies threats or abuse. Denies injuries from another. Nutritional screening: No deficits noted. Tuberculosis screening: No symptoms or risk factors identified. Assessment: 10:15 General: Appears in no apparent distress. comfortable, Behavior is restless. Pain: ko1 Denies pain. Neuro: Oriented to person, at baseline. Cardiovascular: No deficits noted. Respiratory: No deficits noted. GI: No deficits noted. : No deficits noted. EENT: No deficits noted. Derm: No deficits noted. Musculoskeletal: No deficits noted. 15:25 Reassessment: awaiting transport from [facility] to [facility] patient. ko1 16:44 Reassessment: Called [facility] again and spoke with Kelechi, he stated the commercial truck driver rhina for transport never called him back and he will call them again. Vital Signs: 10:15 BP 143 / 82; Pulse 84; Resp 16; Temp 98.8(T); Pulse Ox 99% on R/A; ko1 14:10 BP 134 / 78; Pulse 78; Resp 18; Pulse Ox 99% ; ko1 15:24 BP 128 / 68; Pulse 72; Resp 16; Pulse Ox 100% ; ko1 ED Course: 10:09 Patient arrived in ED. ss 10:09 Tobias Holly MD is Attending Physician. bs3 10:15 Patient has correct armband on for positive identification. Fall risk band placed. ko1 Placed in gown. Bed in low position. Side rails up X2. Pulse ox on. NIBP on. Door closed. Noise minimized. Lights dimmed. Warm blanket given. 10:15 Arm band placed on right wrist. Patient placed in an exam room, on a stretcher, on ko1 roll up helper, on pulse oximetry. 10:17 Haven Tay, RN is Primary Nurse. ko1 10:46 CT Head Brain wo Cont In Process Unspecified. EDMS 10:50 No provider procedures requiring assistance completed. Inserted saline lock: 20 gauge ko1 in right forearm, using aseptic technique. Blood collected. 10:53 Triage completed. ss 10:56 LFT's Sent. ko1 10:56 Troponin HS Sent. ko1 10:56 Lipase Sent. ko1 11:10 XRAY Chest (1 view) In Process Unspecified. EDMS 13:33 Urinalysis w/ reflexes Sent. ko1 14:28 Ruben Chaves MD is Referral Physician. bs3 14:35 IV discontinued, intact, bleeding controlled, No redness/swelling at site. Pressure ko1 dressing applied. Administered Medications: 14:09 Drug: Rocephin IV 1 grams Route: IV; Rate: 1 bolus; Site: right antecubital; ko1 Medication: 11:28 VIS not applicable for this client. ko1 Outcome: 14:28 Discharge ordered by . bs3 14:35 Discharged to [facility]. Report called to Kelechi. He will have to use a different ko1 transport today since there usual person is not there. He will call back with an ETA on transport. Transfer form completed. 14:35 Condition: improved 14:35 Discharge instructions given to [facility], Instructed on discharge instructions, follow up and referral plans. Demonstrated understanding of instructions, follow-up care. 16:58 Patient left the ED. ko1 Signatures: Dispatcher [employer] EDRosalind Blackwood RN RN ss Tobias Holly MD MD bs3 Haven Tay, RN RN ko1
--- NOTE | 2022-12-21 14:29 | EDPHYS ---
Physician Documentation [facility] Name: Leonides Bui Age: 72 yrs Sex: Male : 1950 Arrival Date: 12/21/2022 Time: 10:07 Bed 14 Private MD: ED Physician Tobias Holly HPI: 12/21 10:26 This 72 yrs old Male presents to ER via EMS with complaints of seizure like bs3 activity. 10:26 72-year-old male history of dementia prior overdose from amantadine and hypoglycemia bs3 presents with report of seizure-like activity from the [place] patient was at his baseline mental status when they arrived without any seizure-like activity alert and oriented times self history is limited secondary to his condition at his baseline dementia of note patient was here 2 days ago and a full work-up was nondiagnostic. Historical: - PMHx: 10:53 "Back problems"; diabetes mellitus; Memory problems; ss - PSHx: 10:53 Spinal Fusion; ss - Immunization history:: Adult Immunizations unknown, . - Social history:: Smoking status: Patient denies any tobacco usage or history of. ROS: 10:29 Unable to obtain ROS due to baseline dementia. bs3 Exam: 10:29 Constitutional: This is a well developed, well nourished patient who is awake, alert, bs3 and in no acute distress. Head/Face: Normocephalic, atraumatic. Eyes: Pupils equal round and reactive to light, extra-ocular motions intact. Lids and lashes normal. Neck: Trachea midline, no thyromegaly, no neck stiffness Chest/axilla: Normal chest wall appearance and motion. Nontender with no deformity. No lesions are appreciated. Cardiovascular: Regular rate and rhythm with a normal S1 and S2. symmetric pulses in upper extremities Respiratory: Lungs have equal breath sounds bilaterally, clear to auscultation, no respiratory distress Abdomen/GI: Soft, non-tender, no rebound or guarding Skin: Warm, dry with normal turgor. Normal color with no rashes, no lesions, and no evidence of cellulitis. MS/ Extremity: Pulses equal, no cyanosis. Neurovascular intact. Full, normal range of motion. Neuro: Alert and oriented x0 no focal deficits patient responds to verbal stimuli and turns his head when his name is called but does not articulating he is moving all his extremities he has good strength in his upper and lower extremities Vital Signs: 10:15 BP 143 / 82; Pulse 84; Resp 16; Temp 98.8(T); Pulse Ox 99% on R/A; ko1 14:10 BP 134 / 78; Pulse 78; Resp 18; Pulse Ox 99% ; ko1 15:24 BP 128 / 68; Pulse 72; Resp 16; Pulse Ox 100% ; ko1 MDM: 10:09 Patient medically screened. bs3 10:29 Data reviewed: vital signs, nurses notes. bs3 14:01 ED course: Work-up nondiagnostic except for 250 leuk esterase possibly metabolic bs3 encephalopathy secondary to UTI we will treat with discharge. 12/21 10:11 Order name: CBC with Diff; Complete Time: 11:55 bs3 12/21 10:11 Order name: LFT's; Complete Time: 11:55 bs3 12/21 10:11 Order name: Troponin HS; Complete Time: 11:55 bs3 12/21 10:11 Order name: Lipase; Complete Time: 11:55 bs3 12/21 10:11 Order name: Urinalysis w/ reflexes; Complete Time: 13:59 bs3 12/21 10:49 Order name: Glucose, Ancillary Testing; Complete Time: 11:55 EDMS 12/21 10:11 Order name: CT Head Brain wo Cont; Complete Time: 11:55 bs3 12/21 10:11 Order name: XRAY Chest (1 view); Complete Time: 12:19 bs3 12/21 10:11 Order name: EKG; Complete Time: 10:12 bs3 12/21 10:11 Order name: EKG - Nurse/Tech; Complete Time: 12:15 bs3 12/21 10:11 Order name: IV Saline Lock; Complete Time: 10:56 bs3 12/21 10:11 Order name: Labs collected and sent; Complete Time: 10:56 bs3 Administered Medications: 14:09 Drug: Rocephin IV 1 grams Route: IV; Rate: 1 bolus; Site: right antecubital; ko1 Disposition: 14:34 Chart complete. bs3 Disposition Summary: 12/21/22 14:28 Discharge Ordered Location: Home bs3 Problem: new bs3 Symptoms: have improved bs3 Condition: Stable bs3 Diagnosis - UTI/ Urinary tract infection, site not specified bs3 Followup: bs3 - With: Private Physician - When: 1 week - Reason: Re-evaluation by your physician Followup: bs3 - With: Ruben Chaves MD - When: 1 week - Reason: Recheck today's complaints Discharge Instructions: - Urinary Tract Infection, Adult, [id number] bs3 - Discharge Summary Sheet ko1 Forms: - Medication Reconciliation Form bs3 - Thank You Letter bs3 - Antibiotic Education bs3 - [email or web address] bs3 Prescriptions: - Cephalexin 500 mg Oral Capsule - take 1 capsule by ORAL route every 12 hours for 7 days; 14 capsule; Refills: 0, bs3 Product Selection Permitted Signatures: Dispatcher [employer] Rosalind Boothe, RN RN Tobias Tiwari MD MD bs3 Haven Tay RN RN ko1
[2022-12-21 17:19] VITALS: TEMP 98.8
[2022-12-21 17:21] VITALS: BP 128/68; O2SAT 100
--- NOTE | 2022-12-22 20:40 | EKG ---
Test Date: 2022-12-21 Test Time: 11:04:50 Party Plan Sales Director: LIZETTE MEASUREMENT RESULTS: Intervals: Rate: 58 VA: 164 QRSD: 108 QT: 456 QTc: 447 [place]: P: 62 VA: 164 QRS: 55 T: 61 INTERPRETIVE STATEMENTS: Sinus bradycardia with premature supraventricular complexes Otherwise normal ECG Compared to ECG 12/19/2022 09:42:51 Sinus rhythm no longer present Right-axis deviation no longer present Myocardial infarct finding no longer present Electronically Signed On 12-22-22 20:33:21 CDT by Benjie Barrett
== END 2022-12-21 16:58 | disposition home or self-care (01) ==
LOC: ER 10:07
DX: N39.0 Urinary tract infection, site not specified (principal); E11.9 Type 2 diabetes mellitus without complications; F03.90 Unspecified dementia, unspecified severity, without behavioral disturbance, psychotic disturbance, mood disturbance, and anxiety
CPT/HCPCS: 85025; 81001; 36415; 82947; 80076; 84484; 83690; 70450; 71045; J0696; 93005

== ENCOUNTER 2022-12-28 10:39 | Emergency (ER) | payer OTHER ==
--- OUTSIDE RECORDS SUMMARY | 2022-12-28 10:47 | XMS REPORT | Continuity of Care Document ---
:1950 Author Organization [facility] t Address [address] [place] [address] [address] [place] [address] Care Team Providers Name Role Phone Ernestine STOKES, Shruthi Ireland Primary Care Physician [phone] VALDEZ BENJAMIN Attending Clinician Unavailable Valdez Pineda Attending Clinician BABAR OWUSU Attending Clinician Unavailable Babar Owusu MD Attending Clinician DR AMITA DUBON Attending Clinician Unavailable DR CHRISTIE BIRD Attending Clinician DIONY Bush Attending Clinician Unavailable Doctor Unassigned, [place] Attending Clinician Unavailable LUAN SANTO Attending Clinician Unavailable DICKSON WARE Attending Clinician Unavailable Brian Black RN Attending Clinician Unavailable Trinidad Marie DO Attending Clinician Darling Willoughby MD Attending Clinician [phone] DEMETRIUS ROBBINS Attending Clinician Unavailable VALDEZ BENJAMIN Admitting Clinician Unavailable DR AMITA DUBON Admitting Clinician Unavailable DR CHRISTIE BIRD Admitting Clinician Megan Willoughby MD, Darling Medellin Admitting Clinician Payers Payer Name Policy Type Policy Number Effective Date Expiration Date Azael VIERA PLS [id number] 2020 HMO 00:00:00 0545 [id number] 1957 00:00:00 [id number] 1957 00:00:00 MEDICARE PART A [id number] 2021 \\T\\ B 00:00:00 Problems Condition Condition [...] Patient recently saw Neurology Dr. Kaylie Chaves ([place]), who wants to do an EEG. Last Assessmen t & Plan: Formattin g of this note might be different from the original. DDX: Mild cognitive impairmen t, hypertens damian encephalo mick, chronic stroke, seizure-w ould benefit from cognitive impairmen t screening next visit -Neurolog y referral placed for Dr. Chaves, whom patient has previousl y establish ed with in [place], [place]. Appears patient has been told he [...] Ambulator y referral to Psychiatr y; Future [facility] Hospital Disease Active Overview: Id thodi discharge discharge - Deisy s liset [...] is supposed to see Ophthalmo logist in [place] soon, but appointme nt not scheduled yet. Left No chest pain, SOB, headaches , numbness/ tingling, weakness. No blood tinge urine, no decreased urine output. States he is rarely adding salt. still eating eggs, staton, BBQ. States he "lives at [facility] Has been eating green beans Walking [...] adds salt. Mixed vegetable cans. Sometimes eats [employer] TV dinner. Hamburger , steak. No headache, [...] Active Univers ALLERGIE Class ity of S [facility] [place] [facility] No Known DA Active [facility] s Family History Family Member Diagnosis Comments Start Date Stop Date Source Natural father CABG/Stent [facility] Natural father Hypertension [facility] Natural father Stroke [facility] Natural mother Hypertension [facility] Natural mother Stroke [facility] Paternal uncle Stroke [facility] Social History Social Habit Start Date Stop Date Quantity Comments Source History of tobacco Current smoker Un iversity of use [facility] [place] [facility] Gender identity [facility] Sexual orientation [facility] Exposure to 2022-07-10 2022-07-20 Not sure University of SARS-CoV-2 (event) 00:00:00 11:50:00 [facility] [place] [facility] Alcohol intake 2021-03-20 2021-03-20 Current drinker [facility] dist 00:00:00 00:00:00 of alcohol Hospital (finding) History of Social 2021-03-20 2021-03-[address] function 00:00:00 00:00:00 Hospital Tobacco use and 2020-02-16 2020-02-16 Smokeless Universit y of exposure 00:00:00 00:00:00 tobacco non-user [facility] Cigarettes smoked 2020-02-08 2020-02-[address] current (pack per 00:00:00 00:00:00 Hospita l day) - Reported Cigarette 2020-02-08 2020-02-08 [facility] pack-years 00:00:00 00:00:00 Hospital Tobacco Comment 2016-07-31 2016-07-31 quit over [address] 00:00:00 00:00:00 years ago Hospital Sex Assigned At [birth year] [facility] 00:00:00 00:00:00 Hospital Smoking Status Start Date Stop Date Source Ex-smoker 2020-02-16 00:00:00 2020-02-16 00:00:00 [facility] Medical Branch Medications Ordered Filled Start Stop Current Ordering Indication Dosage Frequency Signature Comments Components Source Medication Medication Date Date Medication? Clinician (SIG) Name Name insulin 2021- No 4U 4 [facility] 03-19 Slow IV ity of human 19:15: 19:21 Push, [place] (HUMULIN R) 00 :00 ONCE, 1 Medic [...] Autumn 03/19/22 at 1245, STAT glyBURIDE-m Yes [id number] 1{tbl} Take 1 Univers etformin - tablet by ity of 2.5-500 mg 00:00: mouth in [place] as tablet 00 the Medical morning Branch and 1 tablet in the evening. Take with meals. glyBURIDE-m Yes [id number] 1{tbl} Take 1 Univers etformin - tablet by ity of 2.5-500 mg 00:00: mouth in [place] as tablet 00 the Medical morning Branch and 1 tablet in the evening. Take with meals. glyBURIDE-m 2021- No [id number] 1{tbl} Take 1 Univers etformin 03-19 tablet [...] Yes Take by Met hodi mg tablet - mouth. st 15:06: Hospita 49 l omega-3/dha 2020-0 Yes Take by Met hodi /epa/fish - mouth. st oil 15:06: Hospita (OMEGA-3 49 l FISH OIL ORAL) coenzyme 202-0 Yes 200mg QD Take 200 Meth stacey Q10 (Co 9-23 mg by Q-10) 100 15:06: mouth Hospita mg capsule 49 daily. l melatonin 3 2020-0 Yes Take by Met hodi mg tablet - mouth. st 15:06: Hospita 49 l omega-3/dha 2020-0 Yes Take by Met hodi /epa/fish - mouth. st oil 15:06: Hospita (OMEGA-3 49 l FISH OIL ORAL) coenzyme 202-0 Yes 200mg QD Take 200 Meth stacey Q10 (Co 9-23 mg by Q-10) 100 15:06: mouth Hospita mg capsule 49 daily. l melatonin 3 2020-0 Yes Take by Met hodi mg tablet - mouth. st 15:06: Hospita 49 l vitamin B 2020-0 Yes Take by Metho di complex vit - mouth. st C no.4 15:06: Hospita (SUPER B 07 l COMPLEX + C ORAL) thiamine 2020-0 Yes 100mg QD Take 100 Meth stacey mononitrate 9-23 mg by , vit B1, 15:06: mouth Hospita (B-1) 100 07 daily. l mg tablet cyanocobala 0 Yes 2500ug Take 2,500 Methodi min, 9-23 [...] l ORAL) times a day. vitamin E 2021-0 Yes 400U QD Take 400 Meth stacey 400 UNIT 9-[address] capsule 15:06: mouth Hospita 07 daily. l vitamin B 2021-0 Yes Take by Metho di complex vit 9-[address] C no.4 15:06: Hospita (SUPER B 07 l COMPLEX + C ORAL) thiamine 2021-0 Yes 100mg QD Take 100 Meth stacey mononitrate 9-[address] , vit B1, 15:06: mouth Hospita (B-1) 100 07 daily. l mg tablet cyanocobala 2021-0 Yes 2500ug Take 2,500 Methodi min, 9-[address] vitamin 15:06: mouth. Hospita B-12, 07 l (VITAMIN B-12 ORAL) ascorbic 2021-0 Yes 1000mg QD Take 1,000 M ethodi acid 9-[address] (VITAMIN C 15:06: mouth Hospit a ORAL) 07 daily. l cholecalcif 2021-0 Yes 5000U Q.5D Take 5,000 Methodi ana, 9-23 Units by vitamin D3, 15:06: mouth 2 Hos jorge (VITAMIN D3 07 (two) l ORAL) times a day. vitamin E 2021-0 Yes 400U QD Take 400 Meth stacey 400 UNIT 9-[address] capsule 15:06: mouth Hospita 07 daily. l vitamin B 2021-0 Yes Take by Metho di complex vit 9-[address] C no.4 15:06: Hospita (SUPER B 07 l COMPLEX + C ORAL) thiamine 2021-0 Yes 100mg QD Take 100 Meth stacey mononitrate 9-[address] , vit B1, 15:06: mouth Hospita (B-1) 100 07 daily. l mg tablet cyanocobala 2021-0 Yes 2500ug Take 2,500 Methodi min, 9-[address] vitamin 15:06: mouth. Hospita B-12, 07 l (VITAMIN B-12 ORAL) ascorbic 2021-0 Yes 1000mg QD Take 1,000 M ethodi acid 9-[address] (VITAMIN C 15:06: mouth Hospit a ORAL) 07 daily. l cholecalcif 2021-0 Yes 5000U Q.5D Take 5,000 Methodi ana, 9-[address] vitamin D3, 15:06: mouth 2 Hos jorge (VITAMIN D3 07 (two) l ORAL) times a day. vitamin E Yes 400U QD Take 400 Meth stacey 400 UNIT - Units by st capsule 15:06: mouth Hospita 07 daily. l NIFEdipine 2021- No [id number] 60mg QD Take 1 Methodi ER 03-20-24 tablet (60 st (PROCARDIA- 00:00: 04:59 mg total) Hospita XL) 60 MG 00 :00 by mouth l 24 hr daily. tablet NIFEdipine 2021- No [id number] 60mg QD Take 1 Methodi ER 03-20-24 tablet (60 st (PROCARDIA- 00:00: 04:59 mg total) Hospita XL) 60 MG 00 :00 by mouth l 24 hr daily. tablet NIFEdipine 2021- No [id number] 60mg QD Take 1 Methodi ER 03-2024 tablet (60 st (PROCARDIA- 00:00: 04:59 mg [...] daily. l 24 hr tablet lancets Yes [id number] Check Meth stacey (Accu-Chek 9-[address] Fastclix 00:00: glucose Hospit a Lancet 00 three l Drum) misc times a day prior to meals lancets Yes [id number] Check Meth stacey (Accu-Chek 9-[address] Fastclix 00:00: glucose Hospit a Lancet 00 three l Drum) misc times a day prior to meals lancets 2020-0 Yes [id number] Check Meth stacey (Accu-Chek 9-[address] Fastclix 00:00: glucose Hospit a Lancet 00 three l Drum) misc times a day prior to meals amLODIPine 2019-0 Yes [id number] 10mg Take 1 U nivers 10 mg 8-23 tablet by ity of tablet 00:00: mouth [place] 00 daily. Medical Branch amLODIPine 2019-0 Yes [id number] 10mg Take 1 U nivers 10 mg 8-23 tablet by ity of tablet 00:00: mouth [place] 00 daily. Medical Branch amLODIPine 2019-0 Yes [id number] 10mg Take 1 U nivers 10 mg 8-23 tablet by ity of tablet 00:00: mouth [place] 00 daily. Medical Branch amLODIPine 2019-0 Yes [id number] 10mg Take 1 U nivers 10 mg 8-23 tablet by ity of tablet 00:00: mouth [place] 00 daily. Medical Branch amLODIPine 2019-0 Yes [id number] 10mg Take 1 U nivers 10 mg 8-23 tablet by ity of tablet 00:00: mouth [place] 00 daily. Medical Branch glyBURIDE 2019-0 2020- No 5mg Take 5 mg Un mo (DIABETA) 5 8-22 -22 by mouth ity of mg tablet 16:25: 00:00 daily with [place] 17 :00 breakfast. Medical Branch multivitami 2020-0 2020- No 1{tbl} Take 1 U nivers n tablet 8-22 08-22 tablet by ity o f 16:25: 00:00 mouth [place] 16 :00 daily. Medical Branch glyBURIDE 5 2019-0 Yes [id number] 5mg Take 1 Univers mg tablet 8-22 tablet by ity o f 00:00: mouth 2 00 (two) Medical times Branch daily with meals. metFORMIN 2020-0 Yes [id number] 500mg Take 1 U nivers 500 mg 8-22 tablet by ity of tablet 00:00: mouth [place] 00 daily. Medical Branch glyBURIDE 5 2019-0 Yes [id number] 5mg Take 1 Univers mg tablet 8-22 tablet by ity o f 00:00: mouth 2 00 (two) Medical times Branch daily with meals. metFORMIN 2020-0 Yes [id number] 500mg Take 1 U nivers 500 mg 8-22 tablet by ity of tablet 00:00: mouth [place] 00 daily. Medical Branch glyBURIDE 5 2019- Yes [id number] 5mg Take 1 Univers mg tablet 02-16 tablet by ity o f 00:00: mouth 2 [place] 00 (two) Medical times Branch daily with meals. metFORMIN 2019-0 Yes [id number] 500mg Take 1 U nivers 500 mg - tablet by ity of tablet 00:00: mouth [place] 00 daily. Medical Branch glyBURIDE 5 0 2021- No [id number] 5mg Take 1 Univers mg tablet 02-16 tablet by ity of 00:00: 00:00 mouth 2 [place] 00 :00 (two) Medical times Branch daily with meals. metFORMIN 2019-2021- No [id number] 500mg Take 1 Univers 500 mg 02-16 tablet by ity of tablet 00:00: 00:00 mouth [place] 00 :00 daily. Medical Branch heparin 2019-0 Yes 5000U 5,000 Univers (porcine) 8- Units, ity of injection 19:00: Subcutaneo [place] 5,000 Units 00 us, Q8H, Medi christina First dose Branch on Wed02/16/20 at 1400, Until Discontinu ed, Routine Sliding 2019-0 Yes Subcutaneo Univ ers Scale - us, [...] 10U 10 Units, Univ ers regular 02-15 08-21 IV Push, ity of human 14:00: 13:56 [...] at 0800, Until Discontinu ed, Routine hydralAZINE 2019-0 Yes 10mg 10 mg, Univ ers (APRESOLINE 02-15 Intravenou it y of ) injection 12:48: s, Q6HPRN, [place] 10 mg 54 Starting Medical Fri Branch 02/16/20 at 0748, Until Discontinu ed, Routine, Hold for SBP < 110, DBP < 60 acetaminoph 2020-0 Yes 650mg 650 mg, Un mo en 02-15 Oral, ity of (TYLENOL) 12:32: Q6HPRN, [place] tablet 650 07 Starting Medic al mg [...] mg 11 Starting Medica l tablet 1 [facility] tablet 02/16/20 at 0731, Until Discontinu ed, Routine, Pain (scale 7-10) traMADoL 2019-0 2020- No 50mg 50 mg, Univer s (ULTRAM) 02-15 Oral, ity of tablet 50 12:31: 12:30 Q8HPRN, [place] mg 09 :09 Starting Medical Fri Branch 02/16/20 at 0731, Until 02/18/20 at 0730, Routine, Pain (scale 4-6) furosemide 2020-0 2020- No 40mg 40 mg, IV U nivers (LASIX) 02-15 Push, ity of injection 10:30: 09:39 ONCE, 1 [place] 40 mg 00 :00 dose, [facility] Medical 02/16/20 at Branch 0530, VALERIA calcium 2019-0 2020- No 1g 1 g, IV Univer s gluconate 1 02-15 Infusion, it y of g in NaCl 10:30: 09:38 ONCE, 1 [place] 50 mL 00 :00 dose, [facility] (ISO-OSM) 02/16/20 at [facility] RTU IV 0530, infusion 1 Routine g blood sugar 2020-0 Yes [id number] Please Methodi diagnostic 02-[address] strips 00:00: blood Hospita (Accu-Chek 00 glucose l Guide test levels strips) three strip test times a strips day prior to meals blood sugar 2020-0 Yes [id number] Please Methodi diagnostic 02-[address] strips 00:00: blood Hospita (Accu-Chek 00 glucose l Guide test levels strips) three strip test times a strips day prior to meals blood sugar 2020-0 Yes [id number] Please Methodi diagnostic - check st strips 00:00: blood Hospita (Accu-Chek 00 glucose l Guide test levels strips) three strip test times a strips day prior to meals blood-gluco 2020-0 Yes [id number] Please Methodi se meter 02-[address] (Accu-Chek 00:00: blood Hospit a Guide 00 glucose l Glucose levels Meter) misc three times a day prior to meals blood-gluco 2020-0 Yes [id number] Please Methodi se meter 8-[address] (Accu-Chek 00:00: blood Hospit a Guide 00 glucose l Glucose levels Meter) misc three times a day prior to meals blood-gluco 0 Yes [id number] Please Methodi se meter 8-[address] (Accu-Chek 00:00: blood Hospit a Guide 00 glucose l Glucose levels Meter) misc three times a day prior to meals blood-gluc, Yes [id number] Please Methodi BP 8-[address] meter,adult 00:00: blood Hospi ta cuff device 00 pressure l once a day and record values in a blood pressure diary. Please also check your blood sugar once a day (before eating meals) and record in a blood sugar diary. blood-gluc, Yes [id number] Please Methodi BP 8-[address] meter,adult 00:00: blood Hospi ta cuff device 00 pressure l once a day and record values in a blood pressure diary. Please also check your blood sugar once a day (before eating meals) and record in a blood sugar diary. blood-gluc, Yes [id number] Please Methodi BP 8-[address] [...] by ity of mg tablet 00:00: mouth [place] 00 every 8 Medical (eight) Branch hours as needed for Pain (scale 4-6). traMADOL 2016-0 Yes 50mg Take 1 Univers (ULTRAM) 50 6-08 tablet by ity of mg tablet 00:00: mouth [place] 00 every 8 Medical (eight) Branch hours as needed for Pain (scale 4-6). traMADOL 2016-0 Yes 50mg Take 1 Univers (ULTRAM) 50 6-08 tablet by ity of mg tablet 00:00: mouth [place] 00 every 8 Medical (eight) Branch hours as needed for Pain (scale 4-6). Vital Signs Vital Name Observation Time Observation Value Comments Source Systolic blood 2022-07-21 00:00:00 177 mm[Hg] Univer sity of [facility] Diastolic blood 2022-07-21 00:00:00 79 [facility]Hg[facility] 2022-07-21 00:00:00 61 /min [facility] Respiratory rate 2022-07-21 00:00:00 18 /min [facility] Oxygen saturation in 2022-07-21 00:00:00 95 /min [place] [facility] Arterial blood by [facility] christina Pulse oximetry [place] Body temperature 2022-07-20 17:47:00 36.39 Trudy [facility] Body height 2022-07-20 17:47:00 160 cm [facility] Body weight 2022-07-20 17:47:00 49.442 kg [facility] BMI 2022-07-20 17:47:00 19.31 kg/m2 [facility] Systolic blood 2022-03-19 19:00:00 117 mm[facility]Hg[facility] 2022-03-19 19:00:00 94 mm[Hg] [facility] 2022-03-19 19:00:00 67 /min [facility] Respiratory rate 2022-03-19 19:00:00 17 /min [facility] saturation in 2022-03-19 19:00:00 98 /min University of Arterial blood by [facility] Pulse oximetry Branch Body temperature 2022-03-19 17:36:00 36.89 Trudy [facility] ersity of [facility] [place] [facility] Body height 2022-03-19 17:36:00 160 cm Universi ty of [facility] [place] [facility] Body weight 2022-03-19 17:36:00 49.76 kg Universi ty of [facility] [place] [facility] BMI 2022-03-19 17:36:00 19.43 kg/m2 Universi ty of [facility] [place] [facility] Weight 2022-01-05 09:00:00 54.9 KG Height 2021-12-16 00:10:00 160.02 CM Weight 2021-12-16 00:10:00 54.43 KG Weight 2021-12-15 12:00:00 56.69 KG Height 2021-12-13 22:49:00 160.02 CM Weight 2021-12-13 22:49:00 54.43 KG Systolic blood 2020-02-17 16:40:00 125 mm[Hg] Univer sity of pressure [facility] [place] [facility] Diastolic blood 2020-02-17 16:40:00 86 mm[Hg] [facility] Heart rate 2020-02-17 16:40:00 66 /min Universi ty [facility] [place] [facility] Body temperature 2020-02-17 16:40:00 36.44 Trudy [facility] Respiratory rate 2020-02-17 16:40:00 18 /min [facility] Oxygen saturation in 2020-02-17 16:40:00 99 /min University of Arterial blood by [facility] Pulse oximetry Branch Body weight 2020-02-17 08:11:00 57.199 kg Universi ty of [facility] [place] [facility] BMI 2020-02-17 08:11:00 20.35 kg/m2 Universi ty of [facility] [place] [facility] Body height 2020-02-16 11:08:00 167.6 cm Universi [facility] Procedures Procedure Date / Time Performing Clinician Source Performed CT HEAD WO CONTRAST 2022-07-20 Cassidy [facility] o f [place] 23:41:[address] CERVICAL SPINE WO 2022-07-20 Cassidy [facility] CONTRAST 19:01:[address] HEAD WO CONTRAST 2022-07-20 Cassidy [facility] o f [place] 19:01:47 Medical Branch CONSENT/REFUSAL FOR 2022-07-20 Doctor Unassigned, No [facility] DIAGNOSIS AND TREATMENT 17:40:54 Name Medical Branch POCT GLUCOSE (AUTOMATED) 2022-03-19 [place] [facility] 19:20:00 Medical Branch PHOSPHORUS [facility]03[facility] 18[facility] Medical Branch MAGNESIUM 2022-03-19 [facility] 18:07:00 Medical Branch COMP. METABOLIC PANEL 2022-03-19 [facility] ([id number]) 18:07:00 [facility] Branch LIPID PANEL 2022-03-19 [facility] ([id number])(TOTAL 18:07:00 Medical Branch CHOLESTEROL, TRIGLYCERIDES, HDL) CBC WITH DIFF 2022-03-19 [facility] 18:07:00 Medical Branch GLYCOSYLATED HEMOGLOBIN 2022-03-19 [facility] (A1C) 18:07:00 [facility] Branch POCT GLUCOSE (AUTOMATED) 2022-03-19 [place] [facility] 17:33:00 Medical Branch CONSENT/REFUSAL FOR 2022-03-19 Doctor Unassigned, No [facility] DIAGNOSIS AND TREATMENT 17:09:04 Name [facility] ASSIGNMENT OF BENEFITS 2021-12-03 Doctor Unassigned, No [facility] 16:00:04 Name Medical [place] POCT GLUCOSE (AUTOMATED) 2020-02-17 [facility] 16:43:00 [facility] [place] [facility] POCT GLUCOSE (AUTOMATED) 2020-02-17 [facility] 12:44:00 [facility] [place] [facility] IMMUNOGLOBULIN G A M 2020-02-17 [facility] PANEL 08:35:00 Medical Branch BASIC METABOLIC PANEL 2020-02-17 [facility] (NA, K, CL, CO2, 08:35:00 Medical Branch GLUCOSE, BUN, CREATININE, CA) CBC WITH DIFF 2020-02-17 [facility] [place] 08:35:00 Medical Branch POCT GLUCOSE (AUTOMATED) 2020-02-17 [facility] 00:42:00 [facility] [place] [facility] POCT GLUCOSE (AUTOMATED) 2020-02-16 [facility] 21:33:00 [facility] [place] [facility] CREATININE, URINE RANDOM 2020-02-16 [facility] 19:32:00 Medical Branch UREA NITROGEN, URINE 2020-02-16 [facility] 19:32:00 [facility] POTASSIUM, URINE RANDOM 2020-02-16 [facility] 19:32:00 [facility] Branch SODIUM, URINE RANDOM 2020-02-16 [facility] 19:32:00 [facility] Branch US RENAL WITH DOPPLER 2020-02-16 [facility] 18:20:37 [facility] POCT GLUCOSE (AUTOMATED) 2020-02-16 [facility] 16:06:00 [facility] [place] [facility] BASIC METABOLIC PANEL 2020-02-16 [facility] (NA, K, CL, CO2, 15:25:00 Medical Branch GLUCOSE, BUN, CREATININE, CA) POCT GLUCOSE (AUTOMATED) 2020-02-16 [facility] 13:07:00 [facility] [place] [facility] URINALYSIS 2020-02-16 [facility] 09:50:00 [facility] ADC / LCC - DRUG SCREEN 2020-02-16 [facility] TRIAGE 09:50:00 [facility] COVID-19 (ID NOW RAPID [facility]-02[facility] 09:50:00 [facility] POTASSIUM SERUM 2020-02-16 [facility] 08:45:00 [facility] BASIC METABOLIC PANEL 2020-02-16 [facility] (NA, K, CL, CO2, 08:45:00 Medical Branch GLUCOSE, BUN, CREATININE, CA) XR CHEST 1 VW 2020-02-16 [facility] 08:26:08 Medical Branch TROPONIN I 2020-02-16 [facility] 08:13:00 Medical Branch COMP. METABOLIC PANEL 2020-02-16 [facility] ([id number]) 08:13:00 [facility] Branch CBC WITH DIFF 2020-02-16 [facility] 08:13:00 Medical Branch GLYCOSYLATED HEMOGLOBIN 2020-02-16 [facility] (A1C) 08:13:00 [facility] Branch PROTHROMBIN TIME / INR 2020-02-16 [facility] 08:13:00 [facility] EKG-12 LEAD 2020-02-16 [facility] 08:12:15 [facility] EKG-12 LEAD 2020-02-16 [facility] 08:10:35 [facility] Plan of Care Planned Activity Planned Date Details Comments Source Future Scheduled 2022-12-21 [facility] Test 10:24:42 malignant neoplasm of colon (procedure) [code = 251819314] Future Scheduled 2022-12-21 [facility] Test 10:24:42 malignant neoplasm of colon (procedure) [code = 676827120] Future Scheduled 2022-12-21 [facility] Test 10:24:42 malignant neoplasm of colon (procedure) [code = 348277126] Future Scheduled 2022-12-21 COVID-19 VACCINE (#1) [facility] Test 10:24:42 [code = COVID-19 VACCINE (#1)] Future Scheduled 2022-12-21 65+ PNEUMOCOCCAL [facility] Test 10:24:42 VACCINE (1 - PCV) [code = 65+ PNEUMOCOCCAL VACCINE (1 - PCV)] Future Scheduled 2022-12-21 Hepatitis C screening [facility] Test 10:24:42 (procedure) [code = 536129428] Future Scheduled 2022-12-21 [facility] Test 10:24:42 malignant neoplasm of colon (procedure) [code = 370629465] Future Scheduled 2022-12-21 [facility] Test 10:24:42 malignant neoplasm of colon (procedure) [code = 849016070] Future Scheduled 2022-12-21 SHINGLES VACCINES (1 [facility] Test 10:24:42 of 2) [code = SHINGLES VACCINES (1 of 2)] Future Scheduled 2022-12-21 DIABETIC FOOT EXAM [facility] Test 10:24:42 [code = DIABETIC FOOT EXAM] Future Scheduled 2022-12-21 DIABETES: RETINAL EYE [facility] Test 10:24:42 EXAM [code = DIABETES: RETINAL EYE EXAM] Future Scheduled 2022-12-21 INFLUENZA VACCINE [facility] 10:24:42 [code = INFLUENZA VACCINE] Future Scheduled 2022-12-21 [facility] Test 10:24:42 malignant neoplasm of colon (procedure) [code = 900164707] Future Scheduled 2022-12-21 [facility] 10:24:42 malignant neoplasm of colon (procedure) [code = 026690008] Future Scheduled 2022-12-21 [facility] Test 10:24:42 malignant neoplasm of colon (procedure) [code = 789362453] Future Scheduled 2022-12-21 COVID-19 VACCINE (#1) [facility] Test 10:24:42 [code = COVID-19 VACCINE (#1)] Future Scheduled 2022-12-21 65+ [facility]CCAL [facility] 10:24:42 VACCINE (1 - PCV) [code = 65+ PNEUMOCOCCAL VACCINE (1 - PCV)] Future Scheduled 2022-12-21 Hepatitis C screening [facility] Test 10:24:42 (procedure) [code = 588667358] Future Scheduled 2022-12-21 [facility] Test 10:24:42 malignant neoplasm of colon (procedure) [code = 836692614] Future Scheduled 2022-12-21 [facility] Test 10:24:42 malignant neoplasm of colon (procedure) [code = 916446278] Future Scheduled 2022-12-21 SHINGLES VACCINES (1 Met [facility] Test 10:24:42 of 2) [code = SHINGLES VACCINES (1 of 2)] Future Scheduled 2022-12-21 DIABETIC FOOT EXAM [facility] Test 10:24:42 [code = DIABETIC FOOT EXAM] Future Scheduled 2022-12-21 DIABETES: RETINAL EYE Me [facility] Test 10:24:42 EXAM [code = DIABETES: RETINAL EYE EXAM] Future Scheduled 2022-12-21 [facility]FLUENZA VACCINE [facility] 10:24:42 [code = INFLUENZA VACCINE] Future Scheduled 2022-12-10 [facility] Test 19:43:10 malignant neoplasm of colon (procedure) [code = 072136920] Future Scheduled 2022-12-10 [facility] Test 19:43:10 malignant neoplasm of colon (procedure) [code = 360917803] Future Scheduled 2022-12-10 [facility] Test 19:43:10 malignant neoplasm of colon (procedure) [code = 482695762] Future Scheduled 2022-12-10 COVID-19 [facility]ACCINE [facility] Test 19:43:10 [code = COVID-19 VACCINE (#1)] Future Scheduled 2022-12-10 65+ [facility]OCOCCAL [facility] 19:43:10 VACCINE (1 - PCV) [code = 65+ PNEUMOCOCCAL VACCINE (1 - PCV)] Future Scheduled 2022-12-10 Hepatitis C screening [facility] Test 19:43:10 (procedure) [code = 035565514] Future Scheduled 2022-12-10 [facility] Test 19:43:10 malignant neoplasm of colon (procedure) [code = 139022069] Future Scheduled 2022-12-10 [facility] Test 19:43:10 malignant neoplasm of colon (procedure) [code = 710921959] Future Scheduled 2022-12-10 SHINGLES VACCINES ([facility] 19:43:10 of 2) [code = SHINGLES VACCINES (1 of 2)] Future Scheduled 2022-12-10 DIABETIC FOOT EXAM [facility] Test 19:43:10 [code = DIABETIC FOOT EXAM] Future Scheduled 2022-12-10 DIABETES: RETINAL EYE [facility] Test 19:43:10 EXAM [code = DIABETES: RETINAL EYE EXAM] Future Scheduled 2022-12-10 INFLUENZA VACCINE [facility] Test 19:43:10 [code = INFLUENZA VACCINE] Encounters Start End Encounter Admission Attending Care Care Encounter Source Date/Time Date/Time Type Type Clinicians Facility Department ID 2022-07-20 2022-07-20 Emergency X [facility]IDY [facility] [id number] [facility] 11:53:00 18:46:00 VALDEZ campos [facility] 2022-07-20 2022-07-20 Emergency Cassidy, RUST [id number] Univers 11:53:00 18:46:00 Valdez ALEXIS 350.1.13.10 i ty [facility] 4.2.7.2.686 [facility] [id number] [facility] [address] [place] 2022-03-19 2022-03-19 Emergency X UMER, RUST ERT [id number] Univers 12:38:00 15:44:00 [facility]22-03-19 [facility] [id number] Univers 12:38:00 15:44:00 Babar ALEXIS 350.1.13.10 i ty [facility] 4.2.7.2.686 [facility] [id number] [facility] [address] [place] 2021-12-15 2022-01-20 [facility] [id number] [facility] 19:08:00 19:38:00 [facility]ITA [facility] [place] 2021-12-13 2021-12-15 Outpatient E [facility] [id number] [place] 22:16:00 19:00:00 CHRISTIE [facility] [place] 2021-12-03 2021-12-03 Outpatient R [facility] [id number] Univers 11:00:00 11:00:00 DIONY campos [facility] 2021-12-03 2021-12-03 Orders Doctor OCONNOR [id number] Univers 00:00:00 00:00:00 Only Unassigned, TIMBO 350.1.13.10 ity of [place] [facility] 4.2.7.2.686 [facility] [id number] [facility] [address] [place] 2021-04-11 2021-04-11 Outpatient Belkys [facility] [id number] Univers 13:30:00 13:30:00 LUAN campos [facility] 2021-03-20 2021-03-20 Outpatient WARE, [facility] [id number] [place] 00:00:00 00:00:00 DICKSON ragsdale 2020-03-07 2020-03-08 Outpatient [facility] [id number] [place] 00:00:00 00:00:[address] 2020-02-19 2020-02-19 Transition Mike Black 1.2.840.114 [id number] Univers 00:00:00 00:00:00 of Care Brian Elizaldey 350.1.13.10 [place] [id number] [facility] [address] 2020-02-16 2020-02-17 Hospital Trinidad Marie RUST 1.2.84 0.114 [id number] Univers 03:21:00 13:35:00 Encounter Darling Willoughby on 350.1.13.10 [place] [id number] [facility] [address] 2020-02-16 2020-02-16 Emergency X RUST ERT [id number] Univers 03:21:00 03:21:00 ity [facility] 2020-02-08 2020-02-08 Outpatient [facility] [id number] [place] 00:00:00 00:00:[address] 2020-02-02 2020-02-02 Emergency [facility] [id number] [place] 00:00:00 00:00:[address] Results Test Description Test Time Test Comments Results Result Comments Source GLYCOSYLATED HEMOGLOBIN (A1C) 2022-03-19 19:27:39 Test Item Value Reference Range Interpretation Comme nts HGB A1C (test code = 4548-4) 11.6 % 4-5.7 H MATTEO (test code = MATTEO) Reference RangesNormal: <5.7%Prediabetes: 5.7 - 6.4%Diabetes: > 6.5% Lab Interpretation (test code = 63112-0) [facility]normal [facility]2022-03-19 19:21:42 Test Item Value Reference Range Interpretation Comments POCT GLU (test code = 5704799918) 325 mg/dL 70-110 H Lab Interpretation (test code = Abnormal 77593-3) [facility] Texas[facility]IP[facility] PANEL (99028)(TOTAL CHOLESTEROL, TRIGLYCERIDES, HDL)2022-03-19 18:40:28 Test Item Value Reference Range Interpretation Comments CHOL (test code = 147 mg/dL 120-200 6816992246) HDL (test code = 55 mg/dL See_Comment [Automated message] 7543558344) The system [employer] generated this result transmit georges reference range : >=40. The refer ence range was not u sed to interpret th is result as normal/abnormal . HDLC RATIO (test code = See_Comment [Au tomated message] 2608361794) The system [employer] generated this result transmit georges reference range : <=5.0. The refe rence range was not u sed to interpret th is result as normal/abnormal . TRIG (test code = 222 mg/dL 30-170 H 4798097620) LDL CHOL (test code = 48 mg/dL See_Comment [Auto mated message] 09305-1) The system [employer] generated this result transmit georges reference range : <=160. The refe rence range was not u sed to interpret th is result as normal/abnormal . VLDL (test code = 44 mg/dL 5-60 6704321751) Lab Interpretation (test Abnormal code = 24374-2) [facility]. METABOLIC PANEL (51726)2022-03-19 18:40:08 Test Item Value Reference Range Interpretation Comments NA (test code = 139 mmol/L 135-145 0999046991) K (test code = 5.0 mmol/L 3.5-5 2553334875) CL (test code = 101 mmol/L 98-108 5656487587) CO2 TOTAL (test code = 29 mmol/L 23-31 1454033622) AGAP (test code = 2-16 3206365731) BUN (test code = 47 mg/dL 7-23 H 4019470230) GLUCOSE (test code = 324 mg/dL 70-110 H 2035531059) CREATININE (test code = 1.47 mg/dL 0.6-1.25 H 6500100783) TOTAL BILI (test code = 0.5 mg/dL 0.1-1.1 6931316393) CALCIUM (test code = 11.0 mg/dL 8.6-10.6 H 3452367360) T PROTEIN (test code = 6.7 g/dL 6.3-8.2 4282215619) ALBUMIN (test code = 4.2 g/dL 3.5-5 7714428086) ALK PHOS (test code = 144 U/L 34-122 H 5899432752) ALTv (test code = 48 U/L 5-50 1742-6) AST(SGOT) (test code = 31 U/L 13-40 5069233401) eGFR (test code = mL/min/1.73m2 4909260830) MATTEO (test code = MATTEO) Association of [...] tests). Lab Interpretation Abnormal (test code = 24810-6) [facility] Test Item Value Reference Range Interpretation Comments MAGNESIUM (test code = 5825708121) 2.4 mg/dL 1.7-2.4 Lab Interpretation (test code = Normal 93870-7) [facility]2022-[facility]-22 18:39:47 Test Item Value Reference Range Interpretation Comments PHOSPHORUS (test code = 5882591972) 3.3 mg/dL 2.5-5 Lab Interpretation (test code = Normal 68468-2) [facility] WITH [id number] 18:24:01 Test Item Value Reference Range Interpretation [...] RDW-SD (test code = 48.3 fL 38.5-51.6 31100-7) RDW-CV (test code = 14.6 % 12.1-15.4 788-0) PLT (test code = See_Comment [Automated 777-3) message] The sy stem which generated this result transmitted reference range : 150 - 328 10*3/ ?L. The reference r yoselyn was not used to interpret this result as normal/abnormal . MPV (test code = 11.8 fL 9.8-13 56027-4) NRBC/100 WBC (test See_Comment [Automat ed code = 4077668766) message] The system which generated this result transmitted reference range : 0.0 - 10.0 /100 WBCs. The refer ence range was not u sed to interpret th is result as normal/abnormal . NRBC x10^3 (test code See_Comment [Auto mated = 7731696572) message] The s ystem which generated this result transmitted reference range : 10*3/?L. The reference range was not used to interpret this result as normal/abnormal . GRAN MAT (NEUT) % 71.7 % (test code = 770-8) IMM GRAN % (test code 0.50 % = 7632936474) LYMPH % (test code = 18.7 % 736-9) MONO % (test code = 8.1 % 5905-5) EOS % (test code = 0.8 % 713-8) BASO % (test code = 0.2 % 706-2) GRAN MAT x10^3(ANC) 6.18 10*3/uL 1.99-6.95 (test code = 4782411658) IMM GRAN x10^3 (test 0.04 10*3/uL 0-0.06 code = 3556048202) LYMPH x10^3 (test code 1.61 10*3/uL 1.09-3.23 = 731-0) MONO x10^3 (test code 0.70 10*3/uL 0.36-1.02 = 742-7) EOS x10^3 (test code = 0.07 10*3/uL 0.06-0.53 711-2) BASO x10^3 (test code 0.01-0.09 = 704-7) Lab Interpretation Abnormal (test code = 85348-1) [facility]2022-03-19 17:44:08 Test Item Value Reference Range Interpretation Comments POCT GLU (test code = 1206765202) 318 mg/dL 70-110 H Lab Interpretation (test code = Abnormal 45511-8) [facility] GLU[facility]SE- LAB USE [id number] 16:47:00 Test Item Value Reference Range Interpretation Comments GLUCOMETER (test code 108 mg/dL 70-100 H CLEANE D METERMeter ID: = GMG) [id number] tor: 6193 REFUGIO WEEMSON GLUCOMETER GLUCOSE- LAB USE [id number] 11:40:00 Test Item Value Reference Range Interpretation Comments GLUCOMETER (test code 160 mg/dL 70-100 H Meter ID: = GMG) [id number] tor: 6193 REFUGIO DOAN ARDSON GLUCOMETER GLUCOSE- LAB USE [id number] 07:31:00 Test Item Value Reference Range Interpretation Comments GLUCOMETER (test code = 81 mg/dL 70-100 Mete r ID: GMG) [id number] tor: 6193 REFUGIO DOAN ARDSON GLUCOMETER GLUCOSE- LAB USE [id number] 21:59:00 Test Item Value Reference Range Interpretation Comments GLUCOMETER (test code 205 mg/dL 70-100 H CLEANE D METERMeter ID: = GMG) [id number] tor: 8249 OLABODE OS UMOSU SARS-CoV (RAPID ANTIGEN)2022-01-19 17:13:00 Test Item Value Reference Range Interpretation Comments SARS-CoV (ANTIGEN) NEGATIVE NEGATIVE (test code = COVAG) COVID AG (test This test has been code = COVAGC) marketed under the FDA Emergency Use Authorization (EUA) to meet challenges of the COVID-19 pandemic. The validation standards normally enforced by the FDA and the College of the [employer] (CAP) are more stringent than those required for this test. Therefore, the result should be interpreted with caution and close attention to other clinical and epidemiological data GLUCOMETER GLUCOSE- LAB USE [id number] 16:13:00 Test Item Value Reference Range Interpretation Comments GLUCOMETER (test code 125 mg/dL 70-100 H CLEANE D METERMeter ID: = GMG) [id number] tor: 9867 WILLIAM G ENTILE GLUCOMETER GLUCOSE- LAB USE [id number] 11:17:00 Test Item Value Reference Range Interpretation Comments GLUCOMETER (test code 231 mg/dL 70-100 H CLEANE D METERMeter ID: = GMG) [id number] tor: 9867 WILLIAM G ENTILE GLUCOMETER GLUCOSE- LAB USE [id number] 06:51:00 Test Item Value Reference Range Interpretation Comments GLUCOMETER (test code 129 mg/dL 70-100 H CLEANE D METERMeter ID: = GMG) [id number] tor: 5538 TARECIA EARL RGROVE GLUCOMETER GLUCOSE- LAB USE [id number] 19:38:00 Test Item Value Reference Range Interpretation Comments GLUCOMETER (test code 204 mg/dL 70-100 H CLEANE D METERMeter ID: = GMG) [id number] tor: 5538 POLLO EARL RGROVE GLUCOMETER GLUCOSE- LAB USE [id number] 17:25:00 Test Item Value Reference Range Interpretation Comments GLUCOMETER (test code 242 mg/dL 70-100 H CLEANE D METERMeter ID: = GMG) [id number] tor: 5066 KENITA COL PAWAN GLUCOMETER GLUCOSE- LAB USE [id number] 12:24:00 Test Item Value Reference Range Interpretation Comments GLUCOMETER (test code 197 mg/dL 70-100 H CLEANE D METERMeter ID: = GMG) [id number] tor: 5066 KENITA COL PAWAN GLUCOMETER GLUCOSE- LAB USE [id number] 09:51:00 Test Item Value Reference Range Interpretation Comments GLUCOMETER (test code 168 mg/dL 70-100 H CLEANE D METERMeter ID: = GMG) [id number] tor: 5066 KENITA COL PAWAN GLUCOMETER GLUCOSE- LAB USE [id number] 19:26:00 Test Item Value Reference Range Interpretation Comments GLUCOMETER (test code 142 mg/dL 70-100 H CLEANE D METERMeter ID: = GMG) [id number] tor: 3549 VANESSA HOBBS OYO GLUCOMETER GLUCOSE- LAB USE [id number] 16:26:00 Test Item Value Reference Range Interpretation Comments GLUCOMETER (test code = 214 mg/dL 70-100 H Mete r ID: GMG) [id number] tor: 6771 EMA CHANTALE H GLUCOMETER GLUCOSE- LAB USE [id number] 11:20:00 Test Item Value Reference Range Interpretation Comments GLUCOMETER (test code = 117 mg/dL 70-100 H Mete r ID: GMG) [id number] tor: 6771 EMA CHANTALE H GLUCOMETER GLUCOSE- LAB USE [id number] 07:15:00 Test Item Value Reference Range Interpretation Comments GLUCOMETER (test code = 90 mg/dL 70-100 Mete r ID: GMG) [id number] tor: 6771 EMA CHANTALE H GLUCOMETER GLUCOSE- LAB USE [id number] 20:18:00 Test Item Value Reference Range Interpretation Comments GLUCOMETER (test code 141 mg/dL 70-100 H CLEANE D METERMeter ID: = GMG) [id number] tor: 3549 VANESSA VALDES SARS-CoV (RAPID ANTIGEN)2022-01-16 16:12:00 Test Item Value Reference Range Interpretation Comments SARS-CoV (ANTIGEN) POSITIVE NEGATIVE AA (test code = COVAG) COVID AG (test This test has been code = COVAGC) marketed under the FDA Emergency Use Authorization (EUA) to meet challenges of the COVID-19 pandemic. The validation standards normally enforced by the FDA and the [employer] of the [employer] (CAP) are more stringent than those required for this test. Therefore, the result should be interpreted with caution and close attention to other clinical and epidemiological data GLUCOMETER GLUCOSE- LAB USE [id number] 16:09:00 Test Item Value Reference Range Interpretation Comments GLUCOMETER (test code = 213 mg/dL 70-100 H Mete r ID: GMG) [id number] tor: 6680 [facility] JOSE RAMON GLUCOMETER GLUCOSE- LAB USE [id number] 11:22:00 Test Item Value Reference Range Interpretation Comments GLUCOMETER (test code = 232 mg/dL 70-100 H Mete r ID: GMG) [id number] tor: 6680 [facility] JOSE RAMON GLUCOMETER GLUCOSE- LAB USE [id number] 07:42:00 Test Item Value Reference Range Interpretation Comments GLUCOMETER (test code = 95 mg/dL 70-100 Mete r ID: GMG) [id number] tor: 6680 [facility] JOSE RAMON GLUCOMETER GLUCOSE- LAB USE [id number] 18:54:00 Test Item Value Reference Range Interpretation Comments GLUCOMETER (test code 202 mg/dL 70-100 H CLEANE D METERMeter ID: = GMG) [id number] tor: 3549 VANESSA VALDES GLUCOMETER GLUCOSE- LAB USE [id number] 16:21:00 Test Item Value Reference Range Interpretation Comments GLUCOMETER (test code 109 mg/dL 70-100 H CLEANE D METERMeter ID: = GMG) [id number] tor: 9867 WILLIAM G ENTILE GLUCOMETER GLUCOSE- LAB USE [id number] 11:14:00 Test Item Value Reference Range Interpretation Comments GLUCOMETER (test code = 211 mg/dL 70-100 H Mete r ID: GMG) [id number] tor: 4461 TOI G IBSON GLUCOMETER GLUCOSE- LAB USE [id number] 07:07:00 Test Item Value Reference Range Interpretation Comments GLUCOMETER (test code = 91 mg/dL 70-100 Mete r ID: GMG) [id number] tor: 4461 TOI G IBSON GLUCOMETER GLUCOSE- LAB USE [id number] 20:09:00 Test Item Value Reference Range Interpretation Comments GLUCOMETER (test code 184 mg/dL 70-100 H CLEANE D METERMeter ID: = GMG) [id number] tor: 3883 CURTMCKENZIE NORMA GLUCOMETER GLUCOSE- LAB USE [id number] 16:04:00 Test Item Value Reference Range Interpretation Comments GLUCOMETER (test code = 71 mg/dL 70-100 PETTY ROBERT METERMeter ID: GMG) [id number] tor: 1328 REFUGIO MURP HY GLUCOMETER GLUCOSE- LAB USE [id number] 11:06:00 Test Item Value Reference Range Interpretation Comments GLUCOMETER (test code 179 mg/dL 70-100 H CLEANE D METERMeter ID: = GMG) [id number] tor: 9867 WILLIAM G ENTILE GLUCOMETER GLUCOSE- LAB USE [id number] 08:08:00 Test Item Value Reference Range Interpretation Comments GLUCOMETER (test code 144 mg/dL 70-100 H Meter ID: = GMG) [id number] tor: 1232 ANGELITO MA SARS-CoV (RAPID ANTIGEN)2022-01-14 07:07:00 Test Item Value Reference Range Interpretation Comments SARS-CoV (ANTIGEN) POSITIVE NEGATIVE AA (test code = COVAG) COVID AG (test This test has been code = COVAGC) marketed under the FDA Emergency Use Authorization (EUA) to meet challenges of the COVID-19 pandemic. The validation standards normally enforced by the FDA and the College of the [employer] (CAP) are more stringent than those required for this test. Therefore, the result should be interpreted with caution and close attention to other clinical and epidemiological data GLUCOMETER GLUCOSE- LAB USE [id number] 20:57:00 Test Item Value Reference Range Interpretation Comments GLUCOMETER (test code 125 mg/dL 70-100 H Meter ID: = GMG) [id number] tor: 1232 ANGELITO MA GLUCOMETER GLUCOSE- LAB USE [id number] 16:35:00 Test Item Value Reference Range Interpretation Comments GLUCOMETER (test code = 158 mg/dL 70-100 H Mete r ID: GMG) [id number] tor: [address] HEAD W/O [id number] 12:28:32 [facility] : 1950 Sex: MCT HEAD [...] Jackie Guardado MD 01/13/2022 12:28 PM CDT [id number] GLUCOSE- LAB USE [id number] 12:23:00 Test Item Value Reference Range Interpretation Comments GLUCOMETER (test code = 72 mg/dL 70-100 PETTY ROBERT METERMeter ID: GMG) [id number] tor: 8605 OLIVIA [place] [employer] GLUCOMETER GLUCOSE- LAB USE [id number] 07:37:00 Test Item Value Reference Range Interpretation Comments GLUCOMETER (test code = 164 mg/dL 70-100 H Mete r ID: GMG) [id number] tor: 4461 TOI SHIELDSON GLUCOMETER GLUCOSE- LAB USE [id number] 20:55:00 Test Item Value Reference Range Interpretation Comments GLUCOMETER (test code 147 mg/dL 70-100 H CLEANE D METERMeter ID: = GMG) [id number] tor: 7339 BRAD PAN SARS-CoV (RAPID ANTIGEN)2022-01-12 17:53:00 Test Item Value Reference Range Interpretation Comments SARS-CoV (ANTIGEN) POSITIVE NEGATIVE AA (test code = COVAG) COVID AG (test This test has been code = COVAGC) marketed under the FDA Emergency Use Authorization (EUA) to meet challenges of the COVID-19 pandemic. The validation standards normally enforced by the FDA and the College of the [employer] (CAP) are more stringent than those required for this test. Therefore, the result should be interpreted with caution and close attention to other clinical and epidemiological data GLUCOMETER GLUCOSE- LAB USE [id number] 16:36:00 Test Item Value Reference Range Interpretation Comments GLUCOMETER (test code = 82 mg/dL 70-100 PETTY ROBERT METERMeter ID: GMG) [id number] tor: 3912 [facility] GLUCOMETER GLUCOSE- LAB USE [id number] 07:27:00 Test Item Value Reference Range Interpretation Comments GLUCOMETER (test code 123 mg/dL 70-100 H CLEANE D METERMeter ID: = GMG) [id number] tor: 3912 [facility] GLUCOMETER GLUCOSE- LAB USE [id number] 19:37:00 Test Item Value Reference Range Interpretation Comments GLUCOMETER (test code 205 mg/dL 70-100 H CLEANE D METERMeter ID: = GMG) [id number] tor: 8913 [facility] CS-KeysINEZ GLUCOMETER GLUCOSE- LAB USE [id number] 17:07:00 Test Item Value Reference Range Interpretation Comments GLUCOMETER (test code 151 mg/dL 70-100 H CLEANE D METERMeter ID: = GMG) [id number] tor: 3912 [facility] GLUCOMETER GLUCOSE- LAB USE [id number] 11:43:00 Test Item Value Reference Range Interpretation Comments GLUCOMETER (test code 161 mg/dL 70-100 H CLEANE D METERMeter ID: = GMG) [id number] tor: 8605 OLIVIA BATTLES GLUCOMETER GLUCOSE- LAB USE [id number] 07:40:00 Test Item Value Reference Range Interpretation Comments GLUCOMETER (test code 120 mg/dL 70-100 H CLEANE D METERMeter ID: = GMG) [id number] tor: 8605 OLIVIA [employer] GLUCOMETER GLUCOSE- LAB USE [id number] 19:59:00 Test Item Value Reference Range Interpretation Comments GLUCOMETER (test code 163 mg/dL 70-100 H CLEANE D METERMeter ID: = GMG) [id number] tor: 8913 [facility] CS-KeysINEZ GLUCOMETER GLUCOSE- LAB USE [id number] 16:31:00 Test Item Value Reference Range Interpretation Comments GLUCOMETER (test code 123 mg/dL 70-100 H CLEANE D METERMeter ID: = GMG) [id number] tor: 8913 [facility] CS-KeysINEZ GLUCOMETER GLUCOSE- LAB USE [id number] 12:28:00 Test Item Value Reference Range Interpretation Comments GLUCOMETER (test code 173 mg/dL 70-100 H CLEANE D METERMeter ID: = GMG) [id number] tor: 8605 OLIVIA BATTLES GLUCOMETER GLUCOSE- LAB USE [id number] 08:21:00 Test Item Value Reference Range Interpretation Comments GLUCOMETER (test code = 136 mg/dL 70-100 H Mete r ID: GMG) [id number] tor: 9867 WILLIAM LUCAS GLUCOMETER GLUCOSE- LAB USE [id number] 20:14:00 Test Item Value Reference Range Interpretation Comments GLUCOMETER (test code 133 mg/dL 70-100 H CLEANE D METERMeter ID: = GMG) [id number] tor: 5538 TARECIA EARL RGROVE BASIC METABOLIC [id number] 17:51:00 Test Item Value Reference Range Interpretation [...] normal/abnormal . GFR 50 See_Comment L [Automated IVORIAN (test mL/min/1.73m\\S\\2 message] The code = GFRAA) [...] 8.3-10.6 = 09D) GLUCOMETER GLUCOSE- LAB USE [id number] 16:44:00 Test Item Value Reference Range Interpretation Comments GLUCOMETER (test code = 65 mg/dL 70-100 L Mete r ID: GMG) [id number] tor: 9867 WILLIAM LYNNEMIKE GLUCOMETER GLUCOSE- LAB USE [id number] 12:09:00 Test Item Value Reference Range Interpretation Comments GLUCOMETER (test code 235 mg/dL 70-100 H CLEANE D METERMeter ID: = GMG) [id number] tor: 6680 GALLO Mcintyre [facility] SARS-CoV (RAPID ANTIGEN)2022-01-09 09:19:00 Test Item Value Reference Range Interpretation Comments SARS-CoV (ANTIGEN) POSITIVE NEGATIVE AA (test code = COVAG) COVID AG (test This test has been code = COVAGC) marketed under the FDA Emergency Use Authorization (EUA) to meet challenges of the COVID-19 pandemic. The validation standards normally enforced by the FDA and the [employer] (CAP) are more stringent than those required for this test. Therefore, the result should be interpreted with caution and close attention to other clinical and epidemiological data GLUCOMETER GLUCOSE- LAB USE [id number] 08:22:00 Test Item Value Reference Range Interpretation Comments GLUCOMETER (test code 140 mg/dL 70-100 H CLEANE D METERMeter ID: = GMG) [id number] tor: 4622 MALLORY AZEVEDOON GLUCOMETER GLUCOSE- LAB USE [id number] 20:07:00 Test Item Value Reference Range Interpretation Comments GLUCOMETER (test code 148 mg/dL 70-100 H Meter ID: = GMG) [id number] tor: 1232 ANGELITO MA GLUCOMETER GLUCOSE- LAB USE [id number] 19:41:00 Test Item Value Reference Range Interpretation Comments GLUCOMETER (test code 203 mg/dL 70-100 H CLEANE D METERMeter ID: = GMG) [id number] tor: 7339 BRAD BOSWELL SON GLUCOMETER GLUCOSE- LAB USE [id number] 16:59:00 Test Item Value Reference Range Interpretation Comments GLUCOMETER (test code = 97 mg/dL 70-100 Mete r ID: GMG) [id number] tor: 6680 GALLO DUNHAMFIELD GLUCOMETER GLUCOSE- LAB USE [id number] 12:14:00 Test Item Value Reference Range Interpretation Comments GLUCOMETER (test code = 213 mg/dL 70-100 H Mete r ID: GMG) [id number] tor: 6680 GALLO ALBRIGHT GLUCOMETER GLUCOSE- LAB USE [id number] 07:59:00 Test Item Value Reference Range Interpretation Comments GLUCOMETER (test code 124 mg/dL 70-100 H CLEANE D METERMeter ID: = GMG) [id number] tor: 9379 WILBERTO TONY IEWHITE GLUCOMETER GLUCOSE- LAB USE [id number] 19:11:00 Test Item Value Reference Range Interpretation Comments GLUCOMETER (test code 190 mg/dL 70-100 H CLEANE D METERMeter ID: = GMG) [id number] tor: 3831 VAL SINGH SARS-CoV (RAPID ANTIGEN)2022-01-07 18:41:00 Test Item Value Reference Range Interpretation Comments SARS-CoV (ANTIGEN) POSITIVE NEGATIVE AA (test code = COVAG) COVID AG (test This test has been code = COVAGC) marketed under the FDA Emergency Use Authorization (EUA) to meet challenges of the COVID-19 pandemic. The validation standards normally enforced by the FDA and the [employer] (CAP) are more stringent than those required for this test. Therefore, the result should be interpreted with caution and close attention to other clinical and epidemiological data GLUCOMETER GLUCOSE- LAB USE [id number] 17:20:00 Test Item Value Reference Range Interpretation Comments GLUCOMETER (test code 107 mg/dL 70-100 H CLEANE D METERMeter ID: = GMG) [id number] tor: 5066 KENITA COL PAWAN GLUCOMETER GLUCOSE- LAB USE [id number] 16:08:00 Test Item Value Reference Range Interpretation Comments GLUCOMETER (test code = 55 mg/dL 70-100 LL Mete r ID: GMG) [id number] tor: 8413 KIT GONZALEZ LL GLUCOMETER GLUCOSE- LAB USE [id number] 11:25:00 Test Item Value Reference Range Interpretation Comments GLUCOMETER (test code = 205 mg/dL 70-100 H Mete r ID: GMG) [id number] tor: 8413 KIT GONZALEZ LL GLUCOMETER GLUCOSE- LAB USE [id number] 06:59:00 Test Item Value Reference Range Interpretation Comments GLUCOMETER (test code 105 mg/dL 70-100 H CLEANE D METERMeter ID: = GMG) [id number] tor: 8605 OLIVIA DUARTE GLUCOMETER GLUCOSE- LAB USE [id number] 05:47:00 Test Item Value Reference Range Interpretation Comments GLUCOMETER (test code = 94 mg/dL 70-100 Mete r ID: GMG) [id number] tor: 1222 GENTRY [address]ILA NS GLUCOMETER GLUCOSE- LAB USE [id number] 19:10:00 Test Item Value Reference Range Interpretation Comments GLUCOMETER (test code = 183 mg/dL 70-100 H Mete r ID: GMG) [id number] tor: 3831 VAL SINGH GLUCOMETER GLUCOSE- LAB USE [id number] 16:19:00 Test Item Value Reference Range Interpretation Comments GLUCOMETER (test code = 91 mg/dL 70-100 Mete r ID: GMG) [id number] tor: 6771 EMA CHANTALE H GLUCOMETER GLUCOSE- LAB USE [id number] 11:12:00 Test Item Value Reference Range Interpretation Comments GLUCOMETER (test code 194 mg/dL 70-100 H CLEANE D METERMeter ID: = GMG) [id number] tor: 6771 EMA CHANTALE H GLUCOMETER GLUCOSE- LAB USE [id number] 07:21:00 Test Item Value Reference Range Interpretation Comments GLUCOMETER (test code 181 mg/dL 70-100 H Meter ID: = GMG) [id number] tor: 9379 WILBERTO TONY IEWHITE GLUCOMETER GLUCOSE- LAB USE [id number] 19:17:00 Test Item Value Reference Range Interpretation Comments GLUCOMETER (test code 156 mg/dL 70-100 H CLEANE D METERMeter ID: = GMG) [id number] tor: 1235 FREDDY BROOKE ES GLUCOMETER GLUCOSE- LAB USE [id number] 16:20:00 Test Item Value Reference Range Interpretation Comments GLUCOMETER (test code 119 mg/dL 70-100 H CLEANE D METERMeter ID: = GMG) [id number] tor: 8413 KIT HINOJOSA BASIC METABOLIC [id number] 13:17:00 Test Item Value Reference Range Interpretation [...] normal/abnormal . GFR 43 See_Comment L [Automated IVORIAN (test mL/min/1.73m\\S\\2 message] The code = GFRAA) [...] = RBCMOR) NORMAL GLUCOMETER GLUCOSE- LAB USE [id number] 11:19:00 Test Item Value Reference Range Interpretation Comments GLUCOMETER (test code = 291 mg/dL 70-100 H Mete r ID: GMG) [id number] tor: 8959 JUAN WHITE GLUCOMETER GLUCOSE- LAB USE [id number] 07:37:00 Test Item Value Reference Range Interpretation Comments GLUCOMETER (test code 118 mg/dL 70-100 H CLEANE D METERMeter ID: = GMG) [id number] tor: 8413 KIT GONZALEZ LL GLUCOMETER GLUCOSE- LAB USE [id number] 19:00:00 Test Item Value Reference Range Interpretation Comments GLUCOMETER (test code 268 mg/dL 70-100 H CLEANE D METERMeter ID: = GMG) [id number] tor: 5538 TARECIA EARL RGROVE GLUCOMETER GLUCOSE- LAB USE [id number] 18:57:00 Test Item Value Reference Range Interpretation Comments GLUCOMETER (test code 141 mg/dL 70-100 H CLEANE D METERMeter ID: = GMG) [id number] tor: 5538 TARECIA EARL RGROVE GLUCOMETER GLUCOSE- LAB USE [id number] 16:51:00 Test Item Value Reference Range Interpretation Comments GLUCOMETER (test code 190 mg/dL 70-100 H CLEANE D METERMeter ID: = GMG) [id number] tor: 8413 KIT GONZALEZ LL GLUCOMETER GLUCOSE- LAB USE [id number] 11:26:00 Test Item Value Reference Range Interpretation Comments GLUCOMETER (test code 191 mg/dL 70-100 H CLEANE D METERMeter ID: = GMG) [id number] tor: 8605 OLIVIA BATTLES GLUCOMETER GLUCOSE- LAB USE [id number] 07:22:00 Test Item Value Reference Range Interpretation Comments GLUCOMETER (test code = 97 mg/dL 70-100 PETTY ROBERT METERMeter ID: GMG) [id number] tor: 8413 KIT GONZALEZ LL GLUCOMETER GLUCOSE- LAB USE [id number] 19:50:00 Test Item Value Reference Range Interpretation Comments GLUCOMETER (test code 297 mg/dL 70-100 H CLEANE D METERMeter ID: = GMG) [id number] tor: 3549 VANESSA GreenYO GLUCOMETER GLUCOSE- LAB USE [id number] 16:12:00 Test Item Value Reference Range Interpretation Comments GLUCOMETER (test code 141 mg/dL 70-100 H CLEANE D METERMeter ID: = GMG) [id number] tor: 5538 TARECIA EARL RGROVE GLUCOMETER GLUCOSE- LAB USE [id number] 16:08:00 Test Item Value Reference Range Interpretation Comments GLUCOMETER (test code 106 mg/dL 70-100 H CLEANE D METERMeter ID: = GMG) [id number] tor: 5538 TARECIA EARL RGROVE GLUCOMETER GLUCOSE- LAB USE [id number] 11:47:00 Test Item Value Reference Range Interpretation Comments GLUCOMETER (test code 154 mg/dL 70-100 H CLEANE D METERMeter ID: = GMG) [id number] tor: 9397 GENTRY CISNEROSE Y GLUCOMETER GLUCOSE- LAB USE [id number] 07:20:00 Test Item Value Reference Range Interpretation Comments GLUCOMETER (test code 173 mg/dL 70-100 H CLEANE D METERMeter ID: = GMG) [id number] tor: 3912 RANDY JARVISIGHT GLUCOMETER GLUCOSE- LAB USE [id number] 19:29:00 Test Item Value Reference Range Interpretation Comments GLUCOMETER (test code 268 mg/dL 70-100 H CLEANE D METERMeter ID: = GMG) [id number] tor: 3549 VANESSA VALDES GLUCOMETER GLUCOSE- LAB USE [id number] 16:38:00 Test Item Value Reference Range Interpretation Comments GLUCOMETER (test code 118 mg/dL 70-100 H CLEANE D METERMeter ID: = GMG) [id number] tor: 9397 GENTRY BASSE Y GLUCOMETER GLUCOSE- LAB USE [id number] 11:23:00 Test Item Value Reference Range Interpretation Comments GLUCOMETER (test code 164 mg/dL 70-100 H CLEANE D METERMeter ID: = GMG) [id number] tor: 8605 OLIVIA CORONADOS GLUCOMETER GLUCOSE- LAB USE [id number] 07:23:00 Test Item Value Reference Range Interpretation Comments GLUCOMETER (test code 123 mg/dL 70-100 H CLEANE D METERMeter ID: = GMG) [id number] tor: 9397 GENTRY BASSE Y GLUCOMETER GLUCOSE- LAB USE [id number] 19:10:00 Test Item Value Reference Range Interpretation Comments GLUCOMETER (test code 186 mg/dL 70-100 H CLEANE D METERMeter ID: = GMG) [id number] tor: 8913 [facility] EatZ GLUCOMETER GLUCOSE- LAB USE [id number] 16:37:00 Test Item Value Reference Range Interpretation Comments GLUCOMETER (test code 168 mg/dL 70-100 H CLEANE D METERMeter ID: = GMG) [id number] tor: 8413 KIT GONZALEZ LL GLUCOMETER GLUCOSE- LAB USE [id number] 11:41:00 Test Item Value Reference Range Interpretation Comments GLUCOMETER (test code 195 mg/dL 70-100 H CLEANE D METERMeter ID: = GMG) [id number] tor: 8413 KIT GONZALEZ LL GLUCOMETER GLUCOSE- LAB USE [id number] 07:38:00 Test Item Value Reference Range Interpretation Comments GLUCOMETER (test code 135 mg/dL 70-100 H CLEANE D METERMeter ID: = GMG) [id number] tor: 8413 KIT GONZALEZ LL GLUCOMETER GLUCOSE- LAB USE [id number] 19:46:00 Test Item Value Reference Range Interpretation Comments GLUCOMETER (test code 227 mg/dL 70-100 H CLEANE D METERMeter ID: = GMG) [id number] tor: 8913 [facility] EatZ GLUCOMETER GLUCOSE- LAB USE [id number] 16:52:00 Test Item Value Reference Range Interpretation Comments GLUCOMETER (test code 109 mg/dL 70-100 H CLEANE D METERMeter ID: = GMG) [id number] tor: 9867 WILLIAM LUCAS GLUCOMETER GLUCOSE- LAB USE [id number] 11:57:00 Test Item Value Reference Range Interpretation Comments GLUCOMETER (test code 152 mg/dL 70-100 H CLEANE D METERMeter ID: = GMG) [id number] tor: 8413 KIT GONZALEZ LL GLUCOMETER GLUCOSE- LAB USE [id number] 07:48:00 Test Item Value Reference Range Interpretation Comments GLUCOMETER (test code 164 mg/dL 70-100 H CLEANE D METERMeter ID: = GMG) [id number] tor: 8413 KIT GONZALEZ LL SARS-CoV (RAPID ANTIGEN)2021-12-31 07:05:00 Test Item Value Reference Range Interpretation Comments SARS-CoV (ANTIGEN) NEGATIVE NEGATIVE (test code = COVAG) COVID AG (test This test has been code = COVAGC) marketed under the FDA Emergency Use Authorization (EUA) to meet challenges of the COVID-19 pandemic. The validation standards normally enforced by the FDA and the [employer] (CAP) are more stringent than those required for this test. Therefore, the result should be interpreted with caution and close attention to other clinical and epidemiological data GLUCOMETER GLUCOSE- LAB USE [id number] 19:41:00 Test Item Value Reference Range Interpretation Comments GLUCOMETER (test code 180 mg/dL 70-100 H CLEANE D METERMeter ID: = GMG) [id number] tor: 8249 OLABODE OS UMOSU GLUCOMETER GLUCOSE- LAB USE [id number] 19:23:00 Test Item Value Reference Range Interpretation Comments GLUCOMETER (test code 179 mg/dL 70-100 H CLEANE D METERMeter ID: = GMG) [id number] tor: 7339 BRAD ELBERT SON GLUCOMETER GLUCOSE- LAB USE [id number] 16:06:00 Test Item Value Reference Range Interpretation Comments GLUCOMETER (test code = 92 mg/dL 70-100 PETTY ROBERT METERMeter ID: GMG) [id number] tor: 8413 KIT GONZALEZ LL GLUCOMETER GLUCOSE- LAB USE [id number] 11:19:00 Test Item Value Reference Range Interpretation Comments GLUCOMETER (test code 297 mg/dL 70-100 H CLEANE D METERMeter ID: = GMG) [id number] tor: 6771 EMA CHANTALE H GLUCOMETER GLUCOSE- LAB USE [id number] 07:30:00 Test Item Value Reference Range Interpretation Comments GLUCOMETER (test code 189 mg/dL 70-100 H CLEANE D METERMeter ID: = GMG) [id number] tor: 6771 EMA CHANTALE H GLUCOMETER GLUCOSE- LAB USE [id number] 18:54:00 Test Item Value Reference Range Interpretation Comments GLUCOMETER (test code 158 mg/dL 70-100 H Meter ID: = GMG) [id number] tor: 1232 ANGELITO MA GLUCOMETER GLUCOSE- LAB USE [id number] 16:03:00 Test Item Value Reference Range Interpretation Comments GLUCOMETER (test code 106 mg/dL 70-100 H CLEANE D METERMeter ID: = GMG) [id number] tor: 6771 EMA CHANTALE H GLUCOMETER GLUCOSE- LAB USE [id number] 11:13:00 Test Item Value Reference Range Interpretation Comments GLUCOMETER (test code 264 mg/dL 70-100 H CLEANE D METERMeter ID: = GMG) [id number] tor: 6771 EMA CHANTALE H GLUCOMETER GLUCOSE- LAB USE [id number] 07:25:00 Test Item Value Reference Range Interpretation Comments GLUCOMETER (test code = 98 mg/dL 70-100 PETTY ROBERT METERMeter ID: GMG) [id number] tor: 6771 EMA CHANTALE H GLUCOMETER GLUCOSE- LAB USE [id number] 07:25:00 Test Item Value Reference Range Interpretation Comments GLUCOMETER (test code 122 mg/dL 70-100 H CLEANE D METERMeter ID: = GMG) [id number] tor: 6771 EMA CHANTALE H GLUCOMETER GLUCOSE- LAB USE [id number] 19:26:00 Test Item Value Reference Range Interpretation Comments GLUCOMETER (test code 102 mg/dL 70-100 H CLEANE D METERMeter ID: = GMG) [id number] tor: 8913 EVERETT JULIAN GLUCOMETER GLUCOSE- LAB USE [id number] 16:35:00 Test Item Value Reference Range Interpretation Comments GLUCOMETER (test code 214 mg/dL 70-100 H CLEANE D METERMeter ID: = GMG) [id number] tor: 4622 MALLORY BR ROSEMARIE GLUCOMETER GLUCOSE- LAB USE [id number] 11:26:00 Test Item Value Reference Range Interpretation Comments GLUCOMETER (test code 247 mg/dL 70-100 H CLEANE D METERMeter ID: = GMG) [id number] tor: 4622 MALLORY BR ROSEMARIE GLUCOMETER GLUCOSE- LAB USE [id number] 07:24:00 Test Item Value Reference Range Interpretation Comments GLUCOMETER (test code = 131 mg/dL 70-100 H Mete r ID: GMG) [id number] tor: 4622 MALLORY CHARBEL ROSEMARIE GLUCOMETER GLUCOSE- LAB USE [id number] 18:42:00 Test Item Value Reference Range Interpretation Comments GLUCOMETER (test code 229 mg/dL 70-100 H CLEANE D METERMeter ID: = GMG) [id number] tor: 5538 TARECIA EARL RGROVE GLUCOMETER GLUCOSE- LAB USE [id number] 16:55:00 Test Item Value Reference Range Interpretation Comments GLUCOMETER (test code 194 mg/dL 70-100 H CLEANE D METERMeter ID: = GMG) [id number] tor: [address] HEAD W/O [id number] 12:41:35 [facility] : 1950 Sex: MEXAM: CT [...] ischemic changes and diffuse cerebral volume loss.LOCATION: [id number] CT exam was performed according to our departmental dose optimization program, which includes automated exposure control, adjustment of the mA and/or kV according to the patient size and/or use of iterative reconstructive technique.Electronically signed by: Melissa Benton MD 12/27/2021 12:41 PM CDT [id number] GLUCOSE- LAB USE ONLY 2021-12-27 11:30:00 Test Item Value Reference Range Interpretation Comments GLUCOMETER (test code 140 mg/dL 70-100 H CLEANE D METERMeter ID: = GMG) [id number] tor: 9379 WILBERTO SAT IEWHITE GLUCOMETER GLUCOSE- LAB USE [id number] 08:03:00 Test Item Value Reference Range Interpretation Comments GLUCOMETER (test code 173 mg/dL 70-100 H CLEANE D METERMeter ID: = GMG) [id number] tor: 9379 WILBERTO SAT IEWHITE SARS-CoV (RAPID ANTIGEN)2021-12-27 07:05:00 Test Item Value Reference Range Interpretation Comments SARS-CoV (ANTIGEN) NEGATIVE NEGATIVE (test code = COVAG) COVID AG (test This test has been code = COVAGC) marketed under the FDA Emergency Use Authorization (EUA) to meet challenges of the COVID-19 pandemic. The validation standards normally enforced by the FDA and the [employer] (CAP) are more stringent than those required for this test. Therefore, the result should be interpreted with caution and close attention to other clinical and epidemiological data GLUCOMETER GLUCOSE- LAB USE [id number] 18:57:00 Test Item Value Reference Range Interpretation Comments GLUCOMETER (test code = 259 mg/dL 70-100 H Mete r ID: GMG) [id number] tor: 3883 LOIS GREEN GLUCOMETER GLUCOSE- LAB USE [id number] 17:52:00 Test Item Value Reference Range Interpretation Comments GLUCOMETER (test code 250 mg/dL 70-100 H CLEANE D METERMeter ID: = GMG) [id number] tor: 9867 WILLIAM LUCAS GLUCOMETER GLUCOSE- LAB USE [id number] 16:31:00 Test Item Value Reference Range Interpretation Comments GLUCOMETER (test code 181 mg/dL 70-100 H CLEANE D METERMeter ID: = GMG) [id number] tor: 4622 MALLORY BARGER ROSEMARIE GLUCOMETER GLUCOSE- LAB USE [id number] 11:41:00 Test Item Value Reference Range Interpretation Comments GLUCOMETER (test code = 192 mg/dL 70-100 H Mete r ID: GMG) [id number] tor: 4461 TOI G IBSON GLUCOMETER GLUCOSE- LAB USE [id number] 07:26:00 Test Item Value Reference Range Interpretation Comments GLUCOMETER (test code = 200 mg/dL 70-100 H Mete r ID: GMG) [id number] tor: 4461 TOI G IBSON GLUCOMETER GLUCOSE- LAB USE [id number] 19:28:00 Test Item Value Reference Range Interpretation Comments GLUCOMETER (test code 103 mg/dL 70-100 H CLEANE D METERMeter ID: = GMG) [id number] tor: 3831 VAL SINGH GLUCOMETER GLUCOSE- LAB USE [id number] 16:02:00 Test Item Value Reference Range Interpretation Comments GLUCOMETER (test code 219 mg/dL 70-100 H CLEANE D METERMeter ID: = GMG) [id number] tor: 3883 LOIS GREEN GLUCOMETER GLUCOSE- LAB USE [id number] 11:16:00 Test Item Value Reference Range Interpretation Comments GLUCOMETER (test code 206 mg/dL 70-100 H CLEANE D METERMeter ID: = GMG) [id number] tor: 8605 OLIVIA DUARTE GLUCOMETER GLUCOSE- LAB USE [id number] 07:52:00 Test Item Value Reference Range Interpretation Comments GLUCOMETER (test code = 75 mg/dL 70-100 PETTY ROBERT METERMeter ID: GMG) [id number] tor: 9397 GENTRY Conklin GLUCOMETER GLUCOSE- LAB USE [id number] 19:45:00 Test Item Value Reference Range Interpretation Comments GLUCOMETER (test code 284 mg/dL 70-100 H Meter ID: = GMG) [id number] tor: 1232 ANGELITO MA GLUCOMETER GLUCOSE- LAB USE [id number] 11:23:00 Test Item Value Reference Range Interpretation Comments GLUCOMETER (test code = 78 mg/dL 70-100 Mete r ID: GMG) [id number] tor: 4461 TOI SHIELDSON GLUCOMETER GLUCOSE- LAB USE [id number] 07:32:00 Test Item Value Reference Range Interpretation Comments GLUCOMETER (test code = 69 mg/dL 70-100 L PETTY ROBERT METERMeter ID: GMG) [id number] tor: 3912 [facility] M[facility] GLUCOMETER GLUCOSE- LAB USE [id number] 19:06:00 Test Item Value Reference Range Interpretation Comments GLUCOMETER (test code 220 mg/dL 70-100 H CLEANE D METERMeter ID: = GMG) [id number] tor: 3549 VANESSA VALDES GLUCOMETER GLUCOSE- LAB USE [id number] 16:17:00 Test Item Value Reference Range Interpretation Comments GLUCOMETER (test code = 231 mg/dL 70-100 H Mete r ID: GMG) [id number] tor: 6680 GALLO ALBRIGHT GLUCOMETER GLUCOSE- LAB USE [id number] 11:18:00 Test Item Value Reference Range Interpretation Comments GLUCOMETER (test code 171 mg/dL 70-100 H CLEANE D METERMeter ID: = GMG) [id number] tor: 6771 EMA CHANTALE H GLUCOMETER GLUCOSE- LAB USE [id number] 07:15:00 Test Item Value Reference Range Interpretation Comments GLUCOMETER (test code = 182 mg/dL 70-100 H Mete r ID: GMG) [id number] tor: 6771 EMA CHANTALE H SARS-CoV (RAPID ANTIGEN)2021-12-22 20:12:00 Test Item Value Reference Range Interpretation Comments SARS-CoV (ANTIGEN) NEGATIVE NEGATIVE (test code = COVAG) COVID AG (test This test has been code = COVAGC) marketed under the FDA Emergency Use Authorization (EUA) to meet challenges of the COVID-19 pandemic. The validation standards normally enforced by the FDA and the [employer] (CAP) are more stringent than those required for this test. Therefore, the result should be interpreted with caution and close attention to other clinical and epidemiological data GLUCOMETER GLUCOSE- LAB USE [id number] 19:18:00 Test Item Value Reference Range Interpretation Comments GLUCOMETER (test code 249 mg/dL 70-100 H CLEANE D METERMeter ID: = GMG) [id number] tor: 5538 TARECIA EARL RGROVE GLUCOMETER GLUCOSE- LAB USE [id number] 16:50:00 Test Item Value Reference Range Interpretation Comments GLUCOMETER (test code = 237 mg/dL 70-100 H Mete r ID: GMG) [id number] tor: 8413 KITCURT GONZALEZ GLUCOMETER GLUCOSE- LAB USE [id number] 16:49:00 Test Item Value Reference Range Interpretation Comments GLUCOMETER (test code = 211 mg/dL 70-100 H Mete r ID: GMG) [id number] tor: 8413 KITCURT GONZALEZ COMPREHENSIVE METABOLIC [id number] 16:04:00 Test Item Value Reference Range Interpretation [...] normal/abnormal . GFR 79 See_Comment L [Automated IVORIAN (test mL/min/1.73m\\S\\2 message] The code = GFRAA) [...] . ALT (test code = 18 IU/L 1049 31A) CBC (INCLUDES AUTOMATED DIFFERENTIAL)2021-12-22 14:49:00 Test [...] = RBCMOR) NORMAL GLUCOMETER GLUCOSE- LAB USE [id number] 11:47:00 Test Item Value Reference Range Interpretation Comments GLUCOMETER (test code = 155 mg/dL 70-100 H Mete r ID: GMG) [id number] tor: 4461 TOI Anderson IBSON GLUCOMETER GLUCOSE- LAB USE [id number] 07:25:00 Test Item Value Reference Range Interpretation Comments GLUCOMETER (test code = 89 mg/dL 70-100 Mete r ID: GMG) [id number] tor: 6771 EMA CHANTALE H GLUCOMETER GLUCOSE- LAB USE [id number] 20:21:00 Test Item Value Reference Range Interpretation Comments GLUCOMETER (test code 280 mg/dL 70-100 H CLEANE D METERMeter ID: = GMG) [id number] tor: 0646 SNAJEEV Espino ORD GLUCOMETER GLUCOSE- LAB USE [id number] 16:05:00 Test Item Value Reference Range Interpretation Comments GLUCOMETER (test code = 265 mg/dL 70-100 H Mete r ID: GMG) [id number] tor: 4461 TOI G IBSON GLUCOMETER GLUCOSE- LAB USE [id number] 11:27:00 Test Item Value Reference Range Interpretation Comments GLUCOMETER (test code = 171 mg/dL 70-100 H Mete r ID: GMG) [id number] tor: 4461 TOI G IBSON GLUCOMETER GLUCOSE- LAB USE [id number] 08:09:00 Test Item Value Reference Range Interpretation Comments GLUCOMETER (test code = 95 mg/dL 70-100 PETTY ROBERT METERMeter ID: GMG) [id number] tor: 8413 KIT GONZALEZ LL GLUCOMETER GLUCOSE- LAB USE [id number] 19:29:00 Test Item Value Reference Range Interpretation Comments GLUCOMETER (test code 341 mg/dL 70-100 H CLEANE D METERMeter ID: = GMG) [id number] tor: 3549 HENBRIDGET MAY OYO GLUCOMETER GLUCOSE- LAB USE [id number] 19:25:00 Test Item Value Reference Range Interpretation Comments GLUCOMETER (test code 374 mg/dL 70-100 H CLEANE D METERMeter ID: = GMG) [id number] tor: 3549 HENERY MAY OYO GLUCOMETER GLUCOSE- LAB USE [id number] 18:43:00 Test Item Value Reference Range Interpretation Comments GLUCOMETER (test code = 266 mg/dL 70-100 H Mete r ID: GMG) [id number] tor: 8913 EVERETT BARNEY GLUCOMETER GLUCOSE- LAB USE [id number] 11:49:00 Test Item Value Reference Range Interpretation Comments GLUCOMETER (test code 196 mg/dL 70-100 H CLEANE D METERMeter ID: = GMG) [id number] tor: 9379 WILBERTO SATT IEWHITE GLUCOMETER GLUCOSE- LAB USE [id number] 07:15:00 Test Item Value Reference Range Interpretation Comments GLUCOMETER (test code 187 mg/dL 70-100 H CLEANE D METERMeter ID: = GMG) [id number] tor: 4622 MALLORY AZEVEDOON GLUCOMETER GLUCOSE- LAB USE [id number] 19:31:00 Test Item Value Reference Range Interpretation Comments GLUCOMETER (test code 124 mg/dL 70-100 H CLEANE D METERMeter ID: = GMG) [id number] tor: 7339 BRAD BOSWELL SON GLUCOMETER GLUCOSE- LAB USE [id number] 15:56:00 Test Item Value Reference Range Interpretation Comments GLUCOMETER (test code = 187 mg/dL 70-100 H Mete r ID: GMG) [id number] tor: 6680 GALLO ENCINO GLUCOMETER GLUCOSE- LAB USE [id number] 11:55:00 Test Item Value Reference Range Interpretation Comments GLUCOMETER (test code 224 mg/dL 70-100 H CLEANE D METERMeter ID: = GMG) [id number] tor: 9379 WILBERTO SATT IEWHITE GLUCOMETER GLUCOSE- LAB USE [id number] 07:35:00 Test Item Value Reference Range Interpretation Comments GLUCOMETER (test code 185 mg/dL 70-100 H CLEANE D METERMeter ID: = GMG) [id number] tor: 9379 WILBERTO SATT IEWHITE GLUCOMETER GLUCOSE- LAB USE [id number] 19:01:00 Test Item Value Reference Range Interpretation Comments GLUCOMETER (test code = 121 mg/dL 70-100 H Mete r ID: GMG) [id number] tor: 3883 LOIS GREEN GLUCOMETER GLUCOSE- LAB USE [id number] 16:28:00 Test Item Value Reference Range Interpretation Comments GLUCOMETER (test code 186 mg/dL 70-100 H CLEANE D METERMeter ID: = GMG) [id number] tor: 3912 [facility] MART[facility] GLUCOMETER GLUCOSE- LAB USE [id number] 12:27:00 Test Item Value Reference Range Interpretation Comments GLUCOMETER (test code 278 mg/dL 70-100 H CLEANE D METERMeter ID: = GMG) [id number] tor: 3912 [facility] SARS-CoV (RAPID ANTIGEN)2021-12-18 11:46:00 Test Item Value Reference Range Interpretation Comments SARS-CoV (ANTIGEN) NEGATIVE NEGATIVE (test code = COVAG) COVID AG (test This test has been code = COVAGC) marketed under the FDA Emergency Use Authorization (EUA) to meet challenges of the COVID-19 pandemic. The validation standards normally enforced by the FDA and the [employer] of the [employer] (CAP) are more stringent than those required for this test. Therefore, the result should be interpreted with caution and close attention to other clinical and epidemiological data GLUCOMETER GLUCOSE- LAB USE [id number] 08:01:00 Test Item Value Reference Range Interpretation Comments GLUCOMETER (test code = 224 mg/dL 70-100 H Mete r ID: GMG) [id number] tor: 8413 KIT GONZALEZ GLUCOMETER GLUCOSE- LAB USE [id number] 01:31:00 Test Item Value Reference Range Interpretation Comments GLUCOMETER (test code = 346 mg/dL 70-100 H Mete r ID: GMG) [id number] tor: 1235 FREDDY HUANG GLUCOMETER GLUCOSE- LAB USE [id number] 01:26:00 Test Item Value Reference Range Interpretation Comments GLUCOMETER (test code 246 mg/dL 70-100 H CLEANE D METERMeter ID: = GMG) [id number] tor: 4622 [facility] OSMOLARITY, [id number] 13:40:00 Test Item Value Reference Range Interpretation Comments OSMOLALITY (U) (test 524 mOsm/kg 50-1200 TEST PE RFORMED code = 73521967) AT:[facility] ING47 70 MOIZ COFFMAN [id number] GALLARDO MD GLUCOMETER GLUCOSE- LAB USE [id number] 12:08:00 Test Item Value Reference Range Interpretation Comments GLUCOMETER (test code 239 mg/dL 70-100 H CLEANE D METERMeter ID: = GMG) [id number] tor: 3912 RANDY MC MARTINEZ GLUCOMETER GLUCOSE- LAB USE [id number] 07:38:00 Test Item Value Reference Range Interpretation Comments GLUCOMETER (test code 251 mg/dL 70-100 H CLEANE D METERMeter ID: = GMG) [id number] tor: 3912 [facility] BASIC METABOLIC [id number] 06:18:00 Test Item Value Reference Range Interpretation [...] normal/abnormal . GFR 59 See_Comment L [Automated IVORIAN (test mL/min/1.73m\\S\\2 message] The code = GFRAA) [...] 8.3-10.6 = 09D) GLUCOMETER GLUCOSE- LAB USE [id number] 18:47:00 Test Item Value Reference Range Interpretation Comments GLUCOMETER (test code 216 mg/dL 70-100 H CLEANE D METERMeter ID: = GMG) [id number] tor: [facility] [facility] LAB USE [id number] 16:40:00 Test Item Value Reference Range Interpretation Comments GLUCOMETER (test code = 378 mg/dL 70-100 H Mete r ID: GMG) [id number] tor: 6680 GALLO ALBRIGHT GLUCOMETER GLUCOSE- LAB USE [id number] 15:22:00 Test Item Value Reference Range Interpretation Comments GLUCOMETER (test code = 420 mg/dL 70-100 H Mete r ID: GMG) [id number] tor: 5635 JAVIER DE PAZ GLUCOMETER GLUCOSE- LAB USE [id number] 11:24:00 Test Item Value Reference Range Interpretation Comments GLUCOMETER (test code = 335 mg/dL 70-100 H Mete r ID: GMG) [id number] tor: 4461 TOI MARTÍNEZ URINE [id number] 08:52:00 Test Item Value Reference Range Interpretation Comments Culture Observations THREE OR MORE SPECIES (test code = COB1) OF BACTERIA ISOLATED. PROBABLE CONTAMINATION. Culture Observations IDENTIFICATION AND (test code = COB17) SUSCEPTIBILITY NOT INDICATED. RECOLLECTION RECOMMENDED [id number] 07:14:00 Test Item Value Reference Range Interpretation Comments Hb A1C % (test code 3.8 % 3.8-6.4 = HBA) A1C % (test code = HbA1c (% ) A1C) Reference Range Normal <5.7 Prediabetes 5.7-6.4 Diabetic >=6.5 GLUCOMETER GLUCOSE- LAB USE [id number] 07:01:00 Test Item Value Reference Range Interpretation Comments GLUCOMETER (test code 134 mg/dL 70-100 H CLEANE D METERMeter ID: = GMG) [id number] tor: 5538 TARECIA EARL RGROVE B12 [id number] 06:38:00 Test Item Value Reference Range Interpretation Comments VIT B12 (test code = A60) 1933.0 pg/mL 211.0-911.0 H LIPID [id number] 06:37:00 Test Item Value Reference Range Interpretation Comments CHOLESTROL (test code 233 mg/dL 140-200 H = 44A) TRIGLYCERI (test code 97 mg/dL See_Comment [Auto mated message] = 42B) The system [employer]Tw[employer] generated this result transmitted ref erence range: <=149. T he reference range was not used to int erpret this result as normal/abnormal . HDL (test code = 83D) 65.9 mg/dL 40.0-60.0 H LDL (test code = 34B) 158 mg/dL See_Comment H [Auto mated message] The system [employer] generated this result transmitted ref erence range: <=99. Th e reference range was not used to int erpret this result as normal/abnormal . CHL/HDL (test code = 3.5 0.0-3.4 H CHR) [id number] 06:37:00 Test Item Value Reference Range Interpretation Comments MAGNESIUM (test code = 48A) 1.9 mg/dL 1.6-2.6 [id number] 06:24:00 Test Item Value Reference Range Interpretation Comments FOLATE (test code = 19.2 ng/mL See_Comment [Automa georges message] The A75) system which ge nerated this result tra nsmitted reference range : >=5.5. The reference r yoselyn was not used to int erpret this result as normal/abnormal . [id number] 06:20:00 Test Item Value Reference Range Interpretation Comments PREALBUMIN (test code = 08E) 27 mg/dL 10-40 THYROID PANEL/SCREEN (TSH)2021-12-16 06:11:00 Test Item Value Reference Range Interpretation Comments TSH (test code = A57) 1.787 uIU/mL 0.550-4.780 BASIC METABOLIC [id number] 06:03:00 Test Item Value Reference Range Interpretation [...] normal/abnormal . GFR 51 See_Comment L [Automated IVORIAN (test mL/min/1.73m\\S\\2 message] The code = GFRAA) [...] MDIFF) NO NO GLUCOMETER GLUCOSE- LAB USE [id number] 21:28:00 Test Item Value Reference Range Interpretation Comments GLUCOMETER (test code = 241 mg/dL 70-100 H Mete r ID: GMG) [id number] tor: 0220 ANNETTE MARTINEZ JASWINDER GLUCOMETER GLUCOSE- LAB USE [id number] 15:53:00 Test Item Value Reference Range Interpretation Comments GLUCOMETER (test code = 100 mg/dL 70-100 Mete r ID: GMG) [id number] tor: 96982 RESHMA FASAURABH GLUCOMETER GLUCOSE- LAB USE [id number] 11:15:00 Test Item Value Reference Range Interpretation Comments GLUCOMETER (test code = 334 mg/dL 70-100 H Mete r ID: GMG) [id number] tor: 89893 ZUBAIDAH FAIZ U/S KIDNEY (RENAL)2021-12-15 07:28:08 [facility] : 1950 Sex: MRENAL SONOGRAM [...] Lizzy Carrasco MD 12/15/2021 7:28 AM CDT [id number] METABOLIC [id number] 04:28:00 Test Item Value Reference Range Interpretation Comments GLUCOSE (test code 280 mg/dL 75-100 H = 06D) SODIUM (test code 140 mmol/L 136-145 = 01A) POTASSIUM (test 4.3 mmol/L 3.6-5.1 code = 01B) CHLORIDE (test 106 mmol/L 98-107 code = 04A) CO2 (test code = 29 mmol/L 02A) ANION GAP (test 9.3 mmol/L code [...] normal/abnormal . GFR 50 See_Comment L [Automated IVORIAN (test mL/min/1.73m\\S\\2 message] The code = GFRAA) [...] = RBCMOR) NORMAL GLUCOMETER GLUCOSE- LAB USE [id number] 16:57:00 Test Item Value Reference Range Interpretation Comments GLUCOMETER (test code = 213 mg/dL 70-100 H Mete r ID: GMG) [id number] tor: [address] [facility] GLU[facility] GLUCOSE- LAB USE [id number] 11:09:00 Test Item Value Reference Range Interpretation Comments GLUCOMETER (test code = 198 mg/dL 70-100 H Mete r ID: GMG) [id number] tor: 31277 [facility] CREATININE RANDOM [id number] 10:14:00 Test Item Value Reference Range Interpretation Comments CREA RAND (test code 64.7 mg/dL = CREAR) NRR (test code = * NO REFRENCE RANGE NRR) AVAILABLE FOR RANDOM SPECIMEN* POTASSIUM RANDOM [id number] 10:14:00 Test Item Value Reference Range Interpretation Comments K+ UR RAN (test code 32 mmol/L = KUR) NRR (test code = * NO REFRENCE RANGE NRR) AVAILABLE FOR RANDOM SPECIMEN* PROTEIN URINE [id number] 10:09:00 Test Item Value Reference Range Interpretation Comments PROT RAND (test code 22 mg/dL = CO) NRR (test code = * NO REFRENCE RANGE NRR) AVAILABLE FOR RANDOM SPECIMEN* [id number] 09:46:00 Test Item Value Reference Range Interpretation Comments Hb A1C % (test code 3.8 % 3.8-6.4 = HBA) A1C % (test code = HbA1c (% ) A1C) Reference Range Normal <5.7 Prediabetes 5.7-6.4 Diabetic >=6.5 COMPREHENSIVE METABOLIC [id number] 09:45:00 Test Item Value Reference Range Interpretation [...] normal/abnormal . GFR 46 See_Comment L [Automated IVORIAN (test mL/min/1.73m\\S\\2 message] The code = GFRAA) [...] = RBCMOR) NORMAL GLUCOMETER GLUCOSE- LAB USE [id number] 08:27:00 Test Item Value Reference Range Interpretation Comments GLUCOMETER (test code = 175 mg/dL 70-100 H Mete r ID: GMG) [id number] tor: 85541 ANA LAURA YOU NG [id number] 07:05:00 Test Item Value Reference Range Interpretation Comments CPK (test code = 32A) 330 IU/L 46-171 H GLUCOMETER GLUCOSE- LAB USE [id number] 06:17:00 Test Item Value Reference Range Interpretation Comments GLUCOMETER (test code 118 mg/dL 70-100 H Meter ID: = GMG) [id number] tor: 26303 GRAHAMBER T BAILEY GLUCOMETER GLUCOSE- LAB USE [id number] 00:03:00 Test Item Value Reference Range Interpretation Comments GLUCOMETER (test code 381 mg/dL 70-100 H Meter ID: = GMG) [id number] tor: [address] HEAD W/O [id number] 23:49:21 [facility] : 1950 Sex: MEXAMINATION:CT HEAD W/O CONTRASTCLINICAL [...] La Rosa MD 12/13/2021 11:49 PM CDT -UsU (RAPID ANTIGEN)2021-12-13 23:44:00 Test Item Value Reference Range Interpretation Comments SARS-CoV (ANTIGEN) NEGATIVE NEGATIVE (test code = COVAG) COVID AG (test This test has been code = COVAGC) marketed under the FDA Emergency Use Authorization (EUA) to meet challenges of the COVID-19 pandemic. The validation standards normally enforced by the FDA and the [employer] of the [employer] (CAP) are more stringent than those required for this test. Therefore, the result should be interpreted with caution and close attention to other clinical and epidemiological data [id number] 23:42:00 Test Item Value Reference Range Interpretation Comments SALICYLATE (test code = 94B) <3.0 mg/dL 15.0-30.0 L COMPREHENSIVE METABOLIC [id number] 23:34:00 Test Item Value Reference Range Interpretation [...] normal/abnormal . GFR 32 See_Comment L [Automated IVORIAN (test mL/min/1.73m\\S\\2 message] The code = GFRAA) [...] (test code = 18 IU/L 10-49 31A) [id number] 23:34:00 Test Item Value Reference Range Interpretation [...] th is result as normal/abnormal . CARDIAC [id number] 23:33:00 Test Item Value Reference Range Interpretation Comments TROPONIN I (test code = A84) 28.86 pg/mL 0.00-45.20 AMMONIA [id number] 23:33:00 Test Item Value Reference Range Interpretation Comments AMMONIA (test code = 54A) <10 umol/L 11-32 L URINALYSIS WITH [id number] 23:32:00 Test Item Value Reference Range Interpretation [...] MODERATE /HPF NONE A PRO TIME AND [id number] 23:29:00 Test Item Value Reference Range Interpretation Comments PT (test code = 11.1 s 9.8-13.6 TT) INR (test code = 1.0 INR) INRH (test code = SUGGESTED INRH) THERAPEUTIC RANGE FOR INR: 2.5 - 3.5 For [...] Heparin. Order Code is ANTI-XA DRUGS OF [id number] 23:27:00 Test Item Value Reference Range Interpretation [...] = RBCMOR) NORMAL XR CHEST 1 VIEW [id number] 23:18:20 [facility] : 1950 Sex: MEXAM: XR CHEST 1 VIEWCOMPARISON: None available time of interpretation.LOCATION: [id number]: 71 years-year old Male with Psychotic disorderTECHNIQUE: Single AP view of the chest.FINDINGS:The cardiomediastinal silhouette is within normal limits. The lungs are clear. No appreciable pneumothorax or pleural effusion.Osseous structures and soft tissues demonstrate no acute findings. The visualized upper abdomen is unremarkable.IMPRESSION:No acute cardiopulmonary abnormality.Electronically signed by: Sean Gutierrez MD12/13/2021 11:18 PM CDT [id number] G Dusty Solomon [id number] 18:39:00 Test Item Value Reference Range Interpretation Comments IgA (test code = 1959672567) 207 mg/dL 70-312 IgG (test code = 3722947126) 758 mg/dL 636-1600 IgM (test code = 1613607122) 22 mg/dL 56-352 L Lab Interpretation (test code = Abnormal 17470-8) [facility] GLUCOSE (AUTOMATED)2020-02-17 17:42:00 Test Item Value Reference Range Interpretation Comments POCT GLU (test code = 8248275163) 89 mg/dL 70-110 Lab Interpretation (test code = Normal 24135-4) [facility] GLUCOSE (AUTOMATED)2020-02-17 13:10:00 Test Item Value Reference Range Interpretation Comments POCT GLU (test code = 5877352883) 202 mg/dL 70-110 H Lab Interpretation (test code = Abnormal 46957-9) [facility] Metabolic Panel (NA, K, CL, CO2, GLUCOSE, BUN, CREATININE, CA)2020-02-17 09:43:00 Test Item Value Reference Range Interpretation Comments NA (test code = 134 mmol/L 135-145 L 0874243361) K (test code = 5.2 mmol/L 3.5-5 H 7137275542) CL (test code = 105 mmol/L 98-108 2373825582) CO2 TOTAL (test code = 25 mmol/L 23-31 4443926598) AGAP (test code = 2-16 1965258470) BUN (test code = 35 mg/dL 7-23 H 7205823144) GLUCOSE (test code = 174 mg/dL 70-110 H 3214021995) CREATININE (test code = 1.10 mg/dL 0.6-1.25 4941165698) CALCIUM (test code = 10.0 mg/dL 8.6-10.6 0327445852) eGFR Calculation mL/min/1.73m2 (Non-) (test code = 9218410804) eGFR Calculation mL/min/1.73m2 () (test code = 3685891179) MATTEO (test code = MATTEO) Association of [...] tests). Lab Interpretation Abnormal (test code = 39092-7) [facility] with [id number] 09:39:00 Test Item Value Reference Range Interpretation Comments WBC (test code = See_Comment [Automated 6846-2) message] The sy stem which generated this result transmitted reference range : 4.20 - 10.70 10*3/?L. The reference range was not used to interpret this result as normal/abnormal . RBC (test code = See_Comment L [Automated 525-8) message] The sy stem which generated this [...] RDW-SD (test code = 45.0 fL 38.5-51.6 59014-3) RDW-CV (test code = 13.2 % 12.1-15.4 788-0) PLT (test code = See_Comment [Automated 777-3) message] The sy stem which generated this result transmitted reference range : 150 - 328 10*3/ ?L. The reference r yoselyn was not used to interpret this result as normal/abnormal . MPV (test code = 11.2 fL 9.8-13 95304-5) NRBC/100 WBC (test See_Comment [Automat ed code = 3089596300) message] The system which generated this result transmitted reference range : 0.0 - 10.0 /100 WBCs. The refer ence range was not u sed to interpret th is result as normal/abnormal . NRBC x10^3 (test code <0.01 See_Comment [Auto mated = 3138839330) message] The s ystem which generated this result transmitted reference range : 10*3/?L. The reference range was not used to interpret this result as normal/abnormal . GRAN MAT (NEUT) % 64.3 % (test code = 770-8) IMM GRAN % (test code 0.40 % = 5028211166) LYMPH % (test code = 29.0 % 736-9) MONO % (test code = 4.7 % 5905-5) EOS % (test code = 1.4 % 713-8) BASO % (test code = 0.2 % 706-2) GRAN MAT x10^3(ANC) 3.29 10*3/uL 1.99-6.95 (test code = 6232762044) IMM GRAN x10^3 (test <0.03 0-0.06 code = 7566074869) LYMPH x10^3 (test code 1.48 10*3/uL 1.09-3.23 = 731-0) MONO x10^3 (test code 0.24 10*3/uL 0.36-1.02 L = 742-7) EOS x10^3 (test code = 0.07 10*3/uL 0.06-0.53 711-2) BASO x10^3 (test code <0.03 0.01-0.09 = 704-7) Lab Interpretation Abnormal (test code = 33629-6) [facility]17 01:00:00 Test Item Value Reference Range Interpretation Comments POCT GLU (test code = 9221320188) 112 mg/dL 70-110 H Lab Interpretation (test code = Abnormal 53431-8) [facility] RENAL WITH [id number] 22:57:36 Impression: Normal size bilateral kidneys with [...] right ) An MRI angiogram is recommended. .[facility] NITROGEN, URINE [id number] 22:25:00 Test Item Value Reference Range Interpretation Comments UREA N UR (test code = 0372821030) 187 mg/dL [facility]2020-02-16 21:42:00 Test Item Value Reference Range Interpretation Comments POCT GLU (test code = 5550368270) 84 mg/dL 70-110 Lab Interpretation (test code = Normal 10846-0) [facility]AT[facility], URINE [id number] 19:57:00 Test Item Value Reference Range Interpretation Comments CREAT U (test code = 1898030913) 23.0 mg/dL [facility] TexasSODIUM, URINE [id number] 19:55:00 Test Item Value Reference Range Interpretation Comments NA URINE (test code = 4665737034) 136 mmol/L [facility] TexasPOTASSIUM, URINE [id number] 19:54:00 Test Item Value Reference Range Interpretation Comments K URINE (test code = 2648597577) 23.2 mmol/L [facility] (NA, K, CL, CO2, GLUCOSE, BUN, CREATININE, CA)2020-02-16 17:50:00 Test Item Value Reference Range Interpretation Comments NA (test code = 140 mmol/L 135-145 1773607650) K (test code = 5.3 mmol/L 3.5-5 H 3967193644) CL (test code = 108 mmol/L 98-108 1804100498) CO2 TOTAL (test code = 24 mmol/L 23-31 0493433629) AGAP (test code = 2-16 4903385717) BUN (test code = 40 mg/dL 7-23 H 7591158563) GLUCOSE (test code = 125 mg/dL 70-110 H 7509240801) CREATININE (test code = 1.45 mg/dL 0.6-1.25 H 8751749148) CALCIUM (test code = 10.9 mg/dL 8.6-10.6 H 1899732642) eGFR Calculation mL/min/1.73m2 (Non-) (test code = 8301918723) eGFR Calculation mL/min/1.73m2 () (test code = 0801832115) MATTEO (test code = MATTEO) Association of [...] tests). Lab Interpretation Abnormal (test code = 19744-8) [facility]2020-02-16 16:21:00 Test Item Value Reference Range Interpretation Comments POCT GLU (test code = 5005674763) 120 mg/dL 70-110 H Lab Interpretation (test code = Abnormal 26445-8) [facility] TexasGLYCOSYLATED HEMOGLOBIN (A1C)2020-02-16 14:34:00 Test Item Value Reference Range Interpretation Comments HGB A1C (test code = 9.3 % 4-6 H 4548-4) MATTEO (test code = MATTEO) %A1C (NGSP) Interpretation (ADA)4.8-5.6 ? ? Normal or (Non-Diabetic Range)5.7-6.4 ? ? Increased Risk (Pre-Diabetic)>6.5 ?Diabetes Indicated Lab Interpretation Abnormal (test code = 83422-5) [facility] MET[facility]OL[facility] PANEL (NA, K, CL, CO2, GLUCOSE, BUN, CREATININE, CA)2020-02-16 13:35:00 Test Item Value Reference Range Interpretation Comments NA (test code = 140 mmol/L 135-145 2671350597) K (test code = 6.1 mmol/L 3.5-5 HH 8364170745) CL (test code = 111 mmol/L 98-108 H 0886553695) CO2 TOTAL (test code = 22 mmol/L 23-31 L 9607965617) AGAP (test code = 2-16 7143916870) BUN (test code = 42 mg/dL 7-23 H 9850914619) GLUCOSE (test code = 116 mg/dL 70-110 H 7144896217) CREATININE (test code = 1.49 mg/dL 0.6-1.25 H 2652708898) CALCIUM (test code = 10.8 mg/dL 8.6-10.6 H 7309985817) eGFR Calculation mL/min/1.73m2 (Non-) (test code = 2589368994) eGFR Calculation mL/min/1.73m2 () (test code = 1900842225) MATTEO (test code = MATTEO) Association of [...] tests). Lab Interpretation Abnormal (test code = 10202-0) [facility]2020-02-16 13:09:00 Test Item Value Reference Range Interpretation Comments POCT GLU (test code = 6481436915) 117 mg/dL 70-110 H Lab Interpretation (test code = Abnormal 42082-5) [facility] TexasAD / C - DRUG SCREEN [id number] 10:52:00 Test Item Value Reference Range Interpretation Comments BENZO U (test code = Negative Negative 5882849523) SCOT U (test code = Negative Negative 2618651056) AMPHET (test code = Negative Negative 0053268532) THC (test code = Negative Negative 8457669146) METHADONE (test code = Negative Negative 0579474440) Meth U (test code = Negative Negative 4985075806) OPIATES (test code = Negative Negative 5397557636) Cocaine Metabolite (test Negative Negative code = 2440471393) PROPOXY (test code = Negative Negative 7834313055) Tric U (test code = Negative Negative 8668729006) PCP (test code = Negative Negative 5926158262) OXYCOD (test code = Negative Negative 4009920896) MATTEO (test code = MATTEO) Urine Drug [...] testing). Lab Interpretation (test Normal code = 84793-4) [facility]IN[facility]2020-08-21 10:50:00 Test Item Value Reference Range Interpretation Comments APPEARANCE (test code = Clear Clear 1622691068) COLOR (test code = Yellow Yellow 1414146066) PH (test code = 4.8-8.0 6407250343) SP GRAVITY (test code = 1.003-1.030 2796943841) GLU U QUAL (test code = Normal Normal 0443071826) BLOOD (test code = Negative Negative 0115014359) KETONES (test code = 5 mg/dL Negative A 0069062157) PROTEIN (test code = Negative Negative 2887-8) UROBILIN (test code = Normal Normal 2482220715) BILIRUBIN (test code = Negative Negative 2910687664) NITRITE (test code = Negative Negative 0484177775) LEUK LUISITO (test code = Negative Negative 7070167232) RBC/HPF (test code = See_Comment [Autom ated message] 2419168365) The system [employer] generated this result transmitted ref erence range: 0 - 3 HP F. The reference range was not used to int erpret this result as normal/abnormal . WBC/HPF (test code = <1 See_Comment [Autom ated message] 2512597343) The system [employer] generated this result transmitted ref erence range: 0 - 5 HP F. The reference range was not used to int erpret this result as normal/abnormal . BACTERIA (test code = Few Negative A 0149508933) HYAL CAST (test code = See_Comment [Aut omated message] 2394512148) The system [employer] generated this result transmitted ref erence range: <=2 LPF. The reference range was not used to int erpret this result as normal/abnormal . Lab Interpretation (test Abnormal code = 73353-3) [facility] TexasCOVID-19 (ID NOW RAPID TESTING)2020-02-16 10:50:00 Test Item Value Reference Range Interpretation Comments SARS-CoV-2 Rapid ID NOW Not Detected Not Detected (test code = 93040-5) MATTEO (test code = MATTEO) ID NOW COVID-19 Assay is an isothermal nucleic acid amplification test intended for the qualitative detection of nucleic acid from SARS-CoV-2 viral RNA in nasopharyngeal ([employer]AD [employer]) specimens. It is used under Emergency Use [...] indicated. Lab Interpretation Normal (test code = 29084-2) [facility] TexasXR CHEST 1 [id number] 10:39:25 FINDINGS/IMPRESSION: No focal consolidation, pleural effusion, [...] frontal view of the chest was obtained [facility], Radiant Results Inft User - 02/16/2020 5:40 AM CDTEXAM: XR CHEST 1 VWCLINICAL INDICATION: hypertension COMPARISON: 616TECHNIQUE: A frontal view of the chest was obtainedIMPRESSIONFINDINGS/IMPRESSION:No focal consoli dation, pleural effusion, or pneumothorax. Probablecalcified granuloma in the right lower lung is unchanged.The cardiac silhouette is normal in size. Remote left posterior rib fracturesPreliminary Report Dictated by Resident: Navi Mack, Cory Maria MD., have reviewed this study and agreewith theabove report.[facility] TexasPOTASSIUM [id number] 09:00:00 Test Item Value Reference Range Interpretation Comments K (test code = 5872837510) 6.0 mmol/L 3.5-5 H Lab Interpretation (test code = Abnormal 24716-2) [facility] TexasTROPONIN [id number] 08:47:00 Test Item Value Reference Range Interpretation Comments TROPONIN I (test <0.012 See_Comment [Automated code = 6992875375) message] The system which generated this result [...] ? Lab Interpretation Normal (test code = 82537-1) [facility]. METABOLIC PANEL (01408)2020-02-16 08:42:00 Test Item Value Reference Range Interpretation Comments NA (test code = 140 mmol/L 135-145 5339520963) K (test code = 6.2 mmol/L 3.5-5 HH 5443812757) CL (test code = 110 mmol/L 98-108 H 9688195746) CO2 TOTAL (test code = 24 mmol/L 23-31 4010475321) AGAP (test code = 2-16 2830913506) BUN (test code = 40 mg/dL 7-23 H 1978944432) GLUCOSE (test code = 124 mg/dL 70-110 H 1087011206) CREATININE (test code = 1.60 mg/dL 0.6-1.25 H 3757680954) TOTAL BILI (test code = 0.4 mg/dL 0.1-1.3 9444342567) CALCIUM (test code = 11.0 mg/dL 8.6-10.6 H 8117013485) T PROTEIN (test code = 6.9 g/dL 6.3-8.2 6651349383) ALBUMIN (test code = 4.4 g/dL 3.5-5 7542914062) ALK PHOS (test code = 65 U/L 34-122 1655256393) ALTv (test code = 12 U/L 5-50 1742-6) AST(SGOT) (test code = 23 U/L 13-40 9779790873) eGFR Calculation mL/min/1.73m2 (Non-) (test code = 0927202799) eGFR Calculation mL/min/1.73m2 () (test code = 4792710957) MATTEO (test code = MATTEO) Association of [...] tests). Lab Interpretation Abnormal (test code = 43000-8) [facility] TexasPROTHROMBIN TIME / [id number] 08:34:00 Test Item Value Reference Range Interpretation Comments PROTIME PATIENT (test See_Comment [Auto mated message] code = 5964-2) The system [employer] generated this result transmitted ref erence range: 12.0 - 1 4.7 Seconds. The re ference range was not u sed to interpret this result as normal/abnor mal. INR (test code = 6301-6) Nor mal INR <1.1; Warfarin Therap eutic range 2.0 to 3. 0 or 2.5 to 3.5, dep ending upon the indica tions. Lab Interpretation (test Normal code = 32729-7) [facility] WITH [id number] 08:23:00 Test Item Value Reference Range Interpretation [...] RDW-SD (test code = 46.5 fL 38.5-51.6 84935-3) RDW-CV (test code = 13.4 % 12.1-15.4 788-0) PLT (test code = See_Comment [Automated 777-3) message] The sy stem which generated this result transmitted reference range : 150 - 328 10*3/ ?L. The reference r yoselyn was not used to interpret this result as normal/abnormal . MPV (test code = 10.6 fL 9.8-13 13291-5) NRBC/100 WBC (test See_Comment [Automat ed code = 7131479068) message] The system which generated this result transmitted reference range : 0.0 - 10.0 /100 WBCs. The refer ence range was not u sed to interpret th is result as normal/abnormal . NRBC x10^3 (test code <0.01 See_Comment [Auto mated = 7522566379) message] The s ystem which generated this result transmitted reference range : 10*3/?L. The reference range was not used to interpret this result as normal/abnormal . GRAN MAT (NEUT) % 52.4 % (test code = 770-8) IMM GRAN % (test code 0.30 % = 2353991681) LYMPH % (test code = 38.4 % 736-9) MONO % (test code = 6.6 % 5905-5) EOS % (test code = 1.8 % 713-8) BASO % (test code = 0.5 % 706-2) GRAN MAT x10^3(ANC) 3.16 10*3/uL 1.99-6.95 (test code = 8505448150) IMM GRAN x10^3 (test <0.03 0-0.06 code = 4741484225) LYMPH x10^3 (test code 2.32 10*3/uL 1.09-3.23 = 731-0) MONO x10^3 (test code 0.40 10*3/uL 0.36-1.02 = 742-7) EOS x10^3 (test code = 0.11 10*3/uL 0.06-0.53 711-2) BASO x10^3 (test code 0.03 10*3/uL 0.01-0.09 = 704-7) Lab Interpretation Abnormal (test code = 17034-6) [facility]
--- NOTE | 2022-12-28 11:39 | RAD REPORT ---
EXAM DESCRIPTION: CT - Head Brain Wo Cont - 12/28/2022 11:00 am CLINICAL HISTORY: TRAUMA COMPARISON: Chest Pa And Lat (2 Views) dated 12/14/2022; Chest Pa And Lat (2 Views) dated 11/21/2022; Chest Pa And Lat (2 Views) dated 11/19/2022; Chest Pa And Lat (2 Views) dated 09/22/2022Head Brain Wo C ont dated 12/21/2022 TECHNIQUE: Noncontrast head CT images were obtained without IV contrast. Multiplanar reformats were generated and reviewed. All CT scans are performed using dose optimization technique as appropriate and may include automated exposure control or mA/KV adjustment according to patient size. FINDINGS: No intracranial hemorrhage, mass, or edema. Midline structures are unremarkable. Normal ventricular caliber for age. Stable asymmetric periventricular and deep white matter hypodensity more pronounced in the right fron christiano region, nonspecific, and could relate to chronic small vessel ischemic changes. Lisa-white matter differentiation is preserved, without evidence of acute infarct. No abnormal extra-axial fluid colle ctions. Mastoid air cells and visualized portions of the paranasal sinuses are clear. No acute bony findings. IMPRESSION: No evidence of an acute intracranial process.
--- NOTE | 2022-12-28 11:48 | EDPHYS ---
Physician Documentation [facility] Name: Leonides Bui Age: 72 yrs Sex: Male : 1950 Arrival Date: 12/28/2022 Time: 10:39 Bed 7 Private MD: ED Physician Fish Cantu HPI: 12/28 10:44 This 72 yrs old Male presents to ER via Unassigned with complaints of fall, head injury.kb 10:44 Details of fall: The patient fell from an upright position, while standing. Onset: The kb symptoms/episode began/occurred just prior to arrival. Associated injuries: The patient sustained injury to the head, abrasion. Severity of symptoms: At their worst the symptoms were mild, in the emergency department the symptoms are unchanged. The patient has not experienced similar symptoms in the past. The patient has not recently seen a physician. 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 [facility] group home staff reported that this happens a lot. Pt was sitting in a chair, stood up and fell. States pt has dementia and is of normal mentation for him.. Historical: - Allergies: 10:46 No Known Allergies; jl7 - PMHx: 10:46 "Back problems"; diabetes mellitus; Memory problems; Bipolar disorder; Hypertensive jl7 disorder; - PSHx: 10:46 Spinal Fusion; jl7 - Immunization history:: Adult Immunizations unknown. - Social history:: Smoking status: unknown. ROS: 10:44 Constitutional: Negative for fever, chills, and weight loss. kb 10:44 Skin: Positive for abrasion(s), of the outer aspect of left eyebrow. 10:44 All other systems are negative. Exam: 10:44 Constitutional: This is a well developed, well nourished patient who is awake, alert, kb and in no acute distress. Head/Face: Normocephalic, atraumatic. ENT: Moist Mucous membranes Respiratory: Respirations even and unlabored. No increased work of breathing. Talking in full sentences MS/ Extremity: Pulses equal, no cyanosis. Neurovascular intact. Full, normal range of motion. 10:44 Skin: injury, abrasion(s), very small abrasion noted, of the outer aspect of left eyebrow, old abrasion noted to forehead and left jaramillo. 10:44 Neuro: Exam negative for acute changes. kb Vital Signs: 10:44 BP 152 / 87; Pulse 50; Resp 15; Temp 97.8; Pulse Ox 98% ; jl7 11:30 BP 150 / 68; Pulse 65; Resp 15; Pulse Ox 99% ; jl7 12:15 BP 159 / 87; Pulse 51; Resp 14; Pulse Ox 100% ; jl7 14:00 BP 152 / 72; Pulse 58; Resp 16; Pulse Ox 98% on R/A; mb9 MDM: 10:41 Patient medically screened. kb 10:47 Differential diagnosis: abrasion, closed head injury, contusion. Data reviewed: vital kb signs, nurses notes. Historians other than the Patient: EMS: [facility]. 11:46 Counseling: I had a detailed discussion with the patient and/or guardian regarding: the kb historical points, exam findings, and any diagnostic results supporting the discharge/admit diagnosis, radiology results, the need for outpatient follow up, a family practitioner, to return to the emergency department if symptoms worsen or persist or if there are any questions or concerns that arise at home. ED course: Pt has full ROM of extremities, no tenderness upon palpation of chest, abd or pelvis, no complaints of any pain. . 12/28 10:41 Order name: CT Head Brain wo Cont; Complete Time: 11:41 kb Administered Medications: No medications were administered Disposition: 17:48 Co-signature as Attending Physician, Fish Cantu MD I reviewed the patient's care rt provided by the Advanced Practice Provider and agree with the diagnosis and treatment plan. Disposition Summary: 12/28/22 11:47 Discharge Ordered Location: Home kb Condition: Stable kb Diagnosis - Unspecified injury of head, initial encounter kb - Fall on same level from slipping, tripping and stumbling without subsequent kb striking against object Followup: kb - With: Emergency Department - When: As needed - Reason: Worsening of condition Followup: kb - With: Private Physician - When: 2 - 3 days - Reason: Recheck today's complaints, Continuance of care, Re-evaluation by your physician Discharge Instructions: - Discharge Summary Sheet kb - Head Injury, Adult, [id number]-[id number] kb Forms: - Medication Reconciliation Form kb - Thank You Letter kb - Antibiotic Education kb - Prescription Opioid Use kb - [email or web address].htm kb Signatures: Dispatcher [employer] EDCoby Mendoza, COST CONTROL SPECIALIST-C COST CONTROL SPECIALIST-Ckb Chanel Boyd, RN RN jl7 Fish Cantu MD MD rt
--- NOTE | 2022-12-28 11:48 | ER ---
Nurse's Notes [facility] Name: Leonides Bui Age: 72 yrs Sex: Male : 1950 Arrival Date: 12/28/2022 Time: 10:39 Bed 7 Private MD: Diagnosis: Unspecified injury of head, initial encounter;Fall on same level from slipping, tripping and stumbling without subsequent striking against object Presentation: 12/28 10:44 Chief complaint: EMS states: Pt fell from standing when stood up from wheelchair, jl7 negative LOC. Coronavirus screen: At this time, the client does not indicate any symptoms associated with coronavirus-19. Ebola Screen: No symptoms or risks identified at this time. Initial Sepsis Screen: Does the patient meet any 2 criteria? No. Patient's initial sepsis screen is negative. Does the patient have a suspected source of infection? No. Patient's initial sepsis screen is negative. Risk Assessment: Do you want to hurt yourself or someone else? Patient reports no desire to harm self or others. Onset of symptoms was December 28, 2022. 10:44 Method Of Arrival: Ambulatory jl7 10:44 Acuity: ADRIANA 4 jl7 Triage Assessment: 10:41 General: Appears in no apparent distress. uncomfortable, Behavior is calm, cooperative, jl7 appropriate for age. Pain: Denies pain. Neuro: Level of Consciousness is awake, alert, Oriented to person, baseline. Cardiovascular: Patient's skin is warm and dry. Respiratory: Airway is patent Respiratory effort is even, unlabored, Respiratory pattern is regular, symmetrical. Derm: Skin is pink, warm \\T\\ dry. Injury Description: Abrasion sustained to face and left leg. Historical: - Allergies: 10:46 No Known Allergies; jl7 - PMHx: 10:46 "Back problems"; diabetes mellitus; Memory problems; Bipolar disorder; Hypertensive jl7 disorder; - PSHx: 10:46 Spinal Fusion; jl7 - Immunization history:: Adult Immunizations unknown. - Social history:: Smoking status: unknown. Screenin:52 [facility] ED Fall Risk Assessment (Adult) History of falling in the last 3 months, jl7 including since admission Yes- single mechanical fall (1 pt) Confusion or Disorientation Yes (5 pts) Intoxicated or Sedated No (0 pts) Impaired Gait No (0 pts) Mobility Assist Device Used No (0 pt) Altered Elimination Yes (1 pt) Score/Fall Risk Level 3 or more points = High Risk Oriented to surroundings, Maintained a safe environment. Abuse screen: Denies threats or abuse. Denies injuries from another. Nutritional screening: No deficits noted. Tuberculosis screening: No symptoms or risk factors identified. Assessment: 10:41 General: See triage assessment. jl7 11:30 Reassessment: Patient appears in no apparent distress at this time. No changes from jl7 previously documented assessment. Patient and/or family updated on plan of care and expected duration. Pain level reassessed. 12:29 Reassessment: report given to [facility][1] by CHERELLE Tenorio , facility will arrange iw transport. 12:45 Reassessment: Pt's mother at bedside. jl7 14:10 Reassessment: Wheelchair van employee at bedside to transport pt to facility. jl7 Vital Signs: 10:44 BP 152 / 87; Pulse 50; Resp 15; Temp 97.8; Pulse Ox 98% ; jl7 11:30 BP 150 / 68; Pulse 65; Resp 15; Pulse Ox 99% ; jl7 12:15 BP 159 / 87; Pulse 51; Resp 14; Pulse Ox 100% ; jl7 14:00 BP 152 / 72; Pulse 58; Resp 16; Pulse Ox 98% on R/A; mb9 ED Course: 10:41 Patient arrived in ED. kb 10:41 Coby Armstrong FNP-C [facility] kb 10:41 Fish Cantu MD is Attending Physician. kb 10:41 Patient has correct armband on for positive identification. Client placed on continuous jl7 cardiac and pulse oximetry monitoring. NIBP monitoring applied. Warm blanket given. 10:43 Chanel Boyd, ANGEL is Primary Nurse. jl7 10:46 Triage completed. jl7 10:47 Arm band placed on right wrist. jl7 11:01 CT Head Brain wo Cont In Process Unspecified. EDMS 12:39 No provider procedures requiring assistance completed. Patient did not have IV access jl7 during this emergency room visit. Administered Medications: No medications were administered Medication: 10:52 VIS not applicable for this client. jl7 Outcome: 11:47 Discharge ordered by . kb 14:20 Discharged to home ambulatory. mb9 14:20 Condition: stable 14:20 Discharge instructions given to patient, Instructed on discharge instructions, follow up and referral plans. Demonstrated understanding of instructions, follow-up care. 14:20 Patient left the ED. mb9 Signatures: Dispatcher [employer] EDCoby Mendoza, GEAR TECHNICIAN-C GEAR TECHNICIAN-Kylah Eller, RN Chanel Velarde RN RN jl7 Nahomy Nur RN RN mb9
[2022-12-28 14:34] VITALS: TEMP 97.8
[2022-12-28 14:40] VITALS: BP 152/72; O2SAT 98
== END 2022-12-28 14:20 | disposition home or self-care (01) ==
LOC: ER 10:39
DX: S00.81XA Abrasion of other part of head, initial encounter (principal); W01.0XXA Fall on same level from slipping, tripping and stumbling without subsequent striking against object, initial encounter; I10 Essential (primary) hypertension
CPT/HCPCS: 70450; 99283

== ENCOUNTER → 2023-09-21 | Emergency (ER) | payer OTHER ==
[2023-09-21 11:49] LABS: Absolute Eosinophils 0.2 K/uL (0-0.5); Absolute Lymphocytes (CBC) 1.7 K/uL (0.7-4.9); Absolute Monocytes 0.6 K/uL (0.1-1.3); Absolute Neutrophil 5.5 K/uL (1.8-8.0); Basophils % 0.3 % (0-1.3); Eosinophils % 2.9 % (0-4.4); Hematocrit 26.7 % (39.6-49.0); Hemoglobin 8.6 g/dL (13.6-17.9); Lymphocytes % 20.8 % (15.3-44.8); MCH 28.7 pg (27.0-35.0); MCHC 32.3 g/dL (32.0-36.0); MCV 88.9 fL (80-100); MPV 8.7 fL (7.6-11.3); Monocytes % 7.9 % (3.3-12.3); Neutrophils % 68.1 % (41.7-73.7); Platelets 191 thou/uL (152-406); Red Cell Distribution Width 15.9 % (12.1-15.2)
[2023-09-21 12:11] LABS: Albumin 3.2 g/dL (3.4-5.0); Anion Gap 8.5 mEq/L (5.0-15.0); Bilirubin Direct 0.1 mg/dL (0-0.2); Bilirubin Indirect, Calculated 0.1 mg/dL (0.2-0.8); Bilirubin Total 0.2 mg/dL (0.2-1.0); Globulin 3.3 g/dL (2.3-3.5); Potassium 3.5 mEq/L (3.5-5.1); Protein, Total 6.5 g/dL (6.4-8.2)
[2023-09-21 12:17] LABS: Band Neutrophils 10 % (0-1); Differential Total Cells Count 100; Eosinophils 2 % (0-3); Lymphocytes 38 % (15-42); Monocytes 1 % (0-10); Segmented Neutrophils 49 % (40-80)
[2023-09-21 12:18] LABS: Blood Morphology Comment NOTED (NOT SEEN); Hypochromasia 2+; Platelet Estimate ADEQ
--- NOTE | 2023-09-21 14:16 | RAD REPORT ---
EXAM DESCRIPTION: RAD - Chest Single View - 09/21/2023 1:58 pm CLINICAL HISTORY: hypoglycemia Chest pain. COMPARISON: Chest Single View dated 12/21/2022; Chest Single View dated 12/19/2022 FINDINGS: Portable technique limits examination quality. The lungs are grossly clear. The heart is upper limit of normal in size. No displaced fractures. IMPRESSION: No acute intrathoracic process suspected.
[2023-09-21 15:23] LABS: Specific Gravity 1.014 (1.005-1.030); Sqamous Epithelial None Seen /HPF (None Seen); Urine Bacteria None Seen /HPF (<20); Urine Bilirubin NEGATIVE (Negative); Urine Blood Negative (Negative); Urine Clarity Clear (Clear); Urine Color Light-Yellow (Yellow); Urine Crystals Unidentified Few /HPF (None Seen); Urine Culture Reflex Order NOT NEEDED; Urine Glucose NEGATIVE (Negative); Urine Ketones NEGATIVE (Negative); Urine Micro Reflex YN NO BILL MICROSCOPIC; Urine Mucus Slight /HPF (None Seen); Urine Nitrite NEGATIVE (Negative); Urine Protein 1+ (Negative); Urine RBC <5 /HPF (None Seen); Urine Urobilinogen Normal (Normal); Urine WBC <5 /HPF (<5); Urine pH 5.5 (5.0-7.0)
--- NOTE | 2023-09-21 15:33 | EDPHYS ---
Physician Documentation [facility] Name: Leonides Bui Age: 73 yrs Sex: Male : 1950 Arrival Date: 09/21/2023 Time: 11:29 Bed 20 Private MD: ED Physician Fish Cantu HPI: 09/20 14:25 This 73 yrs old Male presents to ER via EMS with complaints of Low Blood Sugar. rt 14:25 History limited due to patient with advanced dementia. Patient [facility] ED from rt [facility] with hypoglycemia, reportedly to 35. With dextrose, blood sugar and mental status improved. Patient cannot recall the event surrounding this note to give further history. Does not member if he ate breakfast or not this morning.. Historical: - Allergies: 11:57 No Known Allergies; nj1 11:40 No Known Allergies; hb - Home Meds: 11:42 amlodipine 10 mg tablet daily [Active]; atorvastatin 40 mg oral tablet daily [Active]; hb Cholestyramine Light 4 gram oral powder in packet daily [Active]; clonidine HCl 0.1 mg Oral tablet every 6 hours [Active]; donepezil 23 mg oral tablet every day at bedtime [Active]; escitalopram oxalate 20 mg oral tablet daily [Active]; famotidine 20 mg Oral tablet daily [Active]; glipizide 2.5 mg Oral tablet daily [Active]; Levemir U-100 Insulin 100 unit/mL subcutaneous solution daily [Active]; loperamide 2 mg Oral tablet [Active]; lorazepam 0.5 mg Oral tablet 2 times per day [Active]; losartan 50 mg oral tablet daily [Active]; metformin 500 mg Oral tablet daily [Active]; multivitamin oral tablet [Active]; Namenda 10 mg twice a day [Active]; insulin aspart U-100 100 unit/mL subcutaneous cartridge 1 sliding scale dose AC/HS [Active]; Ocuvel 0.9-146-602-40 es-bk-gqnc-mg oral capsule daily [Active]; pioglitazone 15 mg oral tablet daily [Active]; Vitamin B1 daily [Active]; Vitamin C 500 mg Oral tablet daily [Active]; - PMHx: 11:57 Alzheimer's disease; Anxiety; Bipolar disorder; CKD; DM2; GERD; Hyperlipidemia; nj1 Hypertension; 11:40 Bipolar disorder; Alzheimer's disease; CKD; GERD; Anxiety; Hypertension; hb Hyperlipidemia; DM2; 11:42 Chronic Diarrhea; hb - PSHx: 11:57 Spinal Fusion; nj1 11:40 Spinal Fusion; hb - Immunization history:: Adult Immunizations unknown, Adult Immunizations up to date. - Social history:: Smoking status: unknown Smoking status: unknown. ROS: 14:25 Unable to obtain ROS due to baseline dementia, rt Exam: 14:25 Constitutional: This is a well developed, well nourished patient who is awake, alert, rt and in no acute distress. Chest/axilla: Normal chest wall appearance and motion. Nontender with no deformity. No lesions are appreciated. Cardiovascular: Regular rate and rhythm with a normal S1 and S2. No gallops, murmurs, or rubs. Normal PMI, no JVD. No pulse deficits. Respiratory: Lungs have equal breath sounds bilaterally, clear to auscultation and percussion. No rales, rhonchi or wheezes noted. No increased work of breathing, no retractions or nasal flaring. Abdomen/GI: Soft, non-tender, with normal bowel sounds. No distension or tympany. No guarding or rebound. No evidence of tenderness throughout. MS/ Extremity: Pulses equal, no cyanosis. Neurovascular intact. Full, normal range of motion. Neuro: Awake and alert, GCS 15, oriented to person, place, time, and situation. Cranial nerves II-XII grossly intact. Motor strength 5/5 in all extremities. Sensory grossly intact. Cerebellar exam normal. Normal gait. 14:25 ECG was reviewed by the Attending Physician. Vital Signs: 11:36 BP 124 / 60; Pulse 66; Resp 15; Temp 97.5(TE); Pulse Ox 96% on R/A; Weight 74.84 kg; hb Height 5 ft. 9 in. ; Pain 0/10; 13:33 BP 161 / 75; Pulse 56; Resp 12; Pulse Ox 95% on R/A; nj1 15:11 BP 144 / 100; Pulse 70; Resp 12 S; Pulse Ox 100% on R/A; as6 15:39 BP 162 / 81; Pulse 73; Resp 16; Pulse Ox 95% ; nj1 11:36 Body Mass Index 24.37 (74.84 kg, 175.26 cm) hb 11:36 Pain Scale: Adult hb MDM: 11:34 Patient medically screened. rt 15:41 Differential diagnosis: UTI, pneumonia, acute coronary syndrome, dysrhythmia, insulin rt side effect. Data reviewed: vital signs, nurses notes, lab test result(s), EKG, radiologic studies. Consideration of Admission/Observation Escalation of care including admission/observation considered. Patient with unremarkable urinalysis, chest x-ray. Patient's blood work is unremarkable except for 10% bands. I see no infectious source for now. I did inform family of this finding instructed to follow-up for repeat blood work. Strict return precautions were discussed.. Independent interpretation of the following test(s) in the Emergency Department X-Ray: My interpretation is No consolidations seen on my interpretation of x-ray images. Care significantly affected by the following chronic conditions: Diabetes. Counseling: I had a detailed discussion with the patient and/or guardian regarding the historical points, exam findings, and any diagnostic results supporting the discharge/admit diagnosis, lab results, radiology results, the need for outpatient follow up, to return to the emergency department if symptoms worsen or persist or if there are any questions or concerns that arise at home. Response to treatment: the patient's symptoms have markedly improved after treatment. 09/20 11:35 Order name: Basic Metabolic Panel; Complete Time: 14:02 rt 09/20 11:35 Order name: CBC with Diff; Complete Time: 14:02 rt 09/20 11:35 Order name: LFT's; Complete Time: 14:02 rt 09/20 11:35 Order name: Magnesium; Complete Time: 14:02 rt 09/20 11:35 Order name: Troponin HS; Complete Time: 14:02 rt 09/20 11:35 Order name: UAM; Complete Time: 15:28 rt 09/20 12:18 Order name: Manual Differential; Complete Time: 14:02 EDMS 09/20 15:25 Order name: Glucose, Ancillary Testing; Complete Time: 15:28 EDMS 09/20 11:35 Order name: XRAY Chest (1 view); Complete Time: 14:16 rt 09/20 11:35 Order name: EKG; Complete Time: 11:36 rt 09/20 11:35 Order name: Cardiac monitoring; Complete Time: 11:54 rt 09/20 11:35 Order name: EKG - Nurse/Tech; Complete Time: 12:19 rt 09/20 11:35 Order name: IV Saline Lock; Complete Time: 54 rt 09/20 11:35 Order name: Labs collected and sent; Complete Time: rt 09/20 11:35 Order name: O2 Per Protocol; Complete Time: rt 09/20 11:35 Order name: O2 Sat Monitoring; Complete Time: :54 rt EC:25 Rate is 58 beats/min. Rhythm is regular, Sinus bradycardia with No ectopy, Right bundle rt branch block. QRS Todd is Normal. OR interval is normal. QRS interval is normal. QT interval is normal. No Q waves. No ST changes noted. Administered Medications: No medications were administered Point of Care Testing: Blood Glucose: 15:11 Blood Glucose: 137 mg/dL; as6 Ranges: Critical Glucose Levels:Adult <50 mg/dl or >400 mg/dl <40 mg/dl or >180 mg/dl Disposition Summary: 09/21/23 15:32 Discharge Ordered Notes: Location: Home rt Problem: new rt Symptoms: are resolved rt Condition: Stable rt Diagnosis - Hypoglycemia, unspecified rt Followup: rt - With: Private Physician - When: 2 - 3 days - Reason: Discharge Instructions: - Discharge Summary Sheet rt - Hypoglycemia rt Forms: - Medication Reconciliation Form rt - Thank You Letter rt - Antibiotic Education rt - Prescription Opioid Use rt - Patient Portal Instructions rt - Leadership Thank You Letter rt Signatures: Dispatcher [employer] Chiara Loya RN RN hb [place], Ryan, MD MD rt Selene Jordan RN RN nj1 Corrections: (The following items were deleted from the chart) 11:59 11:40 Allergies: No Known Allergies; hb hb 11:59 11:40 Allergies: DM2; hb hb 11:59 11:40 PMHx: diabetes mellitus; hb hb 11:59 11:40 PMHx: Hypertensive disorder; hb hb 11:59 11:40 PMHx: Memory problems; hb hb 11:59 11:40 PMHx: "Back problems"; hb hb
--- NOTE | 2023-09-21 15:33 | ER ---
Nurse's Notes [facility] Name: Leonides Bui Age: 73 yrs Sex: Male : 1950 Arrival Date: 09/21/2023 Time: 11:29 Bed 20 Private MD: Diagnosis: Hypoglycemia, unspecified Presentation: 09/20 11:36 Chief complaint: EMS states: Confusion, lethargy, BLG 40s, 35 after oral glucose x 2, hb improved to 157 after D10 150mls to 22g L hand. Coronavirus screen: At this time, the client does not indicate any symptoms associated with coronavirus-19. Ebola Screen: No symptoms or risks identified at this time. Initial Sepsis Screen: Does the patient meet any 2 criteria? No. Patient's initial sepsis screen is negative. Does the patient have a suspected source of infection? No. Patient's initial sepsis screen is negative. Risk Assessment: Do you want to hurt yourself or someone else? Patient reports no desire to harm self or others. Onset of symptoms was September 21, 2023. 11:36 Method Of Arrival: EMS: [facility] 11:36 Acuity: ADRIANA 2 hb Triage Assessment: 11:37 General: Appears in no apparent distress. Behavior is calm, cooperative. Pain: Denies hb pain. Neuro: Level of Consciousness is awake, alert, obeys commands, confused, Oriented to person. Cardiovascular: Patient's skin is warm and dry. Respiratory: Respiratory effort is even, unlabored, Respiratory pattern is regular, symmetrical. Historical: - Allergies: 11:57 No Known Allergies; nj1 11:40 No Known Allergies; hb - Home Meds: 11:42 amlodipine 10 mg tablet daily [Active]; atorvastatin 40 mg oral tablet daily [Active]; hb Cholestyramine Light 4 gram oral powder in packet daily [Active]; clonidine HCl 0.1 mg Oral tablet every 6 hours [Active]; donepezil 23 mg oral tablet every day at bedtime [Active]; escitalopram oxalate 20 mg oral tablet daily [Active]; famotidine 20 mg Oral tablet daily [Active]; glipizide 2.5 mg Oral tablet daily [Active]; Levemir U-100 Insulin 100 unit/mL subcutaneous solution daily [Active]; loperamide 2 mg Oral tablet [Active]; lorazepam 0.5 mg Oral tablet 2 times per day [Active]; losartan 50 mg oral tablet daily [Active]; metformin 500 mg Oral tablet daily [Active]; multivitamin oral tablet [Active]; Namenda 10 mg twice a day [Active]; insulin aspart U-100 100 unit/mL subcutaneous cartridge 1 sliding scale dose AC/HS [Active]; Ocuvel 0.4-778-596-40 kr-zl-njpj-mg oral capsule daily [Active]; pioglitazone 15 mg oral tablet daily [Active]; Vitamin B1 daily [Active]; Vitamin C 500 mg Oral tablet daily [Active]; - PMHx: 11:57 Alzheimer's disease; Anxiety; Bipolar disorder; CKD; DM2; GERD; Hyperlipidemia; nj1 Hypertension; 11:40 Bipolar disorder; Alzheimer's disease; CKD; GERD; Anxiety; Hypertension; hb Hyperlipidemia; DM2; 11:42 Chronic Diarrhea; hb - PSHx: 11:57 Spinal Fusion; nj1 11:40 Spinal Fusion; hb - Immunization history:: Adult Immunizations unknown, Adult Immunizations up to date. - Social history:: Smoking status: unknown Smoking status: unknown. Screenin:59 [facility] ED Fall Risk Assessment (Adult) History of falling in the last 3 months, nj1 including since admission No falls in past 3 months (0 pts) Confusion or Disorientation Yes (5 pts) Intoxicated or Sedated No (0 pts) Impaired Gait Yes (1 pt) Mobility Assist Device Used Yes (1 pt) Altered Elimination Yes (1 pt) Score/Fall Risk Level 3 or more points = High Risk Oriented to surroundings, Maintained a safe environment, Hourly rounding (assess needs \\T\\ fall precautionary measures) done, Used ambulatory aids as needed (educated on \\T\\ assisted with), Used gait belt as appropriate Offered frequent toileting (1:1 observation), Remained with patient while ambulating, Utilized family, sitter, or virtual brass cutter as indicated. Abuse screen: Denies threats or abuse. Denies injuries from another. Nutritional screening: No deficits noted. Tuberculosis screening: No symptoms or risk factors identified. Assessment: 11:58 General: Appears in no apparent distress. comfortable, Behavior is calm, cooperative, nj1 appropriate for age. Pain: Denies pain. Neuro: Level of Consciousness is awake, alert, obeys commands, confused, Oriented to person, place. Cardiovascular: Patient's skin is warm and dry. Respiratory: Airway is patent Respiratory effort is even, unlabored. 13:33 Reassessment: Patient appears in no apparent distress at this time. No changes from nj1 previously documented assessment. Patient and/or family updated on plan of care and expected duration. Pain level reassessed. 15:39 Reassessment: Patient appears in no apparent distress at this time. Patient states nj1 feeling better. Patient states symptoms have improved. 15:59 Reassessment: Call placed to [place] to advised of discharge. Discharge paperwork along with nj1 test results sent in discharge packet. Vital Signs: 11:36 BP 124 / 60; Pulse 66; Resp 15; Temp 97.5(TE); Pulse Ox 96% on R/A; Weight 74.84 kg; hb Height 5 ft. 9 in. ; Pain 0/10; 13:33 BP 161 / 75; Pulse 56; Resp 12; Pulse Ox 95% on R/A; nj1 15:11 BP 144 / 100; Pulse 70; Resp 12 S; Pulse Ox 100% on R/A; as6 15:39 BP 162 / 81; Pulse 73; Resp 16; Pulse Ox 95% ; nj1 11:36 Body Mass Index 24.37 (74.84 kg, 175.26 cm) hb 11:36 Pain Scale: Adult hb ED Course: 11:34 Patient arrived in ED. bd 11:34 Fish Cantu MD is Attending Physician. rt 11:36 Selene Jordan, RN is Primary Nurse. nj1 11:40 Triage completed. hb 11:40 Client placed on continuous cardiac and pulse oximetry monitoring. NIBP monitoring hb applied. hospital monitor on. Pulse ox on. NIBP on. 11:40 Patient maintains SpO2 saturation greater than 95% on room air. Thermoregulation: warm hb blanket given to patient. 11:57 Arm band placed on right wrist. nj1 12:00 Patient has correct armband on for positive identification. Bed in low position. Call nj1 light in reach. Side rails up X 1. Provided Education on: call light, fall precautions. 12:19 EKG done, by ED staff, reviewed by Fish Cantu MD. em1 12:24 Note: pt and pt family would like to talk to the doctor before doing the cxr. " if mh1 needed". 14:00 XRAY Chest (1 view) In Process Unspecified. EDMS 15:12 Cleaned of incontinence. Linen changed. as6 15:12 Urine collected: straight cath specimen, clear. Straight cath inserted, using sterile hb technique, 16 Fr. Specimen obtained. Returned clear yellow urine. 15:40 No provider procedures requiring assistance completed. IV discontinued, intact, nj1 bleeding controlled, Pressure dressing applied. Administered Medications: No medications were administered Medication: 15:40 VIS not applicable for this client. nj1 Point of Care Testing: Blood Glucose: 15:11 Blood Glucose: 137 mg/dL; as6 Ranges: Outcome: 15:32 Discharge ordered by MD. rt 15:40 Discharged to home ambulatory, nj1 15:40 Discharged to home via wheelchair, 15:40 Condition: stable 15:40 Condition: stable 15:40 Discharge instructions given to 15:40 Discharge instructions given to family, significant other, Instructed on discharge instructions, follow up and referral plans. Demonstrated understanding of instructions, follow-up care, 15:55 Patient left the ED. nj1 Signatures: Dispatcher [employer] EDMS Ellie Li Martha mh1 Jimmie, Kirill em1 Chiara Davies, ANGEL ORTIZ hb Adam Paiz RN RN as6 Fish Cantu MD MD rt Selene Jordan, RN RN nj1 Corrections: (The following items were deleted from the chart) 11:59 11:40 Allergies: No Known Allergies; hb hb 11:59 11:40 Allergies: DM2; hb hb 11:59 11:40 PMHx: diabetes mellitus; hb hb 11:59 11:40 PMHx: Hypertensive disorder; hb hb 11:59 11:40 PMHx: Memory problems; hb hb 11:59 11:40 PMHx: "Back problems"; hb hb
[2023-09-21 16:24] VITALS: BP 162/81; TEMP 97.5; O2SAT 95
--- NOTE | 2023-09-21 17:00 | EKG ---
Test Date: 2023-09-21 Test Time: 12:04:25 Under Baster: ACMILA MEASUREMENT RESULTS: Intervals: Rate: 58 MT: 180 QRSD: 122 QT: 508 QTc: 498 [place]: P: 42 MT: 180 QRS: -10 T: 35 INTERPRETIVE STATEMENTS: Sinus bradycardia Right bundle branch block Cannot rule out Anterior infarct, age undetermined Abnormal ECG Compared to ECG 12/21/2022 11:04:50 Right bundle-branch block now present Myocardial infarct finding now present Atrial premature complex(es) no longer present Electronically Signed On 09-21-23 16:59:26 CDT by Brandyn Blank
== END ==
LOC: ER 11:29
DX: E11.649 Type 2 diabetes mellitus with hypoglycemia without coma (principal); Z79.4 Long term (current) use of insulin; G30.9 Alzheimer's disease, unspecified; F02.80 Dementia in other diseases classified elsewhere, unspecified severity, without behavioral disturbance, psychotic disturbance, mood disturbance, and anxiety; I10 Essential (primary) hypertension
CPT/HCPCS: 36415; 71045; 80048; 80076; 81001; 82947; 83735; 84484; 85025; 93005

== ENCOUNTER 2024-06-24 07:11 | Emergency (ER) | payer OTHER ==
--- NOTE | 2024-06-24 07:31 | ER ---
Nurse's Notes [facility] Name: Leonides Bui Age: 74 yrs Sex: Male : 1950 Arrival Date: 06/24/2024 Time: 07:11 Bed 14 Private MD: Diagnosis: Fall on same level, unspecified;Unspecified injury of head, initial encounter;Laceration without foreign body of other part of head-left brow Presentation: 06/24 07:13 Chief complaint: EMS states: Left eyebrow laceration after mechanical fall from standing. Bleeding controlled. Coronavirus screen: At this time, the client does not indicate any symptoms associated with coronavirus-19. Ebola Screen: No symptoms or risks identified at this time. Complicating Factors: There are no complicating factors for this patient. Initial Sepsis Screen: Does the patient meet any 2 criteria? No. Patient's initial sepsis screen is negative. Does the patient have a suspected source of infection? No. Patient's initial sepsis screen is negative. Risk Assessment: Do you want to hurt yourself or someone else? Patient reports no desire to harm self or others. Onset of symptoms was June 24, 2024. 07:13 Method Of Arrival: EMS: [facility] 07:13 Acuity: ADRIANA 3 hb Historical: - Allergies: 07:14 No Known Allergies; hb - Home Meds: 07:14 amlodipine 10 mg tablet daily [Active]; atorvastatin 40 mg Oral tablet daily [Active]; hb Cholestyramine Light 4 gram Oral powder in packet daily [Active]; clonidine HCl 0.1 mg Oral tablet every 6 hours [Active]; donepezil 23 mg Oral tablet every day at bedtime [Active]; escitalopram oxalate 20 mg Oral tablet daily [Active]; famotidine 20 mg Oral tablet daily [Active]; lorazepam 0.5 mg Oral tablet 2 times per day [Active]; insulin aspart U-100 100 unit/mL subcutaneous cartridge 1 sliding scale dose AC/HS [Active]; Levemir U-100 Insulin 100 unit/mL subcutaneous solution daily [Active]; loperamide 2 mg Oral tablet [Active]; losartan 50 mg Oral tablet daily [Active]; metformin 500 mg Oral tablet daily [Active]; multivitamin Oral tablet [Active]; Namenda 10 mg twice a day [Active]; Ocuvel 0.9-405-770-40 qf-iy-pfue-mg Oral capsule daily [Active]; pioglitazone 15 mg Oral tablet daily [Active]; glipizide 2.5 mg Oral tablet daily [Active]; vitamin b1 daily [Active]; Vitamin C 500 mg Oral tablet daily [Active]; - PMHx: 07:14 Bipolar disorder; Anxiety; Alzheimer's disease; chronic diarrhea; CKD; DM2; GERD; hb Hyperlipidemia; Hypertension; - PSHx: 07:14 Spinal Fusion; hb - Immunization history:: Adult Immunizations up to date. - Infectious Disease History:: Denies. - Social history:: Smoking status: Patient denies any tobacco usage or history of. Screenin:45 [facility] ED Fall Risk Assessment (Adult) History of falling in the last 3 months, hb including since admission Yes- single mechanical fall (1 pt) Confusion or Disorientation Yes (5 pts) Intoxicated or Sedated No (0 pts) Impaired Gait No (0 pts) Mobility Assist Device Used No (0 pt) Altered Elimination No (0 pt) Score/Fall Risk Level 3 or more points = High Risk Oriented to surroundings, Maintained a safe environment, Educated pt \T\ family on fall prevention, incl call for assistance when getting out of bed. Abuse screen: Denies threats or abuse. Denies injuries from another. Nutritional screening: No deficits noted. Tuberculosis screening: No symptoms or risk factors identified. Assessment: 07:35 General: Appears in no apparent distress. Behavior is calm, cooperative. Pain: Pain hb currently is 3 out of 10 on a pain scale. Neuro: Level of Consciousness is awake, alert, obeys commands, Oriented to person, at baseline . Cardiovascular: Patient's skin is warm and dry. Respiratory: Respiratory effort is even, unlabored, Respiratory pattern is regular, symmetrical. GI: No signs and/or symptoms were reported involving the gastrointestinal system. : No signs and/or symptoms were reported regarding the genitourinary system. EENT: No signs and/or symptoms were reported regarding the EENT system. Derm: Skin is pink, warm \T\ dry. Musculoskeletal: Reports. Injury Description: Laceration sustained to outer aspect of left eyebrow is 0.5 to 2.5 cm long, was sustained 30-60 minutes ago. 08:44 Reassessment: Report called to Danica ORTIZ at [facility], awaiting transport at this time. Vital Signs: 07:13 BP 166 / 75; Pulse 67; Resp 16; Temp 98.3; Pulse Ox 99% on R/A; Pain 3/10; hb 09:08 BP 156 / 79; Pulse 61; Resp 18; Pulse Ox 99% on R/A; ld1 07:13 Pain Scale: Adult hb Prerna Coma Score: 07:28 Eye Response: spontaneous(4). Motor Response: obeys commands(6). Verbal Response: karl oriented(5). Total: 15. ED Course: 07:12 Patient arrived in ED. hb 07:13 Wilfrido Gee MD is Attending Physician. [facility] 07:14 Triage completed. hb 07:15 Arm band placed on. 07:45 Patient has correct armband on for positive identification. Provided Education on: procedures, use of call light . 07:47 CT Head C Spine In Process Unspecified. [facility] 08:47 Chiara Davies RN is Primary Nurse. 09:08 No provider procedures requiring assistance completed. Patient did not have IV access ld1 during this emergency room visit. Administered Medications: 07:40 Drug: Lidocaine-Epinephrine Infiltration -1%: (1:100,000) 10 ml 20 ml Infiltration once; to bedside Volume: 20 ml; Route: Infiltration; 08:43 Follow up: Response: No adverse reaction hb 09:09 Follow up: Response: No adverse reaction ld1 08:43 Drug: Boostrix Tdap IM 0.5 ml IM once; as a single dose Route: IM; Site: left deltoid; 08:43 Drug: Xplowcub-Dglrzratig-Klggnmtub Topical Ointment 1 application Topical once Route: hb Topical; Site: affected area; 09:08 Follow up: Response: No adverse reaction ld1 Medication: 08:45 VIS not applicable for this client. Outcome: 07:31 Discharge ordered by . karl 09:08 Discharged to half-way. ld1 09:08 Condition: stable 09:08 Instructed on discharge instructions, 09:09 Patient left the ED. ld1 Signatures: Dispatcher [employer] EDMS Wilfrido Gee MD MD cha Baxter, Heather, ANGEL ORTIZ Vannessa Li RN RN ld1
--- NOTE | 2024-06-24 07:31 | EDPHYS ---
Physician Documentation [facility] Name: Leonides Bui Age: 74 yrs Sex: Male : 1950 Arrival Date: 06/24/2024 Time: 07:11 Bed 14 Private MD: JORDY Physician Wilfrido Gee HPI: 06/24 07:24 This 74 yrs old Male presents to ER via EMS with complaints of Laceration To karl Scalp/Face. 07:24 The patient has a laceration related to: walking. The laceration(s) is(are) located on karl the face. Onset: The symptoms/episode began/occurred just prior to arrival, this morning. Associated signs and symptoms: The patient has no apparent associated signs or symptoms. The patient has not experienced similar symptoms in the past. Historical: - Allergies: : No Known Allergies; hb - Home Meds: 07:14 amlodipine 10 mg tablet daily [Active]; atorvastatin 40 mg Oral tablet daily [Active]; hb Cholestyramine Light 4 gram Oral powder in packet daily [Active]; clonidine HCl 0.1 mg Oral tablet every 6 hours [Active]; donepezil 23 mg Oral tablet every day at bedtime [Active]; escitalopram oxalate 20 mg Oral tablet daily [Active]; famotidine 20 mg Oral tablet daily [Active]; lorazepam 0.5 mg Oral tablet 2 times per day [Active]; insulin aspart U-100 100 unit/mL subcutaneous cartridge 1 sliding scale dose AC/HS [Active]; Levemir U-100 Insulin 100 unit/mL subcutaneous solution daily [Active]; loperamide 2 mg Oral tablet [Active]; losartan 50 mg Oral tablet daily [Active]; metformin 500 mg Oral tablet daily [Active]; multivitamin Oral tablet [Active]; Namenda 10 mg twice a day [Active]; Ocuvel 0.7-861-832-40 wz-qm-zmxe-mg Oral capsule daily [Active]; pioglitazone 15 mg Oral tablet daily [Active]; glipizide 2.5 mg Oral tablet daily [Active]; vitamin b1 daily [Active]; Vitamin C 500 mg Oral tablet daily [Active]; - PMHx: 07:14 Bipolar disorder; Anxiety; Alzheimer's disease; chronic diarrhea; CKD; DM2; GERD; hb Hyperlipidemia; Hypertension; - PSHx: 07:14 Spinal Fusion; hb - Immunization history:: Adult Immunizations up to date. - Infectious Disease History:: Denies. - Social history:: Smoking status: Patient denies any tobacco usage or history of. ROS: 07:25 Constitutional: Negative for fever, chills, and weight loss, Eyes: Negative for injury, karl pain, redness, and discharge, ENT: Negative for injury, pain, and discharge, Neck: Negative for injury, pain, and swelling, Cardiovascular: Negative for chest pain, palpitations, and edema, Respiratory: Negative for shortness of breath, cough, wheezing, and pleuritic chest pain, Abdomen/GI: Negative for abdominal pain, nausea, vomiting, diarrhea, and constipation, Back: Negative for injury and pain, : Negative for injury, bleeding, discharge, and swelling, MS/Extremity: Negative for injury and deformity, Neuro: Negative for headache, weakness, numbness, tingling, and seizure, Psych: Negative for depression, anxiety, suicide ideation, homicidal ideation, and hallucinations, Allergy/Immunology: Negative for hives, rash, and allergies, Endocrine: Negative for neck swelling, polydipsia, polyuria, polyphagia, and marked weight changes, Hematologic/Lymphatic: Negative for swollen nodes, abnormal bleeding, and unusual bruising, 07:25 Skin: Positive for laceration(s), Exam: 07:25 Constitutional: This is a well developed, well nourished patient who is awake, alert, karl and in no acute distress. Eyes: Pupils equal round and reactive to light, extra-ocular motions intact. Lids and lashes normal. Conjunctiva and sclera are non-icteric and not injected. Cornea within normal limits. Periorbital areas with no swelling, redness, or edema. ENT: Nares patent. No nasal discharge, no septal abnormalities noted. Tympanic membranes are normal and external auditory canals are clear. Oropharynx with no redness, swelling, or masses, exudates, or evidence of obstruction, uvula midline. Mucous membranes moist. Neck: Trachea midline, no thyromegaly or masses palpated, and no cervical lymphadenopathy. Supple, full range of motion without nuchal rigidity, or vertebral point tenderness. No Meningismus. Chest/axilla: Normal chest wall appearance and motion. Nontender with no deformity. No lesions are appreciated. Cardiovascular: Regular rate and rhythm with a normal S1 and S2. No gallops, murmurs, or rubs. Normal PMI, no JVD. No pulse deficits. Respiratory: Lungs have equal breath sounds bilaterally, clear to auscultation and percussion. No rales, rhonchi or wheezes noted. No increased work of breathing, no retractions or nasal flaring. Abdomen/GI: Soft, non-tender, with normal bowel sounds. No distension or tympany. No guarding or rebound. No evidence of tenderness throughout. Back: No spinal tenderness. No costovertebral tenderness. Full range of motion. Male : Normal genitalia with no discharge or lesions. Skin: Warm, dry with normal turgor. Normal color with no rashes, no lesions, and no evidence of cellulitis. MS/ Extremity: Pulses equal, no cyanosis. Neurovascular intact. Full, normal range of motion., bilateral aka Neuro: Awake and alert, GCS 15, oriented to person, place, time, and situation. Cranial nerves II-XII grossly intact. Motor strength 5/5 in all extremities. Sensory grossly intact. Cerebellar exam normal. Normal gait. Psych: Awake, alert, with orientation to person, place and time. Behavior, mood, and affect are within normal limits. 07:25 Head/face: Noted is a laceration(s), that is superficial, 1.5 cm(s), swelling, tenderness, Vital Signs: 07:13 BP 166 / 75; Pulse 67; Resp 16; Temp 98.3; Pulse Ox 99% on R/A; Pain 3/10; hb 09:08 BP 156 / 79; Pulse 61; Resp 18; Pulse Ox 99% on R/A; ld1 07:13 Pain Scale: Adult hb Prerna Coma Score: 07:28 Eye Response: spontaneous(4). Motor Response: obeys commands(6). Verbal Response: karl oriented(5). Total: 15. Laceration: 07:25 Wound Repair of 1.5cm ( 0.6in ) subcutaneous laceration to left eye. Linear shaped.. karl Distal neuro/vascular/tendon intact. Anesthesia: Local anesthetic administered with 5 mls of 1% lidocaine w/ Epi. Wound prep: Simple cleansing by me. Skin closed with 2 5-0 Prolene using interrupted sutures and sterile technique. MDM: 07:14 Medical Screening Exam initiated [facility] 07:28 Differential diagnosis: closed head injury, contusion. Data reviewed: vital signs, [facility] nurses notes, radiologic studies, CT scan. Consideration of Admission/Observation Escalation of care including admission/observation considered. I considered the following discharge prescriptions or medication management in the emergency department Medications were administered in the Emergency Department. See MAR. Independent interpretation of the following test(s) in the Emergency Department CT Scan: My interpretation is ct head. Historians other than the Patient: EMS: ems well informed. 06/24 07:15 Order name: CT Head C Spine [facility] 06/24 07:15 Order name: Dressing - Wound; Complete Time: 08:47 [facility] 06/24 07:15 Order name: Gloves, Sterile; Complete Time: 08:47 [facility] 06/24 07:15 Order name: Prolene, Sutures; Complete Time: 08:47 [facility] 06/24 07:15 Order name: Setup Suture Tray; Complete Time: 08:47 karl Administered Medications: 07:40 Drug: Lidocaine-Epinephrine Infiltration -1%: (1:100,000) 10 ml 20 ml Infiltration hb once; to bedside Volume: 20 ml; Route: Infiltration; 08:43 Follow up: Response: No adverse reaction hb 09:09 Follow up: Response: No adverse reaction ld1 08:43 Drug: Boostrix Tdap IM 0.5 ml IM once; as a single dose Route: IM; Site: left deltoid; hb 08:43 Drug: Wywxodjj-Qticaekcsh-Cocegoibe Topical Ointment 1 application Topical once Route: hb Topical; Site: affected area; 09:08 Follow up: Response: No adverse reaction ld1 Disposition Summary: 06/24/24 07:31 Discharge Ordered Notes: Location: Home karl Problem: new karl Symptoms: have improved karl Condition: Stable karl Diagnosis - Fall on same level, unspecified karl - Unspecified injury of head, initial encounter karl - Laceration without foreign body of other part of head - left brow karl Followup: karl - With: Private Physician - When: 2 - 3 days - Reason: Recheck today's complaints, Continuance of care, Re-evaluation by your physician Discharge Instructions: - Discharge Summary Sheet karl - Dementia karl - Head Injury, Adult karl - Fall Prevention in the Home, Adult karl - Facial Laceration karl - Facial Laceration, [id number] karl - Fall Prevention in the Home, Adult, [id number] karl - Head Injury, Adult, [id number]-[id number] karl - Dementia, [id number] karl Forms: - Medication Reconciliation Form karl - Antibiotic Education karl - Prescription Opioid Use karl - Patient Portal Instructions karl - Leadership Thank You Letter karl Signatures: Dispatcher [employer] EDWilfrido Miller MD MD cha Baxter, Heather, RN RN Vannessa Li RN ld1 Corrections: (The following items were deleted from the chart) 07:25 07:25 CBC+H.LAB.BRZ ordered. EDMS EDMS 07:25 07:25 COMPREHENSIVE METABOLIC PANEL+C.LAB.BRZ ordered. EDMS EDMS 07:25 07:25 Urinalysis+U.LAB.BRZ ordered. EDMS EDMS
[2024-06-24] MEDS ORDERED: LIDOCAINE 1% MPF 5 ML VIAL ONE (07:56)
[2024-06-24] MEDS ORDERED: TDAP (DIPHTH,PERTUSS(ACELL),TET VAC) 0.5 ML VIAL IMVAC ONE (07:57)
[2024-06-24] MEDS ORDERED: NEOMYCIN/BAC/POLY OPTH 3.5GM ONE (07:57)
--- NOTE | 2024-06-24 08:31 | RAD REPORT ---
EXAM: CT brain without contrast HISTORY: Headache;Trauma COMPARISON: 12/28/2022 TECHNIQUE: Multiple contiguous axial images were obtained and a CT of the brain without contrast. Sag ittal and coronal reformats were performed. FINDINGS: No evidence of hydrocephalus, intracranial hemorrhage, or extra-axial fluid collection. Stable ventri cular caliber. Mild brain atrophy with moderate periventricular and deep white matter chronic microvascular ischemi c changes, with accentuated hypoattenuation in the right centrum semiovale and anterior forceps minor regions, stable. Findings are nonspecific, but suggest chronic small vessel ischemic changes. The calvarium is intact. The visualized paranasal sinuses and mastoid air cells are essentially clear . Left supraorbital swelling and small hematoma. IMPRESSION: No evidence of acute intracranial abnormality. EXAM: CT of the cervical spine without contrast HISTORY: Headache;Trauma COMPARISON: None TECHNIQUE: Multiple contiguous axial images were obtained in a CT of the cervical spine without contr ast. Sagittal and coronal reformats were performed. FINDINGS: The vertebral bodies demonstrate normal height and alignment. No evidence of acute fracture or subluxation.. Mild multilevel degenerative changes with disc height loss and endplate remodeling most pronounced at C5-6. Uncovertebral joint and facet remodeling contribute to moderate b ilateral neural foraminal narrowing at C6-7. No prevertebral soft tissue swelling is seen. The posterior facets are well aligned. Normal alignment of the skull base with the cervical spine is seen. The lung apices are unremarkable. IMPRESSION: No evidence of acute osseous abnormality of the cervical spine. Multilevel degenerative changes as ab ove.
[2024-06-24 09:18] VITALS: TEMP 98.3; O2SAT 99
[2024-06-24 09:19] VITALS: BP 156/79
== END 2024-06-24 09:09 | disposition home or self-care (01) ==
LOC: ER 07:11
DX: S01.112A Laceration without foreign body of left eyelid and periocular area, initial encounter (principal); W18.30XA Fall on same level, unspecified, initial encounter
CPT/HCPCS: 70450; 72125; 96372; 99284; 12011; J2003

== ENCOUNTER 2024-07-09 15:59 | Inpatient (IN) | payer OTHER ==
[2024-07-09 16:57] LABS: Absolute Eosinophils 0.2 K/uL (0-0.5); Absolute Lymphocytes (CBC) 1.4 K/uL (0.7-4.9); Absolute Monocytes 0.7 K/uL (0.1-1.3); Absolute Neutrophil 5.3 K/uL (1.8-8.0); Basophils % 0.3 % (0-1.3); Hematocrit 25.4 % (39.6-49.0); Lymphocytes % 18.9 % (15.3-44.8); MCH 28.3 pg (27.0-35.0); MCHC 31.6 g/dL (32.0-36.0); MCV 89.4 fL (80-100); MPV 8.8 fL (7.6-11.3); Monocytes % 8.6 % (3.3-12.3); Neutrophils % 70.2 % (41.7-73.7); Platelets 199 thou/uL (152-406); RBC Red Blood Cell Count 2.84 M/uL (4.33-5.43); Red Cell Distribution Width 18.5 % (12.1-15.2)
[2024-07-09 17:00] LABS: PT Prothrombin Time 12.8 SECONDS (9.4-12.5); PTT, Activated Partial Thromb 34.2 SECONDS (24.3-36.9); Protime INR 1.15
[2024-07-09 17:06] LABS: Albumin/Globulin Ratio 0.8 (1.1-1.8); Anion Gap 9.1 mEq/L (5.0-15.0); Bilirubin Total 0.2 mg/dL (0.2-1.0); Globulin 3.6 g/dL (2.3-3.5); Potassium 5.1 mEq/L (3.5-5.1); Protein, Total 6.6 g/dL (6.4-8.2)
--- NOTE | 2024-07-09 17:48 | RAD REPORT ---
EXAMINATION: ONE VIEW CHEST XR CLINICAL INDICATION: Male, 74 years old.,AMS TECHNIQUE: Frontal chest projection is submitted. Examination is limited by patient positioning and t echnique. COMPARISON: 09/21/2023 FINDINGS: Decreased inspiratory effort limits evaluation. Bibasilar patchy opacities worse on the left, extendi ng into the retrocardiac space. No pneumothorax or sizable effusion. The heart is normal in size. Mediastinal contours are unremarkable. IMPRESSION: Bibasilar patchy opacities worse on the left, may reflect atelectasis and/or pneumonia.
[2024-07-09] MEDS ORDERED: AZITHROMYCIN 500 MG INJ IVPB ONE (18:11)
[2024-07-09] MEDS ORDERED: CEFTRIAXONE 1000 MG/VIAL ONE (18:11)
[2024-07-09] MEDS ORDERED: NA CHLORIDE 0.9% 250 ML ONE (18:11)
--- NOTE | 2024-07-09 18:16 | RAD REPORT ---
EXAM: CT Head Brain Wo Cont HISTORY: AMS COMPARISON: 12/28/2022 TECHNIQUE: Multiple contiguous axial images were obtained for a CT of the brain without contrast. Sag ittal and coronal reformats were performed. One or more of the following dose reduction techniques were used: Automated exposure control, adjus tment of the mA and kV according to patient size, and iterative reconstruction. Unless otherwise specified, incidental findings do not require dedicated imaging follow-up. FINDINGS: Motion artifact somewhat limits evaluation. No evidence of hydrocephalus, intracranial hemorrhage, or extra-axial fluid collection. Mild diffuse parenchymal atrophic changes. Asymmetric right centrum semiovale and frontal subcortica l white matter hypodensity with mild asymmetric prominence of the right lateral ventricle, stable. Findings are nonspecific and could relate to chronic small vessel ischemic changes. Sequelae of focal remote ischemia within the right hemispheric white matter. Focus of calcification along the anterior interhemispheric fissure again seen. The calvarium is intact. The visualized paranasal sinuses and mastoid air cells are essentially clear . IMPRESSION: No evidence of acute intracranial abnormality. Stable chronic findings as above.
--- NOTE | 2024-07-09 18:27 | RAD REPORT ---
EXAMINATION: CT Abdomen Pelvis Wo Contrast CLINICAL INDICATION: Male, 74 years old. diarrhea, AMS TECHNIQUE: CT abdomen and pelvis was performed, without IV contrast, as per department protocol. Axia l, sagittal and coronal reconstructions were obtained. One or more of the following dose reduction techniques were used: Automated exposure control, adjustment of the mA and kV according to the patien t size, and iterative reconstruction. Unless otherwise specified, incidental findings do not require dedicated imaging follow-up. COMPARISON: No prior exam. FINDINGS: The lack of intravenous contrast limits the sensitivity of this exam for evaluation of solid visceral organs, vascular structures, and retroperitoneum. LOWER CHEST: Patchy dependent bibasilar airspace opacities with air bronchograms, more pronounced on the left. LIVER: Normal in size and contour. No focal lesion. BILIARY SYSTEM: Cholelithiasis. No pericholecystic fluid or fat stranding. SPLEEN: Normal size. No focal lesion. PANCREAS: No mass, ductal dilation, or yaneth-pancreatic fluid. ADRENALS: Normal; no mass. KIDNEYS AND URETERS: 2 mm calculus in the left lower renal pole. Normal size and contour. No hydronep hrosis. URINARY BLADDER: Markedly Distended. No focal abnormalities. GASTROINTESTINAL TRACT: No evidence of bowel obstruction, significant free fluid, free air or abscess . Distal descending and proximal sigmoid mild diverticulosis. APPENDIX: Normal appendix. LYMPH NODES: No lymphadenopathy. MUSCULOSKELETAL: Healing fracture at the base of the left superior pubic ramus with periosteal reacti on healing right anterior seventh rib fracture ADDITIONAL FINDINGS: None. IMPRESSION: Patchy dependent bibasilar airspace opacities with air bronchograms, more pronounced on the left, may reflect underlying pneumonia or atelectasis. Nonobstructing left lower pole 2 mm calculus. Cholelithiasis. Markedly distended urinary bladder.
--- NOTE | 2024-07-09 18:41 | EDPHYS ---
Physician Documentation [facility] Name: Leonides Bui Age: 74 yrs Sex: Male : 1950 Arrival Date: 07/09/2024 Time: 15:59 Bed 7 Private MD: ED Physician Noel Samaniego HPI: 07/09 18:08 This 74 yrs old Male presents to ER via EMS with complaints of Altered Mental Status. rn 18:09 The patient presents with decreased responsiveness. Onset: The symptoms/episode rn began/occurred yesterday. Associated signs and symptoms: Pertinent negatives: abdominal pain, chest pain. Current symptoms: In the emergency department the patient's symptoms have improved. The patient has not experienced similar symptoms in the past. Patient brought in for evaluation for altered mental status and decreased responsiveness. states that she noticed him acting funny yesterday, got worse today. They were unable to wake him up today and showing decreased responsiveness.. Historical: - Allergies: 16:13 NKDA; iw - Home Meds: 16:15 amlodipine 10 mg tablet daily [Active]; atorvastatin 40 mg Oral tablet daily [Active]; iw Cholestyramine Light 4 gram Oral powder in packet daily [Active]; clonidine HCl 0.1 mg Oral tablet every 6 hours [Active]; donepezil 23 mg Oral tablet every day at bedtime [Active]; Depakote 500 mg Oral tablet, delayed release (enteric coated) daily [Active]; escitalopram oxalate 20 mg Oral tablet daily [Active]; glipizide 2.5 mg Oral tablet daily [Active]; hydralazine 25 mg oral tablet 2 times per day [Active]; insulin glargine 100 unit/mL Sub-Q solution 10 units daily [Active]; Novolog U-100 Insulin aspart 100 unit/mL Sub-Q solution 1 sliding scale dose [Active]; Ocuvite [facility] 50 mg-15 unit- 4.5 mg-2.5 mg oral tablet,chewable [Active]; omeprazole 20 mg Oral tablet, delayed release (enteric coated) daily [Active]; pioglitazone 15 mg oral tablet daily [Active]; - PMHx: 16:13 Alzheimer's disease; Anxiety; Bipolar disorder; chronic diarrhea; CKD; DM2; GERD; iw Hyperlipidemia; Hypertension; - PSHx: 16:13 Spinal Fusion; iw - Immunization history:: Adult Immunizations up to date. - Infectious Disease History:: Denies. - Family history:: not pertinent. - Social history:: Smoking status: unknown. - Hospitalizations: : No recent hospitalization is reported. ROS: 18:09 Unable to obtain ROS due to altered mental status, rn Exam: 17:21 ECG was reviewed by the Attending Physician. rn 18:09 Constitutional: This is a well developed, well nourished patient who is awake, rn somnolent but awakens to voice and pain, and in no acute distress. Head/Face: Normocephalic, atraumatic. ENT: Dry mucous membranes Cardiovascular: Regular rate and rhythm. No pulse deficits. Respiratory: No increased work of breathing, no retractions or nasal flaring. Abdomen/GI: Soft, non-tender MS/ Extremity: Pulses equal, no cyanosis. Neuro: Somnolent, awakens to voice and tactile stimuli. Withdraws from pain in all 4 extremities. Follows commands but does not hold conversation Vital Signs: 16:10 BP 118 / 78; Pulse 69; Resp 20 S; Temp 97.7(O); Pulse Ox 90% on R/A; iw 16:56 BP 150 / 70; Pulse 60; Resp 19; Pulse Ox 96% on 2 lpm NC; ll1 18:55 BP 144 / 77; Pulse 58; Resp 18; Pulse Ox 95% on 2 lpm NC; ll1 19:00 BP 121 / 72; Pulse 55; Resp 15; Pulse Ox 95% on 2 lpm NC; al5 19:15 BP 143 / 71; Pulse 55; Resp 17; Pulse Ox 95% on 2 lpm NC; al5 19:30 BP 152 / 67; Pulse 55; Resp 17; Pulse Ox 94% on 2 lpm NC; al5 19:45 BP 134 / 64; Pulse 59; Resp 13; Pulse Ox 94% on 2 lpm NC; al5 MDM: 16:11 Medical Screening Exam initiated rn 18:39 Differential Diagnosis: CVA, electrolyte abnormality, hypoglycemia, intracranial bleed, rn pneumonia, UTI, volume depletion. Data reviewed: vital signs, nurses notes, lab test result(s), EKG, radiologic studies, CT scan, plain films, and as a result, I will admit patient. Consideration of Admission/Observation Patient was admitted/placed on observation. Escalation of care including admission/observation considered. Care significantly affected by the following chronic conditions: Chronic Kidney Disease, Dementia. Counseling: I had a detailed discussion with the patient and/or guardian regarding the historical points, exam findings, and any diagnostic results supporting the discharge/admit diagnosis, lab results, radiology results, the need for further work-up and treatment in the hospital. Response to treatment: There is no appreciated change of the patient's symptoms at this time, and as a result, I will admit patient. 07/09 16:12 Order name: Blood Culture Adult (2) rn 07/09 16:12 Order name: CBC with Diff; Complete Time: 18:07 rn 07/09 16:12 Order name: CMP; Complete Time: 18:07 rn 07/09 16:12 Order name: Lactate w/ 2H reflex if indic.; Complete Time: 18: rn 07/09 16:12 Order name: Protime (+inr); Complete Time: 18:07 rn 07/09 16:12 Order name: Ptt, Activated; Complete Time: 18:07 rn 07/09 16:12 Order name: Urinalysis w/ reflexes rn 07/09 16:54 Order name: Glucose, Ancillary Testing; Complete Time: 18:07 EDMS 07/09 18:55 Order name: Urinalysis w/ reflexes EDMS 07/09 18:55 Order name: CBC with Automated Diff EDMS 07/09 18:55 Order name: CBC with Automated Diff EDMS 07/09 18:55 Order name: Comprehensive Metabolic Panel EDMS 07/09 18:55 Order name: Comprehensive Metabolic Panel EDMS 07/09 18:55 Order name: Magnesium EDMS 07/09 18:55 Order name: Magnesium EDMS 07/09 18:55 Order name: Phosphorus EDMS 07/09 18:55 Order name: Phosphorus EDMS 07/09 16:12 Order name: Chest Single View XRAY; Complete Time: 18:07 rn 07/09 16:12 Order name: CT Head Brain wo Cont; Complete Time: 18:18 rn 07/09 16:24 Order name: CT Abd/Pelvis - Without Contrast; Complete Time: 18:29 rn 07/09 16:12 Order name: Accucheck; Complete Time: 16:35 rn 07/09 16:12 Order name: Cardiac monitoring; Complete Time: 16:35 rn 07/09 16:12 Order name: EKG - Nurse/Tech; Complete Time: 16:35 rn 07/09 16:12 Order name: IV Saline Lock - Large Bore; Complete Time: 16:35 rn 07/09 16:12 Order name: Labs collected and sent; Complete Time: 16:35 rn 07/09 16:12 Order name: O2 Per Protocol; Complete Time: 16:18 rn 07/09 16:12 Order name: O2 Sat Monitoring; Complete Time: 16:18 rn 07/09 16:12 Order name: Vital Signs; Complete Time: 16:18 rn 07/09 18:30 Order name: Kline; Complete Time: 18:49 rn EC:21 Rate is 60 beats/min. Rhythm is regular. Left axis deviation noted. QRS is positive in rn lead I and negative in lead aVF. IA interval is normal. QRS interval is normal. QT interval is normal. No Q waves. T waves are Normal. No ST changes noted. Clinical impression: NSR w/ Non-specific ST/T Changes. Interpreted by me. Reviewed by me. Administered Medications: 18:20 Drug: Rocephin IV 1 grams IV at calculated rate once; Given slow IV push per pharmacy ll1 instructions Route: IV; Rate: calculated rate; Site: right antecubital; 18:49 Follow up: Response: No adverse reaction; IV Status: Completed infusion; IV Intake: [id number] 18:20 Drug: Zithromax IVPB 500 mg IVPB once over 1 hrs; mix in 250 mL NS Route: IVPB; Infused ll1 Over: 1 hrs; Site: right antecubital; 19:44 Follow up: Response: No adverse reaction; IV Status: Completed infusion; IV Intake: al5 250ml 18:50 Drug: NS 0.9% IV 500 ml 500 ml IV at 1 bolus once; to be given as a bolus over 30 ll1 minutes Volume: 500 ml; Route: IV; Rate: 1 bolus; Site: right antecubital; 20:18 Follow up: Response: No adverse reaction; IV Status: Completed infusion; IV Intake: al5 500ml Disposition Summary: 07/09/24 18:40 Hospitalization Ordered Notes: Hospitalization Status: Inpatient Admission rn Provider: Kole Limon rn [facility] rn Condition: Stable rn Problem: new rn Symptoms: have improved rn Bed/Room Type: Standard rn Room Assignment: 219(07/09/24 19:54) al5 Diagnosis - Altered mental status, unspecified rn - Pneumonia, unspecified organism rn - 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 EDMS EDMS 16:12 16:12 CBC+H.LAB.BRZ ordered. EDMS EDMS 16:12 16:12 COMPREHENSIVE METABOLIC PANEL+C.LAB.BRZ ordered. EDMS EDMS 16:12 16:12 LACTATE+C.LAB.BRZ ordered. EDMS EDMS 16:12 16:12 PROTIME (+INR)+COAG.LAB.BRZ ordered. EDMS EDMS 16:12 16:12 PTT, ACTIVATED+COAG.LAB.BRZ ordered. EDMS EDMS 16:12 16:12 Urinalysis+U.LAB.BRZ ordered. EDMS EDMS 16:12 16:12 Chest Single View+RAD.RAD.BRZ ordered. EDMS EDMS 16:13 16:13 Head Brain Wo Cont+CT.RAD.BRZ ordered. EDMS EDMS 19:26 18:40 rn rv1 19:54 19:26 211 rv1 al5
--- NOTE | 2024-07-09 18:41 | ER ---
Nurse's Notes [facility] [place] Name: Leonides Bui Age: 74 yrs Sex: Male : 1950 Arrival Date: 07/09/2024 Time: 15:59 Bed 7 Private MD: Diagnosis: Altered mental status, unspecified;Pneumonia, unspecified organism;Dehydration Presentation: 07/09 16:10 Chief complaint: EMS states: toned out for "unresponsive" , pt was sleeping on arrival iw to [place], woke up when they moved him over, states he has been more drowsy and tired since yesterday. Coronavirus screen: At this time, the client does not indicate any symptoms associated with coronavirus-19. Ebola Screen: No symptoms or risks identified at this time. Initial Sepsis Screen: Does the patient meet any 2 criteria? No. Patient's initial sepsis screen is negative. Does the patient have a suspected source of infection? No. Patient's initial sepsis screen is negative. Risk Assessment: Do you want to hurt yourself or someone else? Patient reports no desire to harm self or others. Onset of symptoms was July 09, 2024. 16:10 Method Of Arrival: EMS: [facility] iw 16:10 Acuity: ADRIANA 3 iw 16:13 Care prior to arrival: Glucose check: 298. iw Historical: - Allergies: 16:13 NKDA; iw - Home Meds: 16:15 amlodipine 10 mg tablet daily [Active]; atorvastatin 40 mg Oral tablet daily [Active]; iw Cholestyramine Light 4 gram Oral powder in packet daily [Active]; clonidine HCl 0.1 mg Oral tablet every 6 hours [Active]; donepezil 23 mg Oral tablet every day at bedtime [Active]; Depakote 500 mg Oral tablet, delayed release (enteric coated) daily [Active]; escitalopram oxalate 20 mg Oral tablet daily [Active]; glipizide 2.5 mg Oral tablet daily [Active]; hydralazine 25 mg oral tablet 2 times per day [Active]; insulin glargine 100 unit/mL Sub-Q solution 10 units daily [Active]; Novolog U-100 Insulin aspart 100 unit/mL Sub-Q solution 1 sliding scale dose [Active]; [facility] 50 mg-15 unit- 4.5 mg-2.5 mg oral tablet,chewable [Active]; omeprazole 20 mg Oral tablet, delayed release (enteric coated) daily [Active]; pioglitazone 15 mg oral tablet daily [Active]; - PMHx: 16:13 Alzheimer's disease; Anxiety; Bipolar disorder; chronic diarrhea; CKD; DM2; GERD; iw Hyperlipidemia; Hypertension; - PSHx: 16:13 Spinal Fusion; iw - Immunization history:: Adult Immunizations up to date. - Infectious Disease History:: Denies. - Family history:: not pertinent. - Social history:: Smoking status: unknown. - Hospitalizations: : No recent hospitalization is reported. Screenin:03 [facility] ED Fall Risk Assessment (Adult) History of falling in the last 3 months, ll1 including since admission Yes- single mechanical fall (1 pt) Confusion or Disorientation Yes (5 pts) Intoxicated or Sedated No (0 pts) Impaired Gait Yes (1 pt) Mobility Assist Device Used Yes (1 pt) Altered Elimination Yes (1 pt) Score/Fall Risk Level 3 or more points = High Risk Maintained a safe environment, Hourly rounding (assess needs \\T\\ fall precautionary measures) done. Abuse screen: Denies threats or abuse. Nutritional screening: No deficits noted. Tuberculosis screening: No symptoms or risk factors identified. Assessment: 15:55 General: Appears in no apparent distress. Behavior is calm, cooperative, appropriate ll1 for age. Pain: Denies pain. Neuro: Reports difficult to arouse, sleeping a lot. 18:21 Reassessment: No changes from previously documented assessment. Patient and/or family ll1 updated on plan of care and expected duration. Pain level reassessed. 18:56 Reassessment: No changes from previously documented assessment. Patient and/or family ll1 updated on plan of care and expected duration. Pain level reassessed. 19:07 General: Appears in no apparent distress. comfortable, Behavior is calm, cooperative, al5 appropriate for age. Pain: Denies pain. Neuro: Level of Consciousness is awake, alert, obeys commands, Oriented to person, place, time, situation. Cardiovascular: Capillary refill < 3 seconds Patient's skin is warm and dry. Respiratory: Airway is patent Respiratory effort is even, unlabored, Respiratory pattern is regular, symmetrical, wearing 2L nasal cannula. GI: Abdomen is flat, non-distended. : Kline in place to gravity drainage. EENT: No signs and/or symptoms were reported regarding the EENT system. Derm: Skin is intact, Skin is pink, warm \\T\\ dry. normal. Musculoskeletal: generalized weakness. Vital Signs: 16:10 BP 118 / 78; Pulse 69; Resp 20 S; Temp 97.7(O); Pulse Ox 90% on R/A; iw 16:56 BP 150 / 70; Pulse 60; Resp 19; Pulse Ox 96% on 2 lpm NC; ll1 18:55 BP 144 / 77; Pulse 58; Resp 18; Pulse Ox 95% on 2 lpm NC; ll1 19:00 BP 121 / 72; Pulse 55; Resp 15; Pulse Ox 95% on 2 lpm NC; al5 19:15 BP 143 / 71; Pulse 55; Resp 17; Pulse Ox 95% on 2 lpm NC; al5 19:30 BP 152 / 67; Pulse 55; Resp 17; Pulse Ox 94% on 2 lpm NC; al5 19:45 BP 134 / 64; Pulse 59; Resp 13; Pulse Ox 94% on 2 lpm NC; al5 ED Course: 06:50 Provided Education on: ED procedures and process. ll1 15:55 First set of blood cultures drawn. Missed attempt(s): 20 gauge in right forearm. ll1 Bleeding controlled, band aid applied, catheter tip intact. 16:06 Patient arrived in ED. ll1 16:10 Initial lab(s) drawn, by ny, sent to lab. Second set of blood cultures drawn. Inserted ll1 saline lock: 22 gauge in right antecubital area, using aseptic technique. Blood collected. Flushed with 10 mL NS. 16:11 Noel Samaniego MD is Attending Physician. rn 16:13 Triage completed. iw 16:17 Ancelmo Harris, ANGEL is Primary Nurse. ll1 16:22 Arm band placed on. iw 17:04 Patient has correct armband on for positive identification. Bed in low position. Call ll1 light in reach. Client placed on continuous cardiac and pulse oximetry monitoring. NIBP monitoring applied. monitor worker on. 17:27 Chest Single View XRAY In Process Unspecified. EDMS 17:29 CT Head Brain wo Cont In Process Unspecified. EDMS 17:34 CT Abd/Pelvis - Without Contrast In Process Unspecified. EDMS 18:40 Kole Limon MD is Hospitalizing Provider. rn 18:54 Kline cath inserted, using sterile technique, 16 Fr., by ny, balloon inflated, to ll1 gravity drainage, clamped. urine specimen collected. returned clear yellow urine. Patient tolerated well. Kline cath. 19:07 No provider procedures requiring assistance completed. Patient admitted, IV remains in ll1 place. 19:08 Report given to warehouse supervisor 3rd shift RN's Triston and Shaye. ll1 Administered Medications: 18:20 Drug: Rocephin IV 1 grams IV at calculated rate once; Given slow IV push per pharmacy ll1 instructions Route: IV; Rate: calculated rate; Site: right antecubital; 18:49 Follow up: Response: No adverse reaction; IV Status: Completed infusion; IV Intake: [id number] 18:20 Drug: Zithromax IVPB 500 mg IVPB once over 1 hrs; mix in 250 mL NS Route: IVPB; Infused ll1 Over: 1 hrs; Site: right antecubital; 19:44 Follow up: Response: No adverse reaction; IV Status: Completed infusion; IV Intake: al5 250ml 18:50 Drug: NS 0.9% IV 500 ml 500 ml IV at 1 bolus once; to be given as a bolus over 30 ll1 minutes Volume: 500 ml; Route: IV; Rate: 1 bolus; Site: right antecubital; 20:18 Follow up: Response: No adverse reaction; IV Status: Completed infusion; IV Intake: al5 500ml Medication: 17:04 VIS not applicable for this client. ll1 Intake: 18:49 IV: 10ml; Total: 10ml. ll1 19:44 IV: 250ml; Total: 260ml. al5 20:18 IV: 500ml; Total: 760ml. al5 Outcome: 18:40 Decision to Hospitalize by Provider. rn 19:07 Condition: stable ll1 20:17 Admitted to Med/surg accompanied by tech, family with patient, via stretcher, room 219, al5 with oxygen, with chart, 20:17 Condition: stable 20:17 Instructed on the need for admit, 20:25 Patient left the ED. al5 Signatures: Dispatcher [employer] EDMS Kylah Cameron RN RN Noel Samaniego MD MD rn Lewis, Lynsay, RN RN 1 Shaye Nava RN RN al5 Corrections: (The following items were deleted from the chart) 16:58 16:57 Missed attempt(s): 20 gauge in right forearm. Bleeding controlled, band aid ll1 applied, catheter tip intact. ll1 16:58 16:55 First set of blood cultures drawn ll1 ll1 : 20:07 General: Appears in no apparent distress. comfortable, Behavior is calm, al5 cooperative, appropriate for age, al5 : 20:07 Pain: Denies pain. al5 al5 : 20:07 Neuro: Level of Consciousness is awake, alert, obeys commands, Oriented to al5 person, place, time, situation, al5 : 20:07 Cardiovascular: Capillary refill < 3 seconds Patient's skin is warm and dry. al5 al5 : 20:07 Respiratory: Airway is patent Respiratory effort is even, unlabored, Respiratory al5 pattern is regular, symmetrical, wearing 2L nasal cannula al5 : 20:07 GI: Abdomen is flat, non-distended, al5 al5 : 20:07 : Kline in place to gravity drainage al5 al5 : 20:07 EENT: No signs and/or symptoms were reported regarding the EENT system. al5 al5 : 20:07 Derm: Skin is intact, Skin is pink, warm \\T\\ dry. normal, al5 al5 : 20:07 Musculoskeletal: generalized weakness al5 al5
--- NOTE | 2024-07-09 18:48 | P.HP ---
Certification for Inpatient Patient admitted to: Inpatient With expected LOS: >2 Midnights Practitioner: I am a practitioner with admitting privileges, knowledge of patient current condition, hospital course, and medical plan of care. Services: Services provided to patient in accordance with Admission requirements found in Title 42 Section 412.3 of the Code of Federal Regulations Patient History Date of Service: 07/10/24 Reason for admission: AMS History of Present Illness: 74 yrs old Male with past medical history of Alzheimer's disease, anxiety, bipolar disorder, CKD stage II, diabetes, hypertension, hyperlipidemia, GERD who was brought to ER with altered mental status and decreased responsiveness which has been going on since yesterday. Patient is a poor historian hence most of the history is obtained from the chart review and also talking to the family at the bedside. Denies any fever or chills. Denies any chest pain or shortness of breath. Denies any nausea vomiting or diarrhea. No sick contacts. Apparently patient was seen to be more altered and decreased responsiveness was brought to ER Patient was assessed in the ER and is admitted for further management and also to rule out UTI Allergies No Known Allergies Allergy (Verified 05/07/21 20:06) Home medications list reviewed: Yes Home Medications: Memantine HCl 5 mg PO DAILY 05/08/21 NIFEdipine [Nifedipine ER] 60 mg PO DAILY 05/08/21 Pioglitazone HCl 15 mg PO DAILY 05/08/21 Acetaminophen [Tylenol] 650 mg PO DAILY 07/10/24 Amlodipine Besylate [Norvasc] 10 mg PO DAILY 07/10/24 Ascorbate Calcium [Vitamin C] 500 mg PO DAILY 07/10/24 Atorvastatin Calcium [Lipitor] 40 mg PO BEDTIME 07/10/24 Cholestyramine (with Sugar) [Questran Packet] 4 gm PO DAILY 07/10/24 Divalproex ER [Depakote *ER] 250 mg PO BEDTIME 07/10/24 Donepezil HCl [Aricept] 23 mg PO BEDTIME 07/10/24 Escitalopram Oxalate [Lexapro] 20 mg PO DAILY 07/10/24 Glipizide [Glipizide Xl] 5 mg PO DAILY 07/10/24 Hydralazine HCl 25 mg PO BID 07/10/24 Insulin Aspart [Novolog Penfill] units SQ ACHS 07/10/24 Insulin Glargine,Hum.rec.anlog [Lantus] 10 units SQ ACHS 07/10/24 Loperamide HCl [Imodium A-D] 2 mg PO Q8HR 07/10/24 Memantine HCl 10 mg PO DAILY 07/10/24 Mv-Min/FA/Vit K/Lycop/Lut/Zeax [Ocuvite Eye Plus Multi Tablet] 2 mg PO DAILY 07/10/24 Omeprazole 20 mg PO DAILY 07/10/24 Thiamine HCl [Vitamin B-1*] 100 mg PO DAILY 07/10/24 cloNIDine HCL [Clonidine HCl] 0.1 mg PO TID 07/10/24 - Past Medical/Surgical History Past Medical History: Reviewed- Non-Contributory -: Hypertension -: Diabetes mellitus type 2, [id number] -: Dementia/memory issues Past Surgical History: Reviewed- Non-Contributory -: spine fusion - Family History Family History: Reviewed- Non-Contributory - Social History Smoking Status: Never smoker Alcohol use: No CD- Drugs: No Review of Systems 10-point ROS is otherwise unremarkable Physical Examination - Vital Signs Temperature: 97.7 F Blood Pressure: 118/78 Pulse: 68 Respirations: 18 Pulse Ox (%): 94 - Physical Exam General: Alert, Confused HEENT: Atraumatic, Normocephalic Neck: Supple, 2+ carotid pulse no bruit Respiratory: Clear to auscultation bilaterally, Normal air movement Cardiovascular: Regular rate/rhythm, Normal S1 S2 Capillary refill: <2 Seconds Gastrointestinal: Soft and benign, W/out hepatosplenomegaly Musculoskeletal: No clubbing Integumentary: No rashes, No breakdown Neurological: Other (Alert, Awake ) Lymphatics: No axilla or inguinal lymphadenopathy - Studies Laboratory Data (last 24 hrs) 07/09/24 07/09/24 07/09/24 16:35 16:35 16:35 WBC 7.60 Hgb 8.0 L Hct 25.4 L Plt Count 199 PT 12.8 H INR 1.15 APTT 34.2 Sodium 140 Potassium 5.1 BUN 50 H Creatinine 2.08 H Glucose 179 H Total Bilirubin 0.2 AST 15 ALT 15 L Alkaline Phosphatase 105 Assessment and Plan - Plan Acute encephalopathy metabolic Monitor neuro vital signs CT findings No acute changes noted Possible UTI UA pending Monitor cultures Pneumonia Started on IV antibiotic X-ray findings noted may have to get a CT in a.m. Hypertension Antihypertensives titrated Continue home medications and titrate as needed Hyperlipidemia Continue statin CKD stage II Monitor renal parameters Electrolytes monitor and replace accordingly Diabetes Insulin sliding scale Accu-Chek before every meal and at bedtime Anemia of chronic disease Monitor H&H closely No overt bleeding at this time GI/DVT prophylaxis Advanced directive full code Discharge Plan: Home Plan to discharge in: 48 Hours - Advance Directives Does patient have a Living Will: No Does patient have a Durable POA for Healthcare: No - Code Status/Comfort Care Code Status: Full Code Time Spent Managing Pts Care (In Minutes): 48
[2024-07-09] MEDS ORDERED: ONDANSETRON 4 MG/2 ML VIAL IV PRN (18:49)
[2024-07-09] MEDS ORDERED: ACETAMINOPHEN 325 MG TABLET PO PRN (18:49)
[2024-07-09] MEDS ORDERED: NA CHLORIDE 0.9% 500 ML ONE (18:51)
[2024-07-09] MEDS ORDERED: GLUCAGON 1 MG/VIAL IM PRN (18:53)
[2024-07-09] MEDS: INSULIN REGULAR (HUMAN) 100 UNIT/ML SQ SCH (21:00)
[2024-07-09] MEDS: NA CHLORIDE 0.9% 1,000 ML IV SCH (23:33)
[2024-07-10 00:30] LABS: Specific Gravity 1.014 (1.005-1.030); Sqamous Epithelial <5 /HPF (None Seen); Urine Bacteria None Seen /HPF (<20); Urine Bilirubin NEGATIVE (Negative); Urine Blood Negative (Negative); Urine Clarity Clear (Clear); Urine Color Colorless (Yellow); Urine Culture Reflex Order NOT NEEDED; Urine Glucose NEGATIVE (Negative); Urine Ketones NEGATIVE (Negative); Urine Microscopic Reflex YN ORDER UMIC; Urine Mucus Slight /HPF (None Seen); Urine Nitrite NEGATIVE (Negative); Urine Protein TRACE (Negative); Urine RBC <5 /HPF (None Seen); Urine Urobilinogen Normal (Normal); Urine WBC <5 /HPF (<5)
[2024-07-10 04:46] LABS: Absolute Eosinophils 0.2 K/uL (0-0.5); Absolute Lymphocytes (CBC) 1.6 K/uL (0.7-4.9); Absolute Monocytes 0.8 K/uL (0.1-1.3); Absolute Neutrophil 6.1 K/uL (1.8-8.0); Basophils % 0.2 % (0-1.3); Eosinophils % 2.3 % (0-4.4); Hematocrit 22.5 % (39.6-49.0); Hemoglobin 7.2 g/dL (13.6-17.9); Lymphocytes % 18.7 % (15.3-44.8); MCH 28.5 pg (27.0-35.0); MCV 89.2 fL (80-100); MPV 8.8 fL (7.6-11.3); Monocytes % 9.1 % (3.3-12.3); Neutrophils % 69.7 % (41.7-73.7); Nucleated Red Blood Cells % 0.1 % (0-0); Platelets 188 thou/uL (152-406); RBC Red Blood Cell Count 2.52 M/uL (4.33-5.43); Red Cell Distribution Width 18.5 % (12.1-15.2)
[2024-07-10 05:15] LABS: AST/SGOT 11 U/L (15-37); Albumin 2.7 g/dL (3.4-5.0); Albumin/Globulin Ratio 0.9 (1.1-1.8); Alkaline Phosphatase 83 U/L (45-117); Anion Gap 9.6 mEq/L (5.0-15.0); BUN Blood Urea Nitrogen 40 mg/dL (7-18); Bicarbonate 24 mEq/L (21-32); Bilirubin Total 0.2 mg/dL (0.2-1.0); Globulin 2.9 g/dL (2.3-3.5); Glomerular Filtration Rate 50 ml/min (=/>90); Glucose Level 79 mg/dL (74-106); Phosphorus 3.1 mg/dL (2.5-4.9); Potassium 4.6 mEq/L (3.5-5.1); Protein, Total 5.6 g/dL (6.4-8.2); Sodium Level 144 mEq/L (136-145)
[2024-07-10 05:17] LABS: ALT/SGPT < 14 U/L (16-61)
[2024-07-10] MEDS: PANTOPRAZOLE 40MG TABLET PO SCH (07:09)
[2024-07-10] MEDS: INSULIN GLARGINE 100 UNIT/ML SQ SCH (07:30)
[2024-07-10] MEDS: CEFTRIAXONE 1,000 MG in NA CHLORIDE 0.9% 50 ML IVPB SCH (09:19)
[2024-07-10] MEDS: ENOXAPARIN 30 MG/0.3 ML SQ SCH (09:21)
[2024-07-10] MEDS: OCUVITE (VIT A,C & E/LUTEIN/MINERAL) TABLET PO SCH (09:21)
[2024-07-10] MEDS: ASCORBIC ACID 500 MG TABLET PO SCH (09:23)
[2024-07-10] MEDS: GLIPIZIDE S.A. 5 MG TAB PO SCH (09:23)
[2024-07-10] MEDS: AMLODIPINE 10 MG TAB PO SCH (09:23)
[2024-07-10] MEDS: ESCITALOPRAM 20 MG TAB PO SCH (09:24)
[2024-07-10] MEDS: PIOGLITAZONE 15 MG TAB PO SCH (09:24)
[2024-07-10] MEDS: ACETAMINOPHEN 325 MG TABLET PO SCH (09:24)
[2024-07-10] MEDS: THIAMINE HCL 100 MG TABLET PO SCH (09:24)
[2024-07-10] MEDS: HYDRALAZINE HCL 25 MG TABLET PO SCH (09:24)
[2024-07-10] MEDS: LOPERAMIDE HCL 2 MG CAPSULE PO SCH (09:24)
[2024-07-10] MEDS: cloNIDine HCL 0.1 MG TAB PO SCH (09:24)
[2024-07-10] MEDS: MEMANTINE HCL 10 MG TABLET PO SCH (09:24)
[2024-07-10] MEDS: AZITHROMYCIN IV 500 MG in NA CHLORIDE 0.9% 250 ML IVPB SCH (10:00)
[2024-07-10 11:43] LABS: Percent Reticulocyte Count 1.27 % (0.4-2.05); RBC Red Blood Cell Count 2.41 M/uL (4.33-5.43)
[2024-07-10 12:06] LABS: Ferritin 30.3 ng/mL (26-388); Thyroid Stimulating Hormone 1.51 uIU/mL (0.358-3.740)
--- NOTE | 2024-07-10 16:40 | P.PN ---
Date of Service: 07/10/24 subjective: eating pureed diet in no distress this am. Pt knows his name but not oriented to time or place Review of Systems 10-point ROS is otherwise unremarkable General: Unremarkable Eyes: Unremarkable ENT: Unremarkable Respiratory: Unremarkable Cardiovascular: Unremarkable Gastrointestinal: Unremarkable Musculoskeletal: Unremarkable Integumentary: Unremarkable Neurological: Unremarkable Lymphatics: Unremarkable Vital signs Reviewed - Physical Exam General: Alert, Oriented x1, Cooperative, no distress HEENT: Atraumatic, Normocephalic Neck: Supple Respiratory: Clear to auscultation bilaterally, Normal air movement Cardiovascular: No edema, Regular rate/rhythm, Normal S1 S2 Capillary refill: <2 Seconds Gastrointestinal: Soft and benign, without hepatosplenomegaly Musculoskeletal: No clubbing, No swelling Integumentary: No rashes, No breakdown Neurological: Normal speech, Normal strength at 5/5 x4 extr, Cranial nerves 3-12 intact, Normal affect, pleasantly confused Lymphatics: No axilla or inguinal lymphadenopathy Assessment and Plan Acute encephalopathy metabolic Monitor neuro vital signs CT findings No acute changes noted check depakote level Possible UTI UA pending Monitor cultures Pneumonia Started on IV antibiotic X-ray findings noted may have to get a CT in a.m. Will dc azithro and continue rocephin, no evidence of pneumonia Hypertension Antihypertensives titrated Continue home medications and titrate as needed Hyperlipidemia Continue statin CKD stage II Monitor renal parameters Electrolytes monitor and replace accordingly Diabetes Insulin sliding scale, lower semglee dose as pt has had two hypoglycemic events Accu-Chek before every meal and at bedtime Anemia of chronic disease Monitor H&H closely No overt bleeding at this time iron low - will give IV iron VTE/GI prophylaxis Advanced directive full code Discharge Plan: Home Plan to discharge in: 48 Hours - Advance Directives Does patient have a Living Will: No Does patient have a Durable POA for Healthcare: No - Code Status/Comfort Care Code Status: Full Code Discharge Plan: Home Plan to discharge in: Greater than 2 days - Advance Directives Does patient have a Living Will: No Does patient have a Durable POA for Healthcare: Yes - Code Status/Comfort Care Code Status Assessed: Yes Code Status: Full Code Critical Care: No <Elsie Stein - Last Filed: 07/10/24 16:41> Chart has been reviewed. Events of the last 24 hours have been noted. Case discussed with GERA. I performed a substantial part of the MDM during this patient's care today. I personally made or approved the documented management plan and acknowledge its risk of complications. I agree with the findings and documentation provided in the GERA's notes Patient with UTI. Continue antibiotic therapy. Clinically doing better and al most back to baseline. Lives at [place] and plan of discharge back to [place] over the next 24 to 48 hours. Overall patient is medically stable. Patient's hemoglobin is low and will monitor H&H closely. Do iron studies and give Ferrlecit. If hemoglobin continues to decrease and will transfuse 1 to 2 units of packed red blood cells. <Juliana Hardy - Last Filed: 07/11/24 03:00>
[2024-07-10] MEDS: CHOLESTYRAMINE/ASP 4 GM/PKT PO SCH (17:07)
[2024-07-10 19:18] LABS: Absolute Eosinophils 0.2 K/uL (0-0.5); Absolute Lymphocytes (CBC) 1.7 K/uL (0.7-4.9); Absolute Monocytes 0.8 K/uL (0.1-1.3); Absolute Neutrophil 5.5 K/uL (1.8-8.0); Basophils % 0.3 % (0-1.3); Eosinophils % 2.6 % (0-4.4); Hematocrit 21.7 % (39.6-49.0); Lymphocytes % 20.7 % (15.3-44.8); MCH 28.8 pg (27.0-35.0); MCHC 32.4 g/dL (32.0-36.0); MCV 88.9 fL (80-100); MPV 9.1 fL (7.6-11.3); Monocytes % 10.2 % (3.3-12.3); Neutrophils % 66.2 % (41.7-73.7); Platelets 184 thou/uL (152-406); RBC Red Blood Cell Count 2.45 M/uL (4.33-5.43); Red Cell Distribution Width 18.4 % (12.1-15.2)
[2024-07-10] MEDS: DIVALPROEX ER 250 MG TAB PO SCH (20:10)
[2024-07-10] MEDS: DONEPEZIL HCL 5 MG TAB PO SCH (20:10)
[2024-07-10] MEDS: ATORVASTATIN 40 MG TAB PO SCH (20:10)
[2024-07-10] MEDS: D10W 125 ML IV PRN (21:41)
[2024-07-11] MEDS: INSULIN GLARGINE 100 UNIT/ML SQ SCH (07:30)
[2024-07-11] MEDS: SOD FERRIC GLUC COMPLX/SUCROSE 250 MG in NA CHLORIDE 0.9% 250 ML IV SCH (08:09)
[2024-07-11 09:51] LABS: Absolute Eosinophils 0.3 K/uL (0-0.5); Absolute Lymphocytes (CBC) 1.7 K/uL (0.7-4.9); Absolute Monocytes 0.9 K/uL (0.1-1.3); Absolute Neutrophil 6.1 K/uL (1.8-8.0); Basophils % 0.3 % (0-1.3); Eosinophils % 3.7 % (0-4.4); Hematocrit 21.3 % (39.6-49.0); Hemoglobin 6.8 g/dL (13.6-17.9); MCH 28.6 pg (27.0-35.0); MCHC 32.1 g/dL (32.0-36.0); MPV 8.5 fL (7.6-11.3); Monocytes % 9.6 % (3.3-12.3); Neutrophils % 67.4 % (41.7-73.7); Nucleated Red Blood Cells % 0.1 % (0-0); Percent Reticulocyte Count 1.12 % (0.4-2.05); Platelets 195 thou/uL (152-406); Red Cell Distribution Width 18.5 % (12.1-15.2)
[2024-07-11 10:05] LABS: AST/SGOT 19 U/L (15-37); Albumin 2.4 g/dL (3.4-5.0); Albumin/Globulin Ratio 0.8 (1.1-1.8); Alkaline Phosphatase 78 U/L (45-117); Anion Gap 6.8 mEq/L (5.0-15.0); BUN Blood Urea Nitrogen 30 mg/dL (7-18); Bicarbonate 25 mEq/L (21-32); Bilirubin Total 0.2 mg/dL (0.2-1.0); Globulin 3.1 g/dL (2.3-3.5); Glomerular Filtration Rate 50 ml/min (=/>90); Glucose Level 96 mg/dL (74-106); Potassium 4.8 mEq/L (3.5-5.1); Protein, Total 5.5 g/dL (6.4-8.2); Sodium Level 141 mEq/L (136-145)
[2024-07-11 10:06] LABS: ALT/SGPT < 14 U/L (16-61)
[2024-07-11] MEDS ORDERED: NA CHLORIDE 0.9% 250 ML ONE (12:20)
--- NOTE | 2024-07-11 13:30 | P.PN ---
Date of Service: 07/11/24 subjective: eating pureed diet in no distress this am. Pt knows his name but not oriented to time or place bedcheck in place VSS Review of Systems 10-point ROS is otherwise unremarkable General: Unremarkable Eyes: Unremarkable ENT: Unremarkable Respiratory: Unremarkable Cardiovascular: Unremarkable Gastrointestinal: Unremarkable Musculoskeletal: Unremarkable Integumentary: Unremarkable Neurological: Unremarkable Lymphatics: Unremarkable Vital signs Reviewed - Physical Exam General: Alert, Oriented x1, Cooperative, no distress HEENT: Atraumatic, Normocephalic Neck: Supple Respiratory: Clear to auscultation bilaterally, Normal air movement Cardiovascular: No edema, Regular rate/rhythm, Normal S1 S2 Capillary refill: <2 Seconds Gastrointestinal: Soft and benign, without hepatosplenomegaly Musculoskeletal: No clubbing, No swelling Integumentary: No rashes, No breakdown, pallor, ecchymosis surrounding left eye - green/brown Neurological: Normal speech, Normal strength at 5/5 x4 extr, Cranial nerves 3-12 intact, Normal affect, pleasantly confused Lymphatics: No axilla or inguinal lymphadenopathy Assessment and Plan Acute encephalopathy metabolic Monitor neuro vital signs CT findings No acute changes noted check depakote level (7) pt pleasantly confused Possible UTI UA negative Pneumonia Started on IV antibiotic X-ray findings noted - "Bibasilar patchy opacities worse on the left, may re flect atelectasis and/or pneumonia." Will dc azithro and continue rocephin, no evidence of pneumonia Hypertension Antihypertensives titrated Continue home medications and titrate as needed Hyperlipidemia Continue statin CKD stage II Monitor renal parameters Electrolytes monitor and replace accordingly Diabetes Insulin sliding scale, lower semglee dose as pt has had two hypoglycemic events 07/10/24, dc semglee and stop Glipizide for hypoglycemia 07/11/24 Accu-Chek before every meal and at bedtime Anemia of chronic disease Monitor H&H closely No overt bleeding at this time iron low - Iron 15, Ferritin 30 IV iron ordered 07/10/24 Hemoglobin this am (07/11/24) is 6.8. No overt bleeding noted. Will transfuse 2 units PRBCs VTE/GI prophylaxis Advanced directive full code Discharge Plan: [place] Plan to discharge in: 24 Hours, plan to dc back to [place] in am - Advance Directives Does patient have a Living Will: No Does patient have a Durable POA for Healthcare: No - Code Status/Comfort Care Code Status: Full Code Discharge Plan: Home Plan to discharge in: Greater than 2 days - Advance Directives Does patient have a Living Will: No Does patient have a Durable POA for Healthcare: Yes - Code Status/Comfort Care Code Status Assessed: Yes Code Status: Full Code Critical Care: No
[2024-07-11 16:15] VITALS: O2SAT 96; BMI 24.0
[2024-07-11] MEDS: NA CHLORIDE 0.9% 250 ML ONE (22:25)
[2024-07-12 04:39] LABS: Hematocrit 28.7 % (39.6-49.0); Hemoglobin 9.3 g/dL (13.6-17.9)
[2024-07-12] MEDS: ENOXAPARIN 40 MG/0.4 ML SQ SCH (08:36)
--- NOTE | 2024-07-12 11:05 | P.DS ---
Admission Date: 07/09/24 Discharge Date: 07/12/24 Reason for Admission: AMS Brief History of Present Illness: 74 yrs old Male with past medical history of Alzheimer's disease, anxiety, bipolar disorder, CKD stage II, diabetes, hypertension, hyperlipidemia, GERD who was brought to ER with altered mental status and decreased responsiveness which has been going on since yesterday. Patient is a poor historian hence most of the history is obtained from the chart review and also talking to the family at the bedside. Denies any fever or chills. Denies any chest pain or shortness of breath. Denies any nausea vomiting or diarrhea. No sick contacts. Apparently patient was seen to be more altered and decreased responsiveness was brought to ER Hospital Course: Mr. Bui has been pleasantly confused. His hypoglycemics and insulin have been withdrawn secondary to multiple episodes of hypoglycemia which is probably the cause of his increased altered mental status. His blood sugar has recovered and we recommend restarting his actos and then only using sliding scale insulin achs schedule. Blood pressure remained elevated through stay. We recommend increasing his clonidine to 0.2mg po TID and also hydralazine 25mg po to TID. He was also noted to be quite anemic and was given 2 units of packed red blood cells. This morning he is alert and back to his baseline. Blood sugars and vital signs have been stablized. Repeat hemoglobin 9.3. He is medically cleared to return to [place] <Elsie Stein - Last Filed: 07/12/24 12:27> Admission Date: 07/09/24 Discharge Date: 07/13/24 Hospital Course: Discharge diagnosis Acute encephalopathy metabolic Bacterial pneumonia pneumonia Hypertension Hyperlipidemia CKD stage II Diabetes type II Anemia of chronic disease Iron deficiency i <wendy pressley - Last Filed: 07/13/24 19:17> Disposition: TRANSFER TO [facility] Discharge Condition: GOOD Vital Signs/Physical Exam: Temp Pulse Resp BP Pulse Ox 98.3 F 56 18 192/73 H 95 07/12/24 08:00 07/12/24 08:00 07/12/24 08:00 07/12/24 08:00 07/12/24 08:00 General: Alert, In no apparent distress, Oriented x1 HEENT: Atraumatic, Normocephalic Neck: Supple Respiratory: Normal air movement Cardiovascular: Normal pulses, Regular rate/rhythm, Normal S1 S2 Capillary refill: <2 Seconds Gastrointestinal: Soft and benign Musculoskeletal: No swelling, No contractures Integumentary: No rashes Neurological: Normal speech, Normal affect, Abnormal strength Lymphatics: No axilla or inguinal lymphadenopathy External genitalia: Deferred Rectal: Deferred Laboratory Data at Discharge: WBC 9.10 thou/uL (4.3-10.9) 07/11/24 09:14 Hgb 9.3 g/dL (13.6-17.9) L D 07/12/24 04:02 Hct 28.7 % (39.6-49.0) L 07/12/24 04:02 Plt Count 195 thou/uL (152-406) 07/11/24 09:14 PT 12.8 SECONDS (9.4-12.5) H 07/09/24 16:35 INR 1.15 07/09/24 16:35 APTT 34.2 SECONDS (24.3-36.9) 07/09/24 16:35 Sodium 141 mEq/L (136-145) 07/11/24 09:14 Potassium 4.8 mEq/L (3.5-5.1) 07/11/24 09:14 BUN 30 mg/dL (7-18) H 07/11/24 09:14 Creatinine 1.48 mg/dL (0.70-1.30) H 07/11/24 09:14 Glucose 96 mg/dL (74-106) 07/11/24 09:14 Phosphorus 3.1 mg/dL (2.5-4.9) 07/10/24 04:13 Magnesium 2.0 mg/dL (1.6-2.4) 07/10/24 04:13 Total Bilirubin 0.2 mg/dL (0.2-1.0) 07/11/24 09:14 AST 19 U/L (15-37) 07/11/24 09:14 ALT < 14 U/L (16-61) L 07/11/24 09:14 Alkaline Phosphatase 78 U/L (45-117) 07/11/24 09:14 <Stein,Elsie Maikel - Last Filed: 07/12/24 12:27> Vital Signs/Physical Exam: Temp Pulse Resp BP Pulse Ox 98.6 F 55 20 119/56 L 97 07/12/24 12:00 07/12/24 12:00 07/12/24 12:00 07/12/24 14:36 07/12/24 12:00 Laboratory Data at Discharge: WBC 9.10 thou/uL (4.3-10.9) 07/11/24 09:14 Hgb 9.3 g/dL (13.6-17.9) L D 07/12/24 04:02 Hct 28.7 % (39.6-49.0) L 07/12/24 04:02 Plt Count 195 thou/uL (152-406) 07/11/24 09:14 PT 12.8 SECONDS (9.4-12.5) H 07/09/24 16:35 INR 1.15 07/09/24 16:35 APTT 34.2 SECONDS (24.3-36.9) 07/09/24 16:35 Sodium 141 mEq/L (136-145) 07/11/24 09:14 Potassium 4.8 mEq/L (3.5-5.1) 07/11/24 09:14 BUN 30 mg/dL (7-18) H 07/11/24 09:14 Creatinine 1.48 mg/dL (0.70-1.30) H 07/11/24 09:14 Glucose 96 mg/dL (74-106) 07/11/24 09:14 Phosphorus 3.1 mg/dL (2.5-4.9) 07/10/24 04:13 Magnesium 2.0 mg/dL (1.6-2.4) 07/10/24 04:13 Total Bilirubin 0.2 mg/dL (0.2-1.0) 07/11/24 09:14 AST 19 U/L (15-37) 07/11/24 09:14 ALT < 14 U/L (16-61) L 07/11/24 09:14 Alkaline Phosphatase 78 U/L (45-117) 07/11/24 09:14 <wendy pressley - Last Filed: 07/13/24 19:17> Diet: ADA Activity: Fall precautions <Stein,Elsie Maikel - Last Filed: 07/12/24 12:27> <wendy pressley - Last Filed: 07/13/24 19:17> Home Medications: Memantine HCl 5 mg PO DAILY 05/08/21 NIFEdipine [Nifedipine ER] 60 mg PO DAILY 05/08/21 Acetaminophen [Tylenol] 650 mg PO DAILY 07/10/24 Amlodipine Besylate [Norvasc] 10 mg PO DAILY 07/10/24 Ascorbate Calcium [Vitamin C] 500 mg PO DAILY 07/10/24 Atorvastatin Calcium [Lipitor] 40 mg PO BEDTIME 07/10/24 Cholestyramine (with Sugar) [Questran Packet] 4 gm PO DAILY 07/10/24 Divalproex ER [Depakote *ER] 250 mg PO BEDTIME 07/10/24 Donepezil HCl [Aricept] 23 mg PO BEDTIME 07/10/24 Escitalopram Oxalate [Lexapro] 20 mg PO DAILY 07/10/24 Hydralazine HCl 25 mg PO BID 07/10/24 Memantine HCl 10 mg PO DAILY 07/10/24 Mv-Min/FA/Vit K/Lycop/Lut/Zeax [Ocuvite Eye Plus Multi Tablet] 2 mg PO DAILY 07/10/24 Omeprazole 20 mg PO DAILY 07/10/24 Thiamine HCl [Vitamin B-1*] 100 mg PO DAILY 07/10/24 cloNIDine HCL [Clonidine HCl] 0.1 mg PO TID 07/10/24 Acetaminophen [Tylenol*] 650 mg PO Q4HP PRN tab 07/12/24 Physician Discharge Instructions: Reason for Admission: AMS Brief History of Present Illness: 74 yrs old Male with past medical history of Alzheimer's disease, anxiety, bipolar disorder, CKD stage II, diabetes, hypertension, hyperlipidemia, GERD who was brought to ER with altered mental status and decreased responsiveness which has been going on since yesterday. Patient is a poor historian hence most of the history is obtained from the chart review and also talking to the family at the bedside. Denies any fever or chills. Denies any chest pain or shortness of breath. Denies any nausea vomiting or diarrhea. No sick contacts. Apparently patient was seen to be more altered and decreased responsiveness was brought to ER Hospital Course: Mr. Bui has been pleasantly confused. His hypoglycemics and insulin have been withdrawn secondary to multiple episodes of hypoglycemia which is probably the cause of his increased altered mental status. His blood sugar has recovered and we recommend restarting his actos and then only using sliding scale insulin achs schedule. Blood pressure remained elevated through stay. We recommend increasing his clonidine to 0.2mg po TID and also hydralazine 25mg po to TID. He was also noted to be quite anemic and was given 2 units of packed red blood cells. This morning he is alert and back to his baseline. Blood sugars and vital signs have been stablized. Repeat hemoglobin 9.3. He is medically cleared to return to [place]. Followup: Marcela Sanchez MD [Primary Care Provider] - 1-2 Weeks
[2024-07-12] MEDS: HYDRALAZINE HCL 20 MG/ML VIAL IV ONE (12:46)
--- NOTE | 2024-07-13 12:10 | EKG ---
Test Date: 2024-07-09 Test Time: 16:37:06 Veneer Layer: PHUONG MEASUREMENT RESULTS: Intervals: Rate: 60 ID: [id number] QRSD: 140 QT: 466 QTc: 466 Higgins: P: 48 ID: [id number] QRS: -63 T: 3 INTERPRETIVE STATEMENTS: Sinus rhythm Left axis deviation Right bundle branch block Inferior infarct, age undetermined Abnormal ECG Compared to ECG 09/21/2023 12:04:25 Left-axis deviation now present Sinus bradycardia no longer present Myocardial infarct finding still present Electronically Signed On 07-13-24 12:07:57 BRANCHER by Abundio Le
[2024-07-14 01:07] VITALS: BP 119/56; TEMP 98.6
== END 2024-07-12 16:58 | DRG 637 ==
LOC: ER 15:59 → ERHOLD 18:49 → 2ND 19:28
PROVIDERS: ADMIT Family Medicine; ATTEND Internal Medicine
PROC: 30233N1 Transfusion of Nonautologous Red Blood Cells into Peripheral Vein, Percutaneous Approach (ICD-10-PCS; principal; 2024-07-11)
DX: E11.649 Type 2 diabetes mellitus with hypoglycemia without coma (principal); G93.41 Metabolic encephalopathy; I12.9 Hypertensive chronic kidney disease with stage 1 through stage 4 chronic kidney disease, or unspecified chronic kidney disease; N18.2 Chronic kidney disease, stage 2 (mild); E11.22 Type 2 diabetes mellitus with diabetic chronic kidney disease; D63.1 Anemia in chronic kidney disease; D50.9 Iron deficiency anemia, unspecified; E86.0 Dehydration; E78.5 Hyperlipidemia, unspecified; F31.9 Bipolar disorder, unspecified; K21.9 Gastro-esophageal reflux disease without esophagitis; G30.9 Alzheimer's disease, unspecified; F02.80 Dementia in other diseases classified elsewhere, unspecified severity, without behavioral disturbance, psychotic disturbance, mood disturbance, and anxiety; Z79.4 Long term (current) use of insulin; Z79.84 Long term (current) use of oral hypoglycemic drugs; Z79.899 Other long term (current) drug therapy
CPT/HCPCS: 36415; 36430; 51702; 70450; 71045; 74176; 80053; 80164; 81001; 82607; 82728; 82947; 83010; 83540; 83605; 83735; 84100; 84443; 85014; 85018; 85025; 85044; 85610; 85730; 86140; 86850; 86900; 86901; 86920; 87040; 93005; 94760; 96361; 96365; 96368; 99285; J0360; J0696; J1650; J2916; J7030; J7040; J7050; P9016

== ENCOUNTER 2024-07-14 12:13 | Emergency (ER) | payer OTHER ==
--- NOTE | 2024-07-14 12:43 | RAD REPORT ---
EXAM: Chest Single View HISTORY: ams COMPARISON: 07/09/2024, 09/21/2023 FINDINGS: LUNGS/PLEURA: Nonspecific prominence of the pulmonary interstitium. This is similar to priors. No sup erimposed new process identified. MEDIASTINUM: The mediastinal silhouette is within normal limits. CARDIAC: Stable size and configuration. UPPER ABDOMEN: No significant abnormality. BONES: No acute abnormality. LINES/TUBES/OTHER: N/A IMPRESSION: No evidence of acute cardiopulmonary disease.
--- NOTE | 2024-07-14 13:06 | RAD REPORT ---
EXAMINATION: CT HEAD WITHOUT CONTRAST CLINICAL INDICATION: Male, 74 years old.ams TECHNIQUE: Axial CT images from the skull base to the vertex without intravenous contrast. Coronal an d sagittal reformatted images were created from the data set. One or more of the following dose reduction techniques were used: Automated exposure control, adjustment of the mA and/or kV according to patient size, and/or iterative reconstruction. Unless otherwise specified, incidental findings do not require dedicated imaging follow-up. [id number]. COMPARISON: 07/09/2024 FINDINGS: INTRACRANIAL: No acute intracranial hemorrhage. Ex vacuo dilatation of the ventricular system. No mas s effect or midline shift. Moderate chronic small vessel ischemic changes.Age advanced cerebral atrophy. VASCULATURE: No visualized abnormalities in the arteries or dural venous sinuses. SCALP/SKULL: No significant soft tissue or osseous abnormalities. SINUSES: The visualized paranasal sinuses and mastoid air cells are predominantly clear. IMPRESSION: No acute intracranial abnormality.
[2024-07-14 13:20] LABS: Absolute Eosinophils 0.3 K/uL (0-0.5); Absolute Lymphocytes (CBC) 1.5 K/uL (0.7-4.9); Absolute Monocytes 1.4 K/uL (0.1-1.3); Absolute Neutrophil 9.1 K/uL (1.8-8.0); Basophils % 0.3 % (0-1.3); Eosinophils % 2.1 % (0-4.4); Hematocrit 29.9 % (39.6-49.0); Hemoglobin 9.7 g/dL (13.6-17.9); Lymphocytes % 12.5 % (15.3-44.8); MCH 28.4 pg (27.0-35.0); MCHC 32.4 g/dL (32.0-36.0); MCV 87.7 fL (80-100); MPV 8.3 fL (7.6-11.3); Monocytes % 11.1 % (3.3-12.3); Nucleated Red Blood Cells % 0.1 % (0-0); Platelets 209 thou/uL (152-406); RBC Red Blood Cell Count 3.41 M/uL (4.33-5.43); Red Cell Distribution Width 18.7 % (12.1-15.2)
[2024-07-14 13:39] LABS: AST/SGOT 15 U/L (15-37); Albumin 2.7 g/dL (3.4-5.0); Albumin/Globulin Ratio 0.7 (1.1-1.8); Alkaline Phosphatase 92 U/L (45-117); BUN Blood Urea Nitrogen 21 mg/dL (7-18); Bicarbonate 23 mEq/L (21-32); Bilirubin Total 0.3 mg/dL (0.2-1.0); Glomerular Filtration Rate 54 ml/min (=/>90); Glucose Level 193 mg/dL (74-106); Protein, Total 6.7 g/dL (6.4-8.2); Sodium Level 141 mEq/L (136-145)
[2024-07-14 13:40] LABS: ALT/SGPT < 14 U/L (16-61)
[2024-07-14 13:40] LABS: Specific Gravity 1.015 (1.005-1.030); Sqamous Epithelial None Seen /HPF (None Seen); Urine Bacteria None Seen /HPF (<20); Urine Bilirubin NEGATIVE (Negative); Urine Blood Trace (Negative); Urine Clarity Clear (Clear); Urine Color Light-Yellow (Yellow); Urine Culture Reflex Order NOT NEEDED; Urine Glucose NEGATIVE (Negative); Urine Ketones NEGATIVE (Negative); Urine Microscopic Reflex YN ORDER UMIC; Urine Mucus Slight /HPF (None Seen); Urine Nitrite NEGATIVE (Negative); Urine Protein 1+ (Negative); Urine RBC <5 /HPF (None Seen); Urine Urobilinogen Normal (Normal); Urine WBC <5 /HPF (<5); Urine pH 5.5 (5.0-7.0)
--- NOTE | 2024-07-14 15:34 | EDPHYS ---
Physician Documentation [facility] Name: Leonides Bui Age: 74 yrs Sex: Male : 1950 Arrival Date: 07/14/2024 Time: 12:13 Bed 7 Private MD: ED Physician Carlos Li HPI: 07/14 20:10 This 74 yrs old Male presents to ER via EMS with complaints of fatigue. ms3 20:10 Leonides Bui presents to the Emergency Department with ams as reported by his family ms3 members, who noted he was more altered than usual. There is a concern for a possible urinary tract infection (UTI) as he has a temperature slightly above normal at 98.8F. He has a new Kline catheter since his last admission and has been recently discharged to [facility]. He has had issues with pulling out his Kline catheter partially, requiring reinsertion by the nursing staff. His medical history includes a diagnosis of Alzheimer's disease.. Historical: - Allergies: 12:32 NKDA; ss - PMHx: 12:32 Alzheimer's disease; Anxiety; Bipolar disorder; chronic diarrhea; CKD; DM2; GERD; ss Hyperlipidemia; Hypertension; - PSHx: 12:32 Spinal Fusion; ss ROS: 20:10 Constitutional: Negative for fever, and chills. Cardiovascular: Negative for chest ms3 pain, and palpitations. Respiratory: Negative for shortness of breath, cough, wheezing, and pleuritic chest pain, Abdomen/GI: Negative for abdominal pain, nausea, vomiting, diarrhea, and constipation, Exam: 20:10 Constitutional: This is a well developed, well nourished patient who is awake, alert, ms3 and in no acute distress. Head/Face: Normocephalic, atraumatic. Cardiovascular: Regular rate and rhythm with a normal S1 and S2. No gallops, murmurs, or rubs. Normal PMI, no JVD. No pulse deficits. Respiratory: Lungs have equal breath sounds bilaterally, clear to auscultation and percussion. No rales, rhonchi or wheezes noted. No increased work of breathing, no retractions or nasal flaring. Abdomen/GI: Soft, non-tender, with normal bowel sounds. No distension or tympany. No guarding or rebound. No evidence of tenderness throughout. Skin: Warm, dry with normal turgor. Normal color with no rashes, no lesions, and no evidence of cellulitis. Vital Signs: 12:27 BP 174 / 88; Pulse 65; Resp 16; Temp 98.9(O); Pulse Ox 94% on 2 lpm NC; Pain 0/10; ss 14:28 BP 175 / 69; Pulse 59; Resp 16; Pulse Ox 95% on 2 lpm NC; iw 16:37 BP 167 / 98; Pulse 79; Resp 16; Pulse Ox 95% ; iw 12:27 Pain Scale: Adult ss MDM: 12:35 Medical Screening Exam initiated ms3 20:10 Differential Diagnosis altered mental status, UTI versus electrolyte abnormality. Data ms3 reviewed: vital signs, nurses notes, lab test result(s), radiologic studies, and as a result, I will discharge patient. Counseling: I had a detailed discussion with the patient and/or guardian regarding the historical points, exam findings, and any diagnostic results supporting the discharge/admit diagnosis, lab results, radiology results, the need for outpatient follow up, to return to the emergency department if symptoms worsen or persist or if there are any questions or concerns that arise at home. Special discussion: I discussed with the patient/guardian in detail that at this point there is no indication for admission to the hospital. It is understood, however, that if the symptoms persist or worsen the patient needs to return immediately for re-evaluation. ED course: Labs, chest x-ray, CT head reviewed. Patient with elevated white blood count of 12.2. UA does not show urinary tract infection, chest x-ray does not show pneumonia. Patient is afebrile and without tachycardia in the emergency department. Patient to be discharged back to nursing facility.. 07/14 12:26 Order name: CBC with Diff; Complete Time: 13:46 ms3 07/14 12:26 Order name: CMP; Complete Time: 13:46 ms3 07/14 12:26 Order name: Urinalysis w/ reflexes; Complete Time: 13:46 ms3 07/14 12:26 Order name: Chest Single View XRAY; Complete Time: 13:22 ms3 07/14 12:26 Order name: CT Head Brain wo Cont; Complete Time: 13:22 ms3 Administered Medications: No medications were administered Disposition Summary: 07/14/24 15:33 Discharge Ordered Notes: Location: Home ms3 Condition: Stable ms3 Diagnosis - Elevated white blood cell count, unspecified ms3 - Essential (primary) hypertension ms3 - Alzheimer's disease, unspecified ms3 Followup: ms3 - With: Private Physician - When: 2 - 3 days - Reason: Recheck today's complaints Discharge Instructions: - Discharge Summary Sheet ms3 - Dementia ms3 - Hypertension, Adult ms3 Forms: - Medication Reconciliation Form ms3 - Antibiotic Education ms3 - Prescription Opioid Use ms3 - Patient Portal Instructions ms3 - Leadership Thank You Letter ms3 Signatures: Dispatcher [employer] Rosalind Boothe, RN RN Carlos Van DO DO ms3 Corrections: (The following items were deleted from the chart) 20:14 20:10 ED course: Labs, chest x-ray, CT head reassuring. Patient to be discharged back ms3 to nursing facility.. ms3
--- NOTE | 2024-07-14 15:34 | ER ---
Nurse's Notes [facility] Name: Leonides Bui Age: 74 yrs Sex: Male : 1950 Arrival Date: 07/14/2024 Time: 12:13 Bed 7 Private MD: Diagnosis: Elevated white blood cell count, unspecified;Essential (primary) hypertension;Alzheimer's disease, unspecified Presentation: 07/14 12:27 Chief complaint: Patient states: was concerned because pt seemed a little more ss lethargic today and felt warm. Pt was recently discharged from hospital with roseline Kline and reportedly keeps tugging on it. Coronavirus screen: Client denies travel out of the [place] in the last 14 days. Ebola Screen: Patient denies exposure to infectious person. Patient denies travel to an Ebola-affected area in the 21 days before illness onset. Initial Sepsis Screen: Does the patient meet any 2 criteria? No. Patient's initial sepsis screen is negative. Does the patient have a suspected source of infection? No. Patient's initial sepsis screen is negative. Risk Assessment: Do you want to hurt yourself or someone else? Patient reports no desire to harm self or others. Onset of symptoms is unknown. 12:27 Method Of Arrival: EMS: [facility] 12:27 Acuity: ADRIANA 3 ss Historical: - Allergies: 12:32 NKDA; ss - PMHx: 12:32 Alzheimer's disease; Anxiety; Bipolar disorder; chronic diarrhea; CKD; DM2; GERD; ss Hyperlipidemia; Hypertension; - PSHx: 12:32 Spinal Fusion; ss Screenin:49 [facility] ED Fall Risk Assessment (Adult) History of falling in the last 3 months, iw including since admission No falls in past 3 months (0 pts) Confusion or Disorientation Yes (5 pts) Intoxicated or Sedated Yes (3 pts). Abuse screen: Denies injuries from another. Nutritional screening: No deficits noted. Tuberculosis screening: No symptoms or risk factors identified. 16:38 [facility] ED Fall Risk Assessment (Adult) Impaired Gait No (0 pts) Mobility Assist iw Device Used No (0 pt) Altered Elimination No (0 pt) Score/Fall Risk Level 0 - 2 = Low Risk Oriented to surroundings. Assessment: 13:15 General: Appears in no apparent distress. Behavior is calm, cooperative. Neuro: Level iw of Consciousness is awake, alert, obeys commands. Cardiovascular: Patient's skin is warm and dry. Respiratory: Respiratory effort is even, unlabored, Respiratory pattern is regular. 14:15 Reassessment: Patient appears in no apparent distress at this time. No changes from previously documented assessment. 15:48 Reassessment: attempt to call report to [facility]. iw 16:47 Reassessment: report given to Rogers at [facility], will arrange transport back to facility. Vital Signs: 12:27 BP 174 / 88; Pulse 65; Resp 16; Temp 98.9(O); Pulse Ox 94% on 2 lpm NC; Pain 0/10; ss 14:28 BP 175 / 69; Pulse 59; Resp 16; Pulse Ox 95% on 2 lpm NC; iw 16:37 BP 167 / 98; Pulse 79; Resp 16; Pulse Ox 95% ; iw 12:27 Pain Scale: Adult ED Course: 12:18 Patient arrived in ED. ss 12:18 Carlos Li DO is Attending Physician. ms3 12:26 Kylah Cameron, RN is Primary Nurse. iw 12:32 Triage completed. ss 12:32 Arm band placed on right wrist. ss 12:32 Client placed on continuous cardiac and pulse oximetry monitoring. NIBP monitoring iw applied. monitoring and evaluation advisor on. 12:40 Chest Single View XRAY In Process Unspecified. EDMS 12:59 CT Head Brain wo Cont In Process Unspecified. EDMS 13:11 Initial lab(s) drawn, by ks, sent to lab. Inserted saline lock: 22 gauge in right iw wrist, using aseptic technique. Blood collected. Flushed with 10 mL NS. 16:47 Patient has correct armband on for positive identification. iw Administered Medications: No medications were administered Medication: 13:15 VIS not applicable for this client. iw Outcome: 15:33 Discharge ordered by . ms3 18:07 Patient left the ED. Signatures: Dispatcher [employer] EDMS Kylah Cameron, RN RN Rosalind Hair RN RN Carlos Li DO DO ms3
[2024-07-14 18:22] VITALS: TEMP 98.9
[2024-07-14 18:32] VITALS: O2SAT 95
[2024-07-14 18:33] VITALS: BP 167/98
== END 2024-07-14 18:07 | disposition home or self-care (01) ==
LOC: ER 12:13
DX: D72.829 Elevated white blood cell count, unspecified (principal); I10 Essential (primary) hypertension; G30.9 Alzheimer's disease, unspecified; F02.80 Dementia in other diseases classified elsewhere, unspecified severity, without behavioral disturbance, psychotic disturbance, mood disturbance, and anxiety; E11.22 Type 2 diabetes mellitus with diabetic chronic kidney disease; I12.9 Hypertensive chronic kidney disease with stage 1 through stage 4 chronic kidney disease, or unspecified chronic kidney disease; N18.9 Chronic kidney disease, unspecified
CPT/HCPCS: 36415; 70450; 71045; 80053; 81001; 85025; 99284

== ENCOUNTER 2024-11-14 08:39 | Inpatient (IN) | payer OTHER ==
[2024-11-14 09:34] LABS: Absolute Eosinophils 0.5 K/uL (0-0.5); Absolute Lymphocytes (CBC) 0.9 K/uL (0.7-4.9); Absolute Monocytes 0.6 K/uL (0.1-1.3); Absolute Neutrophil 4.1 K/uL (1.8-8.0); Basophils % 0.3 % (0-1.3); Eosinophils % 7.3 % (0-4.4); Hematocrit 26.5 % (39.6-49.0); Hemoglobin 8.9 g/dL (13.6-17.9); Lymphocytes % 14.8 % (15.3-44.8); MCH 30.8 pg (27.0-35.0); MCHC 33.5 g/dL (32.0-36.0); MCV 92.1 fL (80-100); MPV 9.2 fL (7.6-11.3); Monocytes % 10.3 % (3.3-12.3); Neutrophils % 67.3 % (41.7-73.7); Platelets 135 thou/uL (152-406); RBC Red Blood Cell Count 2.87 M/uL (4.33-5.43); Red Cell Distribution Width 15.5 % (12.1-15.2)
--- NOTE | 2024-11-14 09:40 | RAD REPORT ---
EXAMINATION: CT HEAD WITHOUT CONTRAST CT CERVICAL SPINE WITHOUT CONTRAST CLINICAL INDICATION: Head and neck injury status post fall. Head and neck pain TECHNIQUE: Axial CT images from the skull base to the vertex without intravenous contrast. Axial CT i mages through the cervical spine were obtained without intravenous contrast. Sagittal and coronal reformatted images were created from the data set. Coronal and sagittal reformatted images were creat ed from the data set. One or more of the following dose reduction techniques were used: Automated exposure control, adjustment of the mA and/or kV according to patient size, and/or iterative reconstr uction. Unless otherwise specified, incidental findings do not require dedicated imaging follow-up. [id number]. Comparison: 2023 FINDINGS: An intracranial bleed is not seen. Mild prominence of ventricles presumably unchanged secondary to cerebral atrophy. Mild low-density paraventricular, deep and subcortical white matter likely ischemic changes secondary to small vessel disease. No extra-axial fluid collection. No fluid within the sinuses/mastoids No fracture or dislocation is seen involving the cervical spine. Spondylosis cervical spine. Mild chronic anterior subluxation C7 on T1. IMPRESSION: No acute intracranial abnormality noted A cervical fracture is not seen. 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
[2024-11-14 09:45] LABS: PT Prothrombin Time 13.3 SECONDS (10-13.0); Protime INR 1.18
[2024-11-14 09:56] LABS: ALT/SGPT 21 U/L (16-61); AST/SGOT 18 U/L (15-37); Albumin 2.6 g/dL (3.4-5.0); Albumin/Globulin Ratio 0.8 (1.1-1.8); Alkaline Phosphatase 90 U/L (45-117); Anion Gap 10.5 mEq/L (5.0-15.0); BUN Blood Urea Nitrogen 43 mg/dL (7-18); Bicarbonate 25 mEq/L (21-32); Bilirubin Total 0.3 mg/dL (0.2-1.0); Globulin 3.4 g/dL (2.3-3.5); Glomerular Filtration Rate 32 ml/min (=/>90); Glucose Level 118 mg/dL (74-106); Magnesium 1.6 mg/dL (1.6-2.4); NT PRO-BNP 2793 pg/mL (<125); Potassium 4.5 mEq/L (3.5-5.1); Sodium Level 143 mEq/L (136-145)
[2024-11-14 10:02] LABS: Bilirubin Direct < 0.2 mg/dL (0-0.2); Bilirubin Indirect, Calculated 0.1 mg/dL (0.2-0.8)
[2024-11-14 10:04] LABS: Troponin High Sensitivity 153.4 pg/mL (<58.9)
--- NOTE | 2024-11-14 10:06 | RAD REPORT ---
Exam:Shoulder Right 2+ Views History: Right shoulder pain Findings: Mildly displaced humeral neck fracture. No dislocation.
--- NOTE | 2024-11-14 10:07 | RAD REPORT ---
Procedure: Chest Single View HISTORY: Chest pain COMPARISON: June 2024 FINDINGS: Mild right basilar lung opacities may represent atelectasis. Left lung appears clear of acute infiltrate. Heart is mildly enlarged. Mildly displaced fracture right humeral neck.
--- NOTE | 2024-11-14 10:38 | ER ---
Nurse's Notes [facility] Name: Leonides Bui Age: 74 yrs Sex: Male : 1950 Arrival Date: 11/14/2024 Time: 08:39 Bed 7 Private MD: Diagnosis: Fall, right humeral neck fracture, congestive heart failure, NSTEMI, CKD Presentation: 11/14 08:49 Chief complaint: EMS states: Pt from [facility], staff reports that pt "fell sometime ph this morning", fall was unwitnessed, BP low for EMS 80/40, Spo2 also low at 84% RA, IV to LAC approx 300 mL LR given, BP improved to 119/64, pt also placed on 2L NC, SPo2 improved to 97%, all other VSS, pt c/o R shoulder pain. Coronavirus screen: Vaccine status: Patient reports receiving the 2nd dose of the covid vaccine. Ebola Screen: No symptoms or risks identified at this time. Initial Sepsis Screen: Does the patient meet any 2 criteria? No. Patient's initial sepsis screen is negative. Does the patient have a suspected source of infection? No. Patient's initial sepsis screen is negative. Risk Assessment: Do you want to hurt yourself or someone else? Patient reports no desire to harm self or others. Onset of symptoms was November 14, 2024. 08:49 Method Of Arrival: EMS: [facility] 08:49 Acuity: ADRIANA 2 ph 09:13 Care prior to arrival: IV initiated. 20 GA, in the left antecubital area, Glucose ph check: 116 Oxygen administered. via nasal cannula. Mechanism of Injury: Fall from standing position. Trauma event details: Injury occurred in the [facility], Injury occurred: [facility] Injury occurred: November 14, 2024. Triage Assessment: 08:50 General: Appears in no apparent distress. comfortable, Behavior is calm, cooperative. ph Pain: Complains of pain in anterior aspect of right shoulder. Neuro: Level of Consciousness is awake, alert, obeys commands, confused, Oriented to person, place. Cardiovascular: Capillary refill < 3 seconds in bilateral fingers Patient's skin is warm and dry. Respiratory: Airway is patent Respiratory effort is even, unlabored. Derm: Skin is pink, warm \\T\\ dry. Musculoskeletal: Circulation, motion, and sensation intact. Range of motion: intact in all extremities. Trauma Activation: Not Applicable Physician: ED Physician; Name: ; Notified At: ; Arrived At: Physician: General Surgeon; Name: ; Notified At: ; Arrived At: Physician: Radiology; Name: ; Notified At: ; Arrived At: Physician: Respiratory; Name: ; Notified At: ; Arrived At: Physician: Lab; Name: ; Notified At: ; Arrived At: Historical: - Allergies: 08:52 Bees; ph - PMHx: 08:52 Alzheimer's disease; Anxiety; Bipolar disorder; chronic diarrhea; CKD; DM2; GERD; ph Hyperlipidemia; Hypertension; - PSHx: 08:52 Spinal Fusion; ph - Immunization history:: Adult Immunizations unknown. - Infectious Disease History:: Denies. - Immunization history: Last tetanus immunization: unknown. - Social history:: Smoking status: unknown. Screenin:[address] [facility] ED Fall Risk Assessment (Adult) History of falling in the last 3 months, ph including since admission Yes- single mechanical fall (1 pt) Confusion or Disorientation Yes (5 pts) Intoxicated or Sedated No (0 pts) Impaired Gait No (0 pts) Mobility Assist Device Used No (0 pt) Altered Elimination No (0 pt) Score/Fall Risk Level 3 or more points = High Risk Oriented to surroundings, Maintained a safe environment, Hourly rounding (assess needs \\T\\ fall precautionary measures) done, Used ambulatory aids as needed (educated on \\T\\ assisted with). Abuse screen: Denies threats or abuse. Denies injuries from another. Nutritional screening: No deficits noted. Tuberculosis screening: No symptoms or risk factors identified. Primary Survey: 09:11 NO uncontrolled hemorrhage observed. A: The client is awake and alert. The airway is ph patent. Breathing/Chest: Spontaneous respiratory effort, equal unlabored respirations, breath sounds clear bilaterally, regular pattern, symmetrical chest rise and fall. Circulation: No external hemorrhage present. Regular and strong central pulse, skin warm/dry/normal color. Disability Pupils are equal, round, reactive to light and accommodation. Exposure/Environment: There is no evidence of uncontrolled external bleeding. No obvious injuries are noted at this time. A warming method has been applied: A warm blanket has been provided to the patient. 10:25 Reassessment Alertness and Airway: Awake and alert. The airway is patent. Breathing: ph Spontaneous respiratory effort, equal unlabored respirations, breath sounds clear bilaterally, regular pattern with symmetrical chest rise and fall. Circulation: No external hemorrhage noted. Regular and strong central pulse, skin warm/dry/normal color. Disability: Pupils Pupils are equal, round, reactive to light and accomodation. Secondary Survey: 09:29 HEENT: No deficits noted. Gastrointestinal: No deficits noted. : No signs and/or ph symptoms were reported regarding the genitourinary system. Musculoskeletal: Reports pain in anterior aspect of right shoulder. Assessment: 09:28 General: Appears in no apparent distress. comfortable, well groomed, Behavior is calm, ph cooperative. Pain: Complains of pain in anterior aspect of right shoulder. Neuro: Level of Consciousness is awake, alert, obeys commands, confused, Oriented to person, place. Cardiovascular: Capillary refill < 3 seconds in bilateral fingers Patient's skin is warm and dry. Rhythm is regular. Respiratory: Airway is patent Respiratory effort is even, unlabored, Respiratory pattern is regular, symmetrical. GI: No signs and/or symptoms were reported involving the gastrointestinal system. Derm: Skin is pink, warm \\T\\ dry. Musculoskeletal: Circulation, motion, and sensation intact. Range of motion: intact in all extremities. Vital Signs: 08:49 BP 113 / 62; Pulse 65; Resp 18; Temp 98.6; Pulse Ox 91% on R/A; ph 09:58 BP 144 / 62; Pulse 61; Resp 18; Pulse Ox 100% on 2 lpm NC; ph 11:00 BP 156 / 72; Pulse 55; Resp 18; Pulse Ox 99% on 2 lpm NC; ph 11:43 BP 169 / 70; Pulse 54; Resp 16; Temp 98; Pulse Ox 100% on 2 lpm NC; ph Vitals: 09:58 Cardiac Rhythm Assessment Regular. ph Wilmot Coma Score: 09:12 Eye Response: spontaneous(4). Motor Response: obeys commands(6). Verbal Response: ph confused(4). Total: 14. Trauma Score (Adult): 09:12 Eye Response: spontaneous(1); Verbal Response: confused(1); Motor Response: obeys ph commands(2); Systolic BP: > 89 mm Hg(4); Respiratory Rate: 10 to 29 per min(4); Wilmot Score: 14; Trauma Score: 12; hx of dementia ED Course: 08:48 Patient arrived in ED. ph 08:52 Triage completed. ph 08:54 Chris Noel MD is Attending Physician. sp3 09:04 Brayan Gillespie, ANGEL is Primary Nurse. bp 09:10 Arm band placed on Patient placed in an exam room. ph 09:12 Patient has correct armband on for positive identification. Bed in low position. Call ph light in reach. Side rails up X 1. Client placed on continuous cardiac and pulse oximetry monitoring. NIBP monitoring applied. tugboat operator on. Door closed. Noise minimized. Warm blanket given. Pillow given. 09:12 Oxygen administration via nasal cannula \\T\\ 2L/min Response to oxygen therapy: symptoms ph improved. Thermoregulation: warm blanket given to patient. 09:13 CT Head C Spine In Process Unspecified. EDMS 09:27 Basic Metabolic Panel Sent. ph 09:28 Troponin HS Sent. ph 09:28 PT-INR Sent. ph 09:28 NT PRO-BNP Sent. ph 09:28 Magnesium Sent. ph 09:28 LFT's Sent. ph 09:28 CBC with Diff Sent. ph 09:29 Initial lab(s) drawn, by al, sent to lab. EKG done, by ED staff, reviewed by Chris Noel MD. Maintain EMS IV. Dressing intact. Good blood return noted. Site clean \\T\\ dry. Gauge \\T\\ site: 20 LAC. Flushed with 10 mL NS. 09:30 Provided Education on: estimated time for test results. ph 09:45 XRAY Chest (1 view) In Process Unspecified. EDMS 09:46 Shoulder Right 2+ Views In Process Unspecified. EDMS 10:37 Kayla Goodwin MD is Hospitalizing Provider. sp3 11:43 No provider procedures requiring assistance completed. Patient admitted, IV remains in ph place. 12:00 Sling applied to right arm. ph Administered Medications: No medications were administered Medication: 09:14 VIS not applicable for this client. ph Intake: 11:44 PO: 0ml; Total: 0ml. ph Output: 11:44 Urine: 0ml; Total: 0ml. ph Outcome: 10:38 Decision to Hospitalize by Provider. sp3 11:43 Patient's length of stay in the Emergency Department was greater than 2 hours. PT ph ADMITTED Patient's length of stay extended due to 12:30 Admitted to ER Hold. Please see [facility] for further documentation. ph 12:30 Condition: stable 12:30 Instructed on the need for admit, 16:22 Patient left the ED. ph Signatures: Dispatcher [employer] EDEllen Whitlock, RN Brayan Yanez ph RN RN Chris Polk MD MD sp3 Corrections: (The following items were deleted from the chart) 0853 08:52 Allergies: NKDA; ph ph 08:53 08:52 Allergies: No Known Allergies; ph ph
--- NOTE | 2024-11-14 10:38 | EDPHYS ---
Physician Documentation [facility] Name: Leonides Bui Age: 74 yrs Sex: Male : 1950 Arrival Date: 11/14/2024 Time: 08:39 Bed 7 Private MD: ED Physician Chris Noel HPI: 11/14 09:43 This 74 yrs old Male presents to ER via EMS with complaints of Blood Pressure Problem, sp3 Fall Injury. 09:43 74-year-old male from senior care via EMS with history of Alzheimer's, bipolar sp3 disease, chronic diarrhea, CKD, GERD, hypertension presents with history of fall and low blood oxygen level. Patient has no complaints and denies shortness of breath, cough, congestion or any other symptoms. He states he has mild right shoulder pain. Unknown whether patient hit his head or not. ROS, history and physical limited secondary to dementia.. Historical: - Allergies: 08:52 Bees; ph - PMHx: 08:52 Alzheimer's disease; Anxiety; Bipolar disorder; chronic diarrhea; CKD; DM2; GERD; ph Hyperlipidemia; Hypertension; - PSHx: 08:52 Spinal Fusion; ph - Immunization history:: Adult Immunizations unknown. - Infectious Disease History:: Denies. - Immunization history: Last tetanus immunization: unknown. - Social history:: Smoking status: unknown. ROS: 09:44 Constitutional: Negative for fever, chills, and weight loss, Eyes: Negative for injury, sp3 pain, redness, and discharge, Neck: Negative for injury, pain, and swelling, Cardiovascular: Negative for chest pain, palpitations, and edema, Respiratory: Negative for shortness of breath, cough, wheezing, and pleuritic chest pain, Abdomen/GI: Negative for abdominal pain, nausea, vomiting, diarrhea, and constipation, Back: Negative for injury and pain, Skin: Negative for injury, rash, and discoloration, Psych: Negative for depression, anxiety, suicide ideation, homicidal ideation, and hallucinations, Allergy/Immunology: Negative for hives, rash, and allergies, Endocrine: Negative for neck swelling, polydipsia, polyuria, polyphagia, and marked weight changes, 09:44 All other systems are negative, 09:44 Unable to obtain ROS due to baseline dementia, Exam: 09:44 Constitutional: This is a well developed, well nourished patient who is awake, alert, sp3 and in no acute distress. Head/Face: Normocephalic, atraumatic. Eyes: Pupils equal round and reactive to light, extra-ocular motions intact. Lids and lashes normal. Conjunctiva and sclera are non-icteric and not injected. Cornea within normal limits. Periorbital areas with no swelling, redness, or edema. ENT: Nares patent. No nasal discharge, no septal abnormalities noted. External auditory canals are clear. Oropharynx with no redness, swelling, or masses, exudates, or evidence of obstruction, uvula midline. Mucous membranes moist. Neck: Trachea midline, no thyromegaly or masses palpated, and no cervical lymphadenopathy. Supple, full range of motion without nuchal rigidity, or vertebral point tenderness. No Meningismus. Chest/axilla: Normal chest wall appearance and motion. Nontender with no deformity. No lesions are appreciated. Cardiovascular: Regular rate and rhythm with a normal S1 and S2. No gallops, murmurs, or rubs. Normal PMI, no JVD. No pulse deficits. Abdomen/GI: Soft, non-tender, with normal bowel sounds. No distension or tympany. No guarding or rebound. No evidence of tenderness throughout. Back: No spinal tenderness. No costovertebral tenderness. Full range of motion. Skin: Warm, dry with normal turgor. Normal color with no rashes, no lesions, and no evidence of cellulitis. Neuro: Awake and alert, GCS 15, oriented to person, place, time, and situation. Cranial nerves II-XII grossly intact. Motor strength 5/5 in all extremities. Sensory grossly intact. Cerebellar exam normal. Normal gait. Psych: Awake, alert, with orientation to person, place and time. Behavior, mood, and affect are within normal limits. 09:44 Respiratory: Coarse breath sounds bilaterally. Room air pulse oxygenation 88 to 89%. On 2 L 97%., 09:44 Musculoskeletal/extremity: Right shoulder pain anterior laterally to palpation mild in nature. Clinically not dislocated or fractured.. 09:46 ECG was reviewed by the Attending Physician. EKG demonstrates sinus bradycardia at 56 sp3 bpm with incomplete right bundle branch block, sinus arrhythmia and nonspecific diffuse ST/T changes without evidence of acute ischemia. Vital Signs: 08:49 BP 113 / 62; Pulse 65; Resp 18; Temp 98.6; Pulse Ox 91% on R/A; ph 09:58 BP 144 / 62; Pulse 61; Resp 18; Pulse Ox 100% on 2 lpm NC; ph 11:00 BP 156 / 72; Pulse 55; Resp 18; Pulse Ox 99% on 2 lpm NC; ph 11:43 BP 169 / 70; Pulse 54; Resp 16; Temp 98; Pulse Ox 100% on 2 lpm NC; ph Prerna Coma Score: 09:12 Eye Response: spontaneous(4). Motor Response: obeys commands(6). Verbal Response: ph confused(4). Total: 14. Trauma Score (Adult): 09:12 Eye Response: spontaneous(1); Verbal Response: confused(1); Motor Response: obeys ph commands(2); Systolic BP: > 89 mm Hg(4); Respiratory Rate: 10 to 29 per min(4); Clark[place] Score: 14; Trauma Score: 12; hx of dementia MDM: 08:54 Medical Screening Exam initiated sp3 09:45 Data reviewed: vital signs, nurses notes, lab test result(s), EKG, radiologic studies. sp3 ED course: 74-year-old male with PMH above now with fall with right shoulder pain, possible head injury, and mild hypoxia. Differential diagnosis includes mechanical fall, viral illness, bronchitis, pneumonia, among others. I am not highly suspicious of significant traumatic injury. Workup include CT scan of the head and C-spine, right shoulder x-ray, chest x-ray and general labs and EKG.. 10:36 ED course: Patient with CHF and elevated troponin in the setting of CKD. Right humeral sp3 neck fracture noted as well.. 11/14 09:01 Order name: Basic Metabolic Panel; Complete Time: 10:24 3 11/14 09:01 Order name: CBC with Diff; Complete Time: 10:24 3 11/14 09:01 Order name: LFT's; Complete Time: 10:24 3 11/14 09:01 Order name: Magnesium; Complete Time: 10:24 3 11/14 09:01 Order name: NT PRO-BNP; Complete Time: 10:24 3 11/14 09:01 Order name: PT-INR; Complete Time: 10:24 3 11/14 09:01 Order name: Troponin HS; Complete Time: 10:24 sp3 11/14 12:38 Order name: Basic Metabolic Panel EDMS 11/14 12:38 Order name: Basic Metabolic Panel EDMS 11/14 12:38 Order name: Basic Metabolic Panel EDMS 11/14 12:38 Order name: Basic Metabolic Panel EDMS 11/14 12:38 Order name: Basic Metabolic Panel EDMS 11/14 12:38 Order name: Basic Metabolic Panel EDMS 11/14 12:38 Order name: CBC with Automated Diff EDMS 11/14 12:38 Order name: CBC with Automated Diff EDMS 11/14 12:38 Order name: CBC with Automated Diff EDMS 11/14 12:38 Order name: CBC with Automated Diff EDMS 11/14 12:38 Order name: CBC with Automated Diff EDMS 11/14 12:38 Order name: CBC with Automated Diff EDMS 20 12:38 Order name: Lipid Profile EDMS 11/14 12:38 Order name: Lipid Profile EDMS 11/14 12:38 Order name: Magnesium EDMS 11/14 12:38 Order name: Magnesium EDMS 11/14 12:38 Order name: Magnesium EDMS 11/14 12:38 Order name: Magnesium EDMS 11/14 12:38 Order name: Magnesium EDMS 11/14 12:38 Order name: Magnesium EDMS 11/14 12:38 Order name: Phosphorus EDMS 11/14 12:38 Order name: Phosphorus EDMS 11/14 12:38 Order name: Phosphorus EDMS 20 12:38 Order name: Phosphorus EDMS 20 12:38 Order name: Phosphorus EDMS 11/14 12:38 Order name: Phosphorus EDMS 11/14 12:38 Order name: T4 Free EDMS 11/14 12:38 Order name: T4 Free EDMS 20 12:38 Order name: Thyroid Stimulating Hormone EDMS 11/14 12:38 Order name: Thyroid Stimulating Hormone EDMS 20 12:38 Order name: Troponin High Sensitivity EDMS 11/14 12:38 Order name: Troponin High Sensitivity EDMS 11/14 12:38 Order name: Troponin High Sensitivity EDMS 11/14 09:01 Order name: XRAY Chest (1 view); Complete Time: 10:24 sp3 11/14 09:01 Order name: CT Head C Spine; Complete Time: 10:24 sp3 11/14 09:46 Order name: Shoulder Right 2+ Views; Complete Time: 10:24 EDMS 11/14 09:01 Order name: EKG; Complete Time: 09:01 sp3 11/14 09:01 Order name: Cardiac monitoring; Complete Time: 09:27 sp3 11/14 09:01 Order name: EKG - Nurse/Tech; Complete Time: 09:27 sp3 11/14 09:01 Order name: IV Saline Lock; Complete Time: 09: sp3 11/14 09:01 Order name: Labs collected and sent; Complete Time: : sp3 11/14 09:01 Order name: O2 Per Protocol; Complete Time: 09: sp3 11/14 09:01 Order name: O2 Sat Monitoring; Complete Time: 09:30 sp3 11/14 10:37 Order name: Sling: Right arm; Complete Time: 16:21 sp3 Administered Medications: No medications were administered Disposition Summary: 11/14/24 10:38 Hospitalization Ordered Notes: Hospitalization Status: Inpatient Admission sp3 Provider: Kayla Goodwin sp3 Location: Telemetry/MedSurg (Inpatient) sp3 Condition: Stable sp3 Problem: new sp3 Symptoms: have worsened sp3 Bed/Room Type: Standard sp3 Room Assignment: 229(11/14/24 15:37) bd Diagnosis - Fall, right humeral neck fracture, congestive heart failure, NSTEMI, CKD sp3 Forms: - Medication Reconciliation Form sp3 - SBAR form sp3 - Leadership Thank You Letter sp3 Signatures: Dispatcher [employer] EDEllie Marquis Patricia, RN RN ph Chris Noel MD MD sp3 Corrections: (The following items were deleted from the chart) 08:53 08:52 Allergies: NKDA; ph ph 08:53 08:52 Allergies: No Known Allergies; ph ph 09:02 09:02 Shoulder 1 View+RAD.RAD.BRZ ordered. EDMS EDMS 09:02 09:02 Head C Spine MPR Wo Con+CT.RAD.BRZ ordered. EDMS EDMS 15:37 10:38 sp3 bd
[2024-11-14] MEDS ORDERED: HYDRALAZINE HCL 20 MG/ML VIAL IV PRN (12:28)
--- NOTE | 2024-11-14 12:41 | P.HP ---
Certification for Inpatient Patient admitted to: Observation With expected LOS: <2 Midnights Patient will require the following post-hospital care: None Practitioner: I am a practitioner with admitting privileges, knowledge of patient current condition, hospital course, and medical plan of care. Services: Services provided to patient in accordance with Admission requirements found in Title 42 Section 412.3 of the Code of Federal Regulations <Ana Luisa Bhatia - Last Filed: 11/14/24 17:54> Patient History Date of Service: 11/14/24 Reason for admission: NSTEMI, frequent falls History of Present Illness: Leonides Bui is a 74 year old male with pmhx Alzheimer's disease; Anxiety; Bipolar disorder; chronic diarrhea; CKD; DM2; GERD;Hyperlipidemia; Hypertension who presented to the ED from the [place] after a fall this morning and elevated blood pressure. Laboratory evaluation is significant for H&H 02/20, BUN/creatinine 43/2.12, GFR 32, serum glucose 118, troponin 153.4, BNP 2793. On evaluation he is unable to answer questions and have a meaningful conversation. Head and cervical spine CT reports "No acute intracranial abnormality noted. A cervical fracture is not seen" Right shoulder xray reports "Mildly displaced humeral neck fracture. No dislocation." Chest x-ray reports "Mild right basilar lung opacities may represent atelectasis. Left lung appears clear of acute infiltrate. Heart is mildly enlarged. Mildly displaced fracture right humeral neck." Leonides will be admitted for further evaluation of frequent falls and NSTEMI. - Past Medical/Surgical History Diabetic: Yes -: Hypertension -: Diabetes mellitus type 2, [id number] -: Dementia/memory issues -: spine fusion - Social History Smoking Status: Unknown if ever smoked Alcohol use: No CD- Drugs: No Caffeine use: Yes <Ana Luisa Bhatia - Last Filed: 11/14/24 17:54> Date of Service: 11/14/24 <Kayla Goodwin - Last Filed: 11/14/24 19:41> Allergies No Known Allergies Allergy (Verified 05/07/21 20:06) Home Medications: Acetaminophen [Tylenol] 650 mg PO DAILY 07/10/24 Amlodipine Besylate [Norvasc] 5 mg PO DAILY 07/10/24 Atorvastatin Calcium [Lipitor] 40 mg PO BEDTIME 07/10/24 Cholestyramine (with Sugar) [Questran Packet] 4 gm PO DAILY 07/10/24 Divalproex ER [Depakote *ER] 250 mg PO BEDTIME 07/10/24 Donepezil HCl [Aricept] 23 mg PO BEDTIME 07/10/24 Escitalopram Oxalate [Lexapro] 20 mg PO DAILY 07/10/24 Hydralazine HCl 25 mg PO BID 07/10/24 Memantine HCl 10 mg PO BID 07/10/24 Omeprazole 20 mg PO DAILY 07/10/24 cloNIDine HCL [Clonidine HCl] 0.1 mg PO TID 07/10/24 Ascorbic Acid [Vitamin C] 500 mg PO DAILY 11/14/24 Insulin Glargine,Hum.rec.anlog [Lantus] 13 unit SQ DAILY 11/14/24 Losartan Potassium 25 mg PO DAILY 11/14/24 Tamsulosin [Flomax] 0.4 mg PO DAILY 11/14/24 Review of Systems is unable to be obtained <Ana Luisa Bhatia - Last Filed: 11/14/24 17:54> Physical Examination - Physical Exam General: Confused HEENT: Atraumatic, Normocephalic Neck: Supple, 2+ carotid pulse no bruit Respiratory: Clear to auscultation bilaterally, Normal air movement Cardiovascular: Normal pulses, Regular rate/rhythm Capillary refill: <2 Seconds Gastrointestinal: Normal bowel sounds, Soft and benign Musculoskeletal: No clubbing Integumentary: No rashes Neurological: Normal speech, Normal tone - Studies Laboratory Data (last 24 hrs) 11/14/24 11/14/24 11/14/24 09:20 09:20 09:20 WBC 6.20 Hgb 8.9 L Hct 26.5 L Plt Count 135 L PT 13.3 H INR 1.18 Sodium 143 Potassium 4.5 BUN 43 H Creatinine 2.12 H Glucose 118 H Magnesium 1.6 Total Bilirubin 0.3 AST 18 ALT 21 Alkaline Phosphatase 90 <Ana Luisa Bhatia - Last Filed: 11/14/24 17:54> - Studies Laboratory Data (last 24 hrs) 11/14/24 11/14/24 11/14/24 09:20 09:20 09:20 WBC 6.20 Hgb 8.9 L Hct 26.5 L Plt Count 135 L PT 13.3 H INR 1.18 Sodium 143 Potassium 4.5 BUN 43 H Creatinine 2.12 H Glucose 118 H Magnesium 1.6 Total Bilirubin 0.3 AST 18 ALT 21 Alkaline Phosphatase 90 <Kayla Goodwin - Last Filed: 11/14/24 19:41> Assessment and Plan - Plan Assessment and plan Frequent falls NSTEMI -Orthostatics Vitals -ECHO ordered -Continuous telemetry -troponin 153.4, serial pending -Consult cardiology -Lovenox weight based Q 12h Mildly displaced right humeral neck fracture -Sling to right arm -follow up with orthopedic outpatient -pain control Acute on Chronic Kidney Disease -BUN/creatinine 43/2.12, GFR 32 - Monitor in a.m. labs -Gentle IVF DM2 - -Accucheck with SSI -A1C in the AM Alzheimer's disease Anxiety Bipolar disorder chronic diarrhea GERD Hyperlipidemia Hypertension - Continue home medication as appropriate DVT ppx Weight based lovenox FUll code LOS 24 hour OBS - Advance Directives Does patient have a Living Will: No Does patient have a Durable POA for Healthcare: No <Ana Luisa Bhatia - Last Filed: 11/14/24 17:54> Physician Review: Patient Assessed, Agree with Above Assessment and Plan <Kayla Goodwin - Last Filed: 11/14/24 19:41>
[2024-11-14 16:32] VITALS: O2SAT 100
[2024-11-14 16:35] VITALS: BMI 23.9
[2024-11-14] MEDS: NACHLORIDE 0.45% 1,000 ML IV SCH (16:50)
[2024-11-14] MEDS: ATORVASTATIN 40 MG TAB PO SCH (20:27)
[2024-11-14] MEDS: ACETAMINOPHEN 325 MG TABLET PO PRN (20:28)
[2024-11-14] MEDS ORDERED: ENOXAPARIN 80 MG/0.8 ML SQ SCH (21:00)
[2024-11-14] MEDS: HEPARIN/D5W 25,000 UNIT/500 ML BAG IV SCH (21:37)
[2024-11-15 05:38] LABS: Absolute Lymphocytes (CBC) 1.1 K/uL (0.7-4.9); Absolute Neutrophil 6.5 K/uL (1.8-8.0); Basophils % 0.3 % (0-1.3); Eosinophils % 0.5 % (0-4.4); Hemoglobin 8.8 g/dL (13.6-17.9); Lymphocytes % 12.4 % (15.3-44.8); MCH 30.9 pg (27.0-35.0); MCHC 33.7 g/dL (32.0-36.0); MCV 91.6 fL (80-100); MPV 8.9 fL (7.6-11.3); Monocytes % 11.9 % (3.3-12.3); Neutrophils % 74.9 % (41.7-73.7); Platelets 137 thou/uL (152-406); RBC Red Blood Cell Count 2.84 M/uL (4.33-5.43); Red Cell Distribution Width 15.6 % (12.1-15.2)
[2024-11-15 06:07] LABS: Magnesium 1.5 mg/dL (1.6-2.4); Phosphorus 2.5 mg/dL (2.5-4.9); Thyroid Stimulating Hormone 0.82 uIU/mL (0.358-3.740)
[2024-11-15] MEDS: MAGNESIUM SULFATE 1 gm IVPB 1 GM/100 ML BAG IV ONE (07:58)
[2024-11-15] MEDS: TAMSULOSIN 0.4 MG SR CAP PO SCH (09:18)
[2024-11-15] MEDS: HYDRALAZINE HCL 25 MG TABLET PO SCH (09:18)
[2024-11-15] MEDS: ASPIRIN EC 81 MG TAB PO SCH (09:19)
[2024-11-15] MEDS: AMLODIPINE 5 MG TAB PO SCH (09:23)
[2024-11-15] MEDS: LOSARTAN POTASSIUM 50 MG TABLET PO SCH (09:23)
--- NOTE | 2024-11-15 11:16 | ECHO ---
HEIGHT: 5 ft 7 in WEIGHT: 153 lb 0 oz DATE OF STUDY: 11/15/[address]: Ana Luisa Bhatia NP 2-DIMENSIONAL: YES M.MODE: YES DOPPLER: YES COLOR FLOW: YES TDS: PORTABLE: YES DEFINITY: BUBBLE STUDY: DIAGNOSIS: NON ST ELEVATION MYOCARDIAL INFARCTION, FREQUENT FALLS CARDIAC HISTORY: CATHERIZATION: NO SURGERY: NO PROSTHETIC VALVE: NO PACEMAKER: NO MEASUREMENTS (cm) DIASTOLIC (NORMALS) SYSTOLIC (NORMALS) IVSd 1.0 (0.6-1.2) LA Diam 2.6 (1.9-4.0) LVEF 60-65% LVIDd 3.4 (3.5-5.7) LVIDs 2.1 (2.0-3.5) %FS 38% LVPWd 1.2 (0.6-1.2) Ao Diam 3.3 (2.0-3.7) 2 DIMENSIONAL ASSESSMENT: RIGHT ATRIUM: NORMAL LEFT ATRIUM: NORMAL RIGHT VENTRICLE: NORMAL LEFT VENTRICLE: NORMAL TRICUSPID VALVE: TRACE TRICUSPID REGURGITATION MITRAL VALVE: NORMAL PULMONIC VALVE: NORMAL AORTIC VALVE: NORMAL PERICARDIAL EFFUSION: NONE AORTIC ROOT: NORMAL LEFT VENTRICULAR WALL MOTION: NORMAL DOPPLER/COLOR FLOW: GRADE I DIASTOLIC DYSFUNCTION COMMENTS: 1. NORMAL LEFT VENTRICULAR SYSTOLIC FUNCTION, EJECTION FRACTION 60-65%, NORMAL WALL MOTION 2. GRADE I DIASTOLIC DYSFUNCTION TECHNOLOGIST: MIRTHA VALENZUELA
--- NOTE | 2024-11-15 11:53 | P.CNS ---
Date of Consult: 11/15/24 Chief Complaint: NSTEMI, frequent falls History of Present Illness: Patient with PMH of dementia, intermediate resident, presented with generalized weakness, multiple falls, right humerus fracture, patient denies chest pain, no palpitations, can not recall etiology of fall due to dementia, cardiology consulted for troponin elevation and evaluation of falls. Allergies No Known Allergies Allergy (Verified 05/07/21 20:06) Home medications list reviewed: Yes Home Medications: Acetaminophen [Tylenol] 650 mg PO DAILY 07/10/24 Amlodipine Besylate [Norvasc] 5 mg PO DAILY 07/10/24 Atorvastatin Calcium [Lipitor] 40 mg PO BEDTIME 07/10/24 Cholestyramine (with Sugar) [Questran Packet] 4 gm PO DAILY 07/10/24 Divalproex ER [Depakote *ER] 250 mg PO BEDTIME 07/10/24 Donepezil HCl [Aricept] 23 mg PO BEDTIME 07/10/24 Escitalopram Oxalate [Lexapro] 20 mg PO DAILY 07/10/24 Hydralazine HCl 25 mg PO BID 07/10/24 Memantine HCl 10 mg PO BID 07/10/24 Omeprazole 20 mg PO DAILY 07/10/24 cloNIDine HCL [Clonidine HCl] 0.1 mg PO TID 07/10/24 Ascorbic Acid [Vitamin C] 500 mg PO DAILY 11/14/24 Insulin Glargine,Hum.rec.anlog [Lantus] 13 unit SQ DAILY 11/14/24 Losartan Potassium 25 mg PO DAILY 11/14/24 Tamsulosin [Flomax] 0.4 mg PO DAILY 11/14/24 - Past Medical/Surgical History Diabetic: Yes -: Hypertension -: Diabetes mellitus type 2, [id number] -: Dementia/memory issues -: spine fusion - Social History Smoking Status: Unknown if ever smoked Alcohol use: No CD- Drugs: No Caffeine use: Yes Place of Residence: [facility] Review of Systems 10-point ROS is otherwise unremarkable Physical Examination Temp Pulse Resp BP Pulse Ox 102 F H 79 12 125/58 L 94 11/15/24 08:58 11/15/24 08:00 11/15/24 08:00 11/15/24 08:00 11/15/24 08:00 General: Alert, In no apparent distress HEENT: Atraumatic, PERRLA, Mucous membr. moist/pink, EOMI, Sclerae nonicteric Neck: Supple, 2+ carotid pulse no bruit, No LAD, Without JVD or thyroid abnormality Respiratory: Clear to auscultation bilaterally, Normal air movement Cardiovascular: Regular rate/rhythm, Normal S1 S2 Gastrointestinal: Normal bowel sounds, No tenderness Musculoskeletal: No tenderness Integumentary: No rashes Neurological: Normal gait, Normal speech, Normal tone, Normal affect Lymphatics: No axilla or inguinal lymphadenopathy - Problems (1) NSTEMI (non-ST elevated myocardial infarction) Current Visit: Yes Status: Acute Plan: this is most likely type 2 ID, patient got so many reasons to have troponin leak including anemia, CKD,HTN patient echo is normal patient will benefit from ischemia evaluation as outpatient and after all above etiologies have been worked up. outpatient follow up with cardiology for stress test. Continue to monitor on tele (2) HTN (hypertension) Current Visit: Yes Status: Acute Plan: continue Norvasc, Hydralazine and continue to monitor (3) Anemia Current Visit: Yes Status: Acute Plan: primary team to work up patient, patient is concerned about that.
--- NOTE | 2024-11-15 13:00 | P.PN ---
Date of Service: 11/15/24 Subjective Sleeping during the ECHO blood glucose low this morning Will need an outpatient stress test and follow up with orthopedic outpatient ROS 10 point ROS as noted above, otherwise negative Physical Exam General: Sleeping, NAD HEENT: Atraumatic, Normocephalic Neck: Supple, 2+ carotid pulse no bruit Respiratory: Clear BBS, Normal air movement, On RA Cardiovascular: Normal pulses, RRR, S1 S2 present Capillary refill: <2 Seconds Gastrointestinal: Normal bowel sounds, Soft and benign Musculoskeletal: No clubbing Integumentary: No rashes Neurological: Normal speech, Normal tone Vitals Reviewed Problem list Frequent falls NSTEMI Mildly displaced right humeral neck fracture Acute on Chronic Kidney Disease DM2 Alzheimer's disease Anxiety Bipolar disorder chronic diarrhea GERD Hyperlipidemia Hypertension Assessment and Plan Frequent falls NSTEMI -Orthostatics Vitals -ECHO WNL -Continuous telemetry -troponin 153.4, 142.8/183.6 -Consult cardiology- likely type 2, will need a follow up outpatient stress test -Lovenox weight based Q 12h Mildly displaced right humeral neck fracture -Sling to right arm -follow up with orthopedic outpatient -pain control Acute on Chronic Kidney Disease -BUN/creatinine 35/1.56, GFR 47- improved -Monitor in a.m. labs -Gentle IVF DM2 -Serum glucose 42 this morning -Accucheck with SSI -A1C in the AM Alzheimer's disease Anxiety Bipolar disorder chronic diarrhea GERD Hyperlipidemia Hypertension - Continue home medication as appropriate DVT ppx heparin gtt d/t kidney function FUll code LOS 24 hour OBS <Ana Luisa Bhatia - Last Filed: 11/15/24 12:49> I have personally seen and evaluated the patient. I have reviewed the history, physical exam findings, and assessment provided by Ana Luisa Bhatia NP. I agree with the plan of care as documented <Kayla Goodwin - Last Filed: 11/15/24 16:40>
[2024-11-15 17:09] LABS: Specific Gravity 1.017 (1.005-1.030); Sqamous Epithelial None Seen /HPF (None Seen); Urine Bacteria None Seen /HPF (<20); Urine Bilirubin NEGATIVE (Negative); Urine Blood Negative (Negative); Urine Clarity Extremely Turbid (Clear); Urine Color Light-Yellow (Yellow); Urine Crystals Unidentified Few /HPF (None Seen); Urine Glucose NEGATIVE (Negative); Urine Ketones NEGATIVE (Negative); Urine Micro Reflex YN NO BILL MICROSCOPIC; Urine Mucus Slight /HPF (None Seen); Urine Nitrite NEGATIVE (Negative); Urine Protein 1+ (Negative); Urine RBC <5 /HPF (None Seen); Urine Urobilinogen Normal (Normal); Urine WBC <5 /HPF (<5); Urine Yeast (Budding) Occasional /HPF (None Seen)
[2024-11-16 05:30] LABS: Absolute Eosinophils 0.1 K/uL (0-0.5); Absolute Lymphocytes (CBC) 1.1 K/uL (0.7-4.9); Absolute Monocytes 0.8 K/uL (0.1-1.3); Absolute Neutrophil 7.8 K/uL (1.8-8.0); Basophils % 0.2 % (0-1.3); Eosinophils % 0.8 % (0-4.4); Hemoglobin 8.8 g/dL (13.6-17.9); Lymphocytes % 11.6 % (15.3-44.8); MCH 30.5 pg (27.0-35.0); MCV 89.7 fL (80-100); MPV 8.5 fL (7.6-11.3); Neutrophils % 79.4 % (41.7-73.7); Platelets 146 thou/uL (152-406); RBC Red Blood Cell Count 2.89 M/uL (4.33-5.43); Red Cell Distribution Width 15.6 % (12.1-15.2)
[2024-11-16 05:46] LABS: Anion Gap 8.1 mEq/L (5.0-15.0); Magnesium 1.7 mg/dL (1.6-2.4); Phosphorus 2.7 mg/dL (2.5-4.9); Potassium 4.1 mEq/L (3.5-5.1)
[2024-11-16] MEDS: MAGNESIUM SULFATE 1 gm IVPB 1 GM/100 ML BAG IV ONE (06:30)
[2024-11-16] MEDS: NA CHLORIDE 0.9% 1,000 ML IV SCH (11:59)
--- NOTE | 2024-11-16 13:35 | P.PN ---
Subjective Date of Service: 11/16/24 Chief Complaint: NSTEMI, frequent falls Subjective: No chest pain or shortness of breath. No nausea or vomiting. No abdominal pain. No obvious bleeding. Looks comfortable in the bed. Right Shoulder Pain controlled. Objective: General appearance: Alert and comfortable CVS: Normal S1 and S2 Lungs: Clear to auscultation bilaterally Abdomen: Soft, bowel sounds present, no tenderness Extremities: No lower extremity edema Physical Examination - Vital Signs Temperature: 98.6 F Blood Pressure: 138/65 Pulse: 88 Respirations: 16 Pulse Ox (%): 99 - Studies Laboratory Data (last 24 hrs) 11/16/24 11/16/24 11/15/24 05:20 05:20 17:25 WBC 9.80 Hgb 8.8 L Hct 26.0 L Plt Count 146 L APTT 31.5 Sodium 140 Potassium 4.1 BUN 33 H Creatinine 1.68 H Glucose 110 H Phosphorus 2.7 Magnesium 1.7 Assessment And Plan - Plan Frequent falls NSTEMI Mildly displaced right humeral neck fracture Acute on Chronic Kidney Disease DM2 Alzheimer's disease Anxiety Bipolar disorder chronic diarrhea GERD Hyperlipidemia Hypertension Assessment and Plan Frequent falls NSTEMI -Orthostatics Vitals -ECHO WNL -Continuous telemetry -troponin 153.4, 142.8/183.6 -Consult cardiology- likely type 2, will need a follow up outpatient stress test Mildly displaced right humeral neck fracture -Sling to right arm -follow up with orthopedic outpatient -pain control Acute on Chronic Kidney Disease -Creatinine trending down -Monitor in a.m. labs -Gentle IVF DM2 -Accucheck with SSI Alzheimer's disease Anxiety Bipolar disorder chronic diarrhea GERD Hyperlipidemia Hypertension - Continue home medication as appropriate Plan discussed with family at bedside, discussed with nursing staff, probably discharge back to [facility] tomorrow if labs and vital stable Physician Review: Patient Assessed, Agree with Above Assessment and Plan
[2024-11-16] MEDS: cloNIDine HCL 0.1 MG TAB PO SCH (13:38)
[2024-11-17 04:52] LABS: Absolute Eosinophils 0.1 K/uL (0-0.5); Absolute Lymphocytes (CBC) 1.3 K/uL (0.7-4.9); Absolute Monocytes 0.7 K/uL (0.1-1.3); Absolute Neutrophil 6.4 K/uL (1.8-8.0); Basophils % 0.2 % (0-1.3); Hematocrit 23.7 % (39.6-49.0); Lymphocytes % 15.5 % (15.3-44.8); MCH 30.5 pg (27.0-35.0); MCHC 33.5 g/dL (32.0-36.0); MPV 8.8 fL (7.6-11.3); Monocytes % 8.5 % (3.3-12.3); Neutrophils % 74.8 % (41.7-73.7); Platelets 163 thou/uL (152-406); RBC Red Blood Cell Count 2.61 M/uL (4.33-5.43); Red Cell Distribution Width 15.8 % (12.1-15.2)
[2024-11-17 05:06] LABS: Anion Gap 6.3 mEq/L (5.0-15.0); Phosphorus 2.6 mg/dL (2.5-4.9); Potassium 4.3 mEq/L (3.5-5.1)
[2024-11-17 12:48] VITALS: BP 148/67
--- NOTE | 2024-11-17 13:19 | P.DS ---
Admission Date: 11/16/24 Discharge Date: 11/17/24 Disposition: ROUTINE DISCHARGE Discharge Condition: FAIR Reason for Admission: NSTEMI, frequent falls Brief History of Present Illness: Patient is 74 years of age admitted with a fall and non-STEMI Hospital Course: He was seen by cardiology and was cleared to be discharged with outpatient workup patient is mildly anemic with chronic renal insufficiency at the time of discharge she was alert oriented responsive cooperative vital signs all stable chest clear patient has a mildly displaced humeral neck fracture and is currently in a sling he is to follow-up with orthopedics as an outpatient otherwise stable to be discharged no new medications he is to take aspirin [id number] Vital Signs/Physical Exam: Temp Pulse Resp BP Pulse Ox 97.8 F 64 16 148/67 H 98 11/17/24 12:00 11/17/24 12:00 11/17/24 12:00 11/17/24 12:00 11/17/24 12:00 Laboratory Data at Discharge: WBC 8.60 thou/uL (4.3-10.9) 11/17/24 04:26 Hgb 8.0 g/dL (13.6-17.9) L D 11/17/24 04:26 Hct 23.7 % (39.6-49.0) L 11/17/24 04:26 Plt Count 163 thou/uL (152-406) 11/17/24 04:26 PT 13.3 SECONDS (10-13.0) H 11/14/24 09:20 INR 1.18 11/14/24 09:20 APTT 31.5 SECONDS (27.2-37.4) 11/15/24 17:25 Sodium 143 mEq/L (136-145) 11/17/24 04:26 Potassium 4.3 mEq/L (3.5-5.1) 11/17/24 04:26 BUN 32 mg/dL (7-18) H 11/17/24 04:26 Creatinine 1.59 mg/dL (0.70-1.30) H 11/17/24 04:26 Glucose 151 mg/dL (74-106) H 11/17/24 04:26 Phosphorus 2.6 mg/dL (2.5-4.9) 11/17/24 04:26 Magnesium 2.0 mg/dL (1.6-2.4) 11/17/24 04:26 Total Bilirubin 0.3 mg/dL (0.2-1.0) 11/14/24 09:20 AST 18 U/L (15-37) 11/14/24 09:20 ALT 21 U/L (16-61) 11/14/24 09:20 Alkaline Phosphatase 90 U/L (45-117) 11/14/24 09:20 Triglycerides 86 mg/dL (<150) 11/15/24 05:28 Cholesterol 99 mg/dL (<200) 11/15/24 05:28 HDL Cholesterol 48 mg/dL (40-60) 11/15/24 05:28 Cholesterol/HDL Ratio 2.06 11/15/24 05:28 Home Medications: Acetaminophen [Tylenol] 650 mg PO DAILY 07/10/24 Amlodipine Besylate [Norvasc] 5 mg PO DAILY 07/10/24 Atorvastatin Calcium [Lipitor] 40 mg PO BEDTIME 07/10/24 Cholestyramine (with Sugar) [Questran Packet] 4 gm PO DAILY 07/10/24 Divalproex ER [Depakote *ER] 250 mg PO BEDTIME 07/10/24 Donepezil HCl [Aricept] 23 mg PO BEDTIME 07/10/24 Escitalopram Oxalate [Lexapro] 20 mg PO DAILY 07/10/24 Hydralazine HCl 25 mg PO BID 07/10/24 Memantine HCl 10 mg PO BID 07/10/24 Omeprazole 20 mg PO DAILY 07/10/24 cloNIDine HCL [Clonidine HCl] 0.1 mg PO TID 07/10/24 Ascorbic Acid [Vitamin C] 500 mg PO DAILY 11/14/24 Insulin Glargine,Hum.rec.anlog [Lantus] 13 unit SQ DAILY 11/14/24 Losartan Potassium 25 mg PO DAILY 11/14/24 Tamsulosin [Flomax*] 0.4 mg PO DAILY 11/14/24 Aspirin [Adult Low Dose Aspirin EC] 81 mg PO DAILY 90 Days #90 tab 11/17/24 New Medications: Aspirin [Adult Low Dose Aspirin EC] 81 mg PO DAILY 90 Days #90 tab Followup: Marcela Sanchez MD [Primary Care Provider] - Abundio Le MD [ACTIVE - CAN ADMIT] -
[2024-11-17 16:30] VITALS: TEMP 98.1
--- NOTE | 2024-11-21 12:49 | EKG ---
Test Date: 2024-11-14 Test Time: 09:18:33 Guillotine Operator: PH MEASUREMENT RESULTS: Intervals: Rate: 56 [place]: 170 QRSD: 136 QT: 512 QTc: 494 Delta: P: 55 NY: 170 QRS: -43 T: 62 INTERPRETIVE STATEMENTS: Sinus bradycardia with premature atrial complexes Left axis deviation Right bundle branch block Abnormal ECG Compared to ECG 07/09/2024 16:37:06 Atrial premature complex(es) now present Sinus rhythm no longer present Myocardial infarct finding no longer present Electronically Signed On 11-21-24 12:33:33 CDT by Abundio Le
== END 2024-11-17 04:55 | disposition home or self-care (01) | DRG 281 ==
LOC: ER 08:39 → ERHOLD 12:28 → 2ND 15:58 → OBSVTOIN 11-16 11:03
PROVIDERS: ADMIT Family Medicine; ATTEND Internal Medicine Sleep Medicine
DX: I21.4 Non-ST elevation (NSTEMI) myocardial infarction (principal); F02.84 Dementia in other diseases classified elsewhere, unspecified severity, with anxiety; I13.0 Hypertensive heart and chronic kidney disease with heart failure and stage 1 through stage 4 chronic kidney disease, or unspecified chronic kidney disease; S42.211A Unspecified displaced fracture of surgical neck of right humerus, initial encounter for closed fracture; I50.9 Heart failure, unspecified; N18.9 Chronic kidney disease, unspecified; E11.22 Type 2 diabetes mellitus with diabetic chronic kidney disease; D63.1 Anemia in chronic kidney disease; G30.9 Alzheimer's disease, unspecified; I45.10 Unspecified right bundle-branch block; E78.5 Hyperlipidemia, unspecified; F31.9 Bipolar disorder, unspecified; K52.9 Noninfective gastroenteritis and colitis, unspecified; K21.9 Gastro-esophageal reflux disease without esophagitis; R29.6 Repeated falls; Z79.4 Long term (current) use of insulin; Z91.81 History of falling; Z79.899 Other long term (current) drug therapy
CPT/HCPCS: 36415; 70450; 71045; 72125; 80048; 80061; 80076; 81001; 82947; 83036; 83735; 83880; 84100; 84439; 84443; 84484; 85025; 85610; 85730; 93005; 93306; 97116; 97161; 99285; G0378; J3475; J7030

== ENCOUNTER 2025-03-31 10:50 | Emergency (ER) | payer OTHER ==
[2025-03-31 11:26] LABS: Absolute Lymphocytes (CBC) 1.3 K/uL (0.7-4.9); Hematocrit 27.4 % (39.6-49.0); Hemoglobin 9.0 g/dL (13.6-17.9); MCH 30.1 pg (27.0-35.0); MCHC 32.8 g/dL (32.0-36.0); MCV 91.7 fL (80-100); MPV 9.2 fL (7.6-11.3); Nucleated RBC Absolute Count 0.0 (0-0); Nucleated Red Blood Cells % 0.0 % (0-0); RBC Red Blood Cell Count 2.98 M/uL (4.33-5.43); White Blood Count 5.70 thou/uL (4.3-10.9)
[2025-03-31 11:51] LABS: ALT/SGPT 23 U/L (16-61); AST/SGOT 13 U/L (15-37); Albumin 2.9 g/dL (3.4-5.0); Albumin/Globulin Ratio 1.1 (1.1-1.8); Alkaline Phosphatase 91 U/L (45-117); Anion Gap 11.7 mEq/L (5.0-15.0); BUN Blood Urea Nitrogen 39 mg/dL (7-18); Globulin 2.6 g/dL (2.3-3.5); Glucose Level 145 mg/dL (74-106); Potassium 3.7 mEq/L (3.5-5.1); Troponin High Sensitivity 17.1 pg/mL (<58.9)
[2025-03-31 11:53] LABS: Bilirubin Indirect, Calculated 0.0 mg/dL (0.2-0.8)
--- NOTE | 2025-03-31 12:35 | EDPHYS ---
Physician Documentation [facility] Name: Leonides Bui Age: 75 yrs Sex: Male : 1950 Arrival Date: 03/31/2025 Time: 10:50 Bed 2 Private MD: ED Physician Chris Noel HPI: 03/31 11:17 This 75 yrs old Male presents to ER via EMS with complaints of hypotension and sp3 hypoglycemia. 11:17 74-year-old male from [facility] via EMS with history of Alzheimer's, bipolar sp3 disease, chronic diarrhea, CKD, GERD, hypertension presents with altered mental status at [facility]. Patient is on insulin and they are working. She did not eat enough. Blood sugar was 24 this morning. Patient received sugar packets at [facility] and EMS gave D25 to bring blood sugar up to 140 prior to arrival. Patient now at baseline as confirmed by family. Patient has no complaints whatsoever. ROS, history and physical limited secondary to dementia. However patient currently denies any headache, chest pain, shortness of breath, abdominal pain, vomiting, diarrhea, or any other signs or symptoms on limited ROS at this time.. Historical: - Allergies: 11:01 Bees; nh2 - PMHx: 11:01 Alzheimer's disease; Anxiety; Bipolar disorder; chronic diarrhea; CKD; DM2; GERD; nh2 Hyperlipidemia; Hypertension; - PSHx: 11:01 Spinal Fusion; nh2 - Immunization history:: Adult Immunizations unknown. - Infectious Disease History:: Denies. - Social history:: Smoking status: unknown. ROS: 11:20 Unable to obtain ROS due to baseline dementia, sp3 Exam: 11:20 Constitutional: This is a well developed, well nourished patient who is awake, alert, sp3 and in no acute distress. Head/Face: Normocephalic, atraumatic. Eyes: Pupils equal round and reactive to light, extra-ocular motions intact. Lids and lashes normal. Conjunctiva and sclera are non-icteric and not injected. Cornea within normal limits. Periorbital areas with no swelling, redness, or edema. Neck: Trachea midline, no thyromegaly or masses palpated, and no cervical lymphadenopathy. Supple, full range of motion without nuchal rigidity, or vertebral point tenderness. No Meningismus. Chest/axilla: Normal chest wall appearance and motion. Nontender with no deformity. No lesions are appreciated. Cardiovascular: Regular rate and rhythm with a normal S1 and S2. No gallops, murmurs, or rubs. Normal PMI, no JVD. No pulse deficits. Respiratory: Lungs have equal breath sounds bilaterally, clear to auscultation and percussion. No rales, rhonchi or wheezes noted. No increased work of breathing, no retractions or nasal flaring. Abdomen/GI: Soft, non-tender, with normal bowel sounds. No distension or tympany. No guarding or rebound. No evidence of tenderness throughout. Back: No spinal tenderness. No costovertebral tenderness. Full range of motion. Skin: Warm, dry with normal turgor. Normal color with no rashes, no lesions, and no evidence of cellulitis. MS/ Extremity: Pulses equal, no cyanosis. Neurovascular intact. Full, normal range of motion. 11:20 Neuro: Patient alert and not oriented but at baseline. Moves all extremities. No focal deficit noted grossly. , 11:27 ECG was reviewed by the Attending Physician. EKG demonstrates sinus bradycardia at 60 sp3 bpm with right bundle branch block nonspecific diffuse ST/T changes without evidence of acute ischemia. Vital Signs: 10:58 BP 95 / 61; Pulse 68; Resp 19; Temp 97(O); Pulse Ox 99% on R/A; Weight 68.04 kg; nh2 11:15 BP 101 / 67; Pulse 68; Resp 18; Pulse Ox 99% on R/A; nh2 12:15 BP 113 / 79; Pulse 64; Resp 18; Pulse Ox 100% on R/A; nh2 13:16 BP 124 / 60; Pulse 69; Resp 20; Temp 97.8; Pulse Ox 99% on R/A; nh2 13:46 BP 124 / 59; Pulse 66; Resp 14; Pulse Ox 99% on R/A; cm10 MDM: 11:13 Medical Screening Exam initiated sp3 11:25 Data reviewed: vital signs, nurses notes, EMS record, [facility] records, old medical sp3 records, lab test result(s), EKG. ED course: Repeat blood sugar at 139. We will obtain routine blood work and continue checking serial blood sugars to ensure stability. Vital signs are normal. Once stabilized, we will safely discharge patient back to [facility]. Differential diagnosis includes inadequate p.o. intake relative to insulin use, incorrect insulin dosage, or other metabolic process. I believe likely scenario is decreased p.o. intake.. 12:33 ED course: CKD consistent with prior lab results. Patient maintaining mentation and sp3 blood sugars. Will safely discharge him home at this time.. 03/31 10:59 Order name: glucometer results - FOR PT WITH NO ID; Complete Time: 11:13 aa5 03/31 11:14 Order name: Basic Metabolic Panel; Complete Time: 12:32 sp3 03/31 11:14 Order name: CBC with Diff; Complete Time: 12:32 sp3 03/31 11:14 Order name: LFT's; Complete Time: 12:32 sp3 03/31 11:14 Order name: Troponin HS; Complete Time: 12:32 sp3 03/31 11:20 Order name: Glucose, Ancillary Testing; Complete Time: 12:32 EDMS 03/31 11:22 Order name: Glucose, Ancillary Testing EDMS 03/31 12:50 Order name: Glucose, Ancillary Testing EDMS 03/31 11:14 Order name: EKG; Complete Time: 11:14 sp3 03/31 11:14 Order name: Cardiac monitoring; Complete Time: 11:27 sp3 03/31 11:14 Order name: EKG - Nurse/Tech; Complete Time: 11:27 sp3 03/31 11:14 Order name: IV Saline Lock; Complete Time: 11:27 sp3 03/31 11:14 Order name: Labs collected and sent; Complete Time: 11:27 sp3 Administered Medications: No medications were administered Point of Care Testing: Blood Glucose: 11:03 Blood Glucose: 145 mg/dL; nh2 Ranges: Critical Glucose Levels:Adult <50 mg/dl or >400 mg/dl <40 mg/dl or >180 mg/dl Disposition Summary: 03/31/25 12:34 Discharge Ordered Notes: Location: Home sp3 Condition: Stable sp3 Diagnosis - Hypoglycemia sp3 Followup: sp3 - With: Private Physician - When: Upon discharge from the Emergency Department - Reason: Continuance of care Discharge Instructions: - Discharge Summary Sheet sp3 - Preventing Hypoglycemia sp3 Forms: - Medication Reconciliation Form sp3 - Antibiotic Education sp3 - Prescription Opioid Use sp3 - Patient Portal Instructions sp3 - Leadership Thank You Letter sp3 Signatures: Dispatcher [employer] EDAK Chris Noel MD MD sp3 Ronn Sandoval Jr RN RN nh2 Corrections: (The following items were deleted from the chart) 11:00 11:00 GLUCATNOID ordered. [facility] E[facility] 11:25 11:20 Neuro: Patient alert and not oriented but at baseline. Moves all extremities. No sp3 focal deficit noted grossly. Repeat blood sugar at 139. He will obtain routine blood work and continue checking serial blood sugars to ensure stability. Vital signs are normal. Once stabilized, we will safely discharge patient back to [facility]. Differential diagnosis includes inadequate p.o. intake relative to insulin use, incorrect insulin dosage, or other metabolic process. I believe likely scenario is decreased p.o. intake., sp3
--- NOTE | 2025-03-31 12:35 | ER ---
Nurse's Notes [facility] Name: Leonides Bui Age: 75 yrs Sex: Male : 1950 Arrival Date: 03/31/2025 Time: 10:50 Bed 2 Private MD: Diagnosis: Hypoglycemia Presentation: 03/31 10:58 Chief complaint: Patient states: toned out from residential for a blood sugar of 21 nh2 and BP of 90/50. Coronavirus screen: At this time, the client does not indicate any symptoms associated with coronavirus-19. Ebola Screen: Patient denies travel to an Ebola-affected area in the 21 days before illness onset. No symptoms or risks identified at this time. Initial Sepsis Screen: Does the patient meet any 2 criteria? No. Patient's initial sepsis screen is negative. Does the patient have a suspected source of infection? No. Patient's initial sepsis screen is negative. Risk Assessment: Do you want to hurt yourself or someone else? Patient reports no desire to harm self or others. Onset of symptoms was March 31, 2025. Care prior to arrival: Medication(s) given: 25 Grams D10 and LR bolus. 10:58 Method Of Arrival: EMS: [facility] nh2 10:58 Acuity: ADRIANA 3 nh2 Triage Assessment: 11:01 General: Appears ill, Behavior is cooperative, drowsy, quiet. Pain: Denies pain. Neuro: nh2 Level of Consciousness is awake, Oriented to person. Cardiovascular: Patient's skin is warm and dry. Rhythm is sinus bradycardia. Respiratory: Airway is patent Trachea midline Respiratory effort is even, unlabored, Respiratory pattern is regular, symmetrical. GI: Abdomen is round non-distended. : No signs and/or symptoms were reported regarding the genitourinary system. Derm: Skin is intact, Skin is pink, warm \T\ dry. Musculoskeletal: Circulation, motion, and sensation intact. Historical: - Allergies: 11: Bees; nh2 - PMHx: 11: Alzheimer's disease; Anxiety; Bipolar disorder; chronic diarrhea; CKD; DM2; GERD; nh2 Hyperlipidemia; Hypertension; - PSHx: 11:01 Spinal Fusion; nh2 - Immunization history:: Adult Immunizations unknown. - Infectious Disease History:: Denies. - Social history:: Smoking status: unknown. Screenin:03 [facility] ED Fall Risk Assessment (Adult) History of falling in the last 3 months, nh2 including since admission No falls in past 3 months (0 pts) Confusion or Disorientation Yes (5 pts) Intoxicated or Sedated No (0 pts) Impaired Gait No (0 pts) Mobility Assist Device Used Yes (1 pt) Altered Elimination No (0 pt) Score/Fall Risk Level 3 or more points = High Risk Oriented to surroundings, Maintained a safe environment, Educated pt \T\ family on fall prevention, incl call for assistance when getting out of bed, Provided non-skid footwear, Hourly rounding (assess needs \T\ fall precautionary measures) done. Abuse screen: Denies threats or abuse. Denies injuries from another. Nutritional screening: No deficits noted. Tuberculosis screening: No symptoms or risk factors identified. Assessment: 11:03 Reassessment: see triage. nh2 11:56 Reassessment: Pt given lunch tray, pt being assisted with feeding by his , pt aa5 tolerating well. . 12:55 Reassessment: Patient and/or family updated on plan of care and expected duration. Pain nh2 level reassessed. Patient is alert, oriented x 3, equal unlabored respirations, skin warm/dry/pink. Patient states feeling better. Vital Signs: 10:58 BP 95 / 61; Pulse 68; Resp 19; Temp 97(O); Pulse Ox 99% on R/A; Weight 68.04 kg; nh2 11:15 BP 101 / 67; Pulse 68; Resp 18; Pulse Ox 99% on R/A; nh2 12:15 BP 113 / 79; Pulse 64; Resp 18; Pulse Ox 100% on R/A; nh2 13:16 BP 124 / 60; Pulse 69; Resp 20; Temp 97.8; Pulse Ox 99% on R/A; nh2 13:46 BP 124 / 59; Pulse 66; Resp 14; Pulse Ox 99% on R/A; cm10 ED Course: 10:55 Maintain EMS IV. Dressing intact. Good blood return noted. Site clean \T\ dry. Gauge \T\ nh 2 site: 20 G LAC. 10:57 Patient arrived in ED. aa5 10:57 Arm band placed on. aa5 10:58 Chris Nole MD is Attending Physician. sp3 10:58 Ronn Sandoval Jr, RN is Primary Nurse. nh2 11:00 Inserted saline lock: 20 gauge in right antecubital area, using aseptic technique. nh2 Blood collected. Flushed with 10 mL NS. 11:01 Triage completed. nh2 11:03 Patient has correct armband on for positive identification. Bed in low position. Call nh2 light in reach. Side rails up X 1. Provided Education on: using call light for assistance. 11:27 Client placed on continuous cardiac and pulse oximetry monitoring. NIBP monitoring nh2 applied. panel monitor on. Pulse ox on. NIBP on. 11:27 EKG done, by ED staff, reviewed by Chris Noel MD. nh2 13:48 No provider procedures requiring assistance completed. IV discontinued, intact, cm10 bleeding controlled, No redness/swelling at site. Pressure dressing applied. Administered Medications: No medications were administered Medication: 11:05 VIS not applicable for this client. nh2 Point of Care Testing: Blood Glucose: 11:03 Blood Glucose: 145 mg/dL; nh2 Ranges: Outcome: 12:34 Discharge ordered by . sp3 13:48 Discharged to residential. cm10 13:48 Condition: good 13:48 Discharge instructions given to residential, Instructed on discharge instructions, follow up and referral plans. Demonstrated understanding of instructions, follow-up care, 13:48 Patient left the ED. cm10 Signatures: Naa Greene, RN RN aa5 Chris Noel MD MD sp3 Ruth Ann Samuel, RN RN cm10 Ronn Sandoval Jr, RN RN nh2 Corrections: (The following items were deleted from the chart) 13:17 10:58 BP 95 / 61; Pulse 68bpm; Resp 19bpm; Pulse Ox 99% RA; 68.04 kg; nh2 nh2
[2025-03-31 14:20] VITALS: TEMP 97.8; O2SAT 99
[2025-03-31 14:21] VITALS: BP 124/59
== END 2025-03-31 13:48 | disposition home or self-care (01) ==
LOC: ER 10:50
DX: E11.649 Type 2 diabetes mellitus with hypoglycemia without coma (principal)
CPT/HCPCS: 36415; 80048; 80076; 82947; 84484; 85025; 93005; 99285